=== PATIENT | male | born 1945 | race Caucasian/White ===

== ENCOUNTER 2017-12-17 02:56 | Emergency (ER) | payer MEDICARE, OTHER, SELFPAY ==
[2017-12-17] VITALS (8 sets, daily range): BP systolic 106–162; BP diastolic 71–106; PULSE 83–97; RESP 16–28; TEMP 36.4; O2SAT 92–98; BMI 38.7
[2017-12-17] MEDS: Albuterol 2.5 MG/3 ML VIAL.NEB. INHALATION ×2 (03:27→03:41)
[2017-12-17] MEDS: Ipratropium/Albuterol Sulfate 3 ML AMPUL.NEB INHALATION (03:27)
--- NOTE | 2017-12-17 04:13 | ED.DCSUM_ITS ---
- ER Visit Summary Date of Service: 12/17/17 Chief Complaint: [] Shortness of breath with wheezing History of Present Illness: The patient is a 72 M COPD with wheezing over last 2 hours. [place] okay prior to sleep. Last albuterol at 9:30 PM yesterday. Comes in for wheezing treatment. No Significant cough Physical Examination: [] Vital signs reviewed General: Well-nourished well-developed Head: Normocephalic atraumatic Eyes: Pupils equal round and reactive to light extraocular movements intact ENT: TMs clear no hemotympanum no trauma Neck: Nontender full range of motion Cardiovascular: Regular rate rhythm no murmurs normal S1-S2 Respiratory: No distress wheezing throughout all lung archer chest nontender Abdomen: Soft nontender nondistended normal bowel sounds no masses Back: Nontender no CVA tenderness Extremities: Nontender active range of motion ?4 extremities no trauma Skin: Normal color no trauma Neuro alert oriented cranial nerves II through XII intact normal strength sensation reflexes Test Results: [] Emergency Department Course and Treatment: [] Given 3 albuterol nebulizer treatment and one Atrovent nebulizer treatment with almost complete resolution of the symptoms. Given prednisone and will continue this at home for the next 5 days. At this time I do not feel he needs antibiotics. I feel this is chronic COPD with bronchospasm Treatment Plan: [] Disposition: [] Impression: [] COPD with bronchospasm This note was generated with [employer] dictation software. It may contain incorrect words, spelling, and punctuation that were not noted in review of the chart prior to signing ED Disposition - Plan for ED Patient: Chief Complaint: Shortness of Breath [place] [facility] [Primary Care Provider] -
--- NOTE | 2017-12-17 04:13 | ED.DEP ---
ED Disposition - Plan for ED Patient: Disposition: Home or Assisted Living Chief Complaint: Shortness of Breath Instructions: ED COPD Flare Prescriptions: Prednisone [Deltasone] 60 mg PO DAILY #15 tab [facility] [[facility]] -
== END 2017-12-17 04:43 | disposition home or self-care (01) ==
PROVIDERS: Emergency Provider Emergency Medicine
DX: J44.9 Chronic obstructive pulmonary disease, unspecified (principal); J98.01 Acute bronchospasm; I25.10 Atherosclerotic heart disease of native coronary artery without angina pectoris; I10 Essential (primary) hypertension; I25.2 Old myocardial infarction; Z87.891 Personal history of nicotine dependence
CPT/HCPCS: 94640; 99284

== ENCOUNTER 2018-07-13 08:22 | Emergency (ER) | payer MEDICARE, OTHER, SELFPAY ==
[2018-07-13 08:23] VITALS: BP 198/91; PULSE 121; RESP 26; TEMP 36.3; O2SAT 86; BMI 39.7
--- NOTE | 2018-07-13 08:29 | EKG12_ITS ---
Test Reason : Blood Pressure : / mmHG Vent. Rate : 110 BPM Atrial Rate : 110 BPM P-R Int : 168 ms QRS Dur : 120 ms QT Int : 326 ms P-R-T Axes : 004 025 125 degrees QTc Int : 441 ms Sinus tachycardia Low voltage QRS Incomplete left bundle branch block Abnormal ECG Confirmed by YUVAL CHATMAN, ROGELIO ([id number]), school photograph editor ROJELIO MATHIAS ([id number] on 07/16/2018 2:39:00 PM Referred By: ROMELIA Confirmed By:ROGELIO BARAKAT MD
[2018-07-13 08:30] VITALS: PULSE 119; RESP 28
[2018-07-13] MEDS: Ipratropium/Albuterol Sulfate 3 ML AMPUL.NEB INHALATION (08:30)
--- NOTE | 2018-07-13 08:30 | ED.VISSUMM ---
- ER Visit Summary Date of Service: 07/13/18 Chief Complaint: [] Shortness of breath and cough for a few days History of Present Illness: The patient is a 73 M [] COPD MD x2 ejection fraction by his history about 30% reports he has had a cough and shortness of breath for a few days no chest pain no fever no abdominal pain or paresthesias no edema no orthopnea or PND he is on Proventil inhalers, his cardiovascular pulmonary status generally has been stable he indicates he simply began having increasing wheezing this is not uncommon for him his symptoms intensified this morning came in for evaluation, his current cardiac status has been stable and that he is now had no recent MIs he has no history of PE or DVT Physical Examination: [] Speaking in full sentences but has audible wheezing his pulse ox is 93% on 2 L his HEENT exam shows dry mucous membranes the neck is supple no obvious JVD the lungs reveal diffuse wheezing in all areas the heart tones reveal a rate of about 90 and a regular the abdomen is obese but soft and nontender lower extremities no sinus clubbing or edema neurologically is awake alert moving all 4 Test Results: [] Emergency Department Course and Treatment: [] Aggressive therapy aerosol screening labs EKG chest x-ray Patient's studies are all generally unremarkable no acute findings please see all those reports including chest x-ray and EKG no changes, on reevaluation his blood pressure spontaneously improved to 120/80 he speaking in full sentences he is awake and alert has no complaints we discussed admission he declined admission stating he felt better want to go home he schedule see his physicians at [place] tomorrow does not wish to be admitted understands the risk of sudden but still wants to go home is in the room with him he will be given Kenalog IM 40 mg he has always home meds and he will return for change in symptoms keep his appointments, on room air his pulse ox is 92% he speaking in full sentences and his breath sounds are markedly improved he has no signs of distress and again he is awake alert and wants to go home Treatment Plan: [] Disposition: [] Home stable declined admission Impression: [] Acute exacerbation of COPD improved This note was generated with [employer] dictation software. It may contain incorrect words, spelling, and punctuation that were not noted in review of the chart prior to signing ED Disposition - Plan for ED Patient: Chief Complaint: Shortness of Breath Referrals: [place] [Primary Care Provider] -
[2018-07-13 08:47] VITALS: O2SAT 92
[2018-07-13] MEDS: MethylPREDNISolone 125 MG/2 ML Vial IV (08:48)
--- NOTE | 2018-07-13 08:49 | RAD_ITS ---
STUDY: X-RAY CHEST REASON FOR EXAM: Male, 73 years old. Increasing shortness of breath. TECHNIQUE: Single AP portable view of the chest. COMPARISON: 16 Mar 2016 FINDINGS: The lungs are clear and expanded. There is no demonstrated pleural abnormality. Normal size heart. Normal mediastinum and mary beth. Normal visualized pulmonary arteries. Normal visualized aortic arch and descending thoracic aorta. Normal visualized thoracic spine. Normal visualized ribs, clavicles, and shoulders. There is no demonstrated abnormality of the visualized soft tissue structures of the upper abdomen. RAD/Chest 1 View (Portable) IMPRESSION: No evidence of acute cardiopulmonary process. Electronically Signed: Lorne Thakkar DO at 9:07 EDT , Service support ,
[2018-07-13 08:56] LABS: Absolute Lymphocyte Count 2.37 X10^3/ul (0.83-4.51); Absolute Neutrophil Count 6.7 X10^3/uL (2.0-7.7); Basophil# 0.02 X10^3/uL; Basophil% 0.2 % (0-1); Eosinophil# 0.61 X10^3/uL; Eosinophils% 5.7 % (0-5); Hematocrit 49.9 % (40-54); Hemoglobin 16.1 g/dl (13.0-16.5); Lymphocyte # 2.37 X10^3/ul (4.0); Lymphocyte % 22.3 % (19-41); Mean Corp Hgb Conc 32.3 g/gl (32-36); Mean Corpuscular Hgb 32.5 pg (27.0-32.0); Mean Corpuscular Volume 100.6 fL (80-94); Mean Platelet Vol. 9.6 fl (6.2-12.0); Monocyte# 0.96 X10^3/uL; Neutrophil # 6.66 X10^3/uL (2.7-7.7); Neutrophil % 62.6 % (47-70); Platelet Count 207 K/mm3 (150-450); RBC Distribution Width CV 13.6 % (11.6-14.6); RBC Distribution Width SD 50.1 fl (35.1-43.9); Red Blood Count 4.96 M/mm3 (4.6-6.2); White Blood Count 10.6 K/mm3 (4.4-11.0)
[2018-07-13 09:01] LABS: POSITIVE COUNT NO; POSITIVE DIFFERENTIAL NO; POSITIVE MORPHOLOGY NO
[2018-07-13 09:16] LABS: Anion Gap 6 (5-15); BUN 17 mg/dL (7-18); BUN/Creat Ratio 14.8 RATIO (10-20); Calcium,Total 8.7 mg/dL (8.5-10.1); Chloride 104 mmol/L (98-107); Creatinine, Serum 1.15 mg/dL (0.70-1.30); EST Glomerular Filtration Rate 66 mL/min (>60); Est Glom Filt Rate - Afr Amer 80 mL/min (>60); Estimated Creatinine Clearance 58.06 ml/min; Glucose 120 mg/dL (74-106); Potassium 4.5 mmol/L (3.5-5.1); Sodium Level 139 mmol/L (136-145)
[2018-07-13 09:30] VITALS: BP 127/73; PULSE 90; RESP 20; O2SAT 90
[2018-07-13 09:30] LABS: BNP,B-Type NATRIURETIC PEPTIDE 63.2 pg/mL (0-100)
--- NOTE | 2018-07-13 09:42 | ED.DEP ---
ED Disposition - Plan for ED Patient: Chief Complaint: Shortness of Breath Instructions: ED COPD Flare [facility] [[facility] - Additional Instructions: [facility] all your [facility], you were given 40 mg of Kenalog IM
[2018-07-13 09:53] VITALS: BP 129/74; PULSE 90; RESP 15; O2SAT 91
[2018-07-13] MEDS: Triamcinolone Acetonide 40 MG/ML Vial IM (09:53)
== END 2018-07-13 10:22 | disposition home or self-care (01) ==
PROVIDERS: Emergency Provider Emergency Medicine
DX: J44.1 Chronic obstructive pulmonary disease with (acute) exacerbation (principal); I25.2 Old myocardial infarction; I25.10 Atherosclerotic heart disease of native coronary artery without angina pectoris
CPT/HCPCS: 71045; 80048; 83880; 84484; 85025; 93005; 94640; 96372; 96374; 99284

== ENCOUNTER 2020-09-29 08:38 | Emergency (ER) | payer OTHER, MEDICARE, SELFPAY ==
[2020-09-29] VITALS (7 sets, daily range): BP systolic 130–188; BP diastolic 81–127; PULSE 64–82; RESP 18–24; TEMP 36.3; O2SAT 95–99; BMI 38.4
--- NOTE | 2020-09-29 08:56 | EKG12_ITS ---
Test Reason : DYSRHYTHMIA Blood Pressure : / mmHG Vent. Rate : 077 BPM Atrial Rate : 077 BPM P-R Int : 162 ms QRS Dur : 120 ms QT Int : 380 ms P-R-T Axes : - 121 degrees QTc Int : 430 ms Normal sinus rhythm Low voltage QRS Septal infarct (cited on or before 29-SEP-2020) ST & T wave abnormality, consider lateral ischemia Abnormal ECG Confirmed by FRANCIS JUAREZ MD ([id number]), index editor ALESSANDRA BOLANOS ([id number]) on 10/03/2020 1:03:34 PM Referred By: Confirmed By:FRANCIS JUAREZ MD
--- NOTE | 2020-09-29 08:58 | ED.VIS.GEN ---
History of Present Illness Chief Complaint: Shortness of Breath Informant: Patient Onset: Days - Several days Context: Gradual Onset Timing: Continuous Quality: Increased shortness of breath, orthopnea, swelling of extremities Location: Suspect cardiovascular Current Severity: Mild Maximum Severity: Moderate Worsened by: Supine in activity Relieved by: Nothing Associated Symptoms: No infectious respiratory symptoms Narrative: Patient is a 75-year-old male with history of COPD who quit smoking 13 years ago. He arrived by ambulance because of shortness of breath. Patient has no infectious symptoms. He denies fever, chills night sweats. He denies rhinorrhea, congestion, postnasal drainage or sore throat. He denies change or loss of taste or smell. He denies chest discomfort. He does report shortness of breath, dyspnea on exertion and orthopnea. Patient admits he discontinued his furosemide. He believes he has gained weight and he was unaware that he has swelling of his legs. He denies black or maroon stool. He denies history of PE or DVT. He had no contact with anyone that is been ill in the past month. Prior similar symptoms: Yes - Congestive heart failure Recent Illness/Hospitalization: No - Past Medical History (1) Congestive heart failure Status: Acute (2) Obstructive sleep apnea Status: Acute (3) COPD (chronic obstructive pulmonary disease) Status: Acute (4) CAD (coronary artery disease) Status: Chronic (5) Hypertension Status: Chronic (6) Myocardial infarct Status: Chronic Past Medical History - Allergies and Home Meds Allergies/Adverse Reactions: Allergies No Known Allergies Allergy (Verified 09/29/20 08:43) Primary Care Physician: [facility] [Primary Care Provider] - Prior records reviewed: Yes - Patient not compliant with CPAP machine Surgical History: noncontributory Lives: Alone Smoking Status: Former smoker Alcohol: None Drugs: None Review of Systems General: Denies: Chills, Fever Eyes: Denies: Visual changes - bilaterally, Blurred Vision - bilaterally ENT: Denies: Rhinorrhea, Sore throat Respiratory: Reports: Dyspnea, Dyspnea on exertion, Orthopnea. Denies: Cough, Sputum, Paroxysmal nocturnal dyspnea Gastrointestinal: Denies: Abdominal pain, Nausea, Vomiting, Diarrhea, Melena Genitourinary: Denies: Dysuria, Hematuria, Frequency Musculoskeletal: Denies: Myalgias, Arthralgias, Neck pain, Back pain, Swelling, Extremity Pain Skin: Denies: Rash, Wounds Neurological: Denies: Headache Psych: Denies: Depression, Anxiety Endocrine: Denies: Polyuria, Polydipsia Hematologic: Denies: Easy bruising Allergy: Denies: Uticaria Physical Exam Vital Signs/Narrative: Vital Signs Temp Pulse Resp BP Pulse Ox 09/29/20 08:39 97.3 F L 82 24 H 188/96 H 99 Inital Vital Signs reviewed: Yes General: Well nourished, Well developed, Obese, No Acute Distress Head: Normocephalic, Atraumatic Eyes: Perrl, EOMI, - - Junction is not injected. There is no drainage.. Negative for: Pale conjunctiva, Scleral icterus ENT: Moist mucous membranes, No rhinorrhea, TM's clear Neck: Supple, Nontender, No lymphadenopathy, No JVD Cardiovascular: Regular rate, Regular rhythm, No murmurs, Normal S1, Normal S2 Respiratory: Chest nontender, - - There is expiratory stridor noted. Patient has transmission of upper airway sounds to the lower airway. There may be and expiratory wheezing noted. There are no rales or rhonchi appreciated.. Negative for: No distress, CTA bilaterally Abdomen: Soft, Nontender, Nondistended, Normal bowel sounds Rectal: Deferred Back: Nontender, Normal Inspection Extremities: Nontender, Edema - Pitting edema 1+. Skin: No rash, No Trauma, Pallor. Negative for: Cyanosis, Diaphoresis, Jaundice Neurological: Alert, Oriented x3, Cranial nerves II-XII grossly intact, Normal Strength, Normal Sensation Psychological: Normal affect Diagnostic/Tx/Re-eval Chest X-Ray - ED: 2 View, Read by ED Physician, Normal, Heart, Lungs, Mediastinum, Bony Structures, No Acute Disease, - - Pacemaker/AICD left side. Wires are in proper position. Impressions Chest X-Ray 09/29/20 09:30 IMPRESSION: Hyperinflation. No acute abnormality is seen. Electronically Signed: Bam Chen, at 9:57 EST , Service support , 09/29/20 09:30 Chest PA and Lateral [RAD] Stat Laboratory Results 09/29/20 09/29/20 09/29/20 09:25 09:25 09:25 WBC 14.1 H RBC 4.87 Hgb 16.0 Hct 47.6 MCV 97.7 H MCH 32.9 H MCHC 33.6 RDW Std Deviation 47.1 H RDW Coeff of Ignacio 13.2 Plt Count 209 MPV 9.6 Immature Gran % (Auto) 0.400 Neut % (Auto) 66.6 Lymph % (Auto) 21.9 [place] % (Auto) 9.9 Eos % (Auto) 0.8 Baso % (Auto) 0.4 Absolute Neuts (auto) 9.4 H Absolute Lymphs (auto) 3.10 Nucleated RBC % 0 Sodium 141 Potassium 4.0 Chloride 106 Carbon Dioxide 32.0 Anion Gap 3 L BUN 19 H Creatinine 1.21 Estim Creat Clear Calc 53.56 Est GFR (MDRD) Af Amer 75 Est GFR (MDRD) Non-Af 62 BUN/Creatinine Ratio 15.7 Glucose 94 Calcium 8.7 Troponin I 0.024 B-Natriuretic Peptide 533.3 H White count is elevated which is a nonspecific marker. Creatinine is slightly elevated at 1.21 with a GFR of 62. Troponin is normal. BNP is elevated at 533 and consistent with CHF. Patient was treated with Lasix and Nitropaste. He was given a prescription for Lasix. He was instructed [facility] 5 [facility]. He also was instructed the importance of compliance with medication and diet. - EKG Initial EKG Interpretation: Sinus Rhythm - Normal sinus rhythm with ventricular rate 77. SC interval is 162 ms. Cures duration 120 ms. QT duration 380 ms. [place] is normal. There is decreased anterior forces noted. There is artifact as well as nonspecific ST-T wave changes noted in the lateral leads. There is criteria for low voltage. - Medical Decision Making With gradual onset of shortness of breath no respiratory infectious symptoms and admission that he has not been compliant with furosemide with orthopnea pedal edema suspect patient has exacerbation of his CHF/fluid overload state. Troponin was obtained to rule out ischemia. Chest x-ray was obtained to evaluate for other possible causes. In my opinion patient does not have Covid and is not a person under investigation. Patient clinically is in heart failure with fluid overload. Will administer Lasix in the emergency department and Nitropaste. Patient to be discharged. He has been instructed to take the medicine as prescribed by his physician. ED Disposition - Plan for ED Patient: Disposition: Home or Assisted Living Diagnosis: CHF exacerbation Instructions: ED Heart Failure, Congestive (CHF) Prescriptions: Furosemide [Lasix] 40 mg PO DAILY #30 tab Prescription Printed [facility] [[facility]] - 3-5 Days
--- NOTE | 2020-09-29 09:30 | RAD_ITS ---
STUDY: X-RAY CHEST REASON FOR EXAM: Male, 75 years old. SOB- seems wore today. Audible wheezing. -- HX AK X2, COPD and Emphysema TECHNIQUE: PA and lateral views of the chest. COMPARISON: Comparison is made with prior study of 07/13/2018. FINDINGS: EKG electrodes are seen. Hyperinflation. There is no demonstrated pleural abnormality. Normal size heart. A left-sided unipolar pacemaker is present. Normal mediastinum and mary beth. Normal visualized pulmonary arteries. Normal visualized aortic arch and descending thoracic aorta. There is demineralization of the osseous structures. Loss of height of a mid dorsal vertebrae. Normal visualized ribs, clavicles, and shoulders. There is no demonstrated abnormality of the visualized soft tissue structures of the upper abdomen. RAD/Chest PA and Lateral IMPRESSION: Hyperinflation. No acute abnormality is seen. Electronically Signed: Bam Chen, at 9:57 EST , Service support ,
[2020-09-29 09:33] LABS: Absolute Neutrophil Count 9.4 X10^3/uL (2.0-7.7); Basophil# 0.05 X10^3/uL; Basophil% 0.4 % (0-1); Eosinophil# 0.11 X10^3/uL; Eosinophils% 0.8 % (0-5); Hematocrit 47.6 % (40-54); Lymphocyte % 21.9 % (19-41); Mean Corp Hgb Conc 33.6 g/dL (32-36); Mean Corpuscular Hgb 32.9 pg (27.0-32.0); Mean Corpuscular Volume 97.7 fL (80-94); Mean Platelet Vol. 9.6 fl (6.2-12.0); Monocyte% 9.9 % (0-10); NRBC Flagged by Analyzer 0 % (0-5); Neutrophil # 9.41 X10^3/uL (2.7-7.7); Neutrophil % 66.6 % (47-70); Platelet Count 209 K/mm3 (150-450); RBC Distribution Width CV 13.2 % (11.6-14.6); RBC Distribution Width SD 47.1 fl (35.1-43.9); Red Blood Count 4.87 M/mm3 (4.6-6.2); White Blood Count 14.1 K/mm3 (4.4-11.0)
[2020-09-29 09:50] LABS: BNP,B-Type NATRIURETIC PEPTIDE 533.3 pg/mL (0-100)
[2020-09-29 09:51] LABS: Anion Gap 3 (5-15); BUN 19 mg/dL (7-18); BUN/Creat Ratio 15.7 RATIO (10-20); Calcium,Total 8.7 mg/dL (8.5-10.1); Chloride 106 mmol/L (98-107); Creatinine, Serum 1.21 mg/dL (0.70-1.30); EST Glomerular Filtration Rate 62 mL/min (>60); Est Glom Filt Rate - Afr Amer 75 mL/min (>60); Estimated Creatinine Clearance 53.56 ml/min; Glucose 94 mg/dL (74-106); Sodium Level 141 mmol/L (136-145)
[2020-09-29] MEDS: Furosemide 40 MG/4 ML Vial IV (11:20)
[2020-09-29] MEDS: Nitroglycerin Oint 1 INCH PACKET TD (11:33)
== END 2020-09-29 11:35 | disposition home or self-care (01) ==
PROVIDERS: Emergency Provider Emergency Medicine
DX: I11.0 Hypertensive heart disease with heart failure (principal); I50.9 Heart failure, unspecified; Z91.19 Patient's noncompliance with other medical treatment and regimen; I25.2 Old myocardial infarction; G47.33 Obstructive sleep apnea (adult) (pediatric); I25.10 Atherosclerotic heart disease of native coronary artery without angina pectoris; J44.9 Chronic obstructive pulmonary disease, unspecified; Z87.891 Personal history of nicotine dependence
CPT/HCPCS: 71046; 80048; 83880; 84484; 85025; 93005; 96374; 99285; A4216; J1940

== ENCOUNTER 2021-03-03 17:47 | Observation (INO) | payer OTHER, MEDICARE, SELFPAY ==
[2020-09-29 08:39] VITALS: BMI 38.4
[2021-03-03 17:49] VITALS: BP 161/80; PULSE 94; RESP 18; TEMP 36.8; O2SAT 95; BMI 38.4
--- NOTE | 2021-03-03 17:54 | EKG12_ITS ---
Test Reason : CP Blood Pressure : / mmHG Vent. Rate : 092 BPM Atrial Rate : 092 BPM P-R Int : 174 ms QRS Dur : 116 ms QT Int : 368 ms P-R-T Axes : -28 -10 133 degrees QTc Int : 455 ms Sinus rhythm with Premature atrial complexes Septal infarct , age undetermined ST & T wave abnormality, consider lateral ischemia Abnormal ECG Confirmed by LARRY CHATMAN, FRANCIS ([id number]), deputy editor in chief LUDIN KHALIL ([id number]) on 03/06/2021 1:01:43 PM Referred By: SWEETIE/DANIELA Confirmed By:FRANCIS JUAREZ MD
[2021-03-03 18:11] LABS: Absolute Lymphocyte Count 1.09 X10^3/uL (0.83-4.51); Absolute Neutrophil Count 4.8 X10^3/uL (2.0-7.7); Basophil# 0.03 X10^3/uL; Basophil% 0.4 % (0-1); Eosinophils% 1.4 % (0-5); Hematocrit 51.8 % (40-54); Hemoglobin 16.9 g/dL (13.0-16.5); Lymphocyte # 1.09 X10^3/ul (0.83-4.51); Mean Corp Hgb Conc 32.6 g/dL (32-36); Mean Corpuscular Hgb 32.4 pg (27.0-32.0); Mean Corpuscular Volume 99.4 fL (80-94); Mean Platelet Vol. 9.5 fl (6.2-12.0); Monocyte# 1.18 X10^3/uL; Monocyte% 16.2 % (0-10); NRBC Flagged by Analyzer 0 % (0-5); Neutrophil # 4.84 X10^3/uL (2.7-7.7); Neutrophil % 66.6 % (47-70); Platelet Count 188 K/mm3 (150-450); RBC Distribution Width CV 12.4 % (11.6-14.6); RBC Distribution Width SD 46.4 fl (35.1-43.9); Red Blood Count 5.21 M/mm3 (4.6-6.2); White Blood Count 7.3 K/mm3 (4.4-11.0)
--- NOTE | 2021-03-03 18:18 | RAD_ITS ---
STUDY: X-RAY CHEST REASON FOR EXAM: Male, 75 years old. chest pain TECHNIQUE: Single AP portable view of the chest. COMPARISON: 09/29/2020. FINDINGS: The lungs are clear and expanded. There is no demonstrated pleural abnormality. Normal size heart. Pacemaker on the left. Normal mediastinum and mary beth. Normal visualized pulmonary arteries. Normal visualized aortic arch and descending thoracic aorta. Normal visualized thoracic spine. Normal visualized ribs, clavicles, and shoulders. There is no demonstrated abnormality of the visualized soft tissue structures of the upper abdomen. RAD/Chest 1 View (Portable) IMPRESSION: Normal x-ray examination of the chest. Electronically Signed: Eleanor Reyes MD at 19:19 EDT Tel , Service support ,
--- NOTE | 2021-03-03 18:18 | EDS_ITS ---
HPI History of Present Illness Chief Complaint: Shortness of Breath Narrative Narrative: 75-year-old male with history of [place], cardiac stents, CHF, hypertension, COPD presenting with chest pressure and shortness of breath which lasted about 30 minutes. He states that he typically does get a little short of breath with his COPD but does not usually have chest pressure. Patient states he is currently awaiting an office visit from the [place] in the next week and a half or so. He also has a cardiology visit after that. Patient has no fever or chills. He has no nausea or vomiting. He is eating and drinking normally. He states he took 2 350 mg tab of aspirin today. He currently has no chest pain or shortness of breath. [facility] Medical History (Updated 03/03/21 @ 21:37 by Sharee Lee) COPD (chronic obstructive pulmonary disease) CPAP (continuous positive airway pressure) dependence Former smoker ICD (implantable cardioverter-defibrillator) in place Myocardial infarct Home Medications albuterol sulfate [Proventil HFA] 1 - 2 puff IH Q2H PRN 03/16/16 [History Last Taken 03/03/21 15:00] aspirin 81 mg PO DAILY@0800 03/16/16 [History Last Taken 03/03/21] budesonide-formoterol [Symbicort] 2 puff INHALATION BID 03/16/16 [History Last Taken 03/03/21] rosuvastatin 5 mg PO QHS 12/17/17 [History Last Taken 03/03/21] spironolactone 25 mg PO DAILY 12/17/17 [History Last Taken 03/03/21] lisinopril 10 mg PO BID 03/03/21 [History Last Taken 03/03/21] metoprolol succinate 50 mg PO BID 03/03/21 [History Last Taken 03/03/21] Allergy/AdvReac Type Severity Reaction Status Date / Time No Known Allergies Allergy Verified 03/03/21 17:48 Family History (Updated 03/03/21 @ 21:[address] Amanuel Roach MD) Mother Aneurysm Surgical History (Updated 03/03/21 @ 21:37 by Sharee Lee) History of cholecystectomy History of colectomy History of coronary artery stent placement Social History Smoking Status: Former smoker ROS ROS ED Constitutional Constitutional ED: Denies chills, fever(s) or sweats Eyes Eyes: Denies blurry vision or change in vision ENT ENT ED: Denies ear pain, rhinorrhea or sore throat Cardiovascular Cardiovascular: Reports chest pain and racing heartbeat; Denies palpitations Respiratory/Chest Respiratory/Chest: Reports dyspnea; Denies cough or sputum Gastrointestinal Gastrointestinal: Denies abdominal pain, constipation, diarrhea or vomiting Genitourinary Genitourinary ED: Denies dysuria, hematuria or urinary frequency Musculoskeletal Musculoskeletal: Denies arthralgias, myalgias or neck pain Integumentary Denies abscess, Abrasions or rash Neurologic Neurologic: Denies headache(s), paresthesias or weakness Psychiatric Psychiatric: Denies anxiety, depression, suicidal ideation or suicidal thoughts Endocrine Endocrinology: Denies polydipsia or polyuria EXAM Physical Exam Const Vital Signs: 03/03/21 17:49 03/03/21 17:54 03/03/21 18:31 Temperature 98.3 F Temperature Source Temporal Pulse Rate 94 Respiratory Rate 18 Respiratory Effort Normal Respiratory Depth Normal Respiratory Pattern Normal Blood Pressure 161/80 H Blood Pressure Mean 107 Pulse Ox 95 Oxygen Delivery Method Room Air Room Air Nasal Cannula 03/03/21 20:08 Temperature 98.5 F Temperature Source Temporal Pulse Rate 79 Respiratory Rate 14 Respiratory Effort Respiratory Depth Respiratory Pattern Blood Pressure 159/94 H Blood Pressure Mean 115 Pulse Ox 93 Oxygen Delivery Method Room Air Positive obese General Appearance ED: NAD; Negative for pallor Nutritional Appearance: obese HEENT Reports normocephalic, head/scalp atraumatic and moist mucous membranes normocephalic and atraumatic Eyes PERRL and EOMs intact bilaterally Neck no lymphadenopathy and supple Chest Wall inspection of chest normal and palpation of chest normal Resp normal respiratory effort and clear to auscultation bilaterally Auscultation: Negative for rales, rhonchi or wheezes Cardio regular rate and regular rhythm GI normal to inspection, nondistended, normoactive bowel sounds and non-distended Auscultation: normoactive bowel sounds Palpation: soft Narrative: Deferred Back/Spine no CVA tenderness General Back: Negative for CVA tenderness Cervical Spine: Negative for cervical spine tenderness Extremity normal to inspection General Extremety ED: Yes edema and tenderness General Extremity: edema Neuro oriented x3 and CN's II-XII intact bilaterally Sensorium / Orientation: alert Motor Exam: strength 5/5 throughout Psych mental status grossly normal Attitude: No agitated Skin no rashes or lesions noted and no wounds General Skin Exam: Negative for jaundice or pallor Heart Score History: Moderately Suspicious ECG: Normal Age: >/= 65 years Risk Factors: >/= 3 Risk Factors or History of CAD Troponin: </= Normal Limit Score: 5 MDM MDM MDM Narrative Medical decision making narrative: 75-year-old male presenting with chest pain. He has a heart score of 5. He had chest x-ray is interpreted by myself to show no acute cardiopulmonary process. Radiology does agree. EKG is sinus rhythm at [address] changes. There is no significant interval change from previous EKG 29 September 2020. Lab work shows no leukocytosis, hemoglobin hematocrit are stable platelets 188 troponin is negative.Given patient's story and heart score I will admit him for further evaluation. Impression: 1. Chest pain 2. Dyspnea Lab Data Labs: Laboratory Results - last 24 hr 03/03/21 03/03/21 17:50 17:50 WBC 7.3 RBC 5.21 Hgb 16.9 H Hct 51.8 MCV 99.4 H MCH 32.4 H MCHC 32.6 RDW Std Deviation 46.4 H RDW Coeff of Ignacio 12.4 Plt Count 188 MPV 9.5 Immature Gran % (Auto) 0.400 Neut % (Auto) 66.6 Lymph % (Auto) 15.0 L [place] % (Auto) 16.2 H Eos % (Auto) 1.4 Baso % (Auto) 0.4 Absolute Neuts (auto) 4.8 Absolute Lymphs (auto) 1.09 Nucleated RBC % 0 Sodium 142 Potassium 3.8 Chloride 106 Carbon Dioxide 30.0 Anion Gap 6 BUN 17 Creatinine 1.40 H Estim Creat Clear Calc 46.29 Est GFR (MDRD) Af Amer 64 Est GFR (MDRD) Non-Af 53 L BUN/Creatinine Ratio 12.1 Glucose 87 Calcium 8.4 L Troponin I < 0.015 Radiography Diagnostic Testing: Radiology Impression Chest X-Ray 03/03/21 18:18 IMPRESSION: Normal x-ray examination of the chest. Electronically Signed: Eleanor Reyes MD at 19:19 EDT Tel , Service support , Discharge Plan Disposition Disposition: Acute Care Hospital [facility] Discharge Date/Time: 03/03/21 20:58
[2021-03-03 18:31] VITALS: O2SAT 93
[2021-03-03 18:32] LABS: Anion Gap 6 (5-15); BUN 17 mg/dL (7-18); BUN/Creat Ratio 12.1 RATIO (10-20); Calcium,Total 8.4 mg/dL (8.5-10.1); Chloride 106 mmol/L (98-107); EST Glomerular Filtration Rate 53 mL/min (>60); Est Glom Filt Rate - Afr Amer 64 mL/min (>60); Estimated Creatinine Clearance 46.29 ml/min; Glucose 87 mg/dL (74-106); Potassium 3.8 mmol/L (3.5-5.1); Sodium Level 142 mmol/L (136-145)
[2021-03-03 20:08] VITALS: BP 159/94; PULSE 79; PULSE 81; RESP 14; RESP 18; TEMP 36.9; O2SAT 93; O2SAT 94
--- NOTE | 2021-03-03 20:21 | PCM.HP.STD ---
[facility] - General General Date of Admission: 03/03/21 HPI Narrative TRINY CHAND, is a 75 M with a significant history of COPD; heart failure with ICD; CAD status post RCA stent and mid circumflex stents who presents to the emergency department with a transient substernal chest pain that occurred on the same day of presentation. His chest pain was substernal. He described as discomforts. It occurred while patient was sitting down resting. The chest pain lasted for about 3 to 4 minutes. The chest pain was nonradiating. He denies any nausea vomiting or diaphoresis with the chest pain. He has chronic shortness of breath with exertion that he attributes to his COPD. He had some headache at home and he took aspirin for it. [facility] Medical History COPD (chronic obstructive pulmonary disease) CPAP (continuous positive airway pressure) dependence Former smoker ICD (implantable cardioverter-defibrillator) in place Myocardial infarct Home Medications albuterol sulfate [Proventil HFA] 1 - 2 puff IH Q2H PRN 03/16/16 [History Last Taken 03/03/21 15:00] aspirin 81 mg PO DAILY@0800 03/16/16 [History Last Taken 03/03/21] budesonide-formoterol [Symbicort] 2 puff INHALATION BID 03/16/16 [History Last Taken 03/03/21] rosuvastatin 5 mg PO QHS 12/17/17 [History Last Taken 03/03/21] spironolactone 25 mg PO DAILY 12/17/17 [History Last Taken 03/03/21] lisinopril 10 mg PO BID 03/03/21 [History Last Taken 03/03/21] metoprolol succinate 50 mg PO BID 03/03/21 [History Last Taken 03/03/21] Allergy/AdvReac Type Severity Reaction Status Date / Time No Known Allergies Allergy Verified 03/03/21 17:48 Family History Mother Aneurysm Surgical History History of cholecystectomy History of colectomy History of coronary artery stent placement Social History Smoking Status: Former smoker ROS ROS Narrative 12 point review of system is negative except as stated in HPI. Vital Signs Vital Signs Vital Signs: 03/03/21 17:49 03/03/21 17:54 03/03/21 18:31 Temperature 98.3 F Temperature Source Temporal Pulse Rate 94 Respiratory Rate 18 Respiratory Effort Normal Respiratory Depth Normal Respiratory Pattern Normal Blood Pressure 161/80 H Blood Pressure Mean 107 Pulse Ox 95 Oxygen Delivery Method Room Air Room Air Nasal Cannula 03/03/21 20:08 Temperature 98.5 F Temperature Source Temporal Pulse Rate 79 Respiratory Rate 14 Respiratory Effort Respiratory Depth Respiratory Pattern Blood Pressure 159/94 H Blood Pressure Mean 115 Pulse Ox 93 Oxygen Delivery Method Room Air Physical Exam Narrative Alert and oriented x3 Nontraumatic; normocephalic Lung clear to auscultate Heart sounds S1-S2. No murmur, gallop or rubs. Abdomen bowel sounds present soft, nontender nondistended Extremity without edema cyanosis or clubbing. Lab / Micro Data Result Diagrams: 03/03/21 17:50 03/03/21 17:50 Labs: Laboratory Results - last 24 hr 03/03/21 03/03/21 17:50 17:50 WBC 7.3 RBC 5.21 Hgb 16.9 H Hct 51.8 MCV 99.4 H MCH 32.4 H MCHC 32.6 RDW Std Deviation 46.4 H RDW Coeff of Ignacio 12.4 Plt Count 188 MPV 9.5 Immature Gran % (Auto) 0.400 Neut % (Auto) 66.6 Lymph % (Auto) 15.0 L Calloway % (Auto) 16.2 H Eos % (Auto) 1.4 Baso % (Auto) 0.4 Absolute Neuts (auto) 4.8 Absolute Lymphs (auto) 1.09 Nucleated RBC % 0 Sodium 142 Potassium 3.8 Chloride 106 Carbon Dioxide 30.0 Anion Gap 6 BUN 17 Creatinine 1.40 H Estim Creat Clear Calc 46.29 Est GFR (MDRD) Af Amer 64 Est GFR (MDRD) Non-Af 53 L BUN/Creatinine Ratio 12.1 Glucose 87 Calcium 8.4 L Troponin I < 0.015 Radiology Impression Chest X-Ray 03/03/21 18:18 IMPRESSION: Normal x-ray examination of the chest. Electronically Signed: Eleanor Reyes MD at 19:19 EDT Tel , Service support , Assessment & Plan Assessment/Plan (1) Chest pain: QUALIFIERS: Chest pain type: unspecified Qualified Code(s): R07.9 - Chest pain, unspecified (2) Congestive heart failure: QUALIFIERS: Heart failure chronicity: chronic Heart failure type: unspecified Qualified Code(s): I50.9 - Heart failure, unspecified (3) Hypertension: QUALIFIERS: Hypertension type: essential hypertension Qualified Code(s): I10 - Essential (primary) hypertension (4) Systolic congestive heart failure with reduced left ventricular function, NYHA class 3: PLAN: With hx of CAD with history of stents. Place on a monitored bed at PCU Actual CXR image was independently visualized. No acute cardiopulmonary process was noted. Permanent pacemaker/ICD noted on chest x-ray. Actual EKG tracing was independently visualized. EKG tracing showed incomplete bundle branch block and septal infarct unchanged from previous. ASA 81 mg p.o. daily ordered We will check lipid panel. Initial troponin was negative serial cardiac enzymes ordered Stat EKG as needed for chest pain Chemical stress test in the AM if the cardiac enzymes are negative. Of note patient has dyspnea on exertion and will be unable to tolerate treadmill stress test. Old records reviewed showed that echocardiogram was done on 03/17/2016.?. Ejection fraction at time was 35%. Echocardiogram ordered. Hypertension Blood pressure is not within goal Lisinopril; metoprolol and Aldactone continued. Trend blood pressure and adjust blood pressure medications. Visit Charges OBSV E&M: 11020 Initial observation care L3
[2021-03-03] MEDS: Acetaminophen 500 MG Tablet 1000 MG PO (20:23)
--- NOTE | 2021-03-03 20:27 | NURSING ---
[facility]IED CALLING [facility] TO SEE ABOUT ADMISS[facility]. I WAS TRANSFERRED AND THE PHONE JUST KEPT RINGING AND EVENTUALLY HUNG UP. WILL TRY CALLING AGAIN
[2021-03-03 20:57] VITALS: BMI 39.3
--- NOTE | 2021-03-03 20:57 | EKG12_ITS ---
Test Reason : AM EKG Blood Pressure : / mmHG Vent. Rate : 076 BPM Atrial Rate : 076 BPM P-R Int : 172 ms QRS Dur : 126 ms QT Int : 408 ms P-R-T Axes : -12 -17 119 degrees QTc Int : 459 ms Normal sinus rhythm Non-specific intra-ventricular conduction block T wave abnormality, consider lateral ischemia Abnormal ECG When compared with ECG of 03-MAR-2021 21:29, MANUAL COMPARISON REQUIRED, DATA IS UNCONFIRMED Confirmed by LARRY CHATMAN, FRANCIS ([id number]), fashion editor LUDIN KHALIL ([id number]) on 03/07/2021 8:53:25 AM Referred By: DR ROSAS Confirmed By:FRANCIS JUAREZ MD
[2021-03-03 20:59] VITALS: BP 157/82; PULSE 86; RESP 16; TEMP 37.7; O2SAT 94
[2021-03-03 21:00] VITALS: O2SAT 95
[2021-03-03 21:46] VITALS: PULSE 88
[2021-03-04] VITALS (8 sets, daily range): BP systolic 128–152; BP diastolic 72–92; PULSE 76–94; RESP 16–20; TEMP 36.6–36.9; O2SAT 92–94
[2021-03-04] MEDS: Acetaminophen 325 MG Tablet 650 MG PO ×2 (02:23→11:07)
--- NOTE | 2021-03-04 03:11 | ECHOCS_ITS ---
Reason For Study: Dyspnea/SOB Procedure This was a 2D Doppler, Color Flow transthoracic echocardiogram. Contrast injection was performed. The study was technically difficult. Exam performed in department. Left Ventricle Normal LV size. The estimated ejection fraction is 35 %. Moderately severe segmental systolic dysfunction (see wall motion). Stage 1 diastolic dysfunction. Inferior Irwin : Hypokinetic. Mid- Inferior: Akinetic. Infero-Basal: Akinetic. Posterior-Basal: Hypokinetic. Mid-Posterior: Hypokinetic. Mid-Anterior : Normal. Basal anteroseptal: Normal. Right Ventricle Normal RV size. ICD or pacer leads identified within the right ventricle. Normal systolic function. Atria Normal left atrium. Normal right atrium. Tricuspid Valve Normal tricuspid valve. Aortic Valve The aortic valve is not well visualized. Pulmonic Valve The pulmonic valve is not well visualized. Great Vessels Normal aortic root. The pulmonary artery is normal size. Normal inferior vena cava. Pericardium/Pleural No pericardial effusion. Medication Diluted definity 4ml given slow IV push to enhance endocardial definition. MMode/2D Measurements & Calculations LVIDd: 5.4 cm IVSd: 1.3 cm Ao root diam: 3.7 cm LVIDs: 4.2 cm LVPWd: 1.2 cm RVDd: 3.1 cm FS: 21.8 % LAV(MOD-bp): 44.6 ml LA A4 area: 15.1 cm2 LA dimension(2D): 4.6 cm LAV(MOD-bp) Indexed: 19.1 ml/m2 LAV(MOD-sp2): 52.3 ml LAV(MOD-sp4): 29.8 ml RA A4 area: 14.1 cm2 Doppler Measurements & Calculations MV E max yadiel: 72.9 cm/sec Lat Peak E' Yadiel: 8.0 cm/sec Med Peak E' Yadiel: 3.4 cm/sec MV A max yadiel: 111.7 cm/sec E/E' lat: 9.2 E/E' med: 21.5 MV E/A: 0.65 Ao V2 max: 151.3 cm/sec LV V1 max: 108.2 cm/sec PA V2 max: 80.3 cm/sec Ao max P.3 mmHg LV V1 max P.7 mmHg Ao V2 mean: 110.0 cm/sec Ao mean P.3 mmHg Ao V2 VTI: 29.3 cm ECHO/Echo Complete W/ Contrast Interpretation Summary The estimated ejection fraction is 35 %. Moderately severe segmental systolic dysfunction (see wall motion). Stage 1 diastolic dysfunction. Contrast injection was performed. Compared to previous study, the left ventricu lar systolic function is the same.. Ordering Physician: Amanuel Roach Referring Physician: [facility] Performed By: Lauren Llamas RDCS, RVT
--- NOTE | 2021-03-04 05:00 | EKG12_ITS ---
Test Reason : CP ADMIT Blood Pressure : / mmHG Vent. Rate : 079 BPM Atrial Rate : 079 BPM P-R Int : 172 ms QRS Dur : 124 ms QT Int : 392 ms P-R-T Axes : -14 -21 121 degrees QTc Int : 449 ms Normal sinus rhythm ST & T wave abnormality, consider lateral ischemia Abnormal ECG When compared with ECG of 03-MAR-2021 17:54, MANUAL COMPARISON REQUIRED, DATA IS UNCONFIRMED Confirmed by LARRY CHATMAN, FRANCIS ([id number]), photo editor LUDIN KHALIL ([id number]) on 03/07/2021 8:55:11 AM Referred By: DR CURIEL Confirmed By:FRANCIS JUAREZ MD
[2021-03-04] MEDS: Lisinopril 10 MG Tablet PO (05:54)
[2021-03-04] MEDS: Aspirin 81 MG TAB.CHEW PO (05:54)
[2021-03-04 06:54] LABS: Absolute Lymphocyte Count 1.54 X10^3/uL (0.83-4.51); Absolute Neutrophil Count 4.9 X10^3/uL (2.0-7.7); Basophil# 0.03 X10^3/uL; Basophil% 0.4 % (0-1); Eosinophil# 0.05 X10^3/uL; Eosinophils% 0.6 % (0-5); Hematocrit 48.7 % (40-54); Hemoglobin 15.7 g/dL (13.0-16.5); Lymphocyte # 1.54 X10^3/ul (0.83-4.51); Lymphocyte % 19.6 % (19-41); Mean Corp Hgb Conc 32.2 g/dL (32-36); Mean Corpuscular Hgb 31.7 pg (27.0-32.0); Mean Corpuscular Volume 98.2 fL (80-94); Mean Platelet Vol. 9.8 fl (6.2-12.0); Monocyte# 1.38 X10^3/uL; Monocyte% 17.5 % (0-10); NRBC Flagged by Analyzer 0 % (0-5); Neutrophil # 4.85 X10^3/uL (2.7-7.7); Neutrophil % 61.6 % (47-70); Platelet Count 178 K/mm3 (150-450); RBC Distribution Width CV 12.7 % (11.6-14.6); RBC Distribution Width SD 46.2 fl (35.1-43.9); Red Blood Count 4.96 M/mm3 (4.6-6.2); White Blood Count 7.9 K/mm3 (4.4-11.0)
[2021-03-04] MEDS: Albuterol 2.5 MG/3 ML VIAL.NEB. INHALATION (07:07)
[2021-03-04] MEDS: Budesonide Respules 0.5 MG/2 ML AMPUL.NEB. INHALATION (07:08)
[2021-03-04 07:16] LABS: Anion Gap 2 (5-15); BUN 16 mg/dL (7-18); BUN/Creat Ratio 13.4 RATIO (10-20); Calcium,Total 8.4 mg/dL (8.5-10.1); Chloride 106 mmol/L (98-107); Creatinine, Serum 1.19 mg/dL (0.70-1.30); EST Glomerular Filtration Rate 63 mL/min (>60); Est Glom Filt Rate - Afr Amer 77 mL/min (>60); Estimated Creatinine Clearance 54.46 ml/min; Glucose 89 mg/dL (74-106); Potassium 3.9 mmol/L (3.5-5.1); Sodium Level 142 mmol/L (136-145)
[2021-03-04 07:25] LABS: Cholesterol 105 mg/dL (200); High Density Lipoprotein 59 mg/dL; Triglycerides 92 mg/dL; Very Low Density Lipoprotein 18 mg/dL (5-40)
[2021-03-04 08:53] LABS: Magnesium 2.3 mg/dL (1.6-2.6)
[2021-03-04] MEDS: Metoprolol(XL)Succ 50 MG Tablet PO (09:56)
--- NOTE | 2021-03-04 10:31 | STRESSREP ---
Stress Test Report Pharmacologic myocardial perfusion stress test. 75-year-old male with a history of coronary artery disease status post stenting of the right coronary artery and circumflex artery. Stress protocol: Resting EKG demonstrates normal sinus rhythm with a right bundle branch block rate of 93 bpm is noted. 0.4 mg of regadenoson was infused per usual protocol followed by rapid intravenous saline flush injection continuous EKG monitoring was performed. The maximum heart rate attained was 117 bpm which was 80% of maximum predicted heart rate the maximum workload was 1 metabolic equivalent. At rest there were no ST or T wave changes noted to suggest abnormal flow reserve and at peak infusion nonspecific ST changes were noted with did not meet the criteria for ischemia. No clinical angina was noted. The resting blood pressure was 162/80 with a final blood pressure 160/84 mmHg. Myocardial perfusion protocol. 15.0 mCi of technetium 99m sestamibi was injected at rest. 0.4 mg of regadenoson was infused per usual protocol. At peak infusion 45.0 mCi of technetium 99m sestamibi was injected stress images were obtained stress and rest images were reconstructed and compared in the short axis vertical long and horizontal long axis. Gated images were also obtained. Perfusion SPECT analysis: Review of the stress images demonstrates a mildly dilated cardiac silhouette. There is a defect noted involving the basal inferior wall the inferolateral wall and inferior apex present. The anterior wall and septum appear to be well perfused. The resting images demonstrate a similar pattern with no significant improvement suggesting previous basal inferior infarct, inferolateral infarct, and inferior apical infarct. No obvious ischemia is noted. Gated SPECT analysis: The gated ejection fraction is 25%. Conclusion: Ischemic cardiomyopathy. Previous basal inferior, inferolateral, and inferior apical infarct.
--- NOTE | 2021-03-04 12:16 | PCM.DC ---
Discharge Instructions Diet Discharge Diet: Low fat / Low cholesterol Activity Discharge Activity: Return to Normal Activity Dressing / Incision Call your doctor if you observe: Fever of 101 or Higher, Shortness of breath, Dizziness and Chest pain Follow Up Care Test Results: Test results from this visit will be discussed in further detail at your follow-up appointment, if applicable. Discharge Plan Admission Admit Date/Time: 03/03/21 20:25 Attending Provider: Shannon Martínez Primary [facility] Provider: [facility] Discharge Orders/Prescriptions Prescriptions: Continued aspirin 81 MG tablet,chewable 81 mg PO DAILY@0800 RF: 0 albuterol sulfate [Proventil HFA] 6.7 GM HFA aerosol inhaler 1 - 2 puff IH Q2H PRN (Reason: Sob &/Or Wheezing) RF: 0 budesonide-formoterol [Symbicort] 1 INHALER inhaler 2 puff inhalation BID RF: 0 spironolactone 25 MG tablet 25 mg PO DAILY RF: 0 rosuvastatin 10 MG tablet 5 mg PO QHS RF: 0 lisinopril 20 mg Tablet 10 mg PO BID RF: 0 metoprolol succinate 100 mg Tablet Extended Release 24 Hr 50 mg PO BID RF: 0 Referrals / Follow Up: [facility] [Primary Care Provider] - In 1 Week ([facility] as scheduled) Disposition Disposition (needs filled in before D/C Order can be placed): Home, self care
--- NOTE | 2021-03-04 12:29 | PCM.DC.SUM ---
Documented by User: Romelia Aguirre NP, STEMMER MACHINE-C 03/04/21 12:48 Providers Date of Admission: 03/03/21 Primary Care Physician: [facility] Reason For Visit: CHEST PAIN Diagnosis Discharge Diagnosis (1) Chest pain: Status: Acute Code(s): R07.9 - Chest pain, unspecified Qualifiers: Chest pain type: unspecified Qualified Code(s): R07.9 - Chest pain, unspecified (2) Congestive heart failure: Status: Deleted Code(s): I50.9 - Heart failure, unspecified Qualifiers: Heart failure chronicity: chronic Heart failure type: unspecified Qualified Code(s): I50.9 - Heart failure, unspecified (3) Hypertension: Status: Chronic Code(s): I10 - Essential (primary) hypertension Qualifiers: Hypertension type: essential hypertension Qualified Code(s): I10 - Essential (primary) hypertension (4) Systolic congestive heart failure with reduced left ventricular function, NYHA class 3: Status: Acute Code(s): I50.20 - Unspecified systolic (congestive) heart failure Medications at Discharge Home Medications albuterol sulfate [Proventil HFA] 1 - 2 puff IH Q2H PRN 03/16/16 aspirin 81 mg PO DAILY@0800 03/16/16 budesonide-formoterol [Symbicort] 2 puff INHALATION BID 03/16/16 rosuvastatin 5 mg PO QHS 12/17/17 spironolactone 25 mg PO DAILY 12/17/17 lisinopril 10 mg PO BID 03/03/21 metoprolol succinate 50 mg PO BID 03/03/21 Hospital Course Operations None Procedures 2-D Echocardiogram and Nuclear stress test Summary of Care Provided Minutes Spent on Discharge: 35 Hospital Course: Patient is a 75-year-old male admitted 03/03/2021 pain. 1. Atypical chest pain- ACS ruled out. Troponin negative. EKG without ST-T changes. Patient underwent stress test with no obvious ischemia. Ischemic cardiomyopathy. Previous infarcts. Echocardiogram demonstrates an EF of 35%, moderately severe systolic dysfunction, stage I diastolic dysfunction. Patient states his pain felt different than prior MIs. He states he has been under increased family related stress lately and feels this may have contributed to his symptoms. He denies further chest pain or dyspnea. Follow-up with PCP and cardiology as scheduled. Patient states he has upcoming follow-up with both within the next few weeks. 2. CAD with history of stent/ischemic cardiomyopathy status post ICD- [facility] Continue aspirin, statin, metoprolol, spironolactone, lisinopril. 3. Hypertension- stable, continue lisinopril, metoprolol. 4. Hyperlipidemia- continue statin. 5. Chronic COPD- no exacerbation. 6. ALEX- continue cpap regimen. Patient seen and examined prior to discharge. Physical assessment as noted below. Patient is stable for discharge with follow up recommendations as noted above. This patient was seen by JULIA Newby under the supervision of Dr. Martínez. Physical Exam Const alert, oriented x3 and no apparent distress Orientation / Consciousness: awake, oriented to person, oriented to place and oriented to time HEENT normocephalic and moist oral mucous membranes Eyes PERRL, EOMs intact bilaterally and conjunctivae normal Neck no lymphadenopathy Resp normal respiratory effort and clear to auscultation bilaterally Cardio regular rate, regular rhythm and no murmurs Peripheral Pulses: pulses 2+ throughout GI normal to inspection, nondistended, normoactive bowel sounds, non-tender and non-distended Extremity normal to inspection Skin no rashes or lesions noted Lesions: no lesions Rashes: no rashes Trauma: no lacerations or abrasions Neuro oriented x3 Sensorium / Orientation: awake and alert Psych affect normal ABG / Lab / Microbiology Data Result Diagrams: 03/04/21 06:05 03/04/21 06:05 Laboratory: Laboratory Results - last 24 hr 03/03/21 03/03/21 03/03/21 17:50 17:50 21:21 WBC 7.3 RBC 5.21 Hgb 16.9 H Hct 51.8 MCV 99.4 H MCH 32.4 H MCHC 32.6 RDW Std Deviation 46.4 H RDW Coeff of Ignacio 12.4 Plt Count 188 MPV 9.5 Immature Gran % (Auto) 0.400 Neut % (Auto) 66.6 Lymph % (Auto) 15.0 L [place] % (Auto) 16.2 H Eos % (Auto) 1.4 Baso % (Auto) 0.4 Absolute Neuts (auto) 4.8 Absolute Lymphs (auto) 1.09 Nucleated RBC % 0 Sodium 142 Potassium 3.8 Chloride 106 Carbon Dioxide 30.0 Anion Gap 6 BUN 17 Creatinine 1.40 H Estim Creat Clear Calc 46.29 Est GFR (MDRD) Af Amer 64 Est GFR (MDRD) Non-Af 53 L BUN/Creatinine Ratio 12.1 Glucose 87 Calcium 8.4 L Magnesium Troponin I < 0.015 < 0.015 Triglycerides Cholesterol LDL Cholesterol VLDL Cholesterol HDL Cholesterol 03/03/21 03/04/21 03/04/21 23:45 06:05 06:05 WBC 7.9 RBC 4.96 Hgb 15.7 Hct 48.7 MCV 98.2 H MCH 31.7 MCHC 32.2 RDW Std Deviation 46.2 H RDW Coeff of Ignacio 12.7 Plt Count 178 MPV 9.8 Immature Gran % (Auto) 0.300 Neut % (Auto) 61.6 Lymph % (Auto) 19.6 [place] % (Auto) 17.5 H Eos % (Auto) 0.6 Baso % (Auto) 0.4 Absolute Neuts (auto) 4.9 Absolute Lymphs (auto) 1.54 Nucleated RBC % 0 Sodium 142 Potassium 3.9 Chloride 106 Carbon Dioxide 34.0 H Anion Gap 2 L BUN 16 Creatinine 1.19 Estim Creat Clear Calc 54.46 Est GFR (MDRD) Af Amer 77 Est GFR (MDRD) Non-Af 63 BUN/Creatinine Ratio 13.4 Glucose 89 Calcium 8.4 L Magnesium Troponin I 0.016 Triglycerides Cholesterol LDL Cholesterol VLDL Cholesterol HDL Cholesterol 03/04/21 03/04/21 06:05 06:05 WBC RBC Hgb Hct MCV MCH MCHC RDW Std Deviation RDW Coeff of Ignacio Plt Count MPV Immature Gran % (Auto) Neut % (Auto) Lymph % (Auto) [place] % (Auto) Eos % (Auto) Baso % (Auto) Absolute Neuts (auto) Absolute Lymphs (auto) Nucleated RBC % Sodium Potassium Chloride Carbon Dioxide Anion Gap BUN Creatinine Estim Creat Clear Calc Est GFR (MDRD) Af Amer Est GFR (MDRD) Non-Af BUN/Creatinine Ratio Glucose Calcium Magnesium 2.3 Troponin I Triglycerides 92 Cholesterol 105 LDL Cholesterol 28 VLDL Cholesterol 18 HDL Cholesterol 59 Radiography Diagnostic Testing: Radiology Impression Chest X-Ray 03/03/21 18:18 IMPRESSION: Normal x-ray examination of the chest. Electronically Signed: Eleanor Reyes MD at 19:19 EDT Tel , Service support , Echocardiogram 03/04/21 03:11 Interpretation Summary The estimated ejection fraction is 35 %. Moderately severe segmental systolic dysfunction (see wall motion). Stage 1 diastolic dysfunction. Contrast injection was performed. Compared to previous study, the left ventricular systolic function is the same.. Ordering Physician: Amanuel Roach Referring Physician: [facility] Performed By: Lauren Llamas RDCS, RVT D/C Instructions Discharge Diet: Low fat / Low cholesterol Discharge Activity: Return to Normal Activity Call your doctor if you observe: Fever of 101 or Higher, Shortness of breath, Dizziness and Chest pain Meaningful Use Info Meaningful Use Diagnoses (Choose all that apply): None applicable Discharge Plan Admission Admit Date/Time: 03/03/21 20:25 Attending Provider: Shannon Martínez Primary Care Provider: [facility] Discharge Orders/Prescriptions Prescriptions: Continued aspirin 81 MG tablet,chewable 81 mg PO DAILY@0800 RF: 0 albuterol sulfate [Proventil HFA] 6.7 GM HFA aerosol inhaler 1 - 2 puff IH Q2H PRN (Reason: Sob &/Or Wheezing) RF: 0 budesonide-formoterol [Symbicort] 1 INHALER inhaler 2 puff inhalation BID RF: 0 spironolactone 25 MG tablet 25 mg PO DAILY RF: 0 rosuvastatin 10 MG tablet 5 mg PO QHS RF: 0 lisinopril 20 mg Tablet 10 mg PO BID RF: 0 metoprolol succinate 100 mg Tablet Extended Release 24 Hr 50 mg PO BID RF: 0 Referrals / Follow Up: [facility] [Primary Care Provider] - In 1 Week ([place] [facility]ology as scheduled) Disposition Disposition (needs filled in before D/C Order can be placed): Home, self care Documented by User: Dr. Shannon Martínez MD 03/04/21 16:38 Providers Date of Admission: 03/03/21 Reason For Visit: CHEST PAIN Medications at Discharge Home Medications albuterol sulfate [Proventil HFA] 1 - 2 puff IH Q2H PRN 03/16/16 aspirin 81 mg PO DAILY@0800 03/16/16 budesonide-formoterol [Symbicort] 2 puff INHALATION BID 03/16/16 rosuvastatin 5 mg PO QHS 12/17/17 spironolactone 25 mg PO DAILY 12/17/17 lisinopril 10 mg PO BID 03/03/21 metoprolol succinate 50 mg PO BID 03/03/21 ABG / Lab / Microbiology Data Result Diagrams: 03/04/21 06:05 03/04/21 06:05 Discharge Plan Admission Admit Date/Time: 03/03/21 20:25 Attending Provider: Shannon Martínez Primary Care Provider: [facility] Discharge Orders/Prescriptions Prescriptions: Continued aspirin 81 MG tablet,chewable 81 mg PO DAILY@0800 RF: 0 albuterol sulfate [Proventil HFA] 6.7 GM HFA aerosol inhaler 1 - 2 puff IH Q2H PRN (Reason: Sob &/Or Wheezing) RF: 0 budesonide-formoterol [Symbicort] 1 INHALER inhaler 2 puff inhalation BID RF: 0 spironolactone 25 MG tablet 25 mg PO DAILY RF: 0 rosuvastatin 10 MG tablet 5 mg PO QHS RF: 0 lisinopril 20 mg Tablet 10 mg PO BID RF: 0 metoprolol succinate 100 mg Tablet Extended Release 24 Hr 50 mg PO BID RF: 0 Referrals / Follow Up: [facility] [Primary Care Provider] - In 1 Week ([place] [facility] as scheduled) Disposition Disposition (needs filled in before D/C Order can be placed): Home, self care Addendum Addendum: Patient seen by Romelia Aguirre NP-C under my supervision Patient seen and examined. He was admitted with a complaint of chest pain. Chest pain was transient and started on the day of presentation and he described it as substernal. Lasted for about 3 to 4 minutes but did not recur. He admitted to chronic shortness of breath that occurred with COPD. Review of symptoms otherwise negative. He was admitted to be managed with chest pain rule out ACS. Troponins x3 were negative. Patient was noted to have a 6 beat run of nonsustained V. tach on day of discharge. Potassium and magnesium within normal limits. He had a stress test which was negative for any evidence of ischemia and he also had a 2 D echo which showed EF of 35% with moderately severe segmental systolic dysfunction and normal right ventricular size with ICD pacer leads identified within the right ventricle as well as stage I diastolic dysfunction. Patient's pacer was interrogated and did show other episodes of nonsustained V. tach with the stated all the way back to February 2020 27 December 2020 and that he had a 3-second beat of V. tach on 04 Mar 2021. He had not had any firing of his ICD. Patient remained stable and had no symptoms. He was discharged home on his dose of metoprolol. 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 he is also continue his aspirin, statin, spironolactone and lisinopril. Patient was seen and examined prior to discharge. Const alert, oriented x3 and no apparent distress Orientation / Consciousness: awake, oriented to person, oriented to place and oriented to time HEENT normocephalic and moist oral mucous membranes Eyes PERRL, EOMs intact bilaterally and conjunctivae normal Neck no lymphadenopathy Resp normal respiratory effort and clear to auscultation bilaterally Cardio regular rate, regular rhythm and no murmurs Peripheral Pulses: pulses 2+ throughout GI normal to inspection, nondistended, normoactive bowel sounds, non-tender and non-distended Extremity normal to inspection Skin no rashes or lesions noted Lesions: no lesions Rashes: no rashes Trauma: no lacerations or abrasions Neuro oriented x3 Sensorium / Orientation: awake and alert Psych affect normal Rest as per Romelia Timothy, STEMMER MACHINE-see his note which I reviewed and endorsed. Visit Charges OBSV E&M: 64845 Observation care discharge
== END 2021-03-04 13:28 | disposition home or self-care (01) ==
LOC: ED 19:06 → PCU 03-04 07:33
PROVIDERS: Admitting Provider Hospitalist; Emergency Provider Student in an Organized Health Care Education/Training Program; Visit Provider Student in an Organized Health Care Education/Training Program
DX: R07.89 Other chest pain (principal); I11.0 Hypertensive heart disease with heart failure; I50.21 Acute systolic (congestive) heart failure; J44.9 Chronic obstructive pulmonary disease, unspecified; I25.10 Atherosclerotic heart disease of native coronary artery without angina pectoris; I25.2 Old myocardial infarction; Z79.899 Other long term (current) drug therapy; Z79.82 Long term (current) use of aspirin; Z87.891 Personal history of nicotine dependence; Z95.810 Presence of automatic (implantable) cardiac defibrillator; Z79.51 Long term (current) use of inhaled steroids; I25.5 Ischemic cardiomyopathy; Z95.5 Presence of coronary angioplasty implant and graft; E78.5 Hyperlipidemia, unspecified; G47.33 Obstructive sleep apnea (adult) (pediatric)
CPT/HCPCS: 36415; 71045; 78452; 80048; 80061; 83735; 84484; 85025; 93005; 93017; 93306; 94640; 99218; 99285; A9500; Q9957; A4216; C8929; G0378; J2785

== ENCOUNTER 2021-03-09 16:50 | Inpatient (IN) | payer OTHER, MEDICARE, SELFPAY ==
[2021-03-09] VITALS (16 sets, daily range): BP systolic 98–154; BP diastolic 61–105; PULSE 98–120; RESP 18–32; TEMP 37.4–37.9; O2SAT 89–96; BMI 38.4; BMI 38.2
--- NOTE | 2021-03-09 17:15 | ED.VIS.DYS ---
HPI History of Present Illness Chief Complaint: Shortness of Breath Informant: patient Onset/Context/Timing Onset: Days (Onset of symptoms 4 to 5 days ago) Context: gradual Timing: Continuous Quality: Positive for Dyspnea on exertion and Wheezing; Negative for Orthopnea Current Severity: Mild Maximum Severity: Moderate Worsened by: Exertion and Coughing Relieved by: Nothing Associated Symptoms cough, fever and subjective; Negative for rhinorrhea, post nasal drip, ear pain, sore throat, chills, sweats, clear sputum, white sputum, yellow sputum or green sputum Chest Pain: Positive for None Narrative Narrative: Patient is an elderly male with history of hypertension, coronary disease, COPD, obstructive sleep apnea and systolic congestive heart failure with reduced left ventricular function. He presents with cough that is scant, dyspnea, dyspnea on exertion for the past 4 to 5 days. is ill due to Covid. She is presently on the ventilator. He denies history of PE or DVT. He denies increased orthopnea and denies PND. He denies swelling of his lower extremities. He denies history of VTE. He denies loss of taste or smell. PE Risk Factors: Negative for Cancer, OCP + Smoking + > 35, Prior DVT or PE, Recent immobilization, Recent surgery and Recent travel Prior similar symptoms: Yes (COPD and CHF) Recent Illness/Hospitalization: Yes PFSH PFSH Medical History COPD (chronic obstructive pulmonary disease) CPAP (continuous positive airway pressure) dependence Former smoker ICD (implantable cardioverter-defibrillator) in place Myocardial infarct Home Medications albuterol sulfate [Proventil HFA] 1 - 2 puff IH Q2H PRN 03/16/16 [History Last Taken 03/03/21 15:00] aspirin 81 mg PO DAILY@0800 03/16/16 [History Last Taken 03/03/21] budesonide-formoterol [Symbicort] 2 puff INHALATION BID 03/16/16 [History Last Taken 03/03/21] rosuvastatin 5 mg PO QHS 12/17/17 [History Last Taken 03/03/21] spironolactone 25 mg PO DAILY 12/17/17 [History Last Taken 03/03/21] lisinopril 10 mg PO BID 03/03/21 [History Last Taken 03/03/21] metoprolol succinate 50 mg PO BID 03/03/21 [History Last Taken 03/03/21] Allergy/AdvReac Type Severity Reaction Status Date / Time No Known Allergies Allergy Verified 03/09/21 16:51 Family History Mother Aneurysm Surgical History History of cholecystectomy History of colectomy History of coronary artery stent placement History of coronary artery stent placement Social History (Updated 03/09/21 @ 17:[address] Jose Marcano MD) household members: spouse housing: house Smoking Status: Former smoker alcohol intake: former substance use type: does not use ROS ROS ED Constitutional Constitutional ED: Denies chills, fever(s), sweats or weight loss Eyes Eyes: Denies blurry vision, change in vision or diplopia ENT ENT ED: Denies ear pain, rhinorrhea or sore throat Cardiovascular Cardiovascular: Denies chest pain, orthopnea or paroxysmal nocturnal dyspnea Respiratory/Chest Respiratory/Chest: Reports cough, dyspnea and dyspnea on exertion; Denies orthopnea, paroxysmal nocturnal dyspnea or sputum Gastrointestinal Gastrointestinal: Denies abdominal pain, diarrhea, nausea or vomiting Genitourinary Genitourinary ED: Denies dysuria, hematuria or urinary frequency Musculoskeletal Musculoskeletal: Denies arthralgias or myalgias Integumentary Denies rash Neurologic Neurologic: Reports weakness; Denies headache(s) or paresthesias Endocrine Endocrinology: Denies polydipsia, polyphagia or polyuria Hematologic/Lymphatic Hematologic/Lymphatic: Denies easy bleeding or easy bruising EXAM Physical Exam Const Vital Signs: 03/09/21 16:52 03/09/21 16:54 03/09/21 16:55 Temperature 99.3 F H 99.3 F H Temperature Source Oral Oral Pulse Rate 111 H 111 H 111 H Respiratory Rate 28 H 19 H 26 H Respiratory Depth Respiratory Pattern Blood Pressure 137/105 H 137/105 H 137/105 H Blood Pressure Mean 115 115 115 Pulse Ox 89 95 95 Oxygen Delivery Method Room Air Nasal Cannula Nasal Cannula Oxygen Flow Rate (L/min) 3 3 03/09/21 16:57 03/09/21 17:40 03/09/21 18:07 Temperature Temperature Source Pulse Rate 102 H 116 H Respiratory Rate 20 H 28 H Respiratory Depth Shallow Respiratory Pattern Irregular Blood Pressure 117/84 H Blood Pressure Mean 95 Pulse Ox 89 Oxygen Delivery Method Nasal Cannula Room Air Oxygen Flow Rate (L/min) 2 03/09/21 18:08 Temperature 99.4 F H Temperature Source Oral Pulse Rate 111 H Respiratory Rate 26 H Respiratory Depth Respiratory Pattern Blood Pressure 117/84 H Blood Pressure Mean 95 Pulse Ox 96 Oxygen Delivery Method Nasal Cannula Oxygen Flow Rate (L/min) 3 Positive well nourished, well developed and obese General Appearance ED: well developed and other Patient appears ill and he is slightly tachypneic. ; Negative for pallor Nutritional Appearance: obese HEENT Reports TM's clear and dry mucous membranes Tympanic Membrane ED: Yes TM's clear Mouth ED: Yes dry mucous membranes Mouth: dry mucous membranes Eyes PERRL and EOMs intact bilaterally General Eye ED: Negative for pale conjunctiva or scleral icterus Neck no lymphadenopathy, supple, no meningeal signs and no JVD Neck Narrative: Trachea is midline. There is no inspiratory or expiratory stridor noted. Resp Auscultation: rhonchi and wheezes expiratory wheezes and throughout Cardio regular rate, S1 normal heart sound, S2 normal heart sound and no murmurs Rate: tachycardic GI non-tender, non-distended and no masses Auscultation: normoactive bowel sounds Palpation: soft Back/Spine no CVA tenderness and normal to inspection Extremity normal to inspection General Extremety ED: Negative for tenderness Neuro oriented x3 and CN's II-XII intact bilaterally Sensorium / Orientation: alert Sensory Exam: sensory level loss detected Motor Exam: strength 5/5 throughout and general weakness Psych mental status grossly normal Thought Process: normal thought process Skin no wounds General Skin Exam: Negative for jaundice or pallor Lesions: no lesions Rashes: No no rashes MDM MDM MDM Narrative Medical decision making narrative: Patient presents with respiratory failure/hypoxia. This may be exacerbated COPD, pneumonia, Covid pneumonia. Will obtain appropriate blood work, chest x-ray, EKG to rule out ischemia. Patient was informed he may be admitted to the hospital. The Covid test was positive. Since he is hypoxic plan is to admit to the hospital. Lab Data Labs: Laboratory Results - last 24 hr 03/09/21 03/09/21 03/09/21 16:54 16:54 16:54 WBC 10.0 RBC 5.83 Hgb 18.5 H* Hct 55.9 H MCV 95.9 H MCH 31.7 MCHC 33.1 RDW Std Deviation 46.2 H RDW Coeff of Ignacio 13.0 Plt Count 146 L MPV 10.5 Immature Gran % (Auto) 0.500 Neut % (Auto) 72.0 H Lymph % (Auto) 19.9 [place] % (Auto) 7.3 Eos % (Auto) 0.0 Baso % (Auto) 0.3 Absolute Neuts (auto) 7.2 Absolute Lymphs (auto) 1.99 Nucleated RBC % 0 [address] Path Review May foll Sodium 133 L Potassium 4.3 Chloride 98 Carbon Dioxide 28.0 Anion Gap 7 BUN 27 H Creatinine 1.47 H Estim Creat Clear Calc 44.09 Est GFR (MDRD) Af Amer 60 Est GFR (MDRD) Non-Af 50 L BUN/Creatinine Ratio 18.4 Glucose 95 Lactic Acid 2.1 H* Calcium 8.7 Total Bilirubin 0.90 AST 62 H ALT 39 Alkaline Phosphatase 73 Total Protein 7.9 Albumin 3.4 Globulin 4.5 H Albumin/Globulin Ratio 0.8 L Procalcitonin 03/09/21 16:54 WBC RBC Hgb Hct MCV MCH MCHC RDW Std Deviation RDW Coeff of Ignacio Plt Count MPV Immature Gran % (Auto) Neut % (Auto) Lymph % (Auto) [place] % (Auto) Eos % (Auto) Baso % (Auto) Absolute Neuts (auto) Absolute Lymphs (auto) Nucleated RBC % Diff Path Review Sodium Potassium Chloride Carbon Dioxide Anion Gap BUN Creatinine Estim Creat Clear Calc Est GFR (MDRD) Af Amer Est GFR (MDRD) Non-Af BUN/Creatinine Ratio Glucose Lactic Acid Calcium Total Bilirubin AST ALT Alkaline Phosphatase Total Protein Albumin Globulin Albumin/Globulin Ratio Procalcitonin 0.35 H Radiography Diagnostic Testing: Radiology Impression Chest X-Ray 03/09/21 17:20 IMPRESSION: Increasing bilateral airspace opacities right greater than left. Electronically Signed: Jeanmarie Cedillo MD at 18:13 EDT Tel , Service support , Critical Care Time Critical care time (excluding procedures): 30-74 minutes (Total time is 33 minutes which includes obtaining history, physical exam, review of prior records, initiation of treatment, interpretation of laboratory results), Discussing w/Patient &/or Family/Anatomic Pathology Manager, Discussing w/Consultants and Arranging Admission or Transfer Discharge Plan Triage Chief Complaint: Shortness of Breath ED Provider: Jose Marcano Dx/Rx/DC Orders Clinical Impression: Pneumonia due to 2019 novel coronavirus, Chronic obstructive pulmonary disease with (acute) exacerbation, Acute respiratory failure with hypoxia, Sepsis due to severe acute respiratory syndrome coronavirus 2 (SARS-CoV-2) Prescriptions: No Action aspirin 81 MG tablet,chewable 81 mg PO DAILY@0800 RF: 0 albuterol sulfate [Proventil HFA] 6.7 GM HFA aerosol inhaler 1 - 2 puff IH Q2H PRN (Reason: Sob &/Or Wheezing) RF: 0 budesonide-formoterol [Symbicort] 1 INHALER inhaler 2 puff inhalation BID RF: 0 spironolactone 25 MG tablet 25 mg PO DAILY RF: 0 rosuvastatin 10 MG tablet 5 mg PO QHS RF: 0 lisinopril 20 mg Tablet 10 mg PO BID RF: 0 metoprolol succinate 100 mg Tablet Extended Release 24 Hr 50 mg PO BID RF: 0 [facility] Care [facility]: [facility] [Primary Care Provider] - Disposition Disposition: Acute Care Hospital [facility]
--- NOTE | 2021-03-09 17:20 | RAD_ITS ---
STUDY: X-RAY CHEST REASON FOR EXAM: Male, 75 years old. Cough TECHNIQUE: Single frontal view of the chest. COMPARISON: 03/03/21. FINDINGS: Cardiac silhouette unremarkable. Pulmonary vascularity unremarkable. Aorta unremarkable. Left cardiac device. Ill-defined bibasilar right greater than left airspace opacities. No pleural effusions. Upper abdomen unremarkable. Osseous structures intact. No pneumothorax. RAD/Chest 1 View (Portable) IMPRESSION: Increasing bilateral airspace opacities right greater than left. Electronically Signed: Jeanmarie Cedillo MD at 18:13 EDT Tel , Service support ,
[2021-03-09] MEDS: 0.9% Normal Saline 1,000 ML 125 ML IV (17:35)
[2021-03-09 17:39] LABS: Absolute Lymphocyte Count 1.99 X10^3/uL (0.83-4.51); Absolute Neutrophil Count 7.2 X10^3/uL (2.0-7.7); Basophil# 0.03 X10^3/uL; Basophil% 0.3 % (0-1); Lymphocyte # 1.99 X10^3/ul (0.83-4.51); Lymphocyte % 19.9 % (19-41); Mean Corp Hgb Conc 33.1 g/dL (32-36); Mean Corpuscular Hgb 31.7 pg (27.0-32.0); Mean Corpuscular Volume 95.9 fL (80-94); Mean Platelet Vol. 10.5 fl (6.2-12.0); Monocyte# 0.73 X10^3/uL; Monocyte% 7.3 % (0-10); NRBC Flagged by Analyzer 0 % (0-5); Neutrophil # 7.22 X10^3/uL (2.7-7.7); Platelet Count 146 K/mm3 (150-450); RBC Distribution Width SD 46.2 fl (35.1-43.9); Red Blood Count 5.83 M/mm3 (4.6-6.2)
[2021-03-09] MEDS: Albuterol 2.5 MG/3 ML VIAL.NEB. INHALATION ×3 (17:39)
[2021-03-09] MEDS: Ipratropium/Albuterol Sulfate 3 ML AMPUL.NEB INHALATION (17:39)
[2021-03-09 17:42] LABS: Hematocrit 55.9 % (40-54)
[2021-03-09 17:43] LABS: ALB/GLOB Ratio 0.8 RATIO (0.9-2.4); AST(SGOT) 62 U/L (15-37); Alanine Aminotransfer ALT/SGPT 39 U/L (16-61); Albumin, Serum 3.4 g/dL (3.2-5.0); Alkaline Phosphatase 73 U/L (45-117); Anion Gap 7 (5-15); BUN 27 mg/dL (7-18); BUN/Creat Ratio 18.4 RATIO (10-20); Calcium,Total 8.7 mg/dL (8.5-10.1); Chloride 98 mmol/L (98-107); Creatinine, Serum 1.47 mg/dL (0.70-1.30); EST Glomerular Filtration Rate 50 mL/min (>60); Est Glom Filt Rate - Afr Amer 60 mL/min (>60); Estimated Creatinine Clearance 44.09 ml/min; Globulin 4.5 g/dL (2.2-4.2); Glucose 95 mg/dL (74-106); POSITIVE COUNT NO; POSITIVE DIFFERENTIAL NO; POSITIVE MORPHOLOGY NO; Potassium 4.3 mmol/L (3.5-5.1); Protein, Total 7.9 g/dL (6.4-8.2); Sodium Level 133 mmol/L (136-145)
[2021-03-09 17:56] LABS: Lactic Acid 2.1 mmol/L (0.4-1.9)
[2021-03-09 18:10] LABS: Hemoglobin 18.5 g/dL (13.0-16.5)
[2021-03-09 18:26] LABS: Procalcitonin 0.35 ng/mL (0.00-0.09)
--- NOTE | 2021-03-09 19:28 | PCM.HP.STD ---
[facility] Date of Admission: 03/09/21 Chief Complaint: Shortness of breath. [facility] Narrative TRINY CHAND, is a 75 M with past medical history as mentioned above presented to the emergency room because of shortness of breath. Patient stated that his has been sick with COVID-19. His symptoms started around 4 to 5 days ago with shortness of breath, both at rest and with exertion, associated with cough with minimal sputum, aggravated by activity and without relieving factors. He denied chest pain or palpitation. He denied abdominal pain, nausea or vomiting. He had a history of hypertension which has been under control with lisinopril and metoprolol. He had a history of COPD and he has been on bronchodilators but never been on home oxygen. He has history of chronic systolic CHF status post ICD and he has been on beta-blockers, YENIFER inhibitors and diuretics. In the emergency department, he was afebrile, tachycardic, blood pressure was stable, pulse ox was 89% on room air, required 3 L of oxygen. Routine blood work was remarkable for hemoglobin of 18.5 mg/dL, BUN is 27, creatinine is 1.47. Lactic acid was 2.1. LFT was unremarkable. Procalcitonin was elevated. Patient is being admitted for acute bilateral COVID-19 pneumonia and acute hypoxic respiratory failure as well as acute kidney injury. [facility] Medical History COPD (chronic obstructive pulmonary disease) CPAP (continuous positive airway pressure) dependence Former smoker ICD (implantable cardioverter-defibrillator) in place Myocardial infarct Home Medications albuterol sulfate [Proventil HFA] 1 - 2 puff IH Q2H PRN 03/16/16 [History Last Taken 03/03/21 15:00] aspirin 81 mg PO DAILY@0800 03/16/16 [History Last Taken 03/03/21] budesonide-formoterol [Symbicort] 2 puff INHALATION BID 03/16/16 [History Last Taken 03/03/21] rosuvastatin 5 mg PO QHS 12/17/17 [History Last Taken 03/03/21] spironolactone 25 mg PO DAILY 12/17/17 [History Last Taken 03/03/21] lisinopril 10 mg PO BID 03/03/21 [History Last Taken 03/03/21] metoprolol succinate 50 mg PO BID 03/03/21 [History Last Taken 03/03/21] Allergy/AdvReac Type Severity Reaction Status Date / Time No Known Allergies Allergy Verified 03/09/21 16:51 Family History Mother Aneurysm Surgical History History of cholecystectomy History of colectomy History of coronary artery stent placement History of coronary artery stent placement Social History (Updated 03/09/21 @ 17:[address] Jose Marcano MD) household members: spouse housing: house Smoking Status: Former smoker alcohol intake: former substance use type: does not use ROS Constitutional Constitutional: Denies anorexia, chills, fatigue, fever(s) or malaise Eyes Eyes: Denies blurry vision, change in eye color, change in vision, double vision or eye pain ENT HEENT: Denies ear pain, epistaxis, headache(s), nasal congestion, post nasal drip or sore throat Cardiovascular Cardiovascular: Denies chest pain, dyspnea on exertion, edema, lightheadedness, orthopnea, palpitations, paroxysmal nocturnal dyspnea or syncope Respiratory/Chest Respiratory/Chest: Reports cough, dyspnea and shortness of breath with exertion; Denies hemoptysis, productive cough, shortness of breath at rest or wheezing Gastrointestinal Gastrointestinal: Denies abdominal pain, constipation, diarrhea, hematemesis, hematochezia, melena, nausea or vomiting Genitourinary Genitourinary: Denies burning urination, dysuria, hematuria, urinary hesitancy or urinary urgency Musculoskeletal Musculoskeletal: Denies arthralgias, back pain, joint pain, joint swelling, myalgias or neck pain Neurologic Neurologic: Denies confusion, dizziness, focal weakness, headache(s), numbness, paresthesias, seizures, tingling or tremor(s) Psychiatric Psychiatric: Denies anxiety, depression, homicidal ideation or suicidal ideation Endocrine Endocrinology: Denies change in body appearance, cold intolerance, heat intolerance, polydipsia or polyuria Hematologic/Lymphatic Hematologic/Lymphatic: Reports other; Denies easy bleeding, easy bruising or lymphadenopathy Allergic/Immunologic Allergic/Immunologic: Denies itchy eyes, rhinitis, throat swelling, tongue swelling, hives, urticaria or wheezing Vital Signs Vital Signs Vital Signs: 03/09/21 16:52 03/09/21 16:54 03/09/21 16:55 Temperature 99.3 F H 99.3 F H Temperature Source Oral Oral Pulse Rate 111 H 111 H 111 H Respiratory Rate 28 H 19 H 26 H Respiratory Depth Respiratory Pattern Blood Pressure 137/105 H 137/105 H 137/105 H Blood Pressure Mean 115 115 115 Pulse Ox 89 95 95 Oxygen Delivery Method Room Air Nasal Cannula Nasal Cannula Oxygen Flow Rate (L/min) 3 3 03/09/21 16:57 03/09/21 17:40 03/09/21 18:07 Temperature Temperature Source Pulse Rate 102 H 116 H Respiratory Rate 20 H 28 H Respiratory Depth Shallow Respiratory Pattern Irregular Blood Pressure 117/84 H Blood Pressure Mean 95 Pulse Ox 89 Oxygen Delivery Method Nasal Cannula Room Air Oxygen Flow Rate (L/min) 2 03/09/21 18:08 Temperature 99.4 F H Temperature Source Oral Pulse Rate 111 H Respiratory Rate 26 H Respiratory Depth Respiratory Pattern Blood Pressure 117/84 H Blood Pressure Mean 95 Pulse Ox 96 Oxygen Delivery Method Nasal Cannula Oxygen Flow Rate (L/min) 3 Physical Exam Const alert, oriented x3 and no limitations Constitutional Narrative: Mildly short of breath. General Appearance: cooperative, comfortable and well kempt HEENT normocephalic, head/scalp atraumatic and moist oral mucous membranes Head and Scalp: normocephalic and atraumatic Eyes PERRL, EOMs intact bilaterally, conjunctivae normal and no scleral icterus General Eye: normal appearance of both eyes Periorbital: periorbital findings normal Neck no lymphadenopathy, supple, no meningeal signs, no JVD and no carotid bruits General: trachea midline Thyroid: thyroid normal Resp normal air movement Resp Narrative: Diminished with sounds bilateral, occasional rhonchi. Auscultation: Negative for crackles, rales or wheezes Cardio regular rate, regular rhythm, S1 normal heart sound, S2 normal heart sound, no murmurs and no JVD Cardio Narrative: Tachycardia. Peripheral Pulses: pulses 2+ throughout GI normal to inspection, nondistended, normoactive bowel sounds, soft to palpation, non-tender and non-distended; Negative for hepatosplenomegaly Auscultation: normoactive bowel sounds Extremity normal to inspection, full ROM and no clubbing, cyanosis or edema Skin no rashes or lesions noted, no wounds and no petechiae Neuro oriented x3, CN's II-XII intact bilaterally and moves all extremities Sensorium / Orientation: alert Speech: speech normal Motor Exam: strength 5/5 throughout Psych mental status grossly normal, affect normal and denies hallucinations Lab / Micro Data Result Diagrams: 03/09/21 16:54 03/09/21 16:54 Labs: Laboratory Results - last 24 hr 03/09/21 03/09/21 03/09/21 16:54 16:54 16:54 WBC 10.0 RBC 5.83 Hgb 18.5 H* Hct 55.9 H MCV 95.9 H MCH 31.7 MCHC 33.1 RDW Std Deviation 46.2 H RDW Coeff of Ignacio 13.0 Plt Count 146 L MPV 10.5 Immature Gran % (Auto) 0.500 Neut % (Auto) 72.0 H Lymph % (Auto) 19.9 [place] % (Auto) 7.3 Eos % (Auto) 0.0 Baso % (Auto) 0.3 Absolute Neuts (auto) 7.2 Absolute Lymphs (auto) 1.99 Nucleated RBC % 0 Diff Path Review May foll Sodium 133 L Potassium 4.3 Chloride 98 Carbon Dioxide 28.0 Anion Gap 7 BUN 27 H Creatinine 1.47 H Estim Creat Clear Calc 44.09 Est GFR (MDRD) Af Amer 60 Est GFR (MDRD) Non-Af 50 L BUN/Creatinine Ratio 18.4 Glucose 95 Lactic Acid 2.1 H* Calcium 8.7 Total Bilirubin 0.90 AST 62 H ALT 39 Alkaline Phosphatase 73 Total Protein 7.9 Albumin 3.4 Globulin 4.5 H Albumin/Globulin Ratio 0.8 L Procalcitonin 03/09/21 16:54 WBC RBC Hgb Hct MCV MCH MCHC RDW Std Deviation RDW Coeff of Ignacio Plt Count MPV Immature Gran % (Auto) Neut % (Auto) Lymph % (Auto) [place] % (Auto) Eos % (Auto) Baso % (Auto) Absolute Neuts (auto) Absolute Lymphs (auto) Nucleated RBC % Diff Path Review Sodium Potassium Chloride Carbon Dioxide Anion Gap BUN Creatinine Estim Creat Clear Calc Est GFR (MDRD) Af Amer Est GFR (MDRD) Non-Af BUN/Creatinine Ratio Glucose Lactic Acid Calcium Total Bilirubin AST ALT Alkaline Phosphatase Total Protein Albumin Globulin Albumin/Globulin Ratio Procalcitonin 0.35 H Micro: Microbiology 03/09/21 17:30 SARS-CoV-2 Antigen (Rapid) - Final Interface Orders SARS-CoV-2 (COVID 19) Radiology Impression Chest X-Ray 03/09/21 17:20 IMPRESSION: Increasing bilateral airspace opacities right greater than left. Electronically Signed: Jeanmarie Cedillo MD at 18:13 EDT Tel , Service support , Assessment & Plan Assessment/Plan (1) AG (acute kidney injury): (2) Pneumonia due to 2019 novel coronavirus: (3) Sepsis due to severe acute respiratory syndrome coronavirus 2 (SARS-CoV-2): (4) Acute respiratory failure with hypoxia: (5) Hypertension: QUALIFIERS: Hypertension type: essential hypertension Qualified Code(s): I10 - Essential (primary) hypertension (6) CAD (coronary artery disease): (7) COPD (chronic obstructive pulmonary disease): (8) Systolic congestive heart failure with reduced left ventricular function, NYHA class 3: PLAN: This is a 75 years old male patient presented to the emergency room because of shortness of breath and cough, found to have increasing bilateral basilar lung opacities, tested positive for COVID-19 antigen and is being admitted for acute bilateral COVID-19 pneumonia and acute hypoxic respiratory failure and also found to have acute kidney injury. #1 acute bilateral COVID-19 pneumonia/sepsis: Chest x-ray reviewed, COVID-19 antigen was positive. Currently, patient is on oxygen at 3 L. Plan: Admit to [facility] COVID-19 floor, COVID-19 isolation precautions, check troponin, CPK, pro time and INR, D-dimer, start IV Decadron and IV remdesivir, infectious disease and pulmonology consult, albuterol inhaler as needed, Pulmicort twice daily, incentive spirometer, repeat CBC and CMP tomorrow morning, PT OT evaluation and treatment. #2 acute hypoxic respiratory failure: Secondary to #1 in addition to history of COPD. Patient never been on oxygen. Currently, he is on 3 L. Plan as above. #3 acute kidney injury: Due to sepsis and infection. Admission creatinine is 1.47, BUN is 27. Plan: Gentle IV fluids for hydration , close monitoring of volume status because of history of CHF, input output chart, repeat CMP tomorrow morning. #4 hypertension: Currently, blood pressure stable, continue home medication when home medication list updated. #5 CAD: Patient denied chest pain. Plan: Cardiac monitoring, troponin x1, EKG, continue aspirin, lisinopril, statins and metoprolol. #6 chronic systolic CHF/cardiomyopathy: Status post ICD. Currently, no obvious acute CHF. Patient is dehydrated, he will be on IV fluids, need to monitor volume status. Plan to continue aspirin, lisinopril and metoprolol. #7 CODE STATUS: Full code, discussed with the patient. #8 DVT prophylaxis: Subcu blocks twice daily. This note was generated with [employer] dictation software. It may contain incorrect words, spelling, and punctuation that were not noted in checking the note before signing. Visit Charges Inpatient E&M: 02165 Init Hosp L3
--- NOTE | 2021-03-09 20:11 | EKG12_ITS ---
Test Reason : DYSRHYTHMIA Blood Pressure : / mmHG Vent. Rate : 095 BPM Atrial Rate : 095 BPM P-R Int : 154 ms QRS Dur : 124 ms QT Int : 380 ms P-R-T Axes : -08 -08 145 degrees QTc Int : 477 ms Sinus rhythm with Premature atrial complexes ST & T wave abnormality, consider lateral ischemia Abnormal ECG When compared with ECG of 04-MAR-2021 05:57, Premature atrial complexes are now Present Confirmed by LARRY CHATMAN, FRANCIS ([id number]), greeting card editor LUDIN KHALIL ([id number]) on 03/14/2021 9:46:02 AM Referred By: ZHENG Confirmed By:FRANCIS JUAREZ MD
[2021-03-09] MEDS: dexAMETHasone 4 MG/ML Vial 6 MG IV (20:50)
[2021-03-09] MEDS: 0.9% Normal Saline 1,000 ML 75 ML IV (20:51)
[2021-03-09] MEDS: Acetaminophen 325 MG Tablet 650 MG PO (20:51)
[2021-03-09 21:18] LABS: CPK Total, Creatine Kinase 580 U/L (39-308)
[2021-03-09 21:24] LABS: International Normalized Ratio 1.1; Prothrombin Time (Protime)PT. 13.4 SECONDS (11.7-14.9)
[2021-03-09 21:26] LABS: Reflex Lactate? Y
[2021-03-09 21:30] LABS: D-Dimer Quantitative (DVT/PE) 0.87 FEU/ug/m (0.27-0.49)
[2021-03-09 22:01] LABS: Lactic Acid 2.1 mmol/L (0.4-1.9)
[2021-03-09] MEDS: Budesonide Respules 0.5 MG/2 ML AMPUL.NEB. INHALATION (23:09)
[2021-03-10] VITALS (26 sets, daily range): BP systolic 103–158; BP diastolic 34–81; PULSE 73–109; RESP 18–27; TEMP 36.6–37; O2SAT 88–97
[2021-03-10 04:56] LABS: Absolute Lymphocyte Count 0.47 X10^3/uL (0.83-4.51); Absolute Neutrophil Count 5.2 X10^3/uL (2.0-7.7); Basophil# 0.01 X10^3/uL; Basophil% 0.2 % (0-1); Hematocrit 47.3 % (40-54); Hemoglobin 15.6 g/dL (13.0-16.5); Lymphocyte # 0.47 X10^3/ul (0.83-4.51); Lymphocyte % 7.7 % (19-41); Mean Corpuscular Hgb 31.9 pg (27.0-32.0); Mean Corpuscular Volume 96.7 fL (80-94); Monocyte# 0.37 X10^3/uL; NRBC Flagged by Analyzer 0 % (0-5); Neutrophil # 5.23 X10^3/uL (2.7-7.7); Neutrophil % 85.3 % (47-70); POSITIVE DIFFERENTIAL YES; Platelet Count 125 K/mm3 (150-450); RBC Distribution Width SD 46.7 fl (35.1-43.9); Red Blood Count 4.89 M/mm3 (4.6-6.2); White Blood Count 6.1 K/mm3 (4.4-11.0)
[2021-03-10 05:02] LABS: Differential Indicated SCAN CRITERIA MET
[2021-03-10 05:11] LABS: ALB/GLOB Ratio 0.7 RATIO (0.9-2.4); AST(SGOT) 58 U/L (15-37); Alanine Aminotransfer ALT/SGPT 33 U/L (16-61); Albumin, Serum 2.6 g/dL (3.2-5.0); Alkaline Phosphatase 60 U/L (45-117); Anion Gap 8 (5-15); BUN 29 mg/dL (7-18); BUN/Creat Ratio 22.3 RATIO (10-20); Calcium,Total 7.7 mg/dL (8.5-10.1); Chloride 101 mmol/L (98-107); EST Glomerular Filtration Rate 57 mL/min (>60); Est Glom Filt Rate - Afr Amer 69 mL/min (>60); Estimated Creatinine Clearance 48.23 ml/min; Globulin 3.7 g/dL (2.2-4.2); Glucose 130 mg/dL (74-106); Potassium 4.3 mmol/L (3.5-5.1); Protein, Total 6.3 g/dL (6.4-8.2); Sodium Level 137 mmol/L (136-145)
[2021-03-10 05:15] LABS: Atypical Lymphocyte RARE %; Differential Comment SCANNED
[2021-03-10] MEDS: Budesonide Respules 0.5 MG/2 ML AMPUL.NEB. INHALATION (07:05)
--- NOTE | 2021-03-10 07:20 | CON.PCM.CC_ITS ---
Assessment & Plan Assessment/Plan (1) COPD (chronic obstructive pulmonary disease): (2) Systolic congestive heart failure with reduced left ventricular function, NYHA class 3: (3) Sepsis due to severe acute respiratory syndrome coronavirus 2 (SARS-CoV-2): (4) Pneumonia due to 2019 novel coronavirus: (5) CAD (coronary artery disease): (6) Hypertension: QUALIFIERS: Hypertension type: essential hypertension Qualified Code(s): I10 - Essential (primary) hypertension PLAN: RECOMMENDATIONS: 1. Continue Decadron, Remdesivir and schedule bronchodilators 2. Stop budesonide given Decadron 3. Discontinue IV fluids 4. Encourage incentive spirometer and out of bed as tolerated 5. Clarify CPAP and reinitiate therapy, preferably home machine IMPRESSIONS: 1. Acute hypoxic respiratory insufficiency secondary to Covid 19 pneumonia Patient 4 to 5 days of symptoms, so Remdesivir would be appropriate. Patient is on Decadron, so utility of budesonide is unclear. This will be discontinued. [facility] Did discuss CODE STATUS. Patient will remain a full code at this time, but there is some thought and the patient that DNI would be appropriate. Patient is not close to this at this time, but can decompensate quickly given COVID-19 pneumonia. Will add fingerstick blood sugars to monitor for complications of Decadron therapy. 2. 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 Patient was on IV fluids, but these will be discontinued as this has been shown to increased risk for hypoxic respiratory failure in the setting of Covid pneumonia. Okay to continue with baseline medications from my perspective. Patient is on telemetry. Patient recently had a work-up for coronary artery disease that was within normal limits. 3. Obesity/hypertension/CKD versus AG/ALEX Complicates care, management, recovery and prognosis. Okay to continue with baseline medications. Will attempt to obtain old records. Patient would benefit from continuation of ALEX therapy. HPI Consult Data Date of Consult: 03/10/21 HPI Narrative HPI Narrative: TRINY CHAND is a 75-year-old male, with past medical history listed below, who presented to [facility] on 03/09/2021 secondary to progressive shortness of breath. Patient reported onset approximately 4 to 5 days prior to presentation. Patient had reported sign ificant coughing. The cough was productive of scant sputum. Patient knows his is ill due to COVID-19 and was placed on ventilator previously in the day. Patient denied any orthopnea or PND. Patient not had increased swelling of his lower extremities. Patient denied any loss of taste or smell. In the ER, patient was noted to have a T-max of 99.3 ?F. Patient was tachycardic at 111 bpm and tachypneic at 28 breaths/min. Patient did require 3 L nasal cannula to maintain saturations. Laboratory work-up showed a hemoglobin of 18.5, white blood cell count of 10 and a creatinine of 1.47. Lactate was slightly elevated at 2.1, but LFTs were within normal limits. Chest x-ray showed increasing bilateral infiltrates, right greater than left. Given patient's comorbidity and positive Covid testing, patient was admitted to the hospital for further evaluation. After admission to the hospital, patient was started on Decadron, Remdesivir and bronchodilators. Patient overall feels subjectively slightly improved compared to previous. Patient states he has both congestive heart failure and COPD that [facility]. Patient states he believes his EF is 38%, but is unaware of his current lung function. Patient did report that he was evaluated last week at [facility] secondary to chest pain. Patient had a work-up that was negative at that time. An echocardiogram showed an EF of 35% with moderately severe systolic dysfunction and stage I diastolic dysfunction. Patient reportedly has a history of obstructive sleep apnea. Did discuss with the patient about CODE STATUS. Patient states that both his parents were on the ventilator and he is not sure this is right for me. However, patient has not discussed this with his children and wants to remain a full code for now. Review of systems otherwise negative from a constitutional, HEENT, respiratory, cardiovascular, GI, genitourinary, musculoskeletal, skin, neurologic, psychiatric and hematologic system unless stated above. [facility] Medical History COPD (chronic obstructive pulmonary disease) CPAP (continuous positive airway pressure) dependence Former smoker ICD (implantable cardioverter-defibrillator) in place Myocardial infarct Home Medications albuterol sulfate [Proventil HFA] 1 - 2 puff IH Q2H PRN 03/16/16 [History Last Taken 03/03/21 15:00] aspirin 81 mg PO DAILY@0800 03/16/16 [History Last Taken 03/03/21] budesonide-formoterol [Symbicort] 2 puff INHALATION BID 03/16/16 [History Last Taken 03/03/21] rosuvastatin 5 mg PO QHS 12/17/17 [History Last Taken 03/03/21] spironolactone 25 mg PO DAILY 12/17/17 [History Last Taken 03/03/21] lisinopril 10 mg PO BID 03/03/21 [History Last Taken 03/03/21] metoprolol succinate 50 mg PO BID 03/03/21 [History Last Taken 03/03/21] Allergy/AdvReac Type Severity Reaction Status Date / Time No Known Allergies Allergy Verified 03/09/21 16:51 Family History Mother Aneurysm Surgical History History of cholecystectomy History of colectomy History of coronary artery stent placement History of coronary artery stent placement Social History household members: spouse housing: house Smoking Status: Former smoker alcohol intake: former substance use type: does not use ROS ROS Narrative See HPI Physical Exam Const alert and oriented x3 Constitutional Narrative: Nasal cannula in place General Appearance: cooperative, comfortable, well kempt and well developed Nutritional Appearance: obese HEENT normocephalic Head and Scalp: atraumatic Eyes PERRL and EOMs intact bilaterally Neck supple, no JVD and no carotid bruits Lymph Lymphatic: lymphadenopathy Lymphadenopathy Laterality: bilateral Resp Effort and Inspection: Negative for actively coughing or segmental paradoxical chest wall movement Auscultation: crackles and diminished lung sounds bilateral; Negative for rales, rhonchi or wheezes Percussion: percussion normal Cardio regular rate, regular rhythm, S1 normal heart sound, S2 normal heart sound, no m urmurs, no rub, no gallops and no JVD GI normal to inspection, nondistended, normoactive bowel sounds and soft to palpation Extremity normal capillary refill General Extremity: Negative for edema Skin no rashes or lesions noted Neuro CN's II-XII intact bilaterally Psych cooperative and affect normal Lab / Micro Data Result Diagrams: 03/10/21 04:45 03/10/21 04:45 Labs: Laboratory Results - last 24 hr 03/09/21 03/09/21 03/09/21 16:54 16:54 16:54 WBC 10.0 RBC 5.83 Hgb 18.5 H* Hct 55.9 H MCV 95.9 H MCH 31.7 MCHC 33.1 RDW Std Deviation 46.2 H RDW Coeff of Ignacio 13.0 Plt Count 146 L MPV 10.5 Immature Gran % (Auto) 0.500 Neut % (Auto) 72.0 H Lymph % (Auto) 19.9 [place] % (Auto) 7.3 Eos % (Auto) 0.0 Baso % (Auto) 0.3 Absolute Neuts (auto) 7.2 Absolute Lymphs (auto) 1.99 Nucleated RBC % 0 Differential Comment Diff Path Review May foll Atypical Lymphocytes PT INR D-Dimer Quant (PE/DVT) Sodium 133 L Potassium 4.3 Chloride 98 Carbon Dioxide 28.0 Anion Gap 7 BUN 27 H Creatinine 1.47 H Estim Creat Clear Calc 44.09 Est GFR (MDRD) Af Amer 60 Est GFR (MDRD) Non-Af 50 L BUN/Creatinine Ratio 18.4 Glucose 95 Lactic Acid 2.1 H* Calcium 8.7 Total Bilirubin 0.90 AST 62 H ALT 39 Alkaline Phosphatase 73 Total Creatine Kinase Troponin I Total Protein 7.9 Albumin 3.4 Globulin 4.5 H Albumin/Globulin Ratio 0.8 L Procalcitonin 03/09/21 03/09/21 03/09/21 16:54 20:45 20:45 WBC RBC Hgb Hct MCV MCH MCHC RDW Std Deviation RDW Coeff of Ignacio Plt Count MPV Immature Gran % (Auto) Neut % (Auto) Lymph % (Auto) [place] % (Auto) Eos % (Auto) Baso % (Auto) Absolute Neuts (auto) Absolute Lymphs (auto) Nucleated RBC % Differential Comment Diff Path Review Atypical Lymphocytes PT 13.4 INR 1.1 D-Dimer Quant (PE/DVT) 0.87 H* Sodium Potassium Chloride Carbon Dioxide Anion Gap BUN Creatinine Estim Creat Clear Calc Est GFR (MDRD) Af Amer Est GFR (MDRD) Non-Af BUN/Creatinine Ratio Glucose Lactic Acid Calcium Total Bilirubin AST ALT Alkaline Phosphatase Total Creatine Kinase Troponin I 0.063 H Total Protein Albumin Globulin Albumin/Globulin Ratio Procalcitonin 0.35 H 03/09/21 03/09/21 03/10/21 20:45 20:45 04:45 WBC 6.1 RBC 4.89 Hgb 15.6 Hct 47.3 MCV 96.7 H MCH 31.9 MCHC 33.0 RDW Std Deviation 46.7 H RDW Coeff of Ignacio 13.0 Plt Count 125 L MPV 10.0 Immature Gran % (Auto) 0.800 Neut % (Auto) 85.3 H Lymph % (Auto) 7.7 L [place] % (Auto) 6.0 Eos % (Auto) 0.0 Baso % (Auto) 0.2 Absolute Neuts (auto) 5.2 Absolute Lymphs (auto) 0.47 L Nucleated RBC % 0 Differential Comment SCANNED Diff Path Review Atypical Lymphocytes RARE PT INR D-Dimer Quant (PE/DVT) Sodium Potassium Chloride Carbon Dioxide Anion Gap BUN Creatinine Estim Creat Clear Calc Est GFR (MDRD) Af Amer Est GFR (MDRD) Non-Af BUN/Creatinine Ratio Glucose Lactic Acid 2.1 H* Calcium Total Bilirubin AST ALT Alkaline Phosphatase Total Creatine Kinase 580 H Troponin I Total Protein Albumin Globulin Albumin/Globulin Ratio Procalcitonin 03/10/21 04:45 WBC RBC Hgb Hct MCV MCH MCHC RDW Std Deviation RDW Coeff of Ignacio Plt Count MPV Immature Gran % (Auto) Neut % (Auto) Lymph % (Auto) [place] % (Auto) Eos % (Auto) Baso % (Auto) Absolute Neuts (auto) Absolute Lymphs (auto) Nucleated RBC % Differential Comment Diff Path Review Atypical Lymphocytes PT INR D-Dimer Quant (PE/DVT) Sodium 137 Potassium 4.3 Chloride 101 Carbon Dioxide 28.0 Anion Gap 8 BUN 29 H Creatinine 1.30 Estim Creat Clear Calc 48.23 Est GFR (MDRD) Af Amer 69 Est GFR (MDRD) Non-Af 57 L BUN/Creatinine Ratio 22.3 H Glucose 130 H Lactic Acid Calcium 7.7 L Total Bilirubin 0.40 AST 58 H ALT 33 Alkaline Phosphatase 60 Total Creatine Kinase Troponin I Total Protein 6.3 L Albumin 2.6 L Globulin 3.7 Albumin/Globulin Ratio 0.7 L Procalcitonin Micro: Microbiology 03/09/21 17:30 SARS-CoV-2 Antigen (Rapid) - Final Interface Orders SARS-CoV-2 (COVID 19) Radiology Impression Chest X-Ray 03/09/21 17:20 IMPRESSION: Increasing bilateral airspace opacities right greater than left. Electronically Signed: Jeanmarie Cedillo MD at 18:13 EDT Tel , Service support , Charges/Coding Visit Charges Inpatient E&M: 04981 Init Hosp L3
[2021-03-10] MEDS: Ipratropium/Albuterol Sulfate 3 ML AMPUL.NEB INHALATION ×3 (09:25→19:05)
[2021-03-10] MEDS: dexAMETHasone 4 MG/ML Vial 6 MG IV (09:46)
--- NOTE | 2021-03-10 11:16 | CASEMGMT ---
Addendum entered by Darryl Hastings 03/10/21 11:49: Pt screened with [facility] Palliative Care Screening Tool for strata 3, pt did not meet criteria. Original Note: MART ARANA ASSESSMENT COVID-19 +. Tested + 03/09 @ [facility]. Pt in isolation precautions. MART ARANA placed call to pt's room for initial transition planning/care coordination assessment. MART ARANA introduced self and role at [facility]. Pt voices understanding and consents to assessment at this time. Pt is A/O at this time and answers all questions appropriately. Care providers, pharmacy, and demographics verified/updated at this time. PCP: Prabha VITALE @ [facility] Specialists: Title Checker and student loan counselor @ [place] Preferred Pharmacy: [facility]--for short-term fill. [place] for long-term medications. Insurance: [facility], [place] Prescription Benefit: Yes Living Will/HPOA: Pt does not currently have LW/HCPOA and declines info at this time. Pt made aware that he can contact as an out-pt and make appt in the future if he decides he would like to talk with someone about this or would like to utilize [facility] social work for advanced directive completion. LNOK: , Korina. Son, Joaquín. Pt also has another son and daughter. Living Arrangements: Lives w/his . Pt's grandson's girlfriend (33 yrs old) and her 5-month-old baby (pt's great-grandson) lives w/them. Pt states he is I w/ADL's. Grandson's GF helps w/a lot of the home mgmt tasks. Per report, pt's is currently intubated @ [facility] d/t COVID. Pt states he thinks his grandson's GF has COVID and also the 5-month-old great grandson. Pt states, It is us all pretty hard. Transportation: Pt states drives self and states no transportation concerns at this time. DME: States has the following DME: CPAP and nebulizer. No home O2. Reviewed local DME companies w/pt consistent with the patient's preferred geographic region, medical needs, and insurance network. The pt's was made aware [facility] is an affiliate of [facility] and is agreeable to [facility]. Pt states no need for further DME at this time. HHC/SNF: Pt wishes to return home and states has no concerns with going home at time of discharge. CM to follow for home oxygen needs and any further discharge planning/needs. Pt voices no further concerns/needs at this time. Advised pt to ask for CM if any further questions/concerns/needs arise. Voices understanding. PLAN: Home. Pt may need O2 @ discharge. Green sheet placed on chart w/instructions on Home O2 set up. Green sheet also includes instructions to fax d/c summary and [facility] discharge. Galindo NI RN CM
[2021-03-10 12:50] LABS: Bedside Glucose 124 mg/dL (70-110)
--- NOTE | 2021-03-10 13:18 | PCM.CONS.GEN ---
Assessment & Plan Assessment/Plan (1) Pneumonia due to 2019 novel coronavirus: PLAN: severe covid with hypoxia - sx started around 03/06. Has not been vaccinated. Recommended vaccine once out of 20 day quarantine, stop date 03/26. On dex, will change to po. On remdesivir, will order monitoring labs. Not on any anticoagulation, had mild rise in d-dimer. Recommend intermediate dose lovenox. Will follow, thank you, d/w nursing. (2) Acute respiratory failure with hypoxia: (3) COPD (chronic obstructive pulmonary disease): HPI Consult Data Date of Consult: 03/10/21 HPI Narrative HPI Narrative: TRINY CHAND, is a 75 M who presented 03/09 with about 4 days of cough, dyspnea, fatigue, difficulty sleeping. Admitted 03/03 with sudden onset chest pain, workup was neg. admitted with covid, transferred to [facility] last night due to worsening condition. He has COPD and CAD, this felt different than prior exacerbations/MIs. No change in taste or smell. Has not been vaccinated for covid. Not on home O2. No aches, no n/v/d. Family called EMS, he was taken to ED. Covid (+), admitted on dex and remdesivir after dose of azithro and ceftriaxone. Feeling better today. Full ROS performed and neg except as noted above. [facility] Medical History COPD (chronic obstructive pulmonary disease) CPAP (continuous positive airway pressure) dependence Former smoker ICD (implantable cardioverter-defibrillator) in place Myocardial infarct Home Medications albuterol sulfate [Proventil HFA] 1 - 2 puff IH Q2H PRN 03/16/16 [History Last Taken 03/03/21 15:00] aspirin 81 mg PO DAILY@0800 03/16/16 [History Last Taken 03/03/21] budesonide-formoterol [Symbicort] 2 puff INHALATION BID 03/16/16 [History Last Taken 03/03/21] rosuvastatin 5 mg PO QHS 12/17/17 [History Last Taken 03/03/21] spironolactone 25 mg PO DAILY 12/17/17 [History Last Taken 03/03/21] lisinopril 10 mg PO BID 03/03/21 [History Last Taken 03/03/21] metoprolol succinate 50 mg PO BID 03/03/21 [History Last Taken 03/03/21] Allergy/AdvReac Type Severity Reaction Status Date / Time No Known Allergies Allergy Verified 03/09/21 16:51 Family History Mother Aneurysm Surgical History History of cholecystectomy History of colectomy History of coronary artery stent placement History of coronary artery stent placement Social History household members: spouse housing: house Smoking Status: Former smoker alcohol intake: former substance use type: does not use Physical Exam Const alert and oriented x3 General Appearance: cooperative HEENT normocephalic and head/scalp atraumatic Eyes PERRL and EOMs intact bilaterally Neck supple and No nodes Resp Auscultation: wheezes and diminished lung sounds Cardio regular rate and regular rhythm GI normal to inspection, nondistended, normoactive bowel sounds Extremity no clubbing, cyanosis or edema Skin no rashes or lesions noted Neuro CN's II-XII intact bilaterally Lab / Micro Data Result Diagrams: 03/10/21 04:45 03/10/21 04:45 Labs: Laboratory Results - last 24 hr 03/09/21 03/09/21 03/09/21 16:54 16:54 16:54 WBC 10.0 RBC 5.83 Hgb 18.5 H* Hct 55.9 H MCV 95.9 H MCH 31.7 MCHC 33.1 RDW Std Deviation 46.2 H RDW Coeff of Ignacio 13.0 Plt Count 146 L MPV 10.5 Immature Gran % (Auto) 0.500 Neut % (Auto) 72.0 H Lymph % (Auto) 19.9 [place] % (Auto) 7.3 Eos % (Auto) 0.0 Baso % (Auto) 0.3 Absolute Neuts (auto) 7.2 Absolute Lymphs (auto) 1.99 Nucleated RBC % 0 Differential Comment Diff Path Review May foll Atypical Lymphocytes PT INR D-Dimer Quant (PE/DVT) Sodium 133 L Potassium 4.3 Chloride 98 Carbon Dioxide 28.0 Anion Gap 7 BUN 27 H Creatinine 1.47 H Estim Creat Clear Calc 44.09 Est GFR (MDRD) Af Amer 60 Est GFR (MDRD) Non-Af 50 L BUN/Creatinine Ratio 18.4 Glucose 95 Lactic Acid 2.1 H* Calcium 8.7 Total Bilirubin 0.90 AST 62 H ALT 39 Alkaline Phosphatase 73 Total Creatine Kinase Troponin I Total Protein 7.9 Albumin 3.4 Globulin 4.5 H Albumin/Globulin Ratio 0.8 L Procalcitonin POC Glucose 03/09/21 03/09/21 03/09/21 16:54 20:45 20:45 WBC RBC Hgb Hct MCV MCH MCHC RDW Std Deviation RDW Coeff of Ignacio Plt Count MPV Immature Gran % (Auto) Neut % (Auto) Lymph % (Auto) [place] % (Auto) Eos % (Auto) Baso % (Auto) Absolute Neuts (auto) Absolute Lymphs (auto) Nucleated RBC % Differential Comment Diff Path Review Atypical Lymphocytes PT 13.4 INR 1.1 D-Dimer Quant (PE/DVT) 0.87 H* Sodium Potassium Chloride Carbon Dioxide Anion Gap BUN Creatinine Estim Creat Clear Calc Est GFR (MDRD) Af Amer Est GFR (MDRD) Non-Af BUN/Creatinine Ratio Glucose Lactic Acid Calcium Total Bilirubin AST ALT Alkaline Phosphatase Total Creatine Kinase Troponin I 0.063 H Total Protein Albumin Globulin Albumin/Globulin Ratio Procalcitonin 0.35 H POC Glucose 03/09/21 03/09/21 03/10/21 20:45 20:45 04:45 WBC 6.1 RBC 4.89 Hgb 15.6 Hct 47.3 MCV 96.7 H MCH 31.9 MCHC 33.0 RDW Std Deviation 46.7 H RDW Coeff of Ignacio 13.0 Plt Count 125 L MPV 10.0 Immature Gran % (Auto) 0.800 Neut % (Auto) 85.3 H Lymph % (Auto) 7.7 L [place] % (Auto) 6.0 Eos % (Auto) 0.0 Baso % (Auto) 0.2 Absolute Neuts (auto) 5.2 Absolute Lymphs (auto) 0.47 L Nucleated RBC % 0 Differential Comment SCANNED Diff Path Review Atypical Lymphocytes RARE PT INR D-Dimer Quant (PE/DVT) Sodium Potassium Chloride Carbon Dioxide Anion Gap BUN Creatinine Estim Creat Clear Calc Est GFR (MDRD) Af Amer Est GFR (MDRD) Non-Af BUN/Creatinine Ratio Glucose Lactic Acid 2.1 H* Calcium Total Bilirubin AST ALT Alkaline Phosphatase Total Creatine Kinase 580 H Troponin I Total Protein Albumin Globulin Albumin/Globulin Ratio Procalcitonin POC Glucose 03/10/21 03/10/21 04:45 09:41 WBC RBC Hgb Hct MCV MCH MCHC RDW Std Deviation RDW Coeff of Ignacio Plt Count MPV Immature Gran % (Auto) Neut % (Auto) Lymph % (Auto) [place] % (Auto) Eos % (Auto) Baso % (Auto) Absolute Neuts (auto) Absolute Lymphs (auto) Nucleated RBC % Differential Comment Diff Path Review Atypical Lymphocytes PT INR D-Dimer Quant (PE/DVT) Sodium 137 Potassium 4.3 Chloride 101 Carbon Dioxide 28.0 Anion Gap 8 BUN 29 H Creatinine 1.30 Estim Creat Clear Calc 48.23 Est GFR (MDRD) Af Amer 69 Est GFR (MDRD) Non-Af 57 L BUN/Creatinine Ratio 22.3 H Glucose 130 H Lactic Acid Calcium 7.7 L Total Bilirubin 0.40 AST 58 H ALT 33 Alkaline Phosphatase 60 Total Creatine Kinase Troponin I Total Protein 6.3 L Albumin 2.6 L Globulin 3.7 Albumin/Globulin Ratio 0.7 L Procalcitonin POC Glucose 124 H Micro: Microbiology 03/09/21 17:30 SARS-CoV-2 Antigen (Rapid) - Final Interface Orders SARS-CoV-2 (COVID 19) Radiology Impression Chest X-Ray 03/09/21 17:20 IMPRESSION: Increasing bilateral airspace opacities right greater than left. Electronically Signed: Jeanmarie Cedillo MD at 18:13 EDT Tel , Service support ,
[2021-03-10 14:22] LABS: Pathologist Review Reviewed
[2021-03-10 16:17] LABS: Magnesium 2.6 mg/dL (1.6-2.6); Phosphorus 4.1 mg/dL (2.5-4.9)
[2021-03-10 16:46] LABS: Bedside Glucose 138 mg/dL (70-110)
--- NOTE | 2021-03-10 16:57 | PN.HOSP_ITS ---
Subjective Subjective Patient was seen and examined in ICU today, he had questions about whether he could be discharged home today and I told him that he was going to be in the hospital for the next several days due to Covid-he acknowledged that. Objective Data Objective Data Vital Signs: Vital Signs Temp Pulse Resp BP Pulse Ox 98.2 F 109 H 27 H 106/59 L 90 03/10/21 15:00 03/10/21 15:00 03/10/21 15:00 03/10/21 15:00 03/10/21 15:00 Oxygen Flow Rate (L/min) 3 Oxygen Delivery Method Nasal Cannula Weight: 118.6 kg Body Mass Index (BMI) 38.2 Intake & Output: Intake and Output for Last 24 Hours 03/08/21 03/09/21 03/10/21 23:59 23:59 23:59 Intake Total 669.58 / 789.58 1071.25 / 1071.25 Output Total 600 / 600 Balance 669.58 / 789.58 471.25 / 471.25 Lab / Micro Data Result Diagrams: 03/10/21 04:45 03/10/21 04:45 Labs: Laboratory Results - last 24 hr 03/09/21 03/09/21 03/09/21 16:54 16:54 16:54 WBC 10.0 RBC 5.83 Hgb 18.5 H* Hct 55.9 H MCV 95.9 H MCH 31.7 MCHC 33.1 RDW Std Deviation 46.2 H RDW Coeff of Ignacio 13.0 Plt Count 146 L MPV 10.5 Immature Gran % (Auto) 0.500 Neut % (Auto) 72.0 H Lymph % (Auto) 19.9 [place] % (Auto) 7.3 Eos % (Auto) 0.0 Baso % (Auto) 0.3 Absolute Neuts (auto) 7.2 Absolute Lymphs (auto) 1.99 Nucleated RBC % 0 Differential Comment Diff Path Review Reviewed Atypical Lymphocytes PT INR D-Dimer Quant (PE/DVT) Sodium 133 L Potassium 4.3 Chloride 98 Carbon Dioxide 28.0 Anion Gap 7 BUN 27 H Creatinine 1.47 H Estim Creat Clear Calc 44.09 Est GFR (MDRD) Af Amer 60 Est GFR (MDRD) Non-Af 50 L BUN/Creatinine Ratio 18.4 Glucose 95 Lactic Acid 2.1 H* Calcium 8.7 Phosphorus Magnesium Total Bilirubin 0.90 AST 62 H ALT 39 Alkaline Phosphatase 73 Total Creatine Kinase Troponin I Total Protein 7.9 Albumin 3.4 Globulin 4.5 H Albumin/Globulin Ratio 0.8 L Procalcitonin POC Glucose 03/09/21 03/09/21 03/09/21 16:54 20:45 20:45 WBC RBC Hgb Hct MCV MCH MCHC RDW Std Deviation RDW Coeff of Ignacio Plt Count MPV Immature Gran % (Auto) Neut % (Auto) Lymph % (Auto) [place] % (Auto) Eos % (Auto) Baso % (Auto) Absolute Neuts (auto) Absolute Lymphs (auto) Nucleated RBC % Differential Comment Diff Path Review Atypical Lymphocytes PT 13.4 INR 1.1 D-Dimer Quant (PE/DVT) 0.87 H* Sodium Potassium Chloride Carbon Dioxide Anion Gap BUN Creatinine Estim Creat Clear Calc Est GFR (MDRD) Af Amer Est GFR (MDRD) Non-Af BUN/Creatinine Ratio Glucose Lactic Acid Calcium Phosphorus Magnesium Total Bilirubin AST ALT Alkaline Phosphatase Total Creatine Kinase Troponin I 0.063 H Total Protein Albumin Globulin Albumin/Globulin Ratio Procalcitonin 0.35 H POC Glucose 03/09/21 03/09/21 03/10/21 20:45 20:45 04:45 WBC 6.1 RBC 4.89 Hgb 15.6 Hct 47.3 MCV 96.7 H MCH 31.9 MCHC 33.0 RDW Std Deviation 46.7 H RDW Coeff of Ignacio 13.0 Plt Count 125 L MPV 10.0 Immature Gran % (Auto) 0.800 Neut % (Auto) 85.3 H Lymph % (Auto) 7.7 L [place] % (Auto) 6.0 Eos % (Auto) 0.0 Baso % (Auto) 0.2 Absolute Neuts (auto) 5.2 Absolute Lymphs (auto) 0.47 L Nucleated RBC % 0 Differential Comment SCANNED Diff Path Review Atypical Lymphocytes RARE PT INR D-Dimer Quant (PE/DVT) Sodium Potassium Chloride Carbon Dioxide Anion Gap BUN Creatinine Estim Creat Clear Calc Est GFR (MDRD) Af Amer Est GFR (MDRD) Non-Af BUN/Creatinine Ratio Glucose Lactic Acid 2.1 H* Calcium Phosphorus Magnesium Total Bilirubin AST ALT Alkaline Phosphatase Total Creatine Kinase 580 H Troponin I Total Protein Albumin Globulin Albumin/Globulin Ratio Procalcitonin POC Glucose 03/10/21 03/10/21 03/10/21 04:45 04:45 09:41 WBC RBC Hgb Hct MCV MCH MCHC RDW Std Deviation RDW Coeff of Ignacio Plt Count MPV Immature Gran % (Auto) Neut % (Auto) Lymph % (Auto) [place] % (Auto) Eos % (Auto) Baso % (Auto) Absolute Neuts (auto) Absolute Lymphs (auto) Nucleated RBC % Differential Comment Diff Path Review Atypical Lymphocytes PT INR D-Dimer Quant (PE/DVT) Sodium 137 Potassium 4.3 Chloride 101 Carbon Dioxide 28.0 Anion Gap 8 BUN 29 H Creatinine 1.30 Estim Creat Clear Calc 48.23 Est GFR (MDRD) Af Amer 69 Est GFR (MDRD) Non-Af 57 L BUN/Creatinine Ratio 22.3 H Glucose 130 H Lactic Acid Calcium 7.7 L Phosphorus 4.1 Magnesium 2.6 Total Bilirubin 0.40 AST 58 H ALT 33 Alkaline Phosphatase 60 Total Creatine Kinase Troponin I Total Protein 6.3 L Albumin 2.6 L Globulin 3.7 Albumin/Globulin Ratio 0.7 L Procalcitonin POC Glucose 124 H 03/10/21 12:55 WBC RBC Hgb Hct MCV MCH MCHC RDW Std Deviation RDW Coeff of Ignacio Plt Count MPV Immature Gran % (Auto) Neut % (Auto) Lymph % (Auto) [place] % (Auto) Eos % (Auto) Baso % (Auto) Absolute Neuts (auto) Absolute Lymphs (auto) Nucleated RBC % Differential Comment Diff Path Review Atypical Lymphocytes PT INR D-Dimer Quant (PE/DVT) Sodium Potassium Chloride Carbon Dioxide Anion Gap BUN Creatinine Estim Creat Clear Calc Est GFR (MDRD) Af Amer Est GFR (MDRD) Non-Af BUN/Creatinine Ratio Glucose Lactic Acid Calcium Phosphorus Magnesium Total Bilirubin AST ALT Alkaline Phosphatase Total Creatine Kinase Troponin I Total Protein Albumin Globulin Albumin/Globulin Ratio Procalcitonin POC Glucose 138 H Micro: Microbiology 03/09/21 17:30 Interface Orders SARS-CoV-2 Antigen (Rapid) - Final SARS-CoV-2 (COVID 19) Radiography Diagnostic Testing: Radiology Impression Chest X-Ray 03/09/21 17:20 IMPRESSION: Increasing bilateral airspace opacities right greater than left. Electronically Signed: Jeanmarie Cedillo MD at 18:13 EDT Tel , Service support , Physical Exam Const alert, oriented x3 and no apparent distress HEENT head/scalp atraumatic and moist oral mucous membranes Head and Scalp: normocephalic Eyes PERRL, EOMs intact bilaterally and conjunctivae normal Neck no lymphadenopathy, supple and no JVD Resp normal respiratory effort, no retractions and no use of accessory muscles Resp Narrative: Decreased breath sounds bilaterally Cardio regular rate, regular rhythm, S1 normal heart sound, S2 normal heart sound, no gallops and no clicks Cardio Narrative: Occasional PVCs are noted on the monitor GI normal to inspection, nondistended, normoactive bowel sounds, soft to palpation and non-tender Extremity normal to inspection and no clubbing, cyanosis or edema Skin no rashes or lesions noted and no wounds Neuro oriented x3, CN's II-XII intact bilaterally and no focal motor deficits Sensorium / Orientation: awake and alert Psych affect normal Assessment & Plan Assessment/Plan (1) COPD (chronic obstructive pulmonary disease): PLAN: 1. COVID-19 pneumonia-continue present treatment per ID, patient was placed on intermediate Lovenox dosage today #2 hypoxia secondary to #1 #3 chronic obstructive pulmonary disease #4 chronic systolic congestive heart failure #5 essential hypertension #6 coronary artery disease #7 ischemic cardiomyopathy #8 obstructive sleep apnea #9 hyperlipidemia #10 cardiac arrhythmia secondary to #7-continue to monitor Visit Charges Inpatient E&M: 23959 Subs Hosp L2
[2021-03-10] MEDS: Enoxaparin 40 MG/0.4 ML Syringe SC ×2 (17:02→23:19)
[2021-03-10 18:45] LABS: Bedside Glucose 134 mg/dL (70-110)
[2021-03-11] VITALS (29 sets, daily range): BP systolic 119–171; BP diastolic 47–94; PULSE 78–110; RESP 16–27; TEMP 36.6–37; O2SAT 90–96
[2021-03-11 00:01] LABS: Bedside Glucose 139 mg/dL (70-110)
[2021-03-11 05:21] LABS: Hematocrit 47.5 % (40-54); Hemoglobin 15.8 g/dL (13.0-16.5); Mean Corp Hgb Conc 33.3 g/dL (32-36); Mean Corpuscular Hgb 31.8 pg (27.0-32.0); Mean Corpuscular Volume 95.6 fL (80-94); Mean Platelet Vol. 10.2 fl (6.2-12.0); Platelet Count 156 K/mm3 (150-450); RBC Distribution Width SD 46.2 fl (35.1-43.9); Red Blood Count 4.97 M/mm3 (4.6-6.2); White Blood Count 9.6 K/mm3 (4.4-11.0)
[2021-03-11 05:38] LABS: ALB/GLOB Ratio 0.8 RATIO (0.9-2.4); AST(SGOT) 52 U/L (15-37); Alanine Aminotransfer ALT/SGPT 34 U/L (16-61); Albumin, Serum 2.8 g/dL (3.2-5.0); Alkaline Phosphatase 57 U/L (45-117); Anion Gap 6 (5-15); BUN 38 mg/dL (7-18); BUN/Creat Ratio 30.4 RATIO (10-20); Calcium,Total 8.2 mg/dL (8.5-10.1); Chloride 104 mmol/L (98-107); Creatinine, Serum 1.25 mg/dL (0.70-1.30); EST Glomerular Filtration Rate 60 mL/min (>60); Est Glom Filt Rate - Afr Amer 73 mL/min (>60); Estimated Creatinine Clearance 50.16 ml/min; Globulin 3.5 g/dL (2.2-4.2); Glucose 136 mg/dL (74-106); Potassium 4.1 mmol/L (3.5-5.1); Protein, Total 6.3 g/dL (6.4-8.2); Sodium Level 136 mmol/L (136-145)
--- NOTE | 2021-03-11 06:59 | PCM.PN.INT ---
Subjective Subjective Patient did well overnight. Patient did have an increased to 6 L nasal cannula, but is not reporting any dyspnea or chest pain at this time. Patient states that he was given a CPAP for obstructive sleep apnea, but is unaware of the prescription and states that he was never trained, so did not initiate therapy at home. Objective Data Objective Data Vital Signs: Vital Signs Temp Pulse Resp BP Pulse Ox 36.6 C 80 22 H 145/78 H 95 03/11/21 06:00 03/11/21 06:00 03/11/21 06:00 03/11/21 06:00 03/11/21 06:00 Oxygen Flow Rate (L/min) 6 Oxygen Delivery Method Nasal Cannula Weight: 120.6 kg Body Mass Index (BMI) 38.2 Intake & Output: Intake and Output for Last 24 Hours 03/09/21 03/10/21 03/11/21 23:59 23:59 23:59 Intake Total 669.58 / 789.58 1821.25 / 1921.25 200 / 200 Output Total 600 / 750 300 / 300 Balance 669.58 / 789.58 1221.25 / 1171.25 -100 / -100 Lab / Micro Data Result Diagrams: 03/11/21 05:10 03/11/21 05:10 Labs: Laboratory Results - last 24 hr 03/09/21 03/10/21 03/10/21 16:54 04:45 09:41 WBC RBC Hgb Hct MCV MCH MCHC RDW Std Deviation RDW Coeff of Ignacio Plt Count MPV Diff Path Review Reviewed Sodium Potassium Chloride Carbon Dioxide Anion Gap BUN Creatinine Estim Creat Clear Calc Est GFR (MDRD) Af Amer Est GFR (MDRD) Non-Af BUN/Creatinine Ratio Glucose Calcium Phosphorus 4.1 Magnesium 2.6 Total Bilirubin AST ALT Alkaline Phosphatase Total Protein Albumin Globulin Albumin/Globulin Ratio POC Glucose 124 H 03/10/21 03/10/21 03/10/21 12:55 16:47 23:18 WBC RBC Hgb Hct MCV MCH MCHC RDW Std Deviation RDW Coeff of Ignacio Plt Count MPV Diff Path Review Sodium Potassium Chloride Carbon Dioxide Anion Gap BUN Creatinine Estim Creat Clear Calc Est GFR (MDRD) Af Amer Est GFR (MDRD) Non-Af BUN/Creatinine Ratio Glucose Calcium Phosphorus Magnesium Total Bilirubin AST ALT Alkaline Phosphatase Total Protein Albumin Globulin Albumin/Globulin Ratio POC Glucose 138 H 134 H 139 H 03/11/21 03/11/21 05:10 05:10 WBC 9.6 RBC 4.97 Hgb 15.8 Hct 47.5 MCV 95.6 H MCH 31.8 MCHC 33.3 RDW Std Deviation 46.2 H RDW Coeff of Ignacio 13.0 Plt Count 156 MPV 10.2 Diff Path Review Sodium 136 Potassium 4.1 Chloride 104 Carbon Dioxide 26.0 Anion Gap 6 BUN 38 H Creatinine 1.25 Estim Creat Clear Calc 50.16 Est GFR (MDRD) Af Amer 73 Est GFR (MDRD) Non-Af 60 BUN/Creatinine Ratio 30.4 H Glucose 136 H Calcium 8.2 L Phosphorus Magnesium Total Bilirubin 0.40 AST 52 H ALT 34 Alkaline Phosphatase 57 Total Protein 6.3 L Albumin 2.8 L Globulin 3.5 Albumin/Globulin Ratio 0.8 L POC Glucose Micro: Microbiology 03/09/21 17:30 Interface Orders SARS-CoV-2 Antigen (Rapid) - Final SARS-CoV-2 (COVID 19) Physical Exam Const alert and oriented x3 Constitutional Narrative: Nasal cannula in place General Appearance: cooperative, comfortable, well kempt and well developed Nutritional Appearance: obese HEENT normocephalic Eyes PERRL and EOMs intact bilaterally Neck supple, no JVD and no carotid bruits Lymph Lymphatic: lymphadenopathy Lymphadenopathy Laterality: bilateral Resp Effort and Inspection: Negative for actively coughing or segmental paradoxical chest wall movement Auscultation: crackles and diminished lung sounds bilateral; Negative for rales, rhonchi or wheezes Percussion: percussion normal Cardio regular rate, regular rhythm, S1 normal heart sound, S2 normal heart sound, no murmurs, no rub, no gallops and no JVD GI normal to inspection, nondistended, normoactive bowel sounds and soft to palpation Extremity normal capillary refill General Extremity: Negative for edema Skin no rashes or lesions noted Neuro CN's II-XII intact bilaterally Psych cooperative and affect normal Assessment & Plan Assessment/Plan (1) COPD (chronic obstructive pulmonary disease): (2) Systolic congestive heart failure with reduced left ventricular function, NYHA class 3: (3) Sepsis due to severe acute respiratory syndrome coronavirus 2 (SARS-CoV-2): (4) Pneumonia due to 2019 novel coronavirus: (5) CAD (coronary artery disease): (6) Hypertension: QUALIFIERS: Hypertension type: essential hypertension Qualified Code(s): I10 - Essential (primary) hypertension PLAN: RECOMMENDATIONS: 1. Continue Decadron, Remdesivir and schedule bronchodilators 2. Increase activity as tolerated 3. Attempt to find CPAP settings and initiate CPAP if possible 4. Continue to monitor for safety given Remdesivir 5. Likely continue blood sugar checks for another 24 hours IMPRESSIONS: 1. Acute hypoxic respiratory insufficiency secondary to Covid 19 pneumonia Patient currently on Remdesivir and Decadron therapy. Bronchodilators have been added. Patient with slight elevation of LFTs, but not enough to discontinue therapy. Blood sugars have been relatively well controlled despite Decadron therapy. Patient has had slight worsening in oxygenation, so we will continue to monitor. 2. 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 Patient was on IV fluids, but these will be discontinued as this has been shown to increased risk for hypoxic respiratory failure in the setting of Covid pneumonia. Okay to continue with baseline medications from my perspective. Patient is on telemetry. Patient recently had a work-up for coronary artery disease that was within normal limits. 3. Obesity/hypertension/CKD versus AG/ALEX Complicates care, management, recovery and prognosis. Okay to continue with baseline medications. Will attempt to obtain old records. Patient would benefit from continuation of ALEX therapy if prescription can be found. Visit Charges Inpatient E&M: 36147 Subs Hosp L3
[2021-03-11] MEDS: Ipratropium/Albuterol Sulfate 3 ML AMPUL.NEB INHALATION ×3 (07:17→19:45)
[2021-03-11] MEDS: Enoxaparin 40 MG/0.4 ML Syringe SC ×2 (09:47→21:34)
[2021-03-11] MEDS: dexAMETHasone 4 MG Tablet 6 MG PO (09:47)
--- NOTE | 2021-03-11 13:37 | PCM.PN.HOSP ---
Subjective Subjective Patient was seen and examined in ICU today, he is currently on 6 L of O2, he does not complain of any shortness of breath presently Objective Data Objective Data Vital Signs: Vital Signs Temp Pulse Resp BP Pulse Ox 98.1 F 87 20 H 156/82 H 92 03/11/21 12:00 03/11/21 13:04 03/11/21 13:04 03/11/21 12:00 03/11/21 13:04 Oxygen Flow Rate (L/min) 6 Oxygen Delivery Method Nasal Cannula Weight: 120.6 kg Body Mass Index (BMI) 38.2 Intake & Output: Intake and Output for Last 24 Hours 03/09/21 03/10/21 03/11/21 23:59 23:59 23:59 Intake Total 669.58 / 789.58 1821.25 / 1921.25 400 / 400 Output Total 600 / 750 475 / 475 Balance 669.58 / 789.58 1221.25 / 1171.25 -75 / -75 Lab / Micro Data Result Diagrams: 03/11/21 05:10 03/11/21 05:10 Labs: Laboratory Results - last 24 hr 03/09/21 03/10/21 03/10/21 16:54 04:45 12:55 WBC RBC Hgb Hct MCV MCH MCHC RDW Std Deviation RDW Coeff of Ignacio Plt Count MPV Diff Path Review Reviewed Sodium Potassium Chloride Carbon Dioxide Anion Gap BUN Creatinine Estim Creat Clear Calc Est GFR (MDRD) Af Amer Est GFR (MDRD) Non-Af BUN/Creatinine Ratio Glucose Calcium Phosphorus 4.1 Magnesium 2.6 Total Bilirubin AST ALT Alkaline Phosphatase Total Protein Albumin Globulin Albumin/Globulin Ratio POC Glucose 138 H 03/10/21 03/10/21 03/11/21 16:47 23:18 05:10 WBC 9.6 RBC 4.97 Hgb 15.8 Hct 47.5 MCV 95.6 H MCH 31.8 MCHC 33.3 RDW Std Deviation 46.2 H RDW Coeff of Ignacio 13.0 Plt Count 156 MPV 10.2 Diff Path Review Sodium Potassium Chloride Carbon Dioxide Anion Gap BUN Creatinine Estim Creat Clear Calc Est GFR (MDRD) Af Amer Est GFR (MDRD) Non-Af BUN/Creatinine Ratio Glucose Calcium Phosphorus Magnesium Total Bilirubin AST ALT Alkaline Phosphatase Total Protein Albumin Globulin Albumin/Globulin Ratio POC Glucose 134 H 139 H 03/11/21 05:10 WBC RBC Hgb Hct MCV MCH MCHC RDW Std Deviation RDW Coeff of Ignacio Plt Count MPV Diff Path Review Sodium 136 Potassium 4.1 Chloride 104 Carbon Dioxide 26.0 Anion Gap 6 BUN 38 H Creatinine 1.25 Estim Creat Clear Calc 50.16 Est GFR (MDRD) Af Amer 73 Est GFR (MDRD) Non-Af 60 BUN/Creatinine Ratio 30.4 H Glucose 136 H Calcium 8.2 L Phosphorus Magnesium Total Bilirubin 0.40 AST 52 H ALT 34 Alkaline Phosphatase 57 Total Protein 6.3 L Albumin 2.8 L Globulin 3.5 Albumin/Globulin Ratio 0.8 L POC Glucose Micro: Microbiology 03/09/21 17:30 Interface Orders SARS-CoV-2 Antigen (Rapid) - Final SARS-CoV-2 (COVID 19) Physical Exam Narrative [facility] [id number] [place] [address] Progress Note - Tlowibgcnlf55/14/21 1657#: [id number]:TRINY CHAND [facility] #:[id number]: [id number]: Pawan Shine DOPCP:[place], [place] Status:ADM INLocation: [id number] Subjective Subjective Patient was seen and examined in ICU today, he had questions about whether he could be discharged home today and I told him that he was going to be in the hospital for the next several days due to Covid-he acknowledged that. Objective Data Objective Data Vital Signs: Vital Signs Temp Pulse Resp BP Pulse Ox 98.2 F 109 H 27 H 106/59 L 90 03/10/21 15:00 03/10/21 15:00 03/10/21 15:00 03/10/21 15:00 03/10/21 15:00 Oxygen Flow Rate (L/min) 3 Oxygen Delivery Method Nasal Cannula Weight: 118.6 kg Body Mass Index (BMI) 38.2 Intake & Output:Intake and Output for Last 24 Hours 03/08/21 03/09/21 03/10/21 23:59 23:59 23:59 Intake Total 669.58 / 789.58 1071.25 / 1071.25 Output Total 600 / 600 Balance 669.58 / 789.58 471.25 / 471.25 Lab / Micro Data Result Diagrams: 03/10/21 04:45 document embedded image 03/10/21 04:45 document embedded image Labs:Laboratory Results - last 24 hr 03/09/21 03/09/21 03/09/21 16:54 16:54 16:54 WBC 10.0 RBC 5.83 Hgb 18.5 H* Hct 55.9 H MCV 95.9 H MCH 31.7 MCHC 33.1 RDW Std Deviation 46.2 H RDW Coeff of Ignacio 13.0 Plt Count 146 L MPV 10.5 Immature Gran % (Auto) 0.500 Neut % (Auto) 72.0 H Lymph % (Auto) 19.9 [place] % (Auto) 7.3 Eos % (Auto) 0.0 Baso % (Auto) 0.3 Absolute Neuts (auto) 7.2 Absolute Lymphs (auto) 1.99 Nucleated RBC % 0 Differential Comment Diff Path Review Reviewed Atypical Lymphocytes PT INR D-Dimer Quant (PE/DVT) Sodium 133 L Potassium 4.3 Chloride 98 Carbon Dioxide 28.0 Anion Gap 7 BUN 27 H Creatinine 1.47 H Estim Creat Clear Calc 44.09 Est GFR (MDRD) Af Amer 60 Est GFR (MDRD) Non-Af 50 L BUN/Creatinine Ratio 18.4 Glucose 95 Lactic Acid 2.1 H* Calcium 8.7 Phosphorus Magnesium Total Bilirubin 0.90 AST 62 H ALT 39 Alkaline Phosphatase 73 Total Creatine Kinase Troponin I Total Protein 7.9 Albumin 3.4 Globulin 4.5 H Albumin/Globulin Ratio 0.8 L Procalcitonin POC Glucose 03/09/21 03/09/21 03/09/21 16:54 20:45 20:45 WBC RBC Hgb Hct MCV MCH MCHC RDW Std Deviation RDW Coeff of Ignacio Plt Count MPV Immature Gran % (Auto) Neut % (Auto) Lymph % (Auto) [place] % (Auto) Eos % (Auto) Baso % (Auto) Absolute Neuts (auto) Absolute Lymphs (auto) Nucleated RBC % Differential Comment Diff Path Review Atypical Lymphocytes PT 13.4 INR 1.1 D-Dimer Quant (PE/DVT) 0.87 H* Sodium Potassium Chloride Carbon Dioxide Anion Gap BUN Creatinine Estim Creat Clear Calc Est GFR (MDRD) Af Amer Est GFR (MDRD) Non-Af BUN/Creatinine Ratio Glucose Lactic Acid Calcium Phosphorus Magnesium Total Bilirubin AST ALT Alkaline Phosphatase Total Creatine Kinase Troponin I 0.063 H Total Protein Albumin Globulin Albumin/Globulin Ratio Procalcitonin 0.35 H POC Glucose 03/09/21 03/09/21 03/10/21 20:45 20:45 04:45 WBC 6.1 RBC 4.89 Hgb 15.6 Hct 47.3 MCV 96.7 H MCH 31.9 MCHC 33.0 RDW Std Deviation 46.7 H RDW Coeff of Ignacio 13.0 Plt Count 125 L MPV 10.0 Immature Gran % (Auto) 0.800 Neut % (Auto) 85.3 H Lymph % (Auto) 7.7 L [place] % (Auto) 6.0 Eos % (Auto) 0.0 Baso % (Auto) 0.2 Absolute Neuts (auto) 5.2 Absolute Lymphs (auto) 0.47 L Nucleated RBC % 0 Differential Comment SCANNED Diff Path Review Atypical Lymphocytes RARE PT INR D-Dimer Quant (PE/DVT) Sodium Potassium Chloride Carbon Dioxide Anion Gap BUN Creatinine Estim Creat Clear Calc Est GFR (MDRD) Af Amer Est GFR (MDRD) Non-Af BUN/Creatinine Ratio Glucose Lactic Acid 2.1 H* Calcium Phosphorus Magnesium Total Bilirubin AST ALT Alkaline Phosphatase Total Creatine Kinase 580 H Troponin I Total Protein Albumin Globulin Albumin/Globulin Ratio Procalcitonin POC Glucose 03/10/21 03/10/21 03/10/21 04:45 04:45 09:41 WBC RBC Hgb Hct MCV MCH MCHC RDW Std Deviation RDW Coeff of Ignacio Plt Count MPV Immature Gran % (Auto) Neut % (Auto) Lymph % (Auto) [place] % (Auto) Eos % (Auto) Baso % (Auto) Absolute Neuts (auto) Absolute Lymphs (auto) Nucleated RBC % Differential Comment Diff Path Review Atypical Lymphocytes PT INR D-Dimer Quant (PE/DVT) Sodium 137 Potassium 4.3 Chloride 101 Carbon Dioxide 28.0 Anion Gap 8 BUN 29 H Creatinine 1.30 Estim Creat Clear Calc 48.23 Est GFR (MDRD) Af Amer 69 Est GFR (MDRD) Non-Af 57 L BUN/Creatinine Ratio 22.3 H Glucose 130 H Lactic Acid Calcium 7.7 L Phosphorus 4.1 Magnesium 2.6 Total Bilirubin 0.40 AST 58 H ALT 33 Alkaline Phosphatase 60 Total Creatine Kinase Troponin I Total Protein 6.3 L Albumin 2.6 L Globulin 3.7 Albumin/Globulin Ratio 0.7 L Procalcitonin POC Glucose 124 H 03/10/21 12:55 WBC RBC Hgb Hct MCV MCH MCHC RDW Std Deviation RDW Coeff of Ignacio Plt Count MPV Immature Gran % (Auto) Neut % (Auto) Lymph % (Auto) [place] % (Auto) Eos % (Auto) Baso % (Auto) Absolute Neuts (auto) Absolute Lymphs (auto) Nucleated RBC % Differential Comment Diff Path Review Atypical Lymphocytes PT INR D-Dimer Quant (PE/DVT) Sodium Potassium Chloride Carbon Dioxide Anion Gap BUN Creatinine Estim Creat Clear Calc Est GFR (MDRD) Af Amer Est GFR (MDRD) Non-Af BUN/Creatinine Ratio Glucose Lactic Acid Calcium Phosphorus Magnesium Total Bilirubin AST ALT Alkaline Phosphatase Total Creatine Kinase Troponin I Total Protein Albumin Globulin Albumin/Globulin Ratio Procalcitonin POC Glucose 138 H Micro:Microbiology 03/09/21 17:30 Interface Orders SARS-CoV-2 Antigen (Rapid) - Final SARS-CoV-2 (COVID 19) Radiography Diagnostic Testing:Radiology Impression Chest X-Ray 03/09/21 17:20 IMPRESSION: Increasing bilateral airspace opacities right greater than left. Electronically Signed: Jeanmarie Cedillo MD at 18:13 EDT Tel , Service support , Physical Exam Const alert, oriented x3 and no apparent distress HEENT head/scalp atraumatic and moist oral mucous membranes Head and Scalp: normocephalic Eyes PERRL, EOMs intact bilaterally and conjunctivae normal Neck no lymphadenopathy, supple and no JVD Resp normal respiratory effort, no retractions and no use of accessory muscles Resp Narrative: Decreased breath sounds bilaterally Cardio regular rate, regular rhythm, S1 normal heart sound, S2 normal heart sound, no gallops and no clicks Cardio Narrative: Occasional PVCs are noted on the monitor GI normal to inspection, nondistended, normoactive bowel sounds, soft to palpation and non-tender Extremity normal to inspection and no clubbing, cyanosis or edema Skin no rashes or lesions noted and no wounds Neuro oriented x3, CN's II-XII intact bilaterally and no focal motor deficits Sensorium / Orientation: awake and alert Psych affect normal Const alert, oriented x3, no apparent distress and no limitations General Appearance: cooperative, comfortable and well kempt HEENT normocephalic, head/scalp atraumatic and moist oral mucous membranes Eyes PERRL, EOMs intact bilaterally, conjunctivae normal and no scleral icterus General Eye: normal appearance of both eyes Periorbital: periorbital findings normal Neck no lymphadenopathy, supple, no meningeal signs, no JVD and no carotid bruits General: trachea midline Thyroid: thyroid normal Resp normal respiratory effort, normal air movement, no retractions and no use of accessory muscles Auscultation: Negative for crackles, rales or wheezes Cardio regular rate, regular rhythm, S1 normal heart sound, S2 normal heart sound, no murmurs, no gallops, no clicks and no JVD Peripheral Pulses: pulses 2+ throughout GI normal to inspection, nondistended, normoactive bowel sounds, soft to palpation, non-tender and non-distended; Negative for hepatosplenomegaly Auscultation: normoactive bowel sounds Extremity normal to inspection, full ROM and no clubbing, cyanosis or edema Skin no rashes or lesions noted, no wounds and no petechiae Neuro oriented x3, CN's II-XII intact bilaterally, moves all extremities and no focal motor deficits Sensorium / Orientation: awake and alert Speech: speech normal Motor Exam: strength 5/5 throughout Psych mental status grossly normal, affect normal and denies hallucinations Assessment & Plan Assessment/Plan (1) COPD (chronic obstructive pulmonary disease): PLAN: 1. COVID-19 pneumonia-continue present treatment per ID, #2 Hypoxic respiratory failure secondary to #1-patient is currently on 6 L #3 chronic obstructive pulmonary disease #4 chronic systolic congestive heart failure #5 essential hypertension #6 coronary artery disease #7 ischemic cardiomyopathy #8 obstructive sleep apnea #9 hyperlipidemia #10 cardiac arrhythmia secondary to #7-continue to monitor Visit Charges Inpatient E&M: 78447 [facility] Hosp L2
[2021-03-11 15:36] LABS: Bedside Glucose 132 mg/dL (70-110)
[2021-03-11] MEDS: Acetaminophen 325 MG Tablet 650 MG PO (21:33)
[2021-03-11] MEDS: 0.9% Saline Lock 10 ML Syringe IV (21:37)
[2021-03-12] VITALS (28 sets, daily range): BP systolic 120–156; BP diastolic 54–111; PULSE 73–185; RESP 18–23; TEMP 36.3–36.6; O2SAT 90–96
[2021-03-12 01:06] LABS: Bedside Glucose 130 mg/dL (70-110)
[2021-03-12] MEDS: 0.9% Saline Lock 10 ML Syringe IV ×3 (04:09→18:39)
[2021-03-12 04:22] LABS: Hematocrit 45.3 % (40-54); Hemoglobin 15.2 g/dL (13.0-16.5); Mean Corp Hgb Conc 33.6 g/dL (32-36); Mean Corpuscular Hgb 32.2 pg (27.0-32.0); Mean Platelet Vol. 10.1 fl (6.2-12.0); Platelet Count 189 K/mm3 (150-450); RBC Distribution Width SD 46.5 fl (35.1-43.9); Red Blood Count 4.72 M/mm3 (4.6-6.2); White Blood Count 10.5 K/mm3 (4.4-11.0)
[2021-03-12 04:39] LABS: ALB/GLOB Ratio 0.9 RATIO (0.9-2.4); AST(SGOT) 48 U/L (15-37); Alanine Aminotransfer ALT/SGPT 37 U/L (16-61); Albumin, Serum 2.8 g/dL (3.2-5.0); Alkaline Phosphatase 54 U/L (45-117); Anion Gap 6 (5-15); BUN 36 mg/dL (7-18); BUN/Creat Ratio 32.4 RATIO (10-20); Calcium,Total 8.3 mg/dL (8.5-10.1); Chloride 105 mmol/L (98-107); Creatinine, Serum 1.11 mg/dL (0.70-1.30); EST Glomerular Filtration Rate 69 mL/min (>60); Est Glom Filt Rate - Afr Amer 83 mL/min (>60); Estimated Creatinine Clearance 56.49 ml/min; Globulin 3.2 g/dL (2.2-4.2); Glucose 143 mg/dL (74-106); Potassium 4.1 mmol/L (3.5-5.1); Sodium Level 140 mmol/L (136-145)
--- NOTE | 2021-03-12 07:12 | PCM.PN.INT ---
Subjective Subjective Patient did well overnight. No acute issues were reported. Patient states that he does get some dyspnea with exertion, but overall feels he is improving. Patient did voice concerns that he has a 5-month-old at home and lives in a trailer. Patient is unclear on the risks of the 5-month-old and had several questions. Objective Data Objective Data Vital Signs: Vital Signs Temp Pulse Resp BP Pulse Ox 36.3 C L 73 20 H 140/77 H 90 03/12/21 04:00 03/12/21 07:00 03/12/21 07:00 03/12/21 07:00 03/12/21 07:00 Oxygen Flow Rate (L/min) 2 Oxygen Delivery Method Nasal Cannula Weight: 119.8 kg Body Mass Index (BMI) 38.2 Intake & Output: Intake and Output for Last 24 Hours 03/10/21 03/11/21 03/12/21 23:59 23:59 23:59 Intake Total 1821.25 / 1921.25 580 / 580 250 / 250 Output Total 600 / 750 625 / 1050 625 / 625 Balance 1221.25 / 1171.25 -45 / -470 -375 / -375 Lab / Micro Data Result Diagrams: 03/12/21 04:00 03/12/21 04:00 Labs: Laboratory Results - last 24 hr 03/11/21 03/11/21 03/12/21 15:31 21:32 04:00 WBC 10.5 RBC 4.72 Hgb 15.2 Hct 45.3 MCV 96.0 H MCH 32.2 H MCHC 33.6 RDW Std Deviation 46.5 H RDW Coeff of Ignacio 13.0 Plt Count 189 MPV 10.1 Sodium Potassium Chloride Carbon Dioxide Anion Gap BUN Creatinine Estim Creat Clear Calc Est GFR (MDRD) Af Amer Est GFR (MDRD) Non-Af BUN/Creatinine Ratio Glucose Calcium Total Bilirubin AST ALT Alkaline Phosphatase Total Protein Albumin Globulin Albumin/Globulin Ratio POC Glucose 132 H 130 H 03/12/21 04:00 WBC RBC Hgb Hct MCV MCH MCHC RDW Std Deviation RDW Coeff of Ignacio Plt Count MPV Sodium 140 Potassium 4.1 Chloride 105 Carbon Dioxide 29.0 Anion Gap 6 BUN 36 H Creatinine 1.11 Estim Creat Clear Calc 56.49 Est GFR (MDRD) Af Amer 83 Est GFR (MDRD) Non-Af 69 BUN/Creatinine Ratio 32.4 H Glucose 143 H Calcium 8.3 L Total Bilirubin 0.50 AST 48 H ALT 37 Alkaline Phosphatase 54 Total Protein 6.0 L Albumin 2.8 L Globulin 3.2 Albumin/Globulin Ratio 0.9 POC Glucose Micro: Microbiology 03/09/21 17:30 Interface Orders SARS-CoV-2 Antigen (Rapid) - Final SARS-CoV-2 (COVID 19) Physical Exam Const alert and oriented x3 Constitutional Narrative: Nasal cannula in place General Appearance: cooperative, comfortable, well kempt and well developed Nutritional Appearance: obese HEENT normocephalic Eyes PERRL and EOMs intact bilaterally Neck supple, no JVD and no carotid bruits Lymph Lymphatic: lymphadenopathy Lymphadenopathy Laterality: bilateral Resp Effort and Inspection: Negative for actively coughing or segmental paradoxical chest wall movement Auscultation: crackles and diminished lung sounds bilateral; Negative for rales, rhonchi or wheezes Percussion: percussion normal Cardio regular rate, regular rhythm, S1 normal heart sound, S2 normal heart sound, no murmurs, no rub, no gallops and no JVD GI normal to inspection, nondistended, normoactive bowel sounds and soft to palpation Extremity normal capillary refill General Extremity: Negative for edema Skin no rashes or lesions noted Neuro CN's II-XII intact bilaterally Psych cooperative and affect normal Assessment & Plan Assessment/Plan (1) COPD (chronic obstructive pulmonary disease): (2) Systolic congestive heart failure with reduced left ventricular function, NYHA class 3: (3) Sepsis due to severe acute respiratory syndrome coronavirus 2 (SARS-CoV-2): (4) Pneumonia due to 2019 novel coronavirus: (5) CAD (coronary artery disease): (6) Hypertension: QUALIFIERS: Hypertension type: essential hypertension Qualified Code(s): I10 - Essential (primary) hypertension PLAN: RECOMMENDATIONS: 1. Continue Decadron, Remdesivir and schedule bronchodilators 2. Okay to discontinue blood sugar checks from my perspective 3. Attempt to find CPAP settings and initiate CPAP if possible 4. Continue to monitor for safety given Remdesivir 5. Walking oximetry prior to discharge IMPRESSIONS: 1. Acute hypoxic respiratory insufficiency secondary to Covid 19 pneumonia Patient currently on Remdesivir and Decadron therapy. Patient should complete his Remdesivir this evening. Anticipate a total of 10 days of Decadron. No indication for discontinuation of Remdesivir from laboratory data. Blood sugars have been relatively well controlled despite Decadron therapy. Oxygenation continues to improve. 2. 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 Patient was on IV fluids, but these will be discontinued as this has been shown to increased risk for hypoxic respiratory failure in the setting of Covid pneumonia. Okay to continue with baseline medications from my perspective. Patient is on telemetry. Patient recently had a work-up for coronary artery disease that suggested no need for intervention at this time. 3. Obesity/hypertension/CKD versus AG/ALEX Complicates care, management, recovery and prognosis. Okay to continue with baseline medications. Will attempt to obtain old records. Patient would benefit from continuation of ALEX therapy if prescription can be found. Visit Charges Inpatient E&M: 18416 Subs Hosp L2
[2021-03-12] MEDS: Ipratropium/Albuterol Sulfate 3 ML AMPUL.NEB INHALATION ×3 (07:22→19:47)
[2021-03-12] MEDS: dexAMETHasone 4 MG Tablet 6 MG PO (08:29)
[2021-03-12] MEDS: Enoxaparin 40 MG/0.4 ML Syringe SC (08:29)
--- NOTE | 2021-03-12 15:02 | PN.HOSP_ITS ---
Subjective Subjective Patient was seen and examined today in ICU, he is currently on 3 L of oxygen, he does not appear to have any respiratory distress. Objective Data Objective Data Vital Signs: Vital Signs Temp Pulse Resp BP Pulse Ox 97.9 F 86 18 144/100 H 94 03/12/21 13:15 03/12/21 13:25 03/12/21 13:25 03/12/21 13:15 03/12/21 13:25 Oxygen Flow Rate (L/min) 3 Oxygen Delivery Method Nasal Cannula Weight: 119.8 kg Body Mass Index (BMI) 38.2 Intake & Output: Intake and Output for Last 24 Hours 03/10/21 03/11/21 03/12/21 23:59 23:59 23:59 Intake Total 1821.25 / 1921.25 580 / 580 460 / 460 Output Total 600 / 750 625 / 1050 875 / 875 Balance 1221.25 / 1171.25 -45 / -470 -415 / -415 Lab / Micro Data Result Diagrams: 03/12/21 04:00 03/12/21 04:00 Labs: Laboratory Results - last 24 hr 03/11/21 03/11/21 03/12/21 15:31 21:32 04:00 WBC 10.5 RBC 4.72 Hgb 15.2 Hct 45.3 MCV 96.0 H MCH 32.2 H MCHC 33.6 RDW Std Deviation 46.5 H RDW Coeff of Ignacio 13.0 Plt Count 189 MPV 10.1 Sodium Potassium Chloride Carbon Dioxide Anion Gap BUN Creatinine Estim Creat Clear Calc Est GFR (MDRD) Af Amer Est GFR (MDRD) Non-Af BUN/Creatinine Ratio Glucose Calcium Total Bilirubin AST ALT Alkaline Phosphatase Total Protein Albumin Globulin Albumin/Globulin Ratio POC Glucose 132 H 130 H 03/12/21 04:00 WBC RBC Hgb Hct MCV MCH MCHC RDW Std Deviation RDW Coeff of Ingacio Plt Count MPV Sodium 140 Potassium 4.1 Chloride 105 Carbon Dioxide 29.0 Anion Gap 6 BUN 36 H Creatinine 1.11 Estim Creat Clear Calc 56.49 Est GFR (MDRD) Af Amer 83 Est GFR (MDRD) Non-Af 69 BUN/Creatinine Ratio 32.4 H Glucose 143 H Calcium 8.3 L Total Bilirubin 0.50 AST 48 H ALT 37 Alkaline Phosphatase 54 Total Protein 6.0 L Albumin 2.8 L Globulin 3.2 Albumin/Globulin Ratio 0.9 POC Glucose Micro: Microbiology 03/09/21 16:54 Blood Culture (Wb) - Anticubital Left Blood Culture - Preliminary No growth in 48 hours. 03/09/21 17:29 Blood Culture (Wb) - Left Hand Blood Culture - Preliminary No growth in 48 hours. 03/09/21 17:30 Interface Orders SARS-CoV-2 Antigen (Rapid) - Final SARS-CoV-2 (COVID 19) [facility] [id number] [place] [address] Progress Note - Ueivyghhuwu76/14/21 1657MR#: [id number]:[id number]:TRINY HCAND [facility] #:[id number]: From: Pawan Shine DOPCP:[place] Status:ADM INLocation: [id number] Subjective Subjective Patient was seen and examined in ICU today, he had questions about whether he could be discharged home today and I told him that he was going to be in the hospital for the next several days due to Covid-he acknowledged that. Objective Data Objective Data Vital Signs: Vital Signs Temp Pulse Resp BP Pulse Ox 98.2 F 109 H 27 H 106/59 L 90 03/10/21 15:00 03/10/21 15:00 03/10/21 15:00 03/10/21 15:00 03/10/21 15:00 Oxygen Flow Rate (L/min) 3 Oxygen Delivery Method Nasal Cannula Weight: 118.6 kg Body Mass Index (BMI) 38.2 Intake & Output:Intake and Output for Last 24 Hours 03/08/21 03/09/21 03/10/21 23:59 23:59 23:59 Intake Total 669.58 / 789.58 1071.25 / 1071.25 Output Total 600 / 600 Balance 669.58 / 789.58 471.25 / 471.25 Lab / Micro Data Result Diagrams: 03/10/21 04:45 document embedded image 03/10/21 04:45 document embedded image Labs:Laboratory Results - last 24 hr 03/09/21 03/09/21 03/09/21 16:54 16:54 16:54 WBC 10.0 RBC 5.83 Hgb 18.5 H* Hct 55.9 H MCV 95.9 H MCH 31.7 MCHC 33.1 RDW Std Deviation 46.2 H RDW Coeff of Ignacio 13.0 Plt Count 146 L MPV 10.5 Immature Gran % (Auto) 0.500 Neut % (Auto) 72.0 H Lymph % (Auto) 19.9 [place] % (Auto) 7.3 Eos % (Auto) 0.0 Baso % (Auto) 0.3 Absolute Neuts (auto) 7.2 Absolute Lymphs (auto) 1.99 Nucleated RBC % 0 Differential Comment Diff Path Review Reviewed Atypical Lymphocytes PT INR D-Dimer Quant (PE/DVT) Sodium 133 L Potassium 4.3 Chloride 98 Carbon Dioxide 28.0 Anion Gap 7 BUN 27 H Creatinine 1.47 H Estim Creat Clear Calc 44.09 Est GFR (MDRD) Af Amer 60 Est GFR (MDRD) Non-Af 50 L BUN/Creatinine Ratio 18.4 Glucose 95 Lactic Acid 2.1 H* Calcium 8.7 Phosphorus Magnesium Total Bilirubin 0.90 AST 62 H ALT 39 Alkaline Phosphatase 73 Total Creatine Kinase Troponin I Total Protein 7.9 Albumin 3.4 Globulin 4.5 H Albumin/Globulin Ratio 0.8 L Procalcitonin POC Glucose 03/09/21 03/09/21 03/09/21 16:54 20:45 20:45 WBC RBC Hgb Hct MCV MCH MCHC RDW Std Deviation RDW Coeff of Ignacio Plt Count MPV Immature Gran % (Auto) Neut % (Auto) Lymph % (Auto) [place] % (Auto) Eos % (Auto) Baso % (Auto) Absolute Neuts (auto) Absolute Lymphs (auto) Nucleated RBC % Differential Comment Diff Path Review Atypical Lymphocytes PT 13.4 INR 1.1 D-Dimer Quant (PE/DVT) 0.87 H* Sodium Potassium Chloride Carbon Dioxide Anion Gap BUN Creatinine Estim Creat Clear Calc Est GFR (MDRD) Af Amer Est GFR (MDRD) Non-Af BUN/Creatinine Ratio Glucose Lactic Acid Calcium Phosphorus Magnesium Total Bilirubin AST ALT Alkaline Phosphatase Total Creatine Kinase Troponin I 0.063 H Total Protein Albumin Globulin Albumin/Globulin Ratio Procalcitonin 0.35 H POC Glucose 03/09/21 03/09/21 03/10/21 20:45 20:45 04:45 WBC 6.1 RBC 4.89 Hgb 15.6 Hct 47.3 MCV 96.7 H MCH 31.9 MCHC 33.0 RDW Std Deviation 46.7 H RDW Coeff of Ignacio 13.0 Plt Count 125 L MPV 10.0 Immature Gran % (Auto) 0.800 Neut % (Auto) 85.3 H Lymph % (Auto) 7.7 L [place] % (Auto) 6.0 Eos % (Auto) 0.0 Baso % (Auto) 0.2 Absolute Neuts (auto) 5.2 Absolute Lymphs (auto) 0.47 L Nucleated RBC % 0 Differential Comment SCANNED Diff Path Review Atypical Lymphocytes RARE PT INR D-Dimer Quant (PE/DVT) Sodium Potassium Chloride Carbon Dioxide Anion Gap BUN Creatinine Estim Creat Clear Calc Est GFR (MDRD) Af Amer Est GFR (MDRD) Non-Af BUN/Creatinine Ratio Glucose Lactic Acid 2.1 H* Calcium Phosphorus Magnesium Total Bilirubin AST ALT Alkaline Phosphatase Total Creatine Kinase 580 H Troponin I Total Protein Albumin Globulin Albumin/Globulin Ratio Procalcitonin POC Glucose 03/10/21 03/10/21 03/10/21 04:45 04:45 09:41 WBC RBC Hgb Hct MCV MCH MCHC RDW Std Deviation RDW Coeff of Ignacio Plt Count MPV Immature Gran % (Auto) Neut % (Auto) Lymph % (Auto) [place] % (Auto) Eos % (Auto) Baso % (Auto) Absolute Neuts (auto) Absolute Lymphs (auto) Nucleated RBC % Differential Comment Diff Path Review Atypical Lymphocytes PT INR D-Dimer Quant (PE/DVT) Sodium 137 Potassium 4.3 Chloride 101 Carbon Dioxide 28.0 Anion Gap 8 BUN 29 H Creatinine 1.30 Estim Creat Clear Calc 48.23 Est GFR (MDRD) Af Amer 69 Est GFR (MDRD) Non-Af 57 L BUN/Creatinine Ratio 22.3 H Glucose 130 H Lactic Acid Calcium 7.7 L Phosphorus 4.1 Magnesium 2.6 Total Bilirubin 0.40 AST 58 H ALT 33 Alkaline Phosphatase 60 Total Creatine Kinase Troponin I Total Protein 6.3 L Albumin 2.6 L Globulin 3.7 Albumin/Globulin Ratio 0.7 L Procalcitonin POC Glucose 124 H 03/10/21 12:55 WBC RBC Hgb Hct MCV MCH MCHC RDW Std Deviation RDW Coeff of Ignacio Plt Count MPV Immature Gran % (Auto) Neut % (Auto) Lymph % (Auto) [place] % (Auto) Eos % (Auto) Baso % (Auto) Absolute Neuts (auto) Absolute Lymphs (auto) Nucleated RBC % Differential Comment Diff Path Review Atypical Lymphocytes PT INR D-Dimer Quant (PE/DVT) Sodium Potassium Chloride Carbon Dioxide Anion Gap BUN Creatinine Estim Creat Clear Calc Est GFR (MDRD) Af Amer Est GFR (MDRD) Non-Af BUN/Creatinine Ratio Glucose Lactic Acid Calcium Phosphorus Magnesium Total Bilirubin AST ALT Alkaline Phosphatase Total Creatine Kinase Troponin I Total Protein Albumin Globulin Albumin/Globulin Ratio Procalcitonin POC Glucose 138 H Micro:Microbiology 03/09/21 17:30 Interface Orders SARS-CoV-2 Antigen (Rapid) - Final SARS-CoV-2 (COVID 19) Radiography Diagnostic Testing:Radiology Impression Chest X-Ray 03/09/21 17:20 IMPRESSION: Increasing bilateral airspace opacities right greater than left. Electronically Signed: Jeanmarie Cedillo MD at 18:13 EDT Tel , Service support , Physical Exam Const alert, oriented x3 and no apparent distress HEENT head/scalp atraumatic and moist oral mucous membranes Head and Scalp: normocephalic Eyes PERRL, EOMs intact bilaterally and conjunctivae normal Neck no lymphadenopathy, supple and no JVD Resp normal respiratory effort, no retractions and no use of accessory muscles Resp Narrative: Decreased breath sounds bilaterally Cardio regular rate, regular rhythm, S1 normal heart sound, S2 normal heart sound, no gallops and no clicks Cardio Narrative: Occasional PVCs are noted on the monitor GI normal to inspection, nondistended, normoactive bowel sounds, soft to palpation and non-tender Extremity normal to inspection and no clubbing, cyanosis or edema Skin no rashes or lesions noted and no wounds Neuro oriented x3, CN's II-XII intact bilaterally and no focal motor deficits Sensorium / Orientation: awake and alert Psych affect normal Const alert, oriented x3, no apparent distress and well nourished General Appearance: cooperative, comfortable and well kempt HEENT head/scalp atraumatic, moist oral mucous membranes and oropharynx normal Head and Scalp: normocephalic Eyes PERRL, EOMs intact bilaterally and conjunctivae normal General Eye: normal appearance of both eyes Periorbital: periorbital findings normal Neck no lymphadenopathy, supple and no JVD General: trachea midline Thyroid: thyroid normal Resp normal respiratory effort, no retractions and no use of accessory muscles Resp Narrative: Decreased breath sounds bilaterally Auscultation: Negative for crackles, rales or wheezes Cardio regular rate, regular rhythm, S1 normal heart sound, S2 normal heart sound, no gallops and no clicks Peripheral Pulses: pulses 2+ throughout GI normal to inspection, nondistended, normoactive bowel sounds, soft to palpation, non-tender and non-distended Auscultation: normoactive bowel sounds Extremity normal to inspection, full ROM and no clubbing, cyanosis or edema Skin no rashes or lesions noted, no wounds and no petechiae Neuro oriented x3, CN's II-XII intact bilaterally, no focal motor deficits and no sensory deficits noted Sensorium / Orientation: awake and alert Speech: speech normal Motor Exam: strength 5/5 throughout Psych affect normal Assessment & Plan Assessment/Plan (1) COPD (chronic obstructive pulmonary disease): PLAN: 1. COVID-19 pneumonia-continue present treatment per ID, I spoke briefly with critical care today about his care #2 Hypoxic respiratory failure secondary to #1-patient is currently on 3 L #3 chronic obstructive pulmonary disease #4 chronic systolic congestive heart failure #5 essential hypertension #6 coronary artery disease #7 ischemic cardiomyopathy #8 obstructive sleep apnea #9 hyperlipidemia #10 cardiac arrhythmia secondary to #7-continue to monitor Visit Charges Inpatient E&M: 62918 Subs Hosp L2
--- NOTE | 2021-03-12 17:29 | EKG12_ITS ---
Test Reason : RHYTHM CHANGE Blood Pressure : / mmHG Vent. Rate : 173 BPM Atrial Rate : 173 BPM P-R Int : 000 ms QRS Dur : 152 ms QT Int : 286 ms P-R-T Axes : 000 008 161 degrees QTc Int : 485 ms Atrial fibrillation Left bundle branch block Abnormal ECG When compared with ECG of 09-MAR-2021 22:59, Current undetermined rhythm precludes rhythm comparison, needs review Left bundle branch block is now Present Confirmed by KALEB CHATMAN, RYAN ([id number]), primer expeditor and drier LUDIN KHALIL ([id number]) on 03/17/2021 11:20:06 A M Referred By: GRAHAM Confirmed By:ESTRADA MANUEL MD
--- NOTE | 2021-03-12 17:38 | EKG12_ITS ---
Test Reason : RHYTHM CHANGE Blood Pressure : / mmHG Vent. Rate : 158 BPM Atrial Rate : 174 BPM P-R Int : 000 ms QRS Dur : 120 ms QT Int : 312 ms P-R-T Axes : 000 -10 160 degrees QTc Int : 505 ms Atrial fibrillation with premature ventricular or aberrantly conducted complexes Incomplete left bundle branch block ST & T wave abnormality, consider lateral ischemia or digitalis effect Abnormal ECG When compared with ECG of 12-MAR-2021 17:29, MANUAL COMPARISON REQUIRED, DATA IS UNCONFIRMED Confirmed by LARRY CHATMAN, FRANCIS ([id number]), senior editor LUDIN KHALIL ([id number]) on 03/17/2021 11:17:05 AM Referred By: GRAHAM Confirmed By:FRANCIS JUAREZ MD
--- NOTE | 2021-03-12 17:39 | EKG12_ITS ---
Test Reason : RHYTHM CHANGE Blood Pressure : / mmHG Vent. Rate : 168 BPM Atrial Rate : 168 BPM P-R Int : 000 ms QRS Dur : 118 ms QT Int : 290 ms P-R-T Axes : 000 010 143 degrees QTc Int : 484 ms Atrial fibrillation Low voltage QRS Incomplete left bundle branch block Confirmed by LARRY CHATMAN, FRANCIS ([id number]), makeup editor LUDIN KHALIL ([id number]) on 03/17/2021 11:17:32 AM Referred By: GRAHAM Confirmed By:FRANCIS JUAREZ MD
[2021-03-12] MEDS: Digoxin 250 MCG/ML Ampul 500 MCG IV (17:45)
[2021-03-12] MEDS: Metoprolol(XL)Succ 50 MG Tablet PO (17:45)
[2021-03-12] MEDS: Metoprolol Tartrate 5 MG/5 ML Vial IV (18:03)
[2021-03-12] MEDS: dilTIAZem 25 MG/5 ML Vial 20 MG IV BOLUS (18:38)
[2021-03-12] MEDS: Metoprolol Tartrate 25 MG Tablet PO (18:38)
[2021-03-12] MEDS: Metoprolol Tartrate 50 MG Tablet PO (22:46)
[2021-03-12] MEDS: Acetaminophen 325 MG Tablet 650 MG PO (22:47)
[2021-03-12] MEDS: Enoxaparin 120 MG/0.8 ML Syringe SC (22:48)
[2021-03-13] VITALS (12 sets, daily range): BP systolic 135–155; BP diastolic 64–89; PULSE 61–81; RESP 19–20; TEMP 36.6–36.7; O2SAT 86–96
[2021-03-13] MEDS: 0.9% Saline Lock 10 ML Syringe IV (05:03)
[2021-03-13 05:09] LABS: Hematocrit 46.6 % (40-54); Hemoglobin 15.3 g/dL (13.0-16.5); Mean Corp Hgb Conc 32.8 g/dL (32-36); Mean Corpuscular Hgb 31.8 pg (27.0-32.0); Mean Corpuscular Volume 96.9 fL (80-94); Mean Platelet Vol. 9.6 fl (6.2-12.0); Platelet Count 193 K/mm3 (150-450); RBC Distribution Width CV 13.1 % (11.6-14.6); Red Blood Count 4.81 M/mm3 (4.6-6.2); White Blood Count 11.9 K/mm3 (4.4-11.0)
[2021-03-13 05:26] LABS: ALB/GLOB Ratio 0.9 RATIO (0.9-2.4); AST(SGOT) 45 U/L (15-37); Alanine Aminotransfer ALT/SGPT 44 U/L (16-61); Albumin, Serum 2.8 g/dL (3.2-5.0); Alkaline Phosphatase 53 U/L (45-117); Anion Gap 6 (5-15); BUN 34 mg/dL (7-18); BUN/Creat Ratio 32.7 RATIO (10-20); Calcium,Total 8.3 mg/dL (8.5-10.1); Chloride 107 mmol/L (98-107); Creatinine, Serum 1.04 mg/dL (0.70-1.30); EST Glomerular Filtration Rate 74 mL/min (>60); Est Glom Filt Rate - Afr Amer 90 mL/min (>60); Estimated Creatinine Clearance 60.29 ml/min; Globulin 3.2 g/dL (2.2-4.2); Glucose 105 mg/dL (74-106); Potassium 4.8 mmol/L (3.5-5.1); Sodium Level 142 mmol/L (136-145)
--- NOTE | 2021-03-13 05:43 | PCM.PN.INT ---
Subjective Subjective The patient was seen and examined at the bedside this morning. Events from the last 24 hours have been reviewed. The patient is currently afebrile, hemodynamically stable and maintaining appropriate oxygen saturations on 4 L/min via nasal cannula. The patient remains on remdesivir, Decadron and therapeutic Lovenox. Liver and renal function are stable. The patient did have a transient episode of atrial fibrillation last evening which was medically managed. He has since converted back to normal sinus rhythm. Objective Data Objective Data The patient's most recent lab work, culture data and imaging studies have all been personally reviewed. Rapid coronavirus antigen testing was positive on March 09. Vital Signs: Vital Signs Temp Pulse Resp BP Pulse Ox 97.9 F 63 20 H 155/89 H 96 03/13/21 02:38 03/13/21 03:44 03/13/21 02:38 03/13/21 02:38 03/13/21 02:38 Oxygen Flow Rate (L/min) 4 Oxygen Delivery Method Nasal Cannula Weight: 263 lb 7.238 oz Body Mass Index (BMI) 38.2 Intake & Output: Intake and Output for Last 24 Hours 03/11/21 03/12/21 03/13/21 23:59 23:59 23:59 Intake Total 580 / 580 700 / 950 250 / 250 Output Total 625 / 1050 1250 / 1250 100 / 100 Balance -45 / -470 -550 / -300 150 / 150 Lab / Micro Data Attestation: I reviewed the patient's lab results. Result Diagrams: 03/13/21 04:55 03/13/21 04:55 Labs: Laboratory Results - last 24 hr 03/13/21 03/13/21 04:55 04:55 WBC 11.9 H RBC 4.81 Hgb 15.3 Hct 46.6 MCV 96.9 H MCH 31.8 MCHC 32.8 RDW Std Deviation 47.0 H RDW Coeff of Ignacio 13.1 Plt Count 193 MPV 9.6 Sodium 142 Potassium 4.8 Chloride 107 Carbon Dioxide 29.0 Anion Gap 6 BUN 34 H Creatinine 1.04 Estim Creat Clear Calc 60.29 Est GFR (MDRD) Af Amer 90 Est GFR (MDRD) Non-Af 74 BUN/Creatinine Ratio 32.7 H Glucose 105 Calcium 8.3 L Total Bilirubin 0.60 AST 45 H ALT 44 Alkaline Phosphatase 53 Total Protein 6.0 L Albumin 2.8 L Globulin 3.2 Albumin/Globulin Ratio 0.9 Micro: Microbiology 03/09/21 16:54 Blood Culture (Wb) - Anticubital Left Blood Culture - Preliminary No growth in 48 hours. 03/09/21 17:29 Blood Culture (Wb) - Left Hand Blood Culture - Preliminary No growth in 48 hours. 03/09/21 17:30 Interface Orders SARS-CoV-2 Antigen (Rapid) - Final SARS-CoV-2 (COVID 19) Physical Exam Const alert and no apparent distress General Appearance: cooperative Nutritional Appearance: obese HEENT normocephalic, head/scalp atraumatic and moist oral mucous membranes Eyes PERRL and EOMs intact bilaterally Neck supple General: trachea midline Resp Auscultation: diminished lung sounds; Negative for rales, rhonchi or wheezes Cardio regular rate and regular rhythm GI normal to inspection, nondistended, normoactive bowel sounds Extremity no clubbing, cyanosis or edema Skin no rashes or lesions noted Neuro oriented x3, CN's II-XII intact bilaterally and moves all extremities Psych cooperative and affect normal Assessment & Plan Assessment/Plan (1) Acute respiratory failure with hypoxia: (2) Pneumonia due to 2019 novel coronavirus: PLAN: RECOMMENDATIONS: 1. Wean supplemental oxygen to maintain saturations at or above 90%. 2. Continue remdesivir to complete treatment course. Continue to monitor liver and renal function. 3. Continue Decadron to complete 10 days of therapy. 4. Continue Lovenox as ordered. 5. Encourage incentive spirometer use and mobilize patient as tolerated. 6. Perform walking oximetry study prior to consideration for discharge home. IMPRESSIONS: 1. Acute hypoxemic respiratory insufficiency secondary to COVID-19 pneumonia Plan to continue current supportive measures including supplemental oxygen to maintain saturations at or above 90%, along with remdesivir and Decadron to complete treatment courses. Encourage incentive spirometer use and mobilize patient as tolerated. 2. Chronic combined congestive heart failure/coronary artery disease Plan to continue baseline outpatient medication regimen. 3. Obesity/hypertension/CKD/ALEX Complicates care, management, recovery and prognosis. Continue home medications as indicated. This note was generated with iHydroRunation software. It may contain incorrect words, spelling, and punctuation that were not noted in checking the note before signing. Visit Charges Inpatient E&M: 01134 Subs Hosp L2
[2021-03-13] MEDS: Ipratropium/Albuterol Sulfate 3 ML AMPUL.NEB INHALATION (08:05)
[2021-03-13] MEDS: Lisinopril 10 MG Tablet PO (08:41)
[2021-03-13] MEDS: dexAMETHasone 4 MG Tablet 6 MG PO (08:41)
[2021-03-13] MEDS: Metoprolol Tartrate 50 MG Tablet PO (08:42)
[2021-03-13] MEDS: Enoxaparin 120 MG/0.8 ML Syringe SC (08:42)
--- NOTE | 2021-03-13 11:02 | CASEMGMT ---
Addendum entered by Darryl Hastings 03/13/21 13:41: Discharge instructions have been faxed to [facility]. Addendum entered by Darryl Hastings 03/13/21 13:40: O2 script was faxed to [facility] and portable O2 tank has been delivered to ICU. Pt aware to call [facility] once he arrives home to have concentrator and portable O2 tanks delivered. Addendum entered by Darryl Hastings 03/13/21 13:36: Pt being discharged home on Eliquis, which has been e-scribed to [facility]. Call placed to the pharmacy. 30-day Eliquis savings card has been applied and medication will be free for pt for 1st 30 days. Per Lamar, 1st refill will be $197--$150 towards deductible and $47 co-pay. Pt made aware and states that this amt is affordable, although, initially it will put a strain on us, but we will work with it. After the deductible is met, it should be a lot better. Pt made aware, if this is not affordable in the future, to discuss other options with his PCP. He voices understanding. He denies having any discharge needs or further questions at this time. Original Note: MART ARANA NOTE: Pt qualifies for O2 @ 4 L/M w/rest and 6 L/M w/exertion. Call placed to Nicky @ [facility]. She was made aware pt is discharging home today and will need O2 delivered to his room prior to discharge. Will fax O2 script to [facility] when it is available. Galindo NI RN, CM
--- NOTE | 2021-03-13 11:32 | DCINST_ITS ---
Discharge Instructions Follow Up Care Test Results: Test results from this visit will be discussed in further detail at your follow-up appointment, if applicable. Discharge Plan Admission Admit Date/Time: 03/09/21 19:22 Primary Reason for Your Visit: COVID 19 PNEUMONIA Attending Provider: Pawan Shine Primary Care Provider: [facility],[place] Consulting Providers: Edwin Cain ; Garry Matute ; Elisabeth Nicholson ASBESTOS ABATEMENT WORKER ; Brian Aguilar Instructions Additional Instructions / Restrictions: self quarantine for 14 days from the first COVID symptoms Discharge Orders/Prescriptions Prescriptions: New Eliquis 5 mg tablet 5 mg PO BID Qty: 60 RF: 0 dexamethasone 2 mg tablet 6 mg PO DAILY Qty: 18 RF: 0 Continued aspirin 81 MG tablet,chewable 81 mg PO DAILY@0800 RF: 0 albuterol sulfate [Proventil HFA] 6.7 GM HFA aerosol inhaler 1 - 2 puff IH Q2H PRN (Reason: Sob &/Or Wheezing) RF: 0 budesonide-formoterol [Symbicort] 1 INHALER inhaler 2 puff inhalation BID RF: 0 spironolactone 25 MG tablet 25 mg PO DAILY RF: 0 rosuvastatin 10 MG tablet 5 mg PO QHS RF: 0 lisinopril 20 mg Tablet 10 mg PO BID RF: 0 metoprolol succinate 100 mg Tablet Extended Release 24 Hr 50 mg PO BID RF: 0 [facility] - Within 2 Weeks Disposition Disposition (needs filled in before D/C Order can be placed): Home, self care
--- NOTE | 2021-03-13 18:54 | PCM.DC.SUM ---
Providers Date of Admission: 03/09/21 Date of Discharge: 03/13/21 Primary Care Physician: [facility] Consultations 03/09/21 20:11 Consult: Infectious Disease Routine Consulting Provider: Brian Vogel Reason for Consult: COVID-19 EMERGENT Consult: No Notified: Yes Date Notified:: 03/10/21 Time Notified: 07:50 Method of Notification: Text Consult: Child Care Provider / Pulmonary Medicine Routine Consulting Provider: [facility] Reason for Consult: COVID-19 pneumonia EMERGENT Consult: No Notified: Yes Date Notified:: 03/09/21 Time Notified: 19:39 Method of Notification: Text Method of Consult:: In-Person Reason For Visit: BILATERAL COVID 19 PNEUMONIA/RESP FAILURE/AG Diagnosis Discharge Diagnosis (1) Acute respiratory failure with hypoxia: Status: Acute Code(s): J96.01 - Acute respiratory failure with hypoxia (2) Pneumonia due to 2019 novel coronavirus: Status: Acute Code(s): U07.1 - COVID-19; J12.82 - Pneumonia due to coronavirus disease 2019 Plan: 1. COVID-19 pneumonia #2 Hypoxic respiratory failure secondary to #1 #3 chronic obstructive pulmonary disease #4 chronic systolic congestive heart failure #5 essential hypertension #6 coronary artery disease #7 ischemic cardiomyopathy #8 obstructive sleep apnea #9 hyperlipidemia #10 cardiac arrhythmia secondary to #7 #11 paroxysmal atrial fibrillation-converted to sinus rhythm Medications at Discharge Home Medications albuterol sulfate [Proventil HFA] 1 - 2 puff IH Q2H PRN 03/16/16 aspirin 81 mg PO DAILY@0800 03/16/16 budesonide-formoterol [Symbicort] 2 puff INHALATION BID 03/16/16 rosuvastatin 5 mg PO QHS 12/17/17 spironolactone 25 mg PO DAILY 12/17/17 lisinopril 10 mg PO BID 03/03/21 metoprolol succinate 50 mg PO BID 03/03/21 apixaban [Eliquis] 5 mg PO BID #60 tab 03/13/21 dexamethasone 6 mg PO DAILY #18 tab 03/13/21 Hospital Course Operations None Procedures None Summary of Care Provided Minutes Spent on Discharge: 32 Hospital Course: This 75-year-old white male was seen in the emergency room at [facility] with dyspnea on exertion x4 to 5 days, patient's was ill secondary to COVID-19 infection. Work-up in the emergency room included a chest x-ray which showed increasing bilateral airspace opacities right greater than the left, patient's CBC was unremarkable, K patient's chemistry panel showed a creatinine of 1.47 and a BUN of 27, lactic acid was elevated at 2.1. Patient's pulse ox was initially 89% on room air, he required 3 L to maintain his pulse ox above 90%. Patient's rapid antigen test for COVID-19 was positive. Patient was admitted to [place] [address] for COVID-19 pneumonia, he was placed on dexamethasone and seen in consultation by infectious diseases who placed the patient on remdesivir and he was also seen by critical care. Patient required nasal cannula oxygen during his hospitalization and was not placed on high flow oxygen. Patient improved during his hospitalization, he briefly went into atrial fibrillation and was placed on his home beta-kelli and given IV Cardizem and converted to normal sinus. On 03/13/2021, patient's oxygen was checked on room air, he required 4 L via nasal cannula at rest and 6 L on exertion to maintain his pulse ox above 88%. His pulse ox at rest on room air was 87%, at rest with 4 L of oxygen it was 93%, and ambulating on 6 L his pulse ox was 91%, ambulating at 4 L his pulse ox was 86%. He was expected to use his oxygen at rest and while ambulating at home and also outside the home. Patient was seen and examined on : On examination he appeared in good health and spirits. Vital signs as documented. Skin warm and dry and without overt rashes. Neck without JVD, neck was supple, trachea midline, thyroid was normal. Lungs clear bilaterally, decreased air movement was noted. Heart exam notable for regular rhythm, normal sounds and absence of murmurs, rubs or gallops. Abdomen unremarkable and without evidence of organomegaly, masses, or abdominal aortic enlargement. Bowel sounds are present, abdomen is not distended. Extremities nonedematous, no cyanosis was noted, no clubbing was noted. Neuro: Cranial nerves II through XII are grossly intact, no focal motor deficits were noted, sensation to light touch and pinprick intact, motor exam 5/5 throughout. Psych: Patient is alert and oriented x3, he does not appear anxious or depressed, he does not appear agitated. Patient was felt stable for discharge on 03/13/2021 to home. ABG / Lab / Microbiology Data Result Diagrams: 03/13/21 04:55 03/13/21 04:55 Laboratory: Laboratory Results - last 24 hr 03/13/21 03/13/21 04:55 04:55 WBC 11.9 H RBC 4.81 Hgb 15.3 Hct 46.6 MCV 96.9 H MCH 31.8 MCHC 32.8 RDW Std Deviation 47.0 H RDW Coeff of Ignacio 13.1 Plt Count 193 MPV 9.6 Sodium 142 Potassium 4.8 Chloride 107 Carbon Dioxide 29.0 Anion Gap 6 BUN 34 H Creatinine 1.04 Estim Creat Clear Calc 60.29 Est GFR (MDRD) Af Amer 90 Est GFR (MDRD) Non-Af 74 BUN/Creatinine Ratio 32.7 H Glucose 105 Calcium 8.3 L Total Bilirubin 0.60 AST 45 H ALT 44 Alkaline Phosphatase 53 Total Protein 6.0 L Albumin 2.8 L Globulin 3.2 Albumin/Globulin Ratio 0.9 Microbiology: Microbiology 03/09/21 16:54 Blood Culture (Wb) - Anticubital Left Blood Culture - Preliminary No growth in 48 hours. 03/09/21 17:29 Blood Culture (Wb) - Left Hand Blood Culture - Preliminary No growth in 48 hours. 03/09/21 17:30 Interface Orders SARS-CoV-2 Antigen (Rapid) - Final SARS-CoV-2 (COVID 19) Meaningful Use Info Meaningful Use Diagnoses (Choose all that apply): None applicable Discharge Plan Admission Admit Date/Time: 03/09/21 19:22 Primary Reason for Your Visit: COVID 19 PNEUMONIA Attending Provider: Pawan Shine [facility] Consulting Providers: Edwin Cain ; Garry Matute ; Elisabeth Nicholson TELEMEDICINE PHYSICIAN ; Brian Vogel Instructions Patient Instructions: Coronavirus Disease 2019 (COVID-19): Overview Additional Instructions / Restrictions: self quarantine for 20 days from the first COVID symptoms If able, monitor oxygen level with pulse oximetry wear 4L of oxygen at rest and 6L oxygen with activity Discharge Orders/Prescriptions Prescriptions: New Eliquis 5 mg tablet 5 mg PO BID Qty: 60 RF: 0 dexamethasone 2 mg tablet 6 mg PO DAILY Qty: 18 RF: 0 Continued aspirin 81 MG tablet,chewable 81 mg PO DAILY@0800 RF: 0 albuterol sulfate [Proventil HFA] 6.7 GM HFA aerosol inhaler 1 - 2 puff IH Q2H PRN (Reason: Sob &/Or Wheezing) RF: 0 budesonide-formoterol [Symbicort] 1 INHALER inhaler 2 puff inhalation BID RF: 0 spironolactone 25 MG tablet 25 mg PO DAILY RF: 0 rosuvastatin 10 MG tablet 5 mg PO QHS RF: 0 lisinopril 20 mg Tablet 10 mg PO BID RF: 0 metoprolol succinate 100 mg Tablet Extended Release 24 Hr 50 mg PO BID RF: 0 Referrals / [facility] [[facility] - Within 2 Weeks Disposition Disposition (needs filled in before D/C Order can be placed): Home, self care Visit Charges Inpatient E&M: 40455 Disch Hosp
--- NOTE | 2021-03-14 16:02 | CASEMGMT ---
RN CM Discharge Follow-up Phone Call: CINDY: 13 Strata: 11 Call Date: 03/14/21 Discharge Date: 03/13/21 Time of Call: 1602 Duration: 1 min Admitting Diagnosis: Covid, Resp failure, AG RN CM attempted to complete follow-up phone call after recent hospitalization. No answer, voice message left with return contact information.
--- NOTE | 2021-03-15 09:18 | CASEMGMT ---
MART ARANA NOTE: VM received from Leticia from [place], requesting COVID testing/results be faxed to [facility] @ [phone]. Results faxed at this time along w/discharge summary. Galindo NI RN CM
== END 2021-03-13 13:40 | disposition home or self-care (01) | DRG 871 ==
LOC: ED 18:59 → ICU 03-10 04:38
PROVIDERS: Internal Medicine Infectious Disease; Admitting Provider Hospitalist; Emergency Provider Emergency Medicine; Visit Provider Internal Medicine
DX: A41.89 Other specified sepsis (principal); U07.1 COVID-19; J96.01 Acute respiratory failure with hypoxia; J12.82 Pneumonia due to coronavirus disease 2019; N17.9 Acute kidney failure, unspecified; J44.0 Chronic obstructive pulmonary disease with (acute) lower respiratory infection; I50.42 Chronic combined systolic (congestive) and diastolic (congestive) heart failure; I13.0 Hypertensive heart and chronic kidney disease with heart failure and stage 1 through stage 4 chronic kidney disease, or unspecified chronic kidney disease; N18.9 Chronic kidney disease, unspecified; I25.10 Atherosclerotic heart disease of native coronary artery without angina pectoris; E66.9 Obesity, unspecified; G47.33 Obstructive sleep apnea (adult) (pediatric); Z87.891 Personal history of nicotine dependence; Z79.51 Long term (current) use of inhaled steroids; Z79.82 Long term (current) use of aspirin; I25.2 Old myocardial infarction; Z95.810 Presence of automatic (implantable) cardiac defibrillator; I25.5 Ischemic cardiomyopathy; E78.5 Hyperlipidemia, unspecified; I48.0 Paroxysmal atrial fibrillation; Z68.38 Body mass index [BMI] 38.0-38.9, adult; Z79.01 Long term (current) use of anticoagulants; Z90.49 Acquired absence of other specified parts of digestive tract; Z95.5 Presence of coronary angioplasty implant and graft
CPT/HCPCS: 71045; 80053; 82550; 82962; 83605; 83735; 84100; 84145; 84484; 85025; 85027; 85379; 85610; 87040; 87426; 93005; 94640; 97162; 97165; 99251; 99285; J7030; J7040; J7050; A4216; G0463; J0696

== ENCOUNTER 2021-04-25 19:56 | Emergency (ER) | payer OTHER, MEDICARE, SELFPAY ==
[2021-03-09 20:40] VITALS: BMI 38.2
[2021-04-25 19:57] VITALS: BP 158/102; PULSE 83; RESP 13; TEMP 36.8; O2SAT 96; BMI 37.5
--- NOTE | 2021-04-25 20:34 | EKG12_ITS ---
Test Reason : DYSRHYTHMIA Blood Pressure : / mmHG Vent. Rate : 082 BPM Atrial Rate : 082 BPM P-R Int : 176 ms QRS Dur : 118 ms QT Int : 420 ms P-R-T Axes : 004 -18 115 degrees QTc Int : 490 ms Sinus rhythm with frequent Premature ventricular complexes Low voltage QRS Septal infarct , age undetermined ST & T wave abnormality, consider lateral ischemia Abnormal ECG Confirmed by YUVAL CHATMAN, ROGELIO ([id number]), editor department LUDIN KHALIL ([id number]) on 04/27/2021 10:51:23 AM Referred By: GIO Confirmed By:ROGELIO BARAKAT MD
[2021-04-25 20:46] VITALS: BP 153/85; PULSE 83; RESP 15; RESP 19; O2SAT 95
[2021-04-25 20:48] VITALS: O2SAT 95
--- NOTE | 2021-04-25 20:58 | RAD_ITS ---
INDICATION: shortness of breath EXAMINATION/TECHNIQUE: X-RAY - XR Chest 1 View COMPARISON: 03/09/2021. FINDINGS: Bilateral interstitial and airspace opacities, most notable in the right lower lobe. The cardiomediastinal silhouette is unremarkable. Left-sided cardiac device. No pleural effusion or pneumothorax. No acute osseous abnormalities. RAD/Chest 1 View (Portable) IMPRESSION: Bilateral interstitial and airspace opacities, most notable in the right lower lobe, may represent infection and/or edema. Electronically Signed: Antonio Chen MD at 21:21 EDT Tel , Service support ,
--- NOTE | 2021-04-25 21:04 | EDS_ITS ---
HPI History of Present Illness Chief Complaint: Shortness of Breath Informant: patient and EMS Narrative Narrative: Patient is a 75-year-old male with history of atrial fibrillation, on Eliquis, COPD, CHF and recent COVID-19 infection presenting with shortness of b reath. Patient states he has had increased dyspnea on exertion for the past month. He notes that his from Covid associated complications 3 weeks ago. He notes today he was at her grave for 30 to 45 minutes when he suddenly started to have a lot of chest tightness and felt very short of breath. He was given a breathing treatment in route from EMS. He is unsure if the heat aggravated his COPD. He notes his symptoms currently have improved. Patient notes that he supposed to be on home O2 of 2 L has not been wearing it. In addition has not been wearing his oxygen at night. He states he has when he of albuterol at home to use. He follows with the [facility] Medical History COPD (chronic obstructive pulmonary disease) CPAP (continuous positive airway pressure) dependence Former smoker ICD (implantable cardioverter-defibrillator) in place Myocardial infarct Home Medications albuterol sulfate [Proventil HFA] 1 - 2 puff IH Q2H PRN 03/16/16 [History Last Taken 03/03/21 15:00] aspirin 81 mg PO DAILY@0800 03/16/16 [History Last Taken 03/03/21] budesonide-formoterol [Symbicort] 2 puff INHALATION BID 03/16/16 [History Last Taken 03/03/21] rosuvastatin 5 mg PO QHS 12/17/17 [History Last Taken 03/03/21] spironolactone 25 mg PO DAILY 12/17/17 [History Last Taken 03/03/21] lisinopril 10 mg PO BID 03/03/21 [History Last Taken 03/03/21] metoprolol succinate 50 mg PO BID 03/03/21 [History Last Taken 03/03/21] apixaban [Eliquis] 5 mg PO BID #60 tab 03/13/21 [Rx Last Taken Unknown] azithromycin See Rx Instructions .ROUTE .COMPLEX #6 tab 04/26/21 [Rx Last Taken Unknown] prednisone 40 mg PO DAILY 5 Days #10 tab 04/26/21 [Rx Last Taken Unknown] Allergy/AdvReac Type Severity Reaction Status Date / Time No Known Allergies Allergy Verified 04/25/21 20:00 Family History Mother Aneurysm Surgical History History of cholecystectomy History of colectomy History of coronary artery stent placement History of coronary artery stent placement Social History household members: spouse housing: house Smoking Status: Former smoker alcohol intake: former substance use type: does not use ROS ROS ED Constitutional Constitutional ED: Denies chills, fever(s) or sweats Eyes Eyes: Denies change in vision ENT ENT ED: Denies rhinorrhea or sore throat Cardiovascular Cardiovascular: Reports chest pain; Denies orthopnea or palpitations Respiratory/Chest Respiratory/Chest: Reports cough, dyspnea and dyspnea on exertion; Denies orthopnea Gastrointestinal Gastrointestinal: Denies abdominal pain, diarrhea, nausea or vomiting Genitourinary Genitourinary ED: Denies dysuria or hematuria Musculoskeletal Musculoskeletal: Denies myalgias Integumentary Denies rash Neurologic Neurologic: Denies headache(s) or weakness Psychiatric Psychiatric: Denies depression EXAM Physical Exam Const Vital Signs: 04/25/21 19:57 04/25/21 20:46 04/25/21 20:48 Temperature 98.3 F Temperature Source Oral Pulse Rate 83 83 Respiratory Rate 13 19 H Respiratory Effort Normal Non-Labored Respiratory Depth Normal Respiratory Pattern Normal Blood Pressure 158/102 H 153/85 H Blood Pressure Mean 120 107 Pulse Ox 96 95 Oxygen Delivery Method Room Air Room Air Room Air 04/25/21 21:08 04/25/21 22:00 04/26/21 00:23 Temperature Temperature Source Pulse Rate 79 76 Respiratory Rate 16 19 H Respiratory Effort Respiratory Depth Respiratory Pattern Blood Pressure 144/84 H 142/106 H Blood Pressure Mean 104 118 Pulse Ox 95 95 Oxygen Delivery Method Room Air Room Air 04/26/21 00:39 Temperature Temperature Source Pulse Rate 76 Respiratory Rate 20 H Respiratory Effort Respiratory Depth Respiratory Pattern Blood Pressure 148/93 H Blood Pressure Mean Pulse Ox 94 Oxygen Delivery Method Positive well nourished and well developed General Appearance ED: well developed HEENT Reports moist mucous membranes atraumatic Eyes PERRL and EOMs intact bilaterally Neck supple and no JVD Resp normal respiratory effort Auscultation: wheezes and diminished lung sounds bilateral lower Cardio regular rate, regular rhythm and no murmurs GI non-tender and non-distended Palpation: soft Back/Spine normal to inspection Extremity normal to inspection General Extremety ED: Negative for edema or tenderness General Extremity: Negative for edema Neuro oriented x3 Sensorium / Orientation: alert Skin Lesions: no lesions Rashes: no rashes MDM MDM MDM Narrative Medical decision making narrative: Patient is evaluated for dyspnea on exertion has been going on since he was diagnosed with Covid as well as an episode of feeling short of breath this afternoon. He received an albuterol treatment in route and seems to have improved. Patient has been going through a lot with the recent of his from Covid. Patient has a slight wheeze on exam is diminished at the bases bilaterally with slight crackles. He is a very mild leukocytosis 11.1 but this appears to pretty much be his baseline. BMP is largely unremarkable. High-sensitivity troponin is normal x2. His BNP is elevated at 580 however this also appears to be near his baseline. Chest x-ray does not appear consistent with pleural effusions. Clinically patient does not appear fluid overloaded. Chest x-ray shows bilateral shoulder pain is opacities, most notable in the right lower lobe may represent infection and/or edema. Chest x-ray reviewed by myself does not appear significantly changed from prior chest x-ray. Patient is ambulated in the ER does desaturate to 87% but he states he has oxygen at home that he supposed to wear however he is been noncompliant with it. Patient states he does not really want to be admitted to the hospital if possible. Patient counseled that if he wears oxygen at home will treat him like a COPD exacerbation with a course of azithromycin and a burst of steroids. He is agreeable with this plan of care. He has a pulse oximeter that he will wear at home. He is counseled on strict return precautions as well as signs of infection such as fever or fluid overload. He is also counseled to return to the ER if he has worsening respiratory symptoms or chest pain. Patient verbalizes agreement understand with this plan. Discharged home in stable condition. He is instructed to follow-up closely with his primary care doctor through the [facility] system. Lab Data Labs: Laboratory Results - last 24 hr 04/25/21 04/25/21 04/25/21 21:14 21:14 21:14 WBC 11.1 H RBC 4.35 L Hgb 13.8 Hct 43.0 MCV 98.9 H MCH 31.7 MCHC 32.1 RDW Std Deviation 52.8 H RDW Coeff of Ignacio 14.6 Plt Count 209 MPV 9.9 Immature Gran % (Auto) 0.500 Neut % (Auto) 68.6 Lymph % (Auto) 19.3 Cascade % (Auto) 9.0 Eos % (Auto) 2.1 Baso % (Auto) 0.5 Absolute Neuts (auto) 7.6 Absolute Lymphs (auto) 2.14 Nucleated RBC % 0 Sodium 142 Potassium 4.2 Chloride 109 H Carbon Dioxide 28.0 Anion Gap 5 BUN 16 Creatinine 1.08 Estim Creat Clear Calc 61.96 Est GFR (MDRD) Af Amer 86 Est GFR (MDRD) Non-Af 71 BUN/Creatinine Ratio 14.8 Glucose 95 Calcium 8.5 Troponin I High Sens 23.0 B-Natriuretic Peptide 580.8 H 04/25/21 23:00 WBC RBC Hgb Hct MCV MCH MCHC RDW Std Deviation RDW Coeff of Ignacio Plt Count MPV Immature Gran % (Auto) Neut % (Auto) Lymph % (Auto) Cascade % (Auto) Eos % (Auto) Baso % (Auto) Absolute Neuts (auto) Absolute Lymphs (auto) Nucleated RBC % Sodium Potassium Chloride Carbon Dioxide Anion Gap BUN Creatinine Estim Creat Clear Calc Est GFR (MDRD) Af Amer Est GFR (MDRD) Non-Af BUN/Creatinine Ratio Glucose Calcium Troponin I High Sens 24.4 B-Natriuretic Peptide Radiography Chest X-Ray - ED: 1 View, Read by ED Physician, Read by Radiologist, No Acute Disease and - (Bilateral interstitial and airspace opacities) Diagnostic Testing: Radiology Impression Chest X-Ray 04/25/21 20:58 IMPRESSION: Bilateral interstitial and airspace opacities, most notable in the right lower lobe, may represent infection and/or edema. Electronically Signed: Antonio Chen MD at 21:21 EDT Tel , Service support , Rhythm Strip Rhythm Strip: Sinus Rhythm Rate: 82 Ectopy: None EKG Initial EKG: Attestation: I personally reviewed and interpreted this EKG as follows: Interpretation: Sinus Rhythm Comments: Sinus rhythm at a rate of 82 Low voltage QRS Left axis deviation PVC's present T wave abnormalities in the lateral leads compared to prior EKG on 03/12/2021 patient is no longer in atrial fibrillation, T waves are the same Discharge Plan Triage Chief Complaint: Shortness of Breath ED Provider: Jocelyne Moyer Dx/Rx/DC Orders Clinical Impression: Acute exacerbation of chronic obstructive pulmonary disease Instructions: ED COPD Flare Prescriptions: New prednisone 20 mg tablet 40 mg PO DAILY 5 Days Qty: 10 RF: 0 azithromycin 250 mg tablet See Rx Instructions .ROUTE .COMPLEX Qty: 6 RF: 0 No Action aspirin 81 MG tablet,chewable 81 mg PO DAILY@0800 RF: 0 albuterol sulfate [Proventil HFA] 6.7 GM HFA aerosol inhaler 1 - 2 puff IH Q2H PRN (Reason: Sob &/Or Wheezing) RF: 0 budesonide-formoterol [Symbicort] 1 INHALER inhaler 2 puff inhalation BID RF: 0 spironolactone 25 MG tablet 25 mg PO DAILY RF: 0 rosuvastatin 10 MG tablet 5 mg PO QHS RF: 0 lisinopril 20 mg Tablet 10 mg PO BID RF: 0 metoprolol succinate 100 mg Tablet Extended Release 24 Hr 50 mg PO BID RF: 0 Eliquis 5 mg tablet 5 mg PO BID Qty: 60 RF: 0 [facility] [[facility]] - Activity Restrictions/Additional Instructions: Make sure you wear your oxygen at home as prescribed, youwant your pulse ox to be above 90%. Disposition Disposition: Home, Self Care Discharge Date/Time: 04/26/21 00:47
[2021-04-25] MEDS: Aspirin 81 MG TAB.CHEW 324 MG PO (21:07)
[2021-04-25 21:20] LABS: Absolute Lymphocyte Count 2.14 X10^3/uL (0.83-4.51); Absolute Neutrophil Count 7.6 X10^3/uL (2.0-7.7); Basophil# 0.05 X10^3/uL; Basophil% 0.5 % (0-1); Eosinophil# 0.23 X10^3/uL; Eosinophils% 2.1 % (0-5); Hemoglobin 13.8 g/dL (13.0-16.5); Lymphocyte # 2.14 X10^3/ul (0.83-4.51); Lymphocyte % 19.3 % (19-41); Mean Corp Hgb Conc 32.1 g/dL (32-36); Mean Corpuscular Hgb 31.7 pg (27.0-32.0); Mean Corpuscular Volume 98.9 fL (80-94); Mean Platelet Vol. 9.9 fl (6.2-12.0); NRBC Flagged by Analyzer 0 % (0-5); Neutrophil # 7.61 X10^3/uL (2.7-7.7); Neutrophil % 68.6 % (47-70); Platelet Count 209 K/mm3 (150-450); RBC Distribution Width CV 14.6 % (11.6-14.6); RBC Distribution Width SD 52.8 fl (35.1-43.9); Red Blood Count 4.35 M/mm3 (4.6-6.2); White Blood Count 11.1 K/mm3 (4.4-11.0)
[2021-04-25 21:37] LABS: Anion Gap 5 (5-15); BUN 16 mg/dL (7-18); BUN/Creat Ratio 14.8 RATIO (10-20); Calcium,Total 8.5 mg/dL (8.5-10.1); Chloride 109 mmol/L (98-107); Creatinine, Serum 1.08 mg/dL (0.70-1.30); EST Glomerular Filtration Rate 71 mL/min (>60); Est Glom Filt Rate - Afr Amer 86 mL/min (>60); Estimated Creatinine Clearance 61.96 ml/min; Glucose 95 mg/dL (74-106); Potassium 4.2 mmol/L (3.5-5.1); Sodium Level 142 mmol/L (136-145)
[2021-04-25 21:38] LABS: BNP,B-Type NATRIURETIC PEPTIDE 580.8 pg/mL (0-100)
[2021-04-25 22:00] VITALS: BP 144/84; PULSE 79; RESP 16; O2SAT 95
[2021-04-25 23:03] VITALS: O2SAT 95
[2021-04-25 23:43] LABS: Troponin-I HS 24.4 pg/mL (3.0-78.5)
[2021-04-26 00:23] VITALS: BP 142/106; PULSE 76; RESP 19; O2SAT 95
[2021-04-26 00:39] VITALS: BP 148/93; PULSE 76; RESP 20; O2SAT 94
== END 2021-04-26 00:47 | disposition home or self-care (01) ==
PROVIDERS: Emergency Provider Emergency Medicine
DX: J44.1 Chronic obstructive pulmonary disease with (acute) exacerbation (principal); I48.91 Unspecified atrial fibrillation; I50.9 Heart failure, unspecified; Z87.891 Personal history of nicotine dependence; Z63.4 Disappearance and death of family member; Z79.01 Long term (current) use of anticoagulants; Z79.51 Long term (current) use of inhaled steroids; Z79.52 Long term (current) use of systemic steroids; Z79.82 Long term (current) use of aspirin; Z86.16 Personal history of COVID-19; Z90.49 Acquired absence of other specified parts of digestive tract; Z95.5 Presence of coronary angioplasty implant and graft
CPT/HCPCS: 71045; 80048; 83880; 84484; 85025; 93005; 94760; 99285; A4216

== ENCOUNTER 2022-08-28 20:36 | Emergency (ER) | payer OTHER, SELFPAY ==
[2022-08-28 20:37] VITALS: BP 125/76; PULSE 94; RESP 21; TEMP 36.3; O2SAT 98; BMI 40.0
[2022-08-28 20:51] VITALS: RESP 18; O2SAT 94
--- NOTE | 2022-08-28 20:55 | RAD_ITS ---
EXAM: XR CHEST, 1 VIEW CLINICAL INDICATION: cough TECHNIQUE: Frontal view of the chest. This report was created using [employer] report generation technology. COMPARISON: 04/25/2021 FINDINGS: LUNGS AND PLEURAL SPACES: Unremarkable. No consolidation or edema. No pneumothorax. No effusion. HEART: Unremarkable. Cardiac silhouette not enlarged. MEDIASTINUM: Central airways and mediastinal contour are unremarkable. BONES/JOINTS: Degenerative changes of the spine and acromioclavicular joints. SOFT TISSUES: Unremarkable. TUBES, LINES AND DEVICES: Stable left-sided AICD/pacer with intact wire/lead. RAD/Chest 1 View (Portable) IMPRESSION: No acute disease. Electronically Signed: Ayad Wetzel MD at 21:37 EDT ,
[2022-08-28 21:14] LABS: Absolute Lymphocyte Count 3.38 X10^3/uL (0.83-4.51); Absolute Neutrophil Count 13.2 X10^3/uL (2.0-7.7); Basophil# 0.06 X10^3/uL; Basophil% 0.3 % (0-1); Eosinophil# 0.16 X10^3/uL; Eosinophils% 0.9 % (0-5); Hemoglobin 15.3 g/dL (13.0-16.5); Lymphocyte # 3.38 X10^3/ul (0.83-4.51); Lymphocyte % 18.2 % (19-41); Mean Corp Hgb Conc 33.3 g/dL (32-36); Mean Corpuscular Hgb 33.9 pg (27.0-32.0); Monocyte# 1.73 X10^3/uL; Monocyte% 9.3 % (0-10); NRBC Flagged by Analyzer 0 % (0-5); Neutrophil # 13.22 X10^3/uL (2.7-7.7); POSITIVE DIFFERENTIAL YES; Platelet Count 185 K/mm3 (150-450); RBC Distribution Width CV 13.3 % (11.6-14.6); RBC Distribution Width SD 50.2 fl (35.1-43.9); Red Blood Count 4.51 M/mm3 (4.6-6.2); White Blood Count 18.6 K/mm3 (4.4-11.0)
[2022-08-28 21:18] LABS: Differential Indicated SCAN CRITERIA MET
[2022-08-28 21:33] LABS: Anion Gap 5 (5-15); BUN 27 mg/dL (7-18); BUN/Creat Ratio 18.1 RATIO (10-20); Chloride 109 mmol/L (98-107); Creatinine, Serum 1.49 mg/dL (0.70-1.30); EST Glomerular Filtration Rate 49 mL/min (>60); Est Glom Filt Rate - Afr Amer 59 mL/min (>60); Estimated Creatinine Clearance 42.18 ml/min; Glucose 88 mg/dL (74-106); Potassium 4.2 mmol/L (3.5-5.1); Sodium Level 141 mmol/L (136-145)
[2022-08-28 21:35] LABS: Anisocytosis 1+; Macrocytosis 1+; Platelet Estimate ADEQUATE (ADEQ); Red Cell Morphology N CHROM NORMAL (NORM C&C)
[2022-08-28 21:56] VITALS: O2SAT 94
[2022-08-28 22:36] VITALS: RESP 20; O2SAT 95
[2022-08-28 23:00] VITALS: RESP 20
--- NOTE | 2022-08-28 23:02 | EDS_ITS ---
HPI History of Present Illness Chief Complaint: Shortness of Breath Narrative Narrative: 77-year-old male with history of COPD, CAD, CHF presenting with shortness of breath. He states it started earlier today. He felt like he was wheezing. He has been doing breathing treatments at home but did not do 1 after he started feeling this way. He reports that [facility] and they order him 20 20 mg tablets of prednisone a month. He takes these for acute flares when needed in between visits. He took some yesterday and states he took 40 mg. He did not take any today with his shortness of breath. He states he started to feel anxious and has been experiencing anxiety since the loss of his to [place] last year. He does not report any chest pain. Is not had fever, chills. He does report episodic cough for about a day. No nausea or vomiting. Patient is on Eliquis. No black or bloody stools. [facility] Medical History COPD (chronic obstructive pulmonary disease) CPAP (continuous positive airway pressure) dependence Former smoker ICD (implantable cardioverter-defibrillator) in place Myocardial infarct Home Medications albuterol sulfate 90 mcg/actuation aerosol inhaler (Proventil HFA) 1 - 2 puff IH Q2H PRN Sob &/Or Wheezing 03/16/16 [History Last Taken 03/03/21 15:00] aspirin 81 mg chewable tablet 81 mg PO DAILY@0800 Check with primary doctor 03/16/16 [History Last Taken 03/03/21] budesonide-formoterol HFA 160 mcg-4.5 mcg/actuation aerosol inhaler (Symbicort) 2 puff inhalation BID COPD 03/16/16 [History Last Taken 03/03/21] rosuvastatin 10 mg tablet 10 mg PO QHS HLD 12/17/17 [History Last Taken 03/03/21] spironolactone 25 mg tablet 12.5 mg PO DAILY CHF 12/17/17 [History Last Taken 03/03/21] metoprolol succinate 100 mg tablet,extended release 24 hr 25 mg PO DAILY HEART 03/03/21 [History Last Taken 03/03/21] apixaban 5 mg tablet (Eliquis) 5 mg PO BID #60 tabs 03/13/21 [Rx Last Taken Unknown] Entresto 26 mg PO.IVFORM DAILY 08/28/22 [History Last Taken Unknown] doxycycline hyclate 100 mg capsule 100 mg PO BID #13 caps 08/28/22 [Rx Last Taken Unknown] furosemide 40 mg tablet 40 mg PO DAILY 08/28/22 [History Last Taken Unknown] Allergy/AdvReac Type Severity Reaction Status Date / Time No Known Allergies Allergy Verified 08/28/22 20:37 Family History Mother Aneurysm Surgical History History of cholecystectomy History of colectomy History of coronary artery stent placement History of coronary artery stent placement Social History household members: spouse housing: house Smoking Status: Former smoker alcohol intake: former substance use type: does not use ROS ROS ED Constitutional Constitutional ED: Denies chills or fever(s) Eyes Eyes: Denies change in vision ENT ENT ED: Denies rhinorrhea or sore throat Cardiovascular Cardiovascular: Denies chest pain Respiratory/Chest Respiratory/Chest: Reports cough and dyspnea Gastrointestinal Gastrointestinal: Denies abdominal pain, constipation or diarrhea Genitourinary Genitourinary ED: Denies dysuria Musculoskeletal Musculoskeletal: Denies arthralgias or back pain Integumentary Denies abscess or Abrasions Neurologic Neurologic: Denies headache(s) or paresthesias Psychiatric Psychiatric: Reports anxiety; Denies depression EXAM Physical Exam Const Vital Signs: 08/28/22 20:37 08/28/22 20:51 08/28/22 20:51 Temperature 97.3 F L Temperature Source Temporal Pulse Rate 94 Respiratory Rate 21 H 18 Respiratory Effort Respiratory Depth Respiratory Pattern Blood Pressure 125/76 H Blood Pressure Mean 92 Pulse Ox 98 94 Oxygen Delivery Method Room Air Room Air Room Air 08/28/22 21:56 Temperature Temperature Source Pulse Rate Respiratory Rate Respiratory Effort Short of Breath Respiratory Depth Normal Respiratory Pattern Normal Blood Pressure Blood Pressure Mean Pulse Ox Oxygen Delivery Method Room Air Positive well nourished General Appearance ED: NAD; Negative for pallor HEENT Reports moist mucous membranes atraumatic Eyes PERRL and EOMs intact bilaterally Neck no lymphadenopathy Resp normal respiratory effort and clear to auscultation bilaterally Auscultation: Negative for rales, rhonchi or wheezes Cardio regular rhythm GI non-tender and non-distended Neuro oriented x3 and CN's II-XII intact bilaterally Sensorium / Orientation: alert Motor Exam: strength 5/5 throughout Psych mental status grossly normal Skin no wounds General Skin Exam: Negative for jaundice or pallor MDM MDM MDM Narrative Medical decision making narrative: Patient presented with shortness of breath. His extremities had COPD and had superimposed anxiety over this. He was evaluated and EKG performed on arrival shows a sinus rhythm with a ventricular rate of 88 bpm with no sign of ischemic change on my interpretation. There is slight artifact on this. Patient states that he feels well he states his episodes last about 30 minutes and now he feels great. He does report a cough but no fever. He took prednisone yesterday 40 mg but has not taken any since. He does have nebulizers at home but indeed uses rescue inhaler today. He did not use nebulizers. Blood work was obtained and he has a leukocytosis of 18.6. Hemoglobin stable at 13.3, platelets 185. [place] 1.49 with a baseline of 1.08. Patient states he has not been drinking as much water as he normally does but he does not express nausea or vomiting and is able to drink fluids. Chest x-ray to my interpretation shows no acute cardiopulmonary process. Radiology interpretation agrees. Since the patient is feeling well I feel he safe for discharge home even though his leukocytosis. He was covered with doxycycline for home. He has prednisone he can take as needed. He has nebulizers and a rescue inhaler. Patient counseled on return precautions. He is to drink plenty of fluids. Impression: 1. Elevated creatinine 2. leukocytosis 3. Shortness of breath resolved 4. COPD exacerbation Lab Data Attestation: I reviewed the patient's lab results. Labs: Laboratory Results - last 24 hr 08/28/22 08/28/22 21:10 21:10 WBC 18.6 H RBC 4.51 L Hgb 15.3 Hct 46.0 MCV 102.0 H MCH 33.9 H MCHC 33.3 RDW Std Deviation 50.2 H RDW Coeff of Ignacio 13.3 Plt Count 185 MPV 10.0 Immature Gran % (Auto) 0.300 Neut % (Auto) 71.0 H Lymph % (Auto) 18.2 L Riley % (Auto) 9.3 Eos % (Auto) 0.9 Baso % (Auto) 0.3 Absolute Neuts (auto) 13.2 H Absolute Lymphs (auto) 3.38 Nucleated RBC % 0 Differential Comment SEE COMMENT Diff Path Review May foll Platelet Estimate ADEQUATE RBC Morphology N CHROM Anisocytosis 1+ Macrocytosis 1+ Sodium 141 Potassium 4.2 Chloride 109 H Carbon Dioxide 27.0 Anion Gap 5 BUN 27 H Creatinine 1.49 H Estim Creat Clear Calc 42.18 Est GFR (MDRD) Af Amer 59 L Est GFR (MDRD) Non-Af 49 L BUN/Creatinine Ratio 18.1 Glucose 88 Calcium 9.0 Radiography Diagnostic Testing: Clinical Impression(s) from Imaging Studies Chest X-Ray 08/28/22 20:55 IMPRESSION: No acute disease. Electronically Signed: Ayad Wetzel MD at 21:37 EDT Reading Location ID and State: [address] [place] [address] Tel , Service support , Discharge Plan Triage Chief Complaint: Shortness of Breath ED Provider: Joe Purcell Dx/Rx/DC Orders Instructions: ED COPD Flare Prescriptions: New doxycycline hyclate 100 mg capsule 100 mg PO BID Qty: 13 0RF No Action aspirin 81 MG tablet,chewable 81 mg PO DAILY@0800 Label Comments: [facility] albuterol sulfate [Proventil HFA] 6.7 GM HFA aerosol inhaler 1 - 2 puff IH Q2H PRN (Reason: Sob &/Or Wheezing) Label Comments: shortness of breath budesonide-formoterol [Symbicort] 1 INHALER inhaler 2 puff inhalation BID spironolactone 25 MG tablet 12.5 mg PO DAILY rosuvastatin 10 MG tablet 10 mg PO QHS metoprolol succinate 100 mg Tablet Extended Release 24 Hr 25 mg PO DAILY Eliquis 5 mg tablet 5 mg PO BID Qty: 60 0RF furosemide 40 mg Tablet 40 mg PO DAILY Entresto 26 mg PO.IVFORM DAILY [facility] [[facility] Provider[facility] - Disposition Disposition: Home, Self Care
[2022-08-28] MEDS: Doxycycline 100 MG CAPSULE PO (23:14)
[2022-08-30 10:00] LABS: Pathologist Review Reviewed
== END 2022-08-28 23:18 | disposition home or self-care (01) ==
PROVIDERS: Emergency Provider Student in an Organized Health Care Education/Training Program; Visit Provider Student in an Organized Health Care Education/Training Program
DX: J44.1 Chronic obstructive pulmonary disease with (acute) exacerbation (principal); I50.9 Heart failure, unspecified; Z87.891 Personal history of nicotine dependence; Z63.4 Disappearance and death of family member; I25.10 Atherosclerotic heart disease of native coronary artery without angina pectoris; D72.829 Elevated white blood cell count, unspecified; F41.9 Anxiety disorder, unspecified; R06.02 Shortness of breath
CPT/HCPCS: 71045; 80048; 85025; 87811; 93005; 94760; 99283; A4216

== ENCOUNTER 2022-09-24 22:03 | Emergency (ER) | payer OTHER, SELFPAY ==
[2022-09-24 22:04] VITALS: BP 141/81; PULSE 94; RESP 24; TEMP 36.9; O2SAT 98; BMI 40.1
--- NOTE | 2022-09-24 22:25 | EKG12_ITS ---
Test Reason : DYSRHYTHMIA Blood Pressure : / mmHG Vent. Rate : 093 BPM Atrial Rate : 093 BPM P-R Int : 174 ms QRS Dur : 112 ms QT Int : 332 ms P-R-T Axes : -21 -11 130 degrees QTc Int : 412 ms Normal sinus rhythm with occasional PVC Low voltage QRS Incomplete left bundle branch block Septal infarct , age undetermined, cannot be excluded Abnormal ECG Confirmed by YUVAL CHATMAN, ROGELIO ([id number]), editorial cartoonist LUDIN KHALIL ([id number]) on 09/25/2022 9:21:31 AM Referred By: SUMMER Confirmed By:ROGELIO BARAKAT MD
[2022-09-24] MEDS: Aspirin 81 MG TAB.CHEW 324 MG PO (22:40)
--- NOTE | 2022-09-24 22:40 | RAD_ITS ---
INDICATION: chest pain EXAMINATION/TECHNIQUE: X-RAY - portable upright AP chest x-ray COMPARISON: 08/28/2022 FINDINGS: LINES/DEVICES: Stable transvenous pacemaker. LUNGS: No consolidation, edema or effusion. No pneumothorax. MEDIASTINUM AND CARDIOVASCULAR STRUCTURES: Cardiac silhouette not enlarged. Central airways and mediastinal contour are unremarkable. BONES AND SOFT TISSUES: Unremarkable. RAD/Chest 1 View (Portable) IMPRESSION: No radiographic evidence of acute cardiopulmonary disease. Electronically Signed: Sher Macdonald MD at 22:58 EST ,
[2022-09-24 22:53] LABS: Absolute Lymphocyte Count 1.99 X10^3/uL (0.83-4.51); Absolute Neutrophil Count 6.6 X10^3/uL (2.0-7.7); Basophil# 0.04 X10^3/uL; Basophil% 0.4 % (0-1); Eosinophil# 0.14 X10^3/uL; Eosinophils% 1.4 % (0-5); Hematocrit 44.9 % (40-54); Hemoglobin 14.7 g/dL (13.0-16.5); Lymphocyte # 1.99 X10^3/ul (0.83-4.51); Lymphocyte % 19.4 % (19-41); Mean Corp Hgb Conc 32.7 g/dL (32-36); Mean Corpuscular Hgb 32.8 pg (27.0-32.0); Mean Corpuscular Volume 100.2 fL (80-94); Mean Platelet Vol. 9.9 fl (6.2-12.0); Monocyte# 1.47 X10^3/uL; Monocyte% 14.3 % (0-10); NRBC Flagged by Analyzer 0 % (0-5); Neutrophil % 64.2 % (47-70); Platelet Count 163 K/mm3 (150-450); RBC Distribution Width CV 13.2 % (11.6-14.6); RBC Distribution Width SD 48.7 fl (35.1-43.9); Red Blood Count 4.48 M/mm3 (4.6-6.2); White Blood Count 10.3 K/mm3 (4.4-11.0)
[2022-09-24 23:06] LABS: Anion Gap 6 (5-15); BUN 19 mg/dL (7-18); BUN/Creat Ratio 13.8 RATIO (10-20); Calcium,Total 8.4 mg/dL (8.5-10.1); Chloride 106 mmol/L (98-107); Creatinine, Serum 1.38 mg/dL (0.70-1.30); EST Glomerular Filtration Rate 53 mL/min (>60); Est Glom Filt Rate - Afr Amer 64 mL/min (>60); Estimated Creatinine Clearance 45.54 ml/min; Glucose 93 mg/dL (74-106); Potassium 4.5 mmol/L (3.5-5.1); Sodium Level 137 mmol/L (136-145); Troponin-I HS (w/2H Reflex) 22 pg/mL (3.0-78.0)
--- NOTE | 2022-09-24 23:32 | EDS_ITS ---
HPI History of Present Illness Chief Complaint: Cough Detail of Chief Complaint: Cough and chest pressure Informant: patient Onset/Context/Timing Onset: Hours (For the past 10 hours patient's had midsternal chest discomfort described as pressure radiating through to his back) and Days (Patient had upper respiratory symptoms for the past 3 days. He states his throat is sore from coughing.) Context: Sudden Onset Timing: Continuous Quality: Pressure Location: Middle of chest Current Severity: Mild Maximum Severity: Moderate Worsened by: Nothing Relieved by: Nothing Associated Symptoms Associated Symptoms: Upper respiratory infection Narrative Narrative: Patient is a 77-year-old male with history of coronary disease, COPD, hypertension, [place] x2, obstructive sleep apnea, systolic congestive heart failure with reduced left ventricular function. He has not AICD in place. Patient presents because his throat sore after coughing for the past 3 days. He does report congestion sore throat cough is nonproductive. States today he developed a midsternal chest discomfort described as pressure rating through to his back. There is no radiation to his jaw, neck, shoulders or upper extremity. There was no associated symptoms. There is no precipitating, alleviating or exacerbating factors. Patient states the discomfort in his chest started at rest. He denies history of hiatal hernia. He denies black or maroon-colored stool. He states he had heartburn with his first [place]. He had discomfort with the second. Prior similar symptoms: No Recent Illness/Hospitalization: No PFSH PFS Medical History COPD (chronic obstructive pulmonary disease) CPAP (continuous positive airway pressure) dependence Former smoker ICD (implantable cardioverter-defibrillator) in place Myocardial infarct Home Medications albuterol sulfate 90 mcg/actuation aerosol inhaler (Proventil HFA) 1 - 2 puff IH Q2H PRN Sob &/Or Wheezing 03/16/16 [History Last Taken 03/03/21 15:00] aspirin 81 mg chewable tablet 81 mg PO DAILY@0800 Check with primary doctor 03/16/16 [History Last Taken 03/03/21] budesonide-formoterol HFA 160 mcg-4.5 mcg/actuation aerosol inhaler (Symbicort) 2 puff inhalation BID COPD 03/16/16 [History Last Taken 03/03/21] rosuvastatin 10 mg tablet 10 mg PO QHS HLD 12/17/17 [History Last Taken 03/03/21] spironolactone 25 mg tablet 12.5 mg PO DAILY CHF 12/17/17 [History Last Taken 03/03/21] metoprolol succinate 100 mg tablet,extended release 24 hr 25 mg PO DAILY HEART 03/03/21 [History Last Taken 03/03/21] apixaban 5 mg tablet (Eliquis) 5 mg PO BID #60 tabs 03/13/21 [Rx Last Taken Unknown] Entresto 26 mg PO.IVFORM DAILY 08/28/22 [History Last Taken Unknown] doxycycline hyclate 100 mg capsule 100 mg PO BID #13 caps 08/28/22 [Rx Last Taken Unknown] furosemide 40 mg tablet 40 mg PO DAILY 08/28/22 [History Last Taken Unknown] hydrocodone-homatropine 5 mg-1.5 mg/5 mL (5 mL) oral syrup (Hycodan) 5 ml PO Q6H PRN cough 3 days #60 mL 09/25/22 [Rx Last Taken Unknown] Allergy/AdvReac Type Severity Reaction Status Date / Time No Known Allergies Allergy Verified 09/24/22 22:07 Family History Mother Aneurysm Surgical History History of cholecystectomy History of colectomy History of coronary artery stent placement History of coronary artery stent placement Social History household members: spouse housing: house Smoking Status: Former smoker alcohol intake: former substance use type: does not use ROS ROS ED Constitutional Constitutional ED: Denies chills, fever(s), subjective, sweats or weight loss Eyes Eyes: Denies blurry vision, change in vision or diplopia ENT ENT ED: Reports rhinorrhea and sore throat; Denies ear pain Cardiovascular Cardiovascular: Reports chest pain; Denies orthopnea, palpitations, paroxysmal nocturnal dyspnea or racing heartbeat Respiratory/Chest Respiratory/Chest: Reports cough; Denies dyspnea, dyspnea on exertion, orthopnea, paroxysmal nocturnal dyspnea or sputum Gastrointestinal Gastrointestinal: Reports other Details: He denies intolerance to greasy or fried foods. He denies history of biliary. ; Denies abdominal pain, constipation, diarrhea, melena, nausea or vomiting Genitourinary Genitourinary ED: Denies dysuria, hematuria or urinary frequency Musculoskeletal Musculoskeletal: Reports back pain; Denies arthralgias, myalgias or neck pain Integumentary Denies abscess, Abrasions or rash Neurologic Neurologic: Denies headache(s), paresthesias or weakness Endocrine Endocrinology: Denies cold intolerance or heat intolerance Hematologic/Lymphatic Hematologic/Lymphatic: Reports anemia EXAM Physical Exam Const Vital Signs: 09/24/22 22:04 09/24/22 22:04 09/24/22 22:09 Temperature 98.5 F Temperature Source Temporal Pulse Rate 94 Respiratory Rate 24 H Respiratory Effort Short of Breath Labored Respiratory Depth Shallow Respiratory Pattern Tachypnea Blood Pressure 141/81 H Blood Pressure Mean 101 Pulse Ox 98 Oxygen Delivery Method Room Air 09/24/22 22:57 09/25/22 00:35 Temperature Temperature Source Pulse Rate 87 Respiratory Rate 22 H Respiratory Effort Respiratory Depth Respiratory Pattern Blood Pressure 118/72 Blood Pressure Mean 87 Pulse Ox 93 Oxygen Delivery Method Room Air Room Air Positive well nourished, well developed and obese General Appearance ED: well developed and NAD; Negative for cyanotic, diaphoretic or pallor Nutritional Appearance: obese HEENT Reports moist mucous membranes HEENT Narrative: Head is atraumatic no cephalic. Ears normal. Nares patent. Posterior pharynx out erythema or exudate. Uvula midline. No deviation with vision. Eyes PERRL and EOMs intact bilaterally General Eye ED: Negative for pale conjunctiva or scleral icterus Neck no lymphadenopathy, supple and no JVD Neck Narrative: Trachea is midline. He has slight dysphonia. There is no stridor. Chest Wall inspection of chest normal and palpation of chest normal Resp normal respiratory effort and clear to auscultation bilaterally Cardio regular rate, regular rhythm, S1 normal heart sound, S2 normal heart sound and no murmurs GI normal to inspection, nondistended, normoactive bowel sounds, non-tender, non- distended and no masses; Negative for hepatosplenomegaly Auscultation: normoactive bowel sounds Palpation: soft Back/Spine no CVA tenderness Cervical Spine: Negative for cervical spine tenderness Thoracic Spine / Upper Back: Negative for thoracic spinal tenderness Lumbar Spine / Lower Back: Negative for lumbar spinal tenderness Extremity normal to inspection Extremity Narrative: There is no asymmetry. There is no discoloration. General Extremety ED: Negative for tenderness Neuro oriented x3, CN's II-XII intact bilaterally and no sensory deficits noted Sensorium / Orientation: alert Motor Exam: strength 5/5 throughout Psych mental status grossly normal Skin no rashes or lesions noted, no wounds and skin turgor normal General Skin Exam: Negative for jaundice or pallor MDM MDM MDM Narrative Medical decision making narrative: SPECT patient has upper respiratory infection. In light of his multiple risk factors for cardiac disease and description of chest pressure will obtain EKG, appropriate blood work including troponin and chest x-ray to evaluate for cardiac versus noncardiac etiology. Differential would be noncardiac chest pain, cardiac ischemia, GI cause or pulmonary cause. Lab Data Attestation: I reviewed the patient's lab results. Lab results narrative: CBC and differential normal. Base [place] panel reveals slightly elevated creatinine 1.38 with a GFR 53. First troponin is normal 22. 2 hours pending. 2-hour troponin 25 with a delta 3. These are both normal. Patient be discharged to home. Labs: Laboratory Results - last 24 hr 09/24/22 09/24/22 09/25/22 22:30 22:30 00:32 WBC 10.3 RBC 4.48 L Hgb 14.7 Hct 44.9 MCV 100.2 H MCH 32.8 H MCHC 32.7 RDW Std Deviation 48.7 H RDW Coeff of Ignacio 13.2 Plt Count 163 MPV 9.9 Immature Gran % (Auto) 0.300 Neut % (Auto) 64.2 Lymph % (Auto) 19.4 Riley % (Auto) 14.3 H Eos % (Auto) 1.4 Baso % (Auto) 0.4 Absolute Neuts (auto) 6.6 Absolute Lymphs (auto) 1.99 Nucleated RBC % 0 Sodium 137 Potassium 4.5 Chloride 106 Carbon Dioxide 25.0 Anion Gap 6 BUN 19 H Creatinine 1.38 H Estim Creat Clear Calc 45.54 Est GFR (MDRD) Af Amer 64 Est GFR (MDRD) Non-Af 53 L BUN/Creatinine Ratio 13.8 Glucose 93 Calcium 8.4 L Troponin I High Sens 22 25 Radiography Chest X-Ray - ED: 1 View, Read by ED Physician, Unchanged, Normal, Heart, Mediastinum and Chronic Changes Diagnostic Testing: Clinical Impression(s) from Imaging Studies Chest X-Ray 09/24/22 22:40 IMPRESSION: No radiographic evidence of acute cardiopulmonary disease. Electronically Signed: Sher Macdonald MD at 22:58 EST , EKG Initial EKG: Attestation: I personally reviewed and interpreted this EKG as follows: Interpretation: Sinus Rhythm (Ventricular rate is 93. Patient has low voltage. CT intervals 174 ms. QRS durations 112 ms. QT interval is 332 ms. [place] is normal. Patient has evidence of an incomplete bundle branch block. There is decreased anterior forces noted.) Discharge Plan Triage Chief Complaint: Cough ED Provider: Jose Marcano Dx/Rx/DC Orders Clinical Impression: Acute bronchitis due to infection, Hypertension, Systolic congestive heart failure with reduced left ventricular function, NYHA class 3, CAD (coronary artery disease), COPD (chronic obstructive pulmonary disease), Chest pressure Instructions: ED Bronchitis, No Antibiotic (Adult) Prescriptions: New hydrocodone-homatropine [Hycodan] 5-1.5 mg/5 mL (5 mL) syrup 5 ml PO Q6H PRN (Reason: cough) 3 Days Qty: 60 0RF No Action aspirin 81 MG tablet,chewable 81 mg PO DAILY@0800 Label Comments: [facility] albuterol sulfate [Proventil HFA] 6.7 GM HFA aerosol inhaler 1 - 2 puff IH Q2H PRN (Reason: Sob &/Or Wheezing) Label Comments: shortness of breath budesonide-formoterol [Symbicort] 1 INHALER inhaler 2 puff inhalation BID spironolactone 25 MG tablet 12.5 mg PO DAILY rosuvastatin 10 MG tablet 10 mg PO QHS metoprolol succinate 100 mg Tablet Extended Release 24 Hr 25 mg PO DAILY Eliquis 5 mg tablet 5 mg PO BID Qty: 60 0RF furosemide 40 mg Tablet 40 mg PO DAILY Entresto 26 mg PO.IVFORM DAILY doxycycline hyclate 100 mg capsule 100 mg PO BID Qty: 13 0RF [facility] - Disposition Disposition: Home, Self Care
[2022-09-25 00:35] VITALS: BP 118/72; PULSE 87; RESP 22; O2SAT 93
[2022-09-25 00:36] LABS: Reflex Troponin-HS? (from REC) Y
[2022-09-25 00:55] LABS: Troponin-I HS 25 pg/mL (3.0-78.0)
[2022-09-25] MEDS: guaiFENesin/Codeine 5 ML UDC PO (01:19)
[2022-09-25 01:21] VITALS: BP 129/70; PULSE 85; RESP 16; O2SAT 96
== END 2022-09-25 01:22 | disposition home or self-care (01) ==
PROVIDERS: Emergency Provider Emergency Medicine; Visit Provider Emergency Medicine
DX: J44.0 Chronic obstructive pulmonary disease with (acute) lower respiratory infection (principal); I11.0 Hypertensive heart disease with heart failure; I50.22 Chronic systolic (congestive) heart failure; R07.89 Other chest pain; I25.10 Atherosclerotic heart disease of native coronary artery without angina pectoris; I25.2 Old myocardial infarction; E66.9 Obesity, unspecified; Z87.891 Personal history of nicotine dependence; Z95.5 Presence of coronary angioplasty implant and graft
CPT/HCPCS: 71045; 80048; 84484; 85025; 93005; 99285; A4216

== ENCOUNTER 2023-01-09 10:44 | Emergency (ER) | payer OTHER, SELFPAY ==
[2023-01-09] VITALS (7 sets, daily range): BP systolic 125–145; BP diastolic 55–81; PULSE 49–79; RESP 16–25; TEMP 37.2; O2SAT 94–100; BMI 40.1
--- NOTE | 2023-01-09 11:44 | EKG12_ITS ---
Test Reason : SOB Blood Pressure : / mmHG Vent. Rate : 084 BPM Atrial Rate : 084 BPM P-R Int : 180 ms QRS Dur : 118 ms QT Int : 368 ms P-R-T Axes : 024 -20 127 degrees QTc Int : 434 ms Sinus rhythm with frequent Premature ventricular complexes Low voltage QRS Septal infarct , age undetermined Abnormal ECG Confirmed by KALEB CHATMAN, RYAN ([id number]), commercial production editor LUDIN KHALIL ([id number]) on 01/11/2023 6:59:27 AM Referred By: Confirmed By:ESTRADA MANUEL MD
--- NOTE | 2023-01-09 11:45 | EDS_ITS ---
HPI History of Present Illness Chief Complaint: Shortness of Breath Informant: patient Narrative Narrative: Patient is a 77-year-old male with history of COPD, systolic congestive heart failure, class III, coronary artery disease and obstructive sleep apnea (does not wear CPAP/BiPAP because he does not tolerate it) presenting with increased shortness of breath and sputum production. Patient states for the past week or so he had increased respiratory symptoms. He states he has a cough that was part of a clear sputum until last night when he started coughing up light brown sputum. He states the cough is not particularly severe. He notes for the past 3 weeks has had itchy watery red eyes. He has had a some mild increased swelling of his legs as well as dyspnea on exertion for the past week. Does report to me that while his legs seem a little swollen they do tend to fluctuate. In addition he states that he has been sleeping poorly because of his cough and respiratory symptoms. He has not been able to lay flat in bed for years but does lay on his side. He denies any chest pain. Denies any fever or chills. States that he is concerned about getting pneumonia and he also has been doing with some more anxiety. He states since being able to talk to someone in the emergency room he is feeling better. Patient is chronically on Eliquis. He states he has been compliant with all of his medications. [facility] Medical History COPD (chronic obstructive pulmonary disease) CPAP (continuous positive airway pressure) dependence Former smoker ICD (implantable cardioverter-defibrillator) in place Myocardial infarct Home Medications albuterol sulfate 90 mcg/actuation aerosol inhaler (Proventil HFA) 1 - 2 puff IH Q2H PRN Sob &/Or Wheezing 03/16/16 [History Last Taken 03/03/21 15:00] aspirin 81 mg chewable tablet 81 mg PO DAILY@0800 Check with primary doctor [History Last Taken 03/03/21] budesonide-formoterol HFA 160 mcg-4.5 mcg/actuation aerosol inhaler (Symbicort) 2 puff inhalation BID COPD 03/16/16 [History Last Taken 03/03/21] rosuvastatin 10 mg tablet 10 mg PO QHS HLD 12/17/17 [History Last Taken 03/03/21] spironolactone 25 mg tablet 12.5 mg PO DAILY CHF 12/17/17 [History Last Taken 03/03/21] metoprolol succinate 100 mg tablet,extended release 24 hr 25 mg PO DAILY HEART 03/03/21 [History Last Taken 03/03/21] apixaban 5 mg tablet (Eliquis) 5 mg PO BID #60 tabs 03/13/21 [Rx Last Taken Unknown] Entresto 26 mg PO.IVFORM DAILY 08/28/22 [History Last Taken Unknown] doxycycline hyclate 100 mg capsule 100 mg PO BID #13 caps 08/28/22 [Rx Last Taken Unknown] furosemide 40 mg tablet 40 mg PO DAILY 08/28/22 [History Last Taken Unknown] hydrocodone-homatropine 5 mg-1.5 mg/5 mL (5 mL) oral syrup (Hycodan) 5 ml PO Q6H PRN cough 3 days #60 mL 09/25/22 [Rx Last Taken Unknown] artificial tears(hypromellose) 0.3 % eye gel (Systane Gel) 2 drp EACH EYE Q4H PRN dry eyes #10 grams 01/09/23 [Rx Last Taken Unknown] azithromycin 250 mg tablet 250 mg PO DAILY 4 days #4 tabs 01/09/23 [Rx Last Taken Unknown] prednisone 20 mg tablet 40 mg PO DAILY #8 tabs 01/09/23 [Rx Last Taken Unknown] Allergy/AdvReac Type Severity Reaction Status Date / Time No Known Allergies Allergy Verified 01/09/23 10:45 Family History Mother Aneurysm Surgical History History of cholecystectomy History of colectomy History of coronary artery stent placement History of coronary artery stent placement Social History household members: spouse housing: house Smoking Status: Former smoker alcohol intake: former substance use type: does not use ROS ROS ED Constitutional Constitutional ED: Denies chills or fever(s) Eyes Eyes: Denies change in vision ENT ENT ED: Denies sore throat Cardiovascular Cardiovascular: Denies chest pain, orthopnea or palpitations Respiratory/Chest Respiratory/Chest: Reports cough, dyspnea on exertion and sputum; Denies dyspnea or orthopnea Gastrointestinal Gastrointestinal: Denies abdominal pain, nausea or vomiting Genitourinary Genitourinary ED: Denies dysuria Musculoskeletal Musculoskeletal: Denies arthralgias or myalgias Integumentary Denies rash Neurologic Neurologic: Denies headache(s) or weakness Psychiatric Psychiatric: Reports anxiety; Denies depression Hematologic/Lymphatic Hematologic/Lymphatic: Reports easy bleeding and easy bruising EXAM Physical Exam Const Vital Signs: 01/09/23 10:45 01/09/23 11:05 01/09/23 11:08 Temperature 99 F 99 F Temperature Source Temporal Temporal Pulse Rate 49 L 49 L Respiratory Rate 25 H 25 H Respiratory Effort Short of Breath Labored Accessory Muscle Use Respiratory Depth Deep Respiratory Pattern Tachypnea Blood Pressure 145/81 H 145/81 H Blood Pressure Mean 102 102 Pulse Ox 100 98 Oxygen Delivery Method Room Air Room Air Room Air 01/09/23 11:52 01/09/23 12:12 01/09/23 12:18 Temperature Temperature Source Pulse Rate 77 78 Respiratory Rate 16 16 Respiratory Effort Respiratory Depth Respiratory Pattern Normal Blood Pressure 128/62 H Blood Pressure Mean 84 Pulse Ox 94 Oxygen Delivery Method Room Air Room Air 01/09/23 13:08 Temperature Temperature Source Pulse Rate 79 Respiratory Rate 16 Respiratory Effort Respiratory Depth Respiratory Pattern Blood Pressure 125/55 H Blood Pressure Mean 78 Pulse Ox 96 Oxygen Delivery Method Room Air Positive well nourished and well developed General Appearance ED: well developed and NAD HEENT Reports moist mucous membranes atraumatic Eyes PERRL and EOMs intact bilaterally Eyes Narrative: Bilateral conjunctival injection, no discharge appreciated Neck supple and no JVD Resp normal respiratory effort Resp Narrative: And expiratory wheezing. Diminished breath sounds at the right base Cardio regular rate, regular rhythm and no murmurs GI non-tender and non-distended Extremity Extremity Narrative: 1+ pain edema up to the ankles bilaterally General Extremety ED: Negative for tenderness Neuro oriented x3 Neuro Narrative: No focal deficits appreciated Sensorium / Orientation: alert Motor Exam: Negative for general weakness Psych mental status grossly normal Mood & Affect: Negative for depressed or anxious Skin no wounds Rashes: no rashes MDM MDM MDM Narrative Medical decision making narrative: Patient evaluated for increased sputum production with his cough as well as dyspnea on exertion. Patient appears nontoxic and in no acute distress. Vital signs are significant for mild tachypnea and bradycardia. Differential includes COPD exacerbation, pneumonia and CHF exacerbation. He is not having chest pains have lower suspicion for ACS but will obtain an EKG as well as troponin. Patient is wheezing is given a DuoNeb treatment. Lower suspicion for pulmonary malaise patient is chronically anticoagulated on Eliquis and states he has not missed any doses. Patient feels improved after DuoNeb treatment. He does continue to have some scattered wheezing on exam. He has no respiratory distress. Two-view chest x- ray interpreted by myself as well as radiology does not show any acute process. Patient is chronically anticoagulated so low suspicion for pulmonary emboli. I do not think he requires a CTA. High sensitive troponin is normal at 22. He has a mild elevation of his creatinine of 1.4 however this appears to be his baseline. Does have a mild leukocytosis of 12.1 which is nonspecific. Chest x- ray is not consistent with pneumonia. Will treat patient like a CHF exacerbation and given his underlying COPD and increase of cough and sputum production will cover with azithromycin. Patient does have a mildly elevated BNP however he clinically does not appear fluid overloaded and his prior BNP was from a couple years ago. Patient counseled to take his weight daily and continue taking his daily Lasix. Patient will follow outpatient. Is given return precautions. Discharged home in stable condition. Ambulates in the ER without any hypoxia feeling well. Lab Data Labs: Laboratory Results - last 24 hr 01/09/23 01/09/23 01/09/23 11:45 11:45 11:45 WBC 12.1 H RBC 4.82 Hgb 16.2 Hct 48.7 MCV 101.0 H MCH 33.6 H MCHC 33.3 RDW Std Deviation 49.9 H RDW Coeff of Ignacio 13.3 Plt Count 208 MPV 10.2 Immature Gran % (Auto) 0.200 Neut % (Auto) 74.7 H Lymph % (Auto) 15.6 L [place] % (Auto) 7.2 Eos % (Auto) 1.7 Baso % (Auto) 0.6 Absolute Neuts (auto) 9.0 H Absolute Lymphs (auto) 1.89 Nucleated RBC % 0 Sodium 142 Potassium 4.8 Chloride 108 H Carbon Dioxide 29.0 Anion Gap 5 BUN 27 H Creatinine 1.40 H Estim Creat Clear Calc 44.89 Est GFR (MDRD) Af Amer 63 Est GFR (MDRD) Non-Af 52 L BUN/Creatinine Ratio 19.3 Glucose 104 Calcium 9.4 Troponin I High Sens 22 B-Natriuretic Peptide 976.9 H Radiography Diagnostic Testing: Clinical Impression(s) from Imaging Studies Chest X-Ray 01/09/23 12:45 IMPRESSION: No acute cardiopulmonary abnormality. No interval change. Electronically Signed: Hugo Savage MD at 13:13 EDT , Rhythm Strip Rhythm Strip: Sinus Rhythm Rate: 84 Ectopy: PVC(s) EKG Initial EKG: Attestation: I personally reviewed and interpreted this EKG as follows: Interpretation: Sinus Rhythm Comments: Normal sinus rhythm at a rate of 84 beats per minutes with PVCs Left axis deviation Low voltage QRS Normal ST segments Prior EKG tracings: available for review Prior: Unchanged Discharge Plan Triage Chief Complaint: Shortness of Breath ED Provider: Jocelyne Moyer Dx/Rx/DC Orders Clinical Impression: Asthma exacerbation in COPD, Conjunctivitis unspecified Instructions: ED Conjunctivitis, Nonspecific, ED COPD Flare Prescriptions: New prednisone 20 mg tablet 40 mg PO DAILY Qty: 8 0RF Systane Gel 0.3 % gel 2 drp EACH EYE Q4H PRN (Reason: dry eyes) Qty: 10 0RF azithromycin 250 mg tablet 250 mg PO DAILY 4 Days Qty: 4 0RF Rx Instructions: start on day 2 of therapy No Action aspirin 81 MG tablet,chewable 81 mg PO DAILY@0800 Label Comments: heart health albuterol sulfate [Proventil HFA] 6.7 GM HFA aerosol inhaler 1 - 2 puff IH Q2H PRN (Reason: Sob &/Or Wheezing) Label Comments: shortness of breath budesonide-formoterol [Symbicort] 1 INHALER inhaler 2 puff inhalation BID spironolactone 25 MG tablet 12.5 mg PO DAILY rosuvastatin 10 MG tablet 10 mg PO QHS metoprolol succinate 100 mg Tablet Extended Release 24 Hr 25 mg PO DAILY Eliquis 5 mg tablet 5 mg PO BID Qty: 60 0RF furosemide 40 mg Tablet 40 mg PO DAILY Entresto 26 mg PO.IVFORM DAILY doxycycline hyclate 100 mg capsule 100 mg PO BID Qty: 13 0RF hydrocodone-homatropine [Hycodan] 5-1.5 mg/5 mL (5 mL) syrup 5 ml PO Q6H PRN (Reason: cough) 3 Days Qty: 60 0RF [facility] [Primary Care Provider] - Activity Restrictions/Additional Instructions: Check your weight every few days to make sure you are not keeping fluid on. We will treat this like a viral process/COPD exacerbation. You have been placed on a short course of antibiotics. Disposition Disposition: Home, Self Care Discharge Date/Time: 01/09/23 14:31
[2023-01-09] MEDS: Ipratropium/Albuterol Sulfate 3 ML AMPUL.NEB INHALATION (12:01)
[2023-01-09 12:04] LABS: Absolute Lymphocyte Count 1.89 X10^3/uL (0.83-4.51); Basophil# 0.07 X10^3/uL; Basophil% 0.6 % (0-1); Eosinophil# 0.21 X10^3/uL; Eosinophils% 1.7 % (0-5); Hematocrit 48.7 % (40-54); Hemoglobin 16.2 g/dL (13.0-16.5); Lymphocyte # 1.89 X10^3/ul (0.83-4.51); Lymphocyte % 15.6 % (19-41); Mean Corp Hgb Conc 33.3 g/dL (32-36); Mean Corpuscular Hgb 33.6 pg (27.0-32.0); Mean Platelet Vol. 10.2 fl (6.2-12.0); Monocyte# 0.87 X10^3/uL; Monocyte% 7.2 % (0-10); NRBC Flagged by Analyzer 0 % (0-5); Neutrophil # 9.01 X10^3/uL (2.7-7.7); Neutrophil % 74.7 % (47-70); Platelet Count 208 K/mm3 (150-450); RBC Distribution Width CV 13.3 % (11.6-14.6); RBC Distribution Width SD 49.9 fl (35.1-43.9); Red Blood Count 4.82 M/mm3 (4.6-6.2); White Blood Count 12.1 K/mm3 (4.4-11.0)
[2023-01-09 12:14] LABS: Anion Gap 5 (5-15); BUN 27 mg/dL (7-18); BUN/Creat Ratio 19.3 RATIO (10-20); Calcium,Total 9.4 mg/dL (8.5-10.1); Chloride 108 mmol/L (98-107); EST Glomerular Filtration Rate 52 mL/min (>60); Est Glom Filt Rate - Afr Amer 63 mL/min (>60); Estimated Creatinine Clearance 44.89 ml/min; Glucose 104 mg/dL (74-106); Potassium 4.8 mmol/L (3.5-5.1); Sodium Level 142 mmol/L (136-145); Troponin-I HS 22 pg/mL (3.0-78.0)
[2023-01-09 12:28] LABS: BNP,B-Type NATRIURETIC PEPTIDE 976.9 pg/mL (0-100)
--- NOTE | 2023-01-09 12:45 | RAD_ITS ---
EXAM: XR CHEST, 2 VIEWS CLINICAL INDICATION: cough TECHNIQUE: Frontal and lateral views of the chest. This report was created using [employer] report generation technology. COMPARISON: XR Chest dated 09/24/2022 FINDINGS: LUNGS AND PLEURAL SPACES: Normal. No consolidation or edema. No pneumothorax. No effusion. HEART: Normal heart size. MEDIASTINUM: No mediastinal or hilar mass. BONES/JOINTS: No acute abnormality. SOFT TISSUES: Normal. TUBES, LINES AND DEVICES: Automatic implantable cardioverter defibrillator (AICD) in place. RAD/Chest PA and Lateral IMPRESSION: No acute cardiopulmonary abnormality. No interval change. Electronically Signed: Hugo Savage MD at 13:13 EDT ,
[2023-01-09] MEDS: Azithromycin 250 MG Tablet 500 MG PO (14:09)
[2023-01-09] MEDS: predniSONE 20 MG Tablet 60 MG PO (14:09)
== END 2023-01-09 14:31 | disposition home or self-care (01) ==
PROVIDERS: Emergency Provider Emergency Medicine; Visit Provider Emergency Medicine
DX: J44.1 Chronic obstructive pulmonary disease with (acute) exacerbation (principal); I50.22 Chronic systolic (congestive) heart failure; F41.9 Anxiety disorder, unspecified; Z87.891 Personal history of nicotine dependence; H10.9 Unspecified conjunctivitis; I25.10 Atherosclerotic heart disease of native coronary artery without angina pectoris; R05.9 Cough, unspecified; R06.09 Other forms of dyspnea; I25.2 Old myocardial infarction; Z95.810 Presence of automatic (implantable) cardiac defibrillator; G47.33 Obstructive sleep apnea (adult) (pediatric)
CPT/HCPCS: 71046; 80048; 83880; 84484; 85025; 87428; 93005; 94640; 99283; A4216

== ENCOUNTER 2023-04-30 12:06 | Emergency (ER) | payer OTHER, SELFPAY ==
[2023-04-30 12:06] VITALS: BP 105/70; PULSE 88; RESP 20; TEMP 36.6; O2SAT 91; BMI 38.4
--- NOTE | 2023-04-30 13:00 | RAD_ITS ---
STUDY: X-RAY CHEST REASON FOR EXAM: Male, 77 years old. Dizziness TECHNIQUE: PA and lateral views of the chest. COMPARISON: 01/09/2023 FINDINGS: Left subclavian AICD. The lungs are clear and expanded. There is no demonstrated pleural abnormality. Normal size heart. Normal mediastinum and mary beth. Normal visualized pulmonary arteries. Normal visualized aortic arch and descending thoracic aorta. Normal visualized thoracic spine. Normal visualized ribs, clavicles, and shoulders. There is no demonstrated abnormality of the visualized soft tissue structures of the upper abdomen. RAD/Chest PA and Lateral IMPRESSION: No active disease. Electronically Signed: Jorge Cordero MD at 13:38 EDT ,
[2023-04-30 13:04] LABS: Absolute Lymphocyte Count 1.83 X10^3/uL (0.83-4.51); Absolute Neutrophil Count 7.4 X10^3/uL (2.0-7.7); Basophil# 0.08 X10^3/uL; Basophil% 0.8 % (0-1); Eosinophil# 0.22 X10^3/uL; Eosinophils% 2.1 % (0-5); Hematocrit 46.5 % (40-54); Hemoglobin 15.3 g/dL (13.0-16.5); Lymphocyte # 1.83 X10^3/ul (0.83-4.51); Lymphocyte % 17.4 % (19-41); Mean Corp Hgb Conc 32.9 g/dL (32-36); Mean Corpuscular Hgb 33.4 pg (27.0-32.0); Mean Corpuscular Volume 101.5 fL (80-94); Monocyte# 0.96 X10^3/uL; Monocyte% 9.1 % (0-10); NRBC Flagged by Analyzer 0 % (0-5); Neutrophil # 7.39 X10^3/uL (2.7-7.7); Neutrophil % 70.1 % (47-70); Platelet Count 197 K/mm3 (150-450); RBC Distribution Width CV 12.6 % (11.6-14.6); RBC Distribution Width SD 47.4 fl (35.1-43.9); Red Blood Count 4.58 M/mm3 (4.6-6.2); White Blood Count 10.5 K/mm3 (4.4-11.0)
--- NOTE | 2023-04-30 13:11 | EX.ED.DYSGE1 ---
HPI History of Present Illness Chief Complaint: Hypotension Informant: patient Onset/Context/Timing Onset: Yesterday Context: Gradual Onset Timing: Intermittent Quality: Lightheaded, dizzy Location: Generalized Worsened by: Nothing Relieved by: Nothing Narrative Narrative: Patient presents with low blood pressure that was noticed today at home. Patient took his blood pressure at home today and was 96/56. Patient states he was feeling lightheaded and dizzy. Patient states he felt like he might pass out but did not actually pass out. Patient states this has been intermittent since yesterday. Patient denies any chest pain or shortness of breath. Patient denies any nausea or vomiting. Patient does admit to some generalized weakness. Patient denies any headaches. Patient denies any fevers or chills. [facility] Medical History COPD (chronic obstructive pulmonary disease) CPAP (continuous positive airway pressure) dependence Former smoker ICD (implantable cardioverter-defibrillator) in place Myocardial infarct Home Medications albuterol sulfate 90 mcg/actuation aerosol inhaler (Proventil HFA) 1 - 2 puff IH Q2H PRN Sob &/Or Wheezing 03/16/16 [History Last Taken 03/03/21 15:00] aspirin 81 mg chewable tablet 81 mg PO DAILY@0800 Check with primary doctor 03/16/16 [History Last Taken 03/03/21] budesonide-formoterol HFA 160 mcg-4.5 mcg/actuation aerosol inhaler (Symbicort) 2 puff inhalation BID COPD 03/16/16 [History Last Taken 03/03/21] rosuvastatin 10 mg tablet 10 mg PO QHS HLD 12/17/17 [History Last Taken 03/03/21] spironolactone 25 mg tablet 12.5 mg PO DAILY CHF 12/17/17 [History Last Taken 03/03/21] metoprolol succinate 100 mg tablet,extended release 24 hr 12.5 mg PO DAILY HEART 03/03/21 [History Last Taken 03/03/21] apixaban 5 mg tablet (Eliquis) 5 mg PO BID #60 tabs 03/13/21 [Rx Last Taken Unknown] Entresto 26 mg PO.IVFORM DAILY 08/28/22 [History Last Taken Unknown] doxycycline hyclate 100 mg capsule 100 mg PO BID #13 caps 08/28/22 [Rx Last Taken Unknown] furosemide 40 mg tablet 40 mg PO DAILY 08/28/22 [History Last Taken Unknown] artificial tears(hypromellose) 0.3 % eye gel (Systane Gel) 2 drp EACH EYE Q4H PRN dry eyes #10 grams 01/09/23 [Rx Last Taken Unknown] azithromycin 250 mg tablet 250 mg PO DAILY 4 days #4 tabs 01/09/23 [Rx Last Taken Unknown] prednisone 20 mg tablet 40 mg (2 x 20 mg) PO DAILY #8 tabs 01/09/23 [Rx Last Taken Unknown] Allergy/AdvReac Type Severity Reaction Status Date / Time No Known Allergies Allergy Verified 04/30/23 12:07 Family History Mother Aneurysm Surgical History History of cholecystectomy History of colectomy History of coronary artery stent placement History of coronary artery stent placement Social History household members: spouse housing: house Smoking Status: Former smoker alcohol intake: former substance use type: does not use ROS ROS ED Constitutional Constitutional ED: Denies chills or fever(s) Eyes Eyes: Denies blurry vision or change in vision ENT ENT ED: Denies rhinorrhea or sore throat Cardiovascular Cardiovascular: Denies chest pain or palpitations Respiratory/Chest Respiratory/Chest: Denies cough or dyspnea Gastrointestinal Gastrointestinal: Denies nausea or vomiting Genitourinary Genitourinary ED: Denies dysuria or hematuria Musculoskeletal Musculoskeletal: Denies back pain or neck pain Integumentary Denies abscess or rash Neurologic Neurologic: Reports weakness; Denies headache(s) Allergic/Immunologic Allergic/Immunologic ED: Denies mouth swelling or urticaria EXAM Physical Exam Const Vital Signs: 04/30/23 12:06 04/30/23 13:03 04/30/23 13:26 Temperature 98 F Temperature Source Temporal Pulse Rate 88 Pulse Rate [Lying] 62 Pulse Rate [Sitting (for 1 minute prior to obtaining)] 60 Pulse Rate [Standing (for 1 minute prior to obtaining)] 71 Respiratory Rate 20 H Respiratory Effort Normal Non-Labored Blood Pressure 105/70 Blood Pressure [Lying] 119/54 L Blood Pressure [Sitting (for 1 minute prior to obtaining)] 108/64 Blood Pressure [Standing (for 1 minute prior to obtaining)] 90/61 Blood Pressure Mean 81 Blood Pressure Mean [Lying] 75 Blood Pressure Mean [Sitting (for 1 minute prior to obtaining)] 78 Blood Pressure Mean [Standing (for 1 minute prior to obtaining)] 70 Pulse Ox 91 Oxygen Delivery Method Room Air 04/30/23 14:28 Temperature Temperature Source Pulse Rate 57 L Pulse Rate [Lying] Pulse Rate [Sitting (for 1 minute prior to obtaining)] Pulse Rate [Standing (for 1 minute prior to obtaining)] Respiratory Rate 16 Respiratory Effort Blood Pressure 106/50 L Blood Pressure [Lying] Blood Pressure [Sitting (for 1 minute prior to obtaining)] Blood Pressure [Standing (for 1 minute prior to obtaining)] Blood Pressure Mean 68 Blood Pressure Mean [Lying] Blood Pressure Mean [Sitting (for 1 minute prior to obtaining)] Blood Pressure Mean [Standing (for 1 minute prior to obtaining)] Pulse Ox 96 Oxygen Delivery Method Room Air Positive well nourished and well developed General Appearance ED: well developed HEENT Reports moist mucous membranes Neck supple and no JVD Resp normal respiratory effort and clear to auscultation bilaterally Cardio regular rate and regular rhythm Rhythm: abnormal rhythm ectopic beats GI normal to inspection, nondistended, normoactive bowel sounds and non-tender Palpation: soft Extremity normal to inspection General Extremety ED: Negative for edema or tenderness General Extremity: Negative for edema Neuro oriented x3, CN's II-XII intact bilaterally and no sensory deficits noted Sensorium / Orientation: alert Motor Exam: strength 5/5 throughout Psych mental status grossly normal Skin no rashes or lesions noted MDM MDM MDM Narrative Medical decision making narrative: Differential diagnosis includes near syncope, hypotension, anemia, electrolyte abnormality, dehydration, pneumonia,. Cardiac dysrhythmia, and cardiac ischemia. EKG will be obtained to assess for cardiac dysrhythmia and cardiac ischemia. CBC will be obtained to assess for leukocytosis and anemia. Basic metabolic profile will be obtained to assess for electrolyte abnormality and renal function. High-sensitivity troponin will be obtained to assess for cardiac ischemia. Chest x-ray will be obtained to assess for pneumonia and pneumothorax. Lab Data Attestation: I reviewed the patient's lab results. Lab results narrative: CBC was reviewed and was within normal limits. Basic metabolic profile was reviewed. BUN was 29 and creatinine was 1.8. These are consistent with prior results. High-sensitivity troponin was reviewed and was normal at 20. Labs: Laboratory Results - last 24 hr 04/30/23 12:59 WBC 10.5 RBC 4.58 L Hgb 15.3 Hct 46.5 MCV 101.5 H MCH 33.4 H MCHC 32.9 RDW Std Deviation 47.4 H RDW Coeff of Ignacio 12.6 Plt Count 197 MPV 10.0 Immature Gran % (Auto) 0.500 Neut % (Auto) 70.1 H Lymph % (Auto) 17.4 L [place] % (Auto) 9.1 Eos % (Auto) 2.1 Baso % (Auto) 0.8 Absolute Neuts (auto) 7.4 Absolute Lymphs (auto) 1.83 Nucleated RBC % 0 Sodium 139 Potassium 4.6 Chloride 107 Carbon Dioxide 30.0 Anion Gap 2 L BUN 29 H Creatinine 1.80 H Estim Creat Clear Calc 34.91 Est GFR (MDRD) Af Amer 47 L Est GFR (MDRD) Non-Af 39 L BUN/Creatinine Ratio 16.1 Glucose 105 Calcium 8.8 Troponin I High Sens 20 Radiography Diagnostic Testing: Clinical Impression(s) from Imaging Studies Chest X-Ray 04/30/23 13:00 IMPRESSION: No active disease. Electronically Signed: Jorge Cordero MD at 13:38 EDT , PA and lateral chest x-ray was obtained. There are 2 views. On my independent interpretation, lung archer are clear. There is normal cardiac silhouette. Bony thorax is normal. There is no acute process noted. Radiologist also interpreted the x-ray and agrees. EKG Initial EKG: Attestation: I personally reviewed and interpreted this EKG as follows: Interpretation: Sinus Rhythm (81 with frequent PVCs) and Non-Specific ST Changes Comments: EKG was obtained. On my independent interpretation, it showed a normal sinus rhythm with frequent PVCs with a rate of 81. [place] interval, QRS interval, and QTc intervals were all normal. [place] was normal. There are no acute ST or T wave changes. Prior EKG tracings: available for review Prior: Unchanged (01/09/2023) Treatment and Re-Evaluation :: Orthostatic vital signs were obtained. Patient's blood pressure did drop from 119 systolic to 90 systolic from lying to standing. Patient was given IV fluids because of this. Patient was feeling better on reevaluation. Patient was instructed to drink plenty of fluids. Patient was instructed to follow-up with his primary care physician in 5 to 7 days. Patient understood and was agreeable with the plan. All questions were answered. Discharge Plan Triage Chief Complaint: Hypotension ED Provider: Clifton Son Dx/Rx/DC Orders Clinical Impression: Mild dehydration Instructions: ED Dehydration (Adult), ED Hypotension, Orthostatic Prescriptions: No Action aspirin 81 MG tablet,chewable 81 mg PO DAILY@0800 Patient Comments: heart [facility] albuterol sulfate [Proventil HFA] 6.7 GM HFA aerosol inhaler 1 - 2 puff IH Q2H PRN (Reason: Sob &/Or Wheezing) Patient Comments: shortness of breath budesonide-formoterol [Symbicort] 1 INHALER inhaler 2 puff inhalation BID spironolactone 25 MG tablet 12.5 mg PO DAILY rosuvastatin 10 MG tablet 10 mg PO QHS metoprolol succinate 100 mg Tablet Extended Release 24 Hr 12.5 mg PO DAILY Eliquis 5 mg tablet 5 mg PO BID Qty: 60 0RF furosemide 40 mg Tablet 40 mg PO DAILY Entresto 26 mg PO.IVFORM DAILY doxycycline hyclate 100 mg capsule 100 mg PO BID Qty: 13 0RF prednisone 20 mg tablet 40 mg PO DAILY Qty: 8 0RF Systane Gel 0.3 % gel 2 drp EACH EYE Q4H PRN (Reason: dry eyes) Qty: 10 0RF azithromycin 250 mg tablet 250 mg PO DAILY 4 Days Qty: 4 0RF Rx Instructions: start on day 2 of therapy [facility] Provider[facility] - 5-7 Days Disposition Disposition: Home, Self Care
--- NOTE | 2023-04-30 13:15 | EKG12_ITS ---
Test Reason : DIZZY Blood Pressure : / mmHG Vent. Rate : 081 BPM Atrial Rate : 081 BPM P-R Int : 174 ms QRS Dur : 120 ms QT Int : 382 ms P-R-T Axes : 000 -19 120 degrees QTc Int : 443 ms Sinus rhythm with frequent Premature ventricular complexes in a pattern of bigeminy Low voltage QRS Septal infarct , age undetermined Abnormal ECG Confirmed by LARRY CHATMAN, FRANCIS ([id number]), associate editor LUDIN KHALIL ([id number]) on 05/01/2023 11:00:01 AM Referred By: Confirmed By:FRANCIS JUAREZ MD
[2023-04-30 13:22] LABS: Anion Gap 2 (5-15); BUN 29 mg/dL (7-18); BUN/Creat Ratio 16.1 RATIO (10-20); Calcium,Total 8.8 mg/dL (8.5-10.1); Chloride 107 mmol/L (98-107); EST Glomerular Filtration Rate 39 mL/min (>60); Est Glom Filt Rate - Afr Amer 47 mL/min (>60); Estimated Creatinine Clearance 34.91 ml/min; Glucose 105 mg/dL (74-106); Potassium 4.6 mmol/L (3.5-5.1); Sodium Level 139 mmol/L (136-145); Troponin-I HS 20 pg/mL (3.0-78.0)
[2023-04-30 13:26] VITALS: BP 108/64; BP 119/54; BP 90/61; PULSE 60; PULSE 62; PULSE 71
[2023-04-30] MEDS: 0.9% Normal Saline 1,000 ML 1000 ML IV (13:38)
[2023-04-30 14:28] VITALS: BP 106/50; PULSE 57; RESP 16; O2SAT 96
[2023-04-30 15:49] VITALS: BP 119/61; PULSE 81; RESP 18; O2SAT 98
== END 2023-04-30 15:49 | disposition home or self-care (01) ==
PROVIDERS: Emergency Provider Emergency Medicine; Visit Provider Emergency Medicine
DX: E86.0 Dehydration (principal); J44.9 Chronic obstructive pulmonary disease, unspecified; I95.9 Hypotension, unspecified; Z87.891 Personal history of nicotine dependence; Z99.89 Dependence on other enabling machines and devices; Z95.810 Presence of automatic (implantable) cardiac defibrillator; I25.2 Old myocardial infarction; Z79.899 Other long term (current) drug therapy; Z79.82 Long term (current) use of aspirin; Z79.51 Long term (current) use of inhaled steroids; Z79.01 Long term (current) use of anticoagulants; Z90.49 Acquired absence of other specified parts of digestive tract; Z95.5 Presence of coronary angioplasty implant and graft
CPT/HCPCS: 71046; 80048; 84484; 85025; 93005; 96360; 96361; 99284; J7030; A4216

== ENCOUNTER 2023-05-15 02:44 | Emergency (ER) | payer OTHER, SELFPAY ==
[2023-05-15 02:45] VITALS: BP 146/97; PULSE 96; RESP 30; TEMP 36.2; O2SAT 97; BMI 39.4
[2023-05-15 02:47] VITALS: BP 146/97; PULSE 96; RESP 30; TEMP 36.2; O2SAT 97
[2023-05-15 02:48] VITALS: O2SAT 97
--- NOTE | 2023-05-15 02:55 | RAD_ITS ---
EXAM: XR CHEST, 2 VIEWS CLINICAL INDICATION: Dyspnea, expiratory wheezing history of COPD Dyspnea, expiratory wheezing history of COPD TECHNIQUE: Frontal and lateral views of the chest. COMPARISON: Chest x-ray 04/30/2023. FINDINGS: LUNGS AND PLEURAL SPACES: There is minimal chronic left basal atelectasis. In general, the lungs are mildly hyperexpanded, suggesting COPD. There is no demonstrated acute pulmonary infiltrate. No pneumothorax. No effusion. HEART: Unremarkable. Cardiac silhouette not enlarged. MEDIASTINUM: Central airways and mediastinal contour are unremarkable. BONES/JOINTS: There are multilevel degenerative changes in the visualized spine. SOFT TISSUES: Unremarkable. TUBES, LINES AND DEVICES: There is a ventricular pacemaker/defibrillator. RAD/Chest PA and Lateral IMPRESSION: 1. Suggestion of COPD. 2. Pacemaker/defibrillator. 3. No evidence for acute cardiopulmonary pathology. Electronically Signed: Сергей Soto MD at 3:53 EDT ,
[2023-05-15 02:59] VITALS: PULSE 90; RESP 18
[2023-05-15] MEDS: Ipratropium/Albuterol Sulfate 3 ML AMPUL.NEB INHALATION (02:59)
[2023-05-15 03:01] LABS: Absolute Lymphocyte Count 4.29 X10^3/uL (0.83-4.51); Absolute Neutrophil Count 8.5 X10^3/uL (2.0-7.7); Basophil# 0.09 X10^3/uL; Basophil% 0.6 % (0-1); Eosinophil# 0.53 X10^3/uL; Eosinophils% 3.6 % (0-5); Hematocrit 49.1 % (40-54); Hemoglobin 15.8 g/dL (13.0-16.5); Lymphocyte # 4.29 X10^3/ul (0.83-4.51); Lymphocyte % 29.2 % (19-41); Mean Corp Hgb Conc 32.2 g/dL (32-36); Mean Corpuscular Hgb 33.3 pg (27.0-32.0); Mean Corpuscular Volume 103.6 fL (80-94); Mean Platelet Vol. 9.9 fl (6.2-12.0); Monocyte# 1.29 X10^3/uL; Monocyte% 8.8 % (0-10); NRBC Flagged by Analyzer 0 % (0-5); Neutrophil # 8.45 X10^3/uL (2.7-7.7); Neutrophil % 57.5 % (47-70); Platelet Count 215 K/mm3 (150-450); RBC Distribution Width CV 12.9 % (11.6-14.6); RBC Distribution Width SD 49.2 fl (35.1-43.9); Red Blood Count 4.74 M/mm3 (4.6-6.2); White Blood Count 14.7 K/mm3 (4.4-11.0)
[2023-05-15 03:11] LABS: Anion Gap 7 (5-15); BUN 23 mg/dL (7-18); BUN/Creat Ratio 14.3 RATIO (10-20); Calcium,Total 9.2 mg/dL (8.5-10.1); Chloride 102 mmol/L (98-107); Creatinine, Serum 1.61 mg/dL (0.70-1.30); EST Glomerular Filtration Rate 45 mL/min (>60); Est Glom Filt Rate - Afr Amer 54 mL/min (>60); Estimated Creatinine Clearance 39.03 ml/min; Glucose 104 mg/dL (74-106); Potassium 4.5 mmol/L (3.5-5.1); Sodium Level 138 mmol/L (136-145)
[2023-05-15] MEDS: Albuterol 2.5 MG/3 ML VIAL.NEB. INHALATION ×3 (03:12→03:50)
--- NOTE | 2023-05-15 03:12 | EDS_ITS ---
HPI History of Present Illness Chief Complaint: Shortness of Breath Detail of Chief Complaint: Increased shortness of breath with audible wheezing Informant: patient Onset/Context/Timing Onset: Yesterday Context: gradual Timing: Continuous and Waxes and wanes Quality: Positive for Dyspnea on exertion, Orthopnea (Stable two-pillow) and Wheezing; Negative for PND Current Severity: Mild Maximum Severity: Severe Worsened by: Exertion and Coughing; Not Worsened By Lying flat Relieved by: Nothing Associated Symptoms cough; Negative for rhinorrhea, post nasal drip, ear pain, fever, sore throat, subjective, chills, sweats, clear sputum, white sputum, yellow sputum or green sputum Chest Pain: Positive for None Narrative Narrative: Patient is an elderly male who lives alone. He states he has lived alone since his passed 2 years ago. He states he has 2 pillow orthopnea. He does have history of COPD. He is on anticoagulant. He does have history of congestive heart failure and coronary disease. He denies fever or chills. He denies rhinorrhea, cough that is productive. He states he occasionally has a cough. He denies GI symptoms. He denies headache, visual, ocular auditory symptoms. He denies leg pain, swelling or discoloration. He denies history of PE. Graft patient does have an inhaler. He states he has been using his inhaler. He has not been on steroids recently. He did have a recent eye surgery for glaucoma and cataract. He is on a prednisone ophthalmic drops. PE Risk Factors: Negative for Cancer, OCP + Smoking + > 35, Prior DVT or PE, Recent immobilization, Recent surgery or Recent travel Prior similar symptoms: Yes (COPD) Recent Illness/Hospitalization: No [facility] Medical History COPD (chronic obstructive pulmonary disease) CPAP (continuous positive airway pressure) dependence Former smoker ICD (implantable cardioverter-defibrillator) in place Myocardial infarct Home Medications albuterol sulfate 90 mcg/actuation aerosol inhaler (Proventil HFA) 1 - 2 puff IH Q2H PRN Sob &/Or Wheezing 03/16/16 [History Last Taken 03/03/21 15:00] aspirin 81 mg chewable tablet 81 mg PO DAILY@0800 Check with primary doctor 03/16/16 [History Last Taken 03/03/21] budesonide-formoterol HFA 160 mcg-4.5 mcg/actuation aerosol inhaler (Symbicort) 2 puff inhalation BID COPD 03/16/16 [History Last Taken 03/03/21] rosuvastatin 10 mg tablet 10 mg PO QHS HLD 12/17/17 [History Last Taken 03/03/21] spironolactone 25 mg tablet 12.5 mg PO DAILY CHF 12/17/17 [History Last Taken 03/03/21] metoprolol succinate 100 mg tablet,extended release 24 hr 12.5 mg PO DAILY HEART 03/03/21 [History Last Taken 03/03/21] apixaban 5 mg tablet (Eliquis) 5 mg PO BID #60 tabs 03/13/21 [Rx Last Taken Unknown] Entresto 26 mg PO.IVFORM DAILY 08/28/22 [History Last Taken Unknown] furosemide 40 mg tablet 40 mg PO DAILY 08/28/22 [History Last Taken Unknown] artificial tears(hypromellose) 0.3 % eye gel (Systane Gel) 2 drp EACH EYE Q4H PRN dry eyes #10 grams 01/09/23 [Rx Last Taken Unknown] prednisone 20 mg tablet 60 mg (3 x 20 mg) PO DAILY #12 TABLETS 05/15/23 [Rx Last Taken Unknown] Allergy/AdvReac Type Severity Reaction Status Date / Time No Known Allergies Allergy Verified 05/15/23 02:45 Family History Mother Aneurysm Surgical History History of cholecystectomy History of colectomy History of coronary artery stent placement History of coronary artery stent placement Social History household members: none housing: house Smoking Status: Former smoker alcohol intake: former substance use type: does not use ROS ROS ED Constitutional Constitutional ED: Denies chills, fever(s), sweats or weight loss Eyes Eyes: Denies blurry vision, change in vision or diplopia ENT ENT ED: Denies ear pain, rhinorrhea or sore throat Cardiovascular Cardiovascular: Reports orthopnea; Denies chest pain, palpitations, paroxysmal nocturnal dyspnea or racing heartbeat Respiratory/Chest Respiratory/Chest: Reports cough, dyspnea, dyspnea on exertion and orthopnea; Denies paroxysmal nocturnal dyspnea or sputum Gastrointestinal Gastrointestinal: Denies abdominal pain, nausea or vomiting Genitourinary Genitourinary ED: Denies dysuria or hematuria Musculoskeletal Musculoskeletal: Denies arthralgias, back pain, myalgias or neck pain Integumentary Denies rash Neurologic Neurologic: Denies headache(s), paresthesias or weakness Endocrine Endocrinology: Denies cold intolerance or heat intolerance Hematologic/Lymphatic Hematologic/Lymphatic: Denies easy bleeding or easy bruising EXAM Physical Exam Const Vital Signs: 05/15/23 02:45 05/15/23 02:47 05/15/23 02:48 Temperature 97.2 F L 97.2 F L Temperature Source Temporal Temporal Pulse Rate 96 96 Respiratory Rate 30 H 30 H Respiratory Effort Normal Respiratory Depth Shallow Respiratory Pattern Normal Blood Pressure 146/97 H 146/97 H Blood Pressure Mean 113 113 Pulse Ox 97 97 Oxygen Delivery Method Room Air Room Air Room Air Positive well nourished, well developed and obese Constitutional Narrative: Patient has audible wheezing. He is tachypneic. There is minimal use of accessory muscles. General Appearance ED: well developed; Negative for pallor Nutritional Appearance: obese HEENT Reports moist mucous membranes HEENT Narrative: Head is atraumatic normocephalic. Ears are normal. Nares patent with no discharge. Posterior pharynx is normal. Eyes PERRL and EOMs intact bilaterally General Eye ED: Negative for pale conjunctiva or scleral icterus Neck no lymphadenopathy, supple, no meningeal signs and no JVD Chest Wall Chest Narrative: Appears normal Resp No normal respiratory effort and No clear to auscultation bilaterally Resp Narrative: Expiratory phase is increased. Effort and Inspection: Negative for pain with movement Auscultation: wheezes expiratory wheezes and throughout; Negative for rales Cardio regular rate, regular rhythm, S1 normal heart sound, S2 normal heart sound and no murmurs GI non-tender, non-distended and no masses Auscultation: hypoactive bowel sounds Palpation: soft Back/Spine no CVA tenderness Extremity normal to inspection Extremity Narrative: There is no asymmetry, swelling, discoloration, leg vein distention, palpable cords or tenderness along the distribution of the deep venous system. General Extremety ED: Negative for edema or tenderness General Extremity: Negative for edema Neuro oriented x3, CN's II-XII intact bilaterally and no sensory deficits noted Sensorium / Orientation: alert Psych mental status grossly normal Skin no wounds and skin turgor normal General Skin Exam: Negative for jaundice or pallor MDM MDM MDM Narrative Medical decision making narrative: Last stress test and echo February 2021. EF was 35%. There is evidence of diastolic dysfunction as well. There was an area of subsegmental wall motion abnormality. Review of prior records indicate patient has been seen several times for exacerbation COPD. With audible wheezing increased x-ray phase suspect patient has exacerbation of COPD. We will treat with DuoNeb and albuterol aerosolized treatments and 60 mg of prednisone. CBC was obtained to assess H&H as well as white count. BMP to assess renal function. Lab Data Attestation: I reviewed the patient's lab results. Lab results narrative: Creatinine has been elevated and approximately baseline since March 2021. White count is elevated with no shift or bandemia. This could be due to stress. Labs: Laboratory Results - last 24 hr 05/15/23 02:45 WBC 14.7 H RBC 4.74 Hgb 15.8 Hct 49.1 MCV 103.6 H MCH 33.3 H MCHC 32.2 RDW Std Deviation 49.2 H RDW Coeff of Ignacio 12.9 Plt Count 215 MPV 9.9 Immature Gran % (Auto) 0.300 Neut % (Auto) 57.5 Lymph % (Auto) 29.2 [place] % (Auto) 8.8 Eos % (Auto) 3.6 Baso % (Auto) 0.6 Absolute Neuts (auto) 8.5 H Absolute Lymphs (auto) 4.29 Nucleated RBC % 0 Sodium 138 Potassium 4.5 Chloride 102 Carbon Dioxide 29.0 Anion Gap 7 BUN 23 H Creatinine 1.61 H Estim Creat Clear Calc 39.03 Est GFR (MDRD) Af Amer 54 L Est GFR (MDRD) Non-Af 45 L BUN/Creatinine Ratio 14.3 Glucose 104 Calcium 9.2 Radiography Chest X-Ray - ED: 2 View and Read by ED Physician (Reviewed and interpreted at 0338 as negative for acute process. There is slight hyperaeration. There is a dual-chamber pacemaker noted. Mediastinum is unremarkable. Cardiac silhouette and size is unremarkable. Osseous structures are unremarkable. There is no evidence of infiltrate, effusion or) Treatment and Re-Evaluation :: Patient was reassessed at 0340. Patient is wheeze free. Plan is discharged with burst of prednisone. Since he has no change in his cough and cough is no nproductive antibiotics were not prescribed. Discharge Plan Triage Chief Complaint: Shortness of Breath ED Provider: Jose Marcano Dx/Rx/DC Orders Clinical Impression: Acute exacerbation of chronic obstructive pulmonary disease, Systolic congestive heart failure with reduced left ventricular function, NYHA class 3, CAD (coronary artery disease), Obstructive sleep apnea, Acute bronchospasm Instructions: ED COPD Flare Prescriptions: New prednisone 20 mg tablet 60 mg PO DAILY Qty: 12 0RF No Action aspirin 81 MG tablet,chewable 81 mg PO DAILY@0800 Patient Comments: [facility] albuterol sulfate [Proventil HFA] 6.7 GM HFA aerosol inhaler 1 - 2 puff IH Q2H PRN (Reason: Sob &/Or Wheezing) Patient Comments: shortness of breath budesonide-formoterol [Symbicort] 1 INHALER inhaler 2 puff inhalation BID spironolactone 25 MG tablet 12.5 mg PO DAILY rosuvastatin 10 MG tablet 10 mg PO QHS metoprolol succinate 100 mg Tablet Extended Release 24 Hr 12.5 mg PO DAILY Eliquis 5 mg tablet 5 mg PO BID Qty: 60 0RF furosemide 40 mg Tablet 40 mg PO DAILY Entresto 26 mg PO.IVFORM DAILY Systane Gel 0.3 % gel 2 drp EACH EYE Q4H PRN (Reason: dry eyes) Qty: 10 0RF [facility] Provider] - 3-5 Days if not improving Disposition Disposition: Home, Self Care
[2023-05-15] MEDS: predniSONE 20 MG Tablet 60 MG PO (03:41)
[2023-05-15 03:54] VITALS: BP 147/81; PULSE 91; RESP 16; RESP 18; TEMP 36.1; O2SAT 95
--- NOTE | 2023-05-15 04:06 | CPS ---
x3 Albuterol given to pt. in ER as well
== END 2023-05-15 04:02 | disposition home or self-care (01) ==
PROVIDERS: Emergency Provider Emergency Medicine; Visit Provider Emergency Medicine
DX: J44.1 Chronic obstructive pulmonary disease with (acute) exacerbation (principal); I50.40 Unspecified combined systolic (congestive) and diastolic (congestive) heart failure; G47.33 Obstructive sleep apnea (adult) (pediatric); H40.9 Unspecified glaucoma; Z87.891 Personal history of nicotine dependence; I25.10 Atherosclerotic heart disease of native coronary artery without angina pectoris; H26.9 Unspecified cataract; J98.01 Acute bronchospasm
CPT/HCPCS: 71046; 80048; 85025; 94640; 99284; A4216

== ENCOUNTER 2023-07-14 14:26 | Inpatient (IN) | payer MEDICARE, SELFPAY ==
[2023-07-14] VITALS (12 sets, daily range): BP systolic 118–158; BP diastolic 56–97; PULSE 50–98; RESP 18–27; TEMP 36–37.3; O2SAT 91–94; BMI 39.6; BMI 39.0
--- NOTE | 2023-07-14 15:12 | EX.ED.VIS.UR ---
HPI HPI - URI History of Present Illness Chief Complaint: Cold Sx Informant: patient Onset/Context/Timing Onset: Days (2) Context: Gradual Onset Timing: Continuous Quality: Dry cough Location: Chest Worsened by: - (Laying flat) Relieved by: - (Nothing) Associated Symptoms Associated Symptoms: Positive for Nasal Congestion, Shortness of Breath and Nonproductive cough; Negative for Headache, Sinus Pressure, Myalgias, Nausea, Vomiting, Diarrhea, Chest Pain, Hemoptysis or Productive Cough Narrative Narrative: [place] with sore throat, cough, rhinorrhea, and shortness of breath that has been getting worse over the past 2 days. Patient states his breathing is worse with laying flat. Patient states his cough is dry. Patient states his symptoms have been constant for the past 2 days. Patient has a history of COPD and always has trouble breathing but it feels worse over the past couple days. Patient denies any sputum production. Patient denies any fevers or chills. Patient admits to some upper abdominal pain that he feels is due to his coughing. Patient states he only has pain when he coughs. ROS ROS ED Constitutional Constitutional ED: Denies chills or fever(s) Eyes Eyes: Denies blurry vision or change in vision ENT ENT ED: Reports rhinorrhea and sore throat Cardiovascular Cardiovascular: Denies chest pain or palpitations Respiratory/Chest Respiratory/Chest: Reports cough and dyspnea Gastrointestinal Gastrointestinal: Reports abdominal pain; Denies nausea or vomiting Genitourinary Genitourinary ED: Denies dysuria or hematuria Musculoskeletal Musculoskeletal: Denies back pain or neck pain Integumentary Denies abscess or rash Neurologic Neurologic: Denies headache(s) or weakness Allergic/Immunologic Allergic/Immunologic ED: Denies mouth swelling or urticaria [facility] Medical History (Updated 07/14/23 @ 19:[address] Stephani Sullivan MD) COPD (chronic obstructive pulmonary disease) CPAP (continuous positive airway pressure) dependence Former smoker ICD (implantable cardioverter-defibrillator) in place Myocardial infarct Home Medications albuterol sulfate 90 mcg/actuation aerosol inhaler (Proventil HFA) 1 - 2 puff IH Q2H PRN Sob &/Or Wheezing 03/16/16 [History Last Taken 03/03/21 15:00] aspirin 81 mg chewable tablet 81 mg PO DAILY@0800 Check with primary doctor 03/16/16 [History Last Taken 03/03/21] budesonide-formoterol HFA 160 mcg-4.5 mcg/actuation aerosol inhaler (Symbicort) 2 puff inhalation BID COPD 03/16/16 [History Last Taken 03/03/21] rosuvastatin 10 mg tablet 10 mg PO QHS HLD 12/17/17 [History Last Taken 03/03/21] spironolactone 25 mg tablet 12.5 mg PO DAILY CHF 12/17/17 [History Last Taken 03/03/21] metoprolol succinate 100 mg tablet,extended release 24 hr 12.5 mg PO DAILY HEART 03/03/21 [History Last Taken 03/03/21] apixaban 5 mg tablet (Eliquis) 5 mg PO BID #60 tabs 03/13/21 [Rx Last Taken Unknown] Entresto 26 mg PO.IVFORM DAILY 08/28/22 [History Last Taken Unknown] furosemide 40 mg tablet 40 mg PO DAILY 08/28/22 [History Last Taken Unknown] artificial tears(hypromellose) 0.3 % eye gel (Systane Gel) 2 drp EACH EYE Q4H PRN dry eyes #10 grams 01/09/23 [Rx Last Taken Unknown] prednisone 20 mg tablet 60 mg (3 x 20 mg) PO DAILY #12 TABLETS 05/15/23 [Rx Last Taken Unknown] Allergy/AdvReac Type Severity Reaction Status Date / Time No Known Allergies Allergy Verified 05/15/23 02:45 Family History Mother Aneurysm Surgical History History of cholecystectomy History of colectomy History of coronary artery stent placement History of coronary artery stent placement Social History household members: none housing: house Smoking Status: Former smoker alcohol intake: former substance use type: does not use EXAM Physical Exam Const Vital Signs: 07/14/23 14:26 07/14/23 14:35 07/14/23 14:36 Temperature 96.8 F L Temperature Source Temporal Pulse Rate 98 96 Respiratory Rate 26 H 19 H Respiratory Effort Short of Breath Labored Respiratory Pattern Tachypnea Blood Pressure 158/72 H 150/76 H Blood Pressure Mean 100 100 Pulse Ox 91 94 Oxygen Delivery Method Room Air Nasal Cannula Oxygen Flow Rate (L/min) 2 07/14/23 15:18 07/14/23 15:30 07/14/23 15:30 Temperature Temperature Source Pulse Rate 91 Respiratory Rate 25 H Respiratory Effort Respiratory Pattern Tachypnea Blood Pressure Blood Pressure Mean Pulse Ox 93 94 Oxygen Delivery Method Nasal Cannula Nasal Cannula Oxygen Flow Rate (L/min) 2 2 07/14/23 16:41 07/14/23 18:54 Temperature 98.3 F Temperature Source Temporal Pulse Rate 93 94 Respiratory Rate 22 H 22 H Respiratory Effort Respiratory Pattern Blood Pressure 119/67 Blood Pressure Mean 84 Pulse Ox 94 Oxygen Delivery Method Nasal Cannula Oxygen Flow Rate (L/min) 2 Positive well nourished, well developed and obese General Appearance ED: well developed and NAD Nutritional Appearance: obese HEENT Reports moist mucous membranes normocephalic Neck supple and no JVD Resp normal respiratory effort Auscultation: wheezes expiratory wheezes and throughout Cardio regular rate and regular rhythm GI normal to inspection, nondistended, normoactive bowel sounds Palpation: soft and tender epigastric Extremity normal to inspection General Extremety ED: Negative for edema or tenderness General Extremity: Negative for edema Neuro oriented x3, CN's II-XII intact bilaterally and no sensory deficits noted Sensorium / Orientation: alert Motor Exam: strength 5/5 throughout Psych mental status grossly normal Skin no rashes or lesions noted MDM MDM MDM Narrative Medical decision making narrative: Differential diagnosis includes COPD exacerbation, viral upper respiratory infection, COVID-19 infection, influenza infection, pneumonia, pneumothorax, cardiac dysrhythmia, cardiac ischemia, congestive heart failure, acute kidney injury, and electrolyte abnormality. Chest x-ray will be obtained to assess for pneumonia or pneumothorax, and congestive heart failure. EKG will be obtained to assess for cardiac dysrhythmia and cardiac ischemia. CBC will be obtained to assess for leukocytosis and anemia. Basic metabolic profile will be obtained to assess for electrolyte abnormality and renal function. BNP will be obtained to assess for congestive heart failure. High-sensitivity troponin will be obtained to assess for cardiac ischemia. Lab Data Attestation: I reviewed the patient's lab results. Lab results narrative: BC was reviewed. There is a leukocytosis of 25.8. The remainder is within normal limits. Basic metabolic profile was reviewed. BUN was 36 and creatinine was 1.56. These are consistent with prior results. BNP was reviewed and was slightly elevated at 1071.3. This is slightly increased from previous results. High-sensitivity troponin was reviewed and was slightly elevated at 81. 2-hour repeat high-sensitivity troponin was reviewed and was normal at 74. Labs: Laboratory Results - last 24 hr 07/14/23 07/14/23 15:02 17:14 WBC 25.8 H RBC 4.27 L Hgb 14.5 Hct 44.7 MCV 104.7 H MCH 34.0 H MCHC 32.4 RDW Std Deviation 53.7 H RDW Coeff of Ignacio 13.7 Plt Count 231 MPV 10.2 Immature Gran % (Auto) 1.400 H Neut % (Auto) 91.3 H Lymph % (Auto) 2.5 L [place] % (Auto) 4.6 Eos % (Auto) 0.0 Baso % (Auto) 0.2 Absolute Neuts (auto) 23.6 H Absolute Lymphs (auto) 0.64 L Nucleated RBC % 0 Differential Comment SCANNED Sodium 139 Potassium 4.4 Chloride 106 Carbon Dioxide 28.0 Anion Gap 5 BUN 36 H Creatinine 1.56 H Estim Creat Clear Calc 39.66 Est GFR (MDRD) Af Amer 56 L Est GFR (MDRD) Non-Af 46 L BUN/Creatinine Ratio 23.1 H Glucose 112 H Calcium 9.1 Troponin I High Sens 81 H 74 B-Natriuretic Peptide 1071.3 H Radiography Chest X-Ray - ED: 1 View, Read by ED Physician, Read by Radiologist and No Acute Disease Diagnostic Testing: Clinical Impression(s) from Imaging Studies Chest X-Ray 07/14/23 15:35 IMPRESSION: No acute findings in the chest. Electronically Signed: Mehrdad Saldana MD at 16:01 EDT Reading Location ID and State: [facility] / [place] , Service support , Portable 1 view chest x-ray was obtained. On my independent interpretation, lung archer are clear. There is normal cardiac silhouette. Bony thorax is normal. There is no acute process noted. Radiologist also interpreted the x-ray and agrees. EKG Initial EKG: Attestation: I personally reviewed and interpreted this EKG as follows: Interpretation: Sinus Rhythm (With frequent PACs and PVCs with a rate of 94) and Non-Specific ST Changes Comments: EKG was obtained. On my independent interpretation, it showed a normal sinus rhythm frequent PACs and PVCs with a rate of 94. NM interval, QRS interval, and QTc intervals were all normal. [place] was normal. There are nonspecific ST-T wave changes. Prior EKG tracings: available for review Prior: Unchanged (04/30/2023) Management Discussion w/another healthcare provider: Hospitalist (Dr. Sullivan) Treatment and Re-Evaluation Narrative: Patient was given a DuoNeb aerosol here. Patient states his breathing improved after this. Patient was ambulated on room air. Patient's oxygen saturation dropped to 83% with ambulation. Patient was given a repeat albuterol aerosol. Because of patient hypoxia with ambulation, case was discussed with the hospitalist. She will admit the patient to her service. Patient understood and was agreeable with the plan. All questions were answered. Discharge Plan Triage Chief Complaint: Cold Sx ED Provider: [place]if[place] Son Dx/Rx/DC Orders Clinical Impression: COPD with acute exacerbation, Hypoxia Prescriptions: No Action aspirin 81 MG tablet,chewable 81 mg PO DAILY@0800 Patient Comments: [facility] albuterol sulfate [Proventil HFA] 6.7 GM HFA aerosol inhaler 1 - 2 puff IH Q2H PRN (Reason: Sob &/Or Wheezing) Patient Comments: shortness of breath budesonide-formoterol [Symbicort] 1 INHALER inhaler 2 puff inhalation BID spironolactone 25 MG tablet 12.5 mg PO DAILY rosuvastatin 10 MG tablet 10 mg PO QHS metoprolol succinate 100 mg Tablet Extended Release 24 Hr 12.5 mg PO DAILY Eliquis 5 mg tablet 5 mg PO BID Qty: 60 0RF furosemide 40 mg Tablet 40 mg PO DAILY Entresto 26 mg PO.IVFORM DAILY Systane Gel 0.3 % gel 2 drp EACH EYE Q4H PRN (Reason: dry eyes) Qty: 10 0RF prednisone 20 mg tablet 60 mg PO DAILY Qty: 12 0RF [facility] Provider[facility] - Disposition Disposition: Acute Care Hospital [facility]
--- NOTE | 2023-07-14 15:18 | EKG12_ITS ---
Test Reason : Blood Pressure : / mmHG Vent. Rate : 094 BPM Atrial Rate : 094 BPM P-R Int : 174 ms QRS Dur : 110 ms QT Int : 360 ms P-R-T Axes : 019 -10 110 degrees QTc Int : 450 ms Sinus rhythm with Premature supraventricular complexes and with frequent Premature ventricular comple xes Low voltage QRS Septal infarct (cited on or before 25-APR-2021) Abnormal ECG Confirmed by LARRY CHATMAN, FRANCIS ([id number]), photography editor NIDA CRUZ ([id number]) on 07/16/2023 2:01:07 PM Referred By: Confirmed By:FRANCIS JUAREZ MD
[2023-07-14] MEDS: Ipratropium/Albuterol Sulfate 3 ML AMPUL.NEB INHALATION (15:26)
[2023-07-14 15:28] LABS: Absolute Lymphocyte Count 0.64 X10^3/uL (0.83-4.51); Absolute Neutrophil Count 23.6 X10^3/uL (2.0-7.7); Basophil# 0.06 X10^3/uL; Basophil% 0.2 % (0-1); Hematocrit 44.7 % (40-54); Hemoglobin 14.5 g/dL (13.0-16.5); Lymphocyte # 0.64 X10^3/ul (0.83-4.51); Lymphocyte % 2.5 % (19-41); Mean Corp Hgb Conc 32.4 g/dL (32-36); Mean Corpuscular Volume 104.7 fL (80-94); Mean Platelet Vol. 10.2 fl (6.2-12.0); Monocyte# 1.18 X10^3/uL; Monocyte% 4.6 % (0-10); NRBC Flagged by Analyzer 0 % (0-5); Neutrophil # 23.61 X10^3/uL (2.7-7.7); Neutrophil % 91.3 % (47-70); POSITIVE DIFFERENTIAL YES; Platelet Count 231 K/mm3 (150-450); RBC Distribution Width CV 13.7 % (11.6-14.6); RBC Distribution Width SD 53.7 fl (35.1-43.9); Red Blood Count 4.27 M/mm3 (4.6-6.2); White Blood Count 25.8 K/mm3 (4.4-11.0)
[2023-07-14 15:31] LABS: Differential Indicated SCAN CRITERIA MET
--- NOTE | 2023-07-14 15:35 | RAD_ITS ---
EXAM: XR CHEST, 1 VIEW CLINICAL INDICATION: Dyspnea TECHNIQUE: Frontal view of the chest. COMPARISON: 05.15.23 FINDINGS: LUNGS AND PLEURAL SPACES: Unremarkable. No consolidation or edema. No pneumothorax. No effusion. HEART: Unremarkable. Cardiac silhouette not enlarged. MEDIASTINUM: Central airways and mediastinal contour are unremarkable. BONES/JOINTS: Unremarkable. SOFT TISSUES: Unremarkable. TUBES, LINES AND DEVICES: There is a left sided pacemaker battery pack. RAD/Chest 1 View (Portable) IMPRESSION: No acute findings in the chest. Electronically Signed: Mehrdad Saldana MD at 16:01 EDT ,
[2023-07-14 15:48] LABS: Differential Comment SCANNED
[2023-07-14 15:54] LABS: Anion Gap 5 (5-15); BUN 36 mg/dL (7-18); BUN/Creat Ratio 23.1 RATIO (10-20); Calcium,Total 9.1 mg/dL (8.5-10.1); Chloride 106 mmol/L (98-107); Creatinine, Serum 1.56 mg/dL (0.70-1.30); EST Glomerular Filtration Rate 46 mL/min (>60); Est Glom Filt Rate - Afr Amer 56 mL/min (>60); Estimated Creatinine Clearance 39.66 ml/min; Glucose 112 mg/dL (74-106); Potassium 4.4 mmol/L (3.5-5.1); Sodium Level 139 mmol/L (136-145); Troponin-I HS 81 pg/mL (3.0-78.0)
[2023-07-14 16:08] LABS: BNP,B-Type NATRIURETIC PEPTIDE 1071.3 pg/mL (0-100)
[2023-07-14] MEDS: Furosemide 40 MG Tablet PO (16:31)
[2023-07-14 17:45] LABS: Troponin-I HS 74 pg/mL (3.0-78.0)
[2023-07-14] MEDS: Albuterol 2.5 MG/3 ML VIAL.NEB. INHALATION (18:54)
--- NOTE | 2023-07-14 19:05 | PCM.HP.STD ---
HPI - General General Date of Admission: 07/14/23 Date of Service: 07/14/23 Chief Complaint: Cough and hypoxia HPI Narrative Zion Loving is a 78-year-old male with history of hypertension, COPD, CKD, CAD, combined heart failure, ALEX who presented to [facility] 07/14/2023 with runny nose and cough and increased shortness of breath over the past several days. In the ED 91% on room air but respiratory rate in the mid 20s. White blood cell count found to be 25.8 with a left shift and lymphopenia and he had a troponin of 81 with a BNP of 1071. Chest x-ray read as no acute abnormality but on review of film there is possibly some increased vascular congestion though not overtly so when patient complained of worsening shortness of breath when lying flat. COVID and flu negative. Given patient's increased work of breathing and O2 sat dropping to 83% on room air hospitalist contacted for admission. Patient evaluated at bedside and endorses the stuffy nose and increased cough without significant sputum production for 3 to 4 days and increased shortness of breath but reports he is chronically short of breath all the time. Does report several times he is coughed hard enough he had minimal sputum with some red streaks but has not had overt hemoptysis. Has some upper abdominal pain with cough but denies any chest pain, denies any fevers or chills, was at his best friend's [facility] services over the weekend so he is not sure if he was exposed to anyone with any viruses. Has chronic bilateral lower extremity swelling that he does not think is worse than usual. He chalked most of this up to his anxiety given his recent losses. Denies other acute complaints [facility] Medical History (Updated 07/14/23 @ 19:[address] Stephani Sullivan MD) COPD (chronic obstructive pulmonary disease) CPAP (continuous positive airway pressure) dependence Former smoker ICD (implantable cardioverter-defibrillator) in place Myocardial infarct Home Medications albuterol sulfate 90 mcg/actuation aerosol inhaler (Proventil HFA) 1 - 2 puff IH Q2H PRN Sob &/Or Wheezing 03/16/16 [History Last Taken 03/03/21 15:00] aspirin 81 mg chewable tablet 81 mg PO DAILY@0800 Check with primary doctor 03/16/16 [History Last Taken 03/03/21] budesonide-formoterol HFA 160 mcg-4.5 mcg/actuation aerosol inhaler (Symbicort) 2 puff inhalation BID COPD 03/16/16 [History Last Taken 03/03/21] rosuvastatin 10 mg tablet 10 mg PO QHS HLD 12/17/17 [History Last Taken 03/03/21] spironolactone 25 mg tablet 12.5 mg PO DAILY CHF 12/17/17 [History Last Taken 03/03/21] metoprolol succinate 100 mg tablet,extended release 24 hr 12.5 mg PO DAILY HEART 03/03/21 [History Last Taken 03/03/21] apixaban 5 mg tablet (Eliquis) 5 mg PO BID #60 tabs 03/13/21 [Rx Last Taken Unknown] Entresto 26 mg PO.IVFORM DAILY 08/28/22 [History Last Taken Unknown] furosemide 40 mg tablet 40 mg PO DAILY 08/28/22 [History Last Taken Unknown] artificial tears(hypromellose) 0.3 % eye gel (Systane Gel) 2 drp EACH EYE Q4H PRN dry eyes #10 grams 01/09/23 [Rx Last Taken Unknown] prednisone 20 mg tablet 60 mg (3 x 20 mg) PO DAILY #12 TABLETS 05/15/23 [Rx Last Taken Unknown] Allergy/AdvReac Type Severity Reaction Status Date / Time No Known Allergies Allergy Verified 05/15/23 02:45 Family History Mother Aneurysm Surgical History History of cholecystectomy History of colectomy History of coronary artery stent placement History of coronary artery stent placement Social History household members: none housing: house Smoking Status: Former smoker alcohol intake: former substance use type: does not use ROS ROS Narrative General: Denies fever/chills HENT: Denies headache, denies stuffy nose, denies sore throat EYES: Denies changes in vision Resp: Cough that has not productive and increased shortness of breath Cardiac: Denies chest pain GI: Denies abdominal pain, denies changes in bowel, denies nausea/vomiting : Denies changes in urination Extremity: Chronic bilateral lower extremity swelling MSK: Denies weakness Neuro: Denies any numbness/tingling Heme: Denies any bleeding or bruising Skin: Denies rashes Psychiatric: Anxiety Vital Signs Vital Signs Vital Signs: 07/14/23 14:26 07/14/23 14:35 07/14/23 14:36 Temperature 96.8 F L Temperature Source Temporal Pulse Rate 98 96 Respiratory Rate 26 H 19 H Respiratory Effort Short of Breath Labored Respiratory Pattern Tachypnea Blood Pressure 158/72 H 150/76 H Blood Pressure Mean 100 100 Pulse Ox 91 94 Oxygen Delivery Method Room Air Nasal Cannula Oxygen Flow Rate (L/min) 2 07/14/23 15:18 07/14/23 15:30 07/14/23 15:30 Temperature Temperature Source Pulse Rate 91 Respiratory Rate 25 H Respiratory Effort Respiratory Pattern Tachypnea Blood Pressure Blood Pressure Mean Pulse Ox 93 94 Oxygen Delivery Method Nasal Cannula Nasal Cannula Oxygen Flow Rate (L/min) 2 2 07/14/23 16:41 07/14/23 18:54 Temperature 98.3 F Temperature Source Temporal Pulse Rate 93 94 Respiratory Rate 22 H 22 H Respiratory Effort Respiratory Pattern Blood Pressure 119/67 Blood Pressure Mean 84 Pulse Ox 94 Oxygen Delivery Method Nasal Cannula Oxygen Flow Rate (L/min) 2 Weight Weight: 121.8 kg Body Mass Index (BMI) 39.6 Physical Exam Narrative General: Alert, oriented, no apparent distress HEENT: Atraumatic, normocephalic Eyes: Anicteric, normal conjunctiva, extraocular movements grossly intact Neck: Supple Respiratory: Slight increased work of breathing, scattered wheezes, somewhat diminished at the bases Cardiovascular: Regular rate and rhythm GI: Soft, nontender, nondistended Extremities: Trace lower extremity edema Musculoskeletal: Moving all extremities Neuro: No overt focal neurological deficits Skin: No rashes appreciated Psych: Cooperative Results Lab / Micro Data 07/14/23 15:02 07/14/23 15:02 Labs: Laboratory Results - last 24 hr 07/14/23 15:02: WBC 25.8 H, RBC 4.27 L, Hgb 14.5, Hct 44.7, MCV 104.7 H, MCH 34.0 H, MCHC 32.4, RDW Std Deviation 53.7 H, RDW Coeff of Ignacio 13.7, Plt Count 231, MPV 10.2, Immature Gran % (Auto) 1.400 H, Neut % (Auto) 91.3 H, Lymph % (Auto) 2.5 L, [place] % (Auto) 4.6, Eos % (Auto) 0.0, Baso % (Auto) 0.2, Absolute Neuts (auto) 23.6 H, Absolute Lymphs (auto) 0.64 L, Nucleated RBC % 0, Differential Comment SCANNED, Sodium 139, Potassium 4.4, Chloride 106, Carbon Dioxide 28.0, Anion Gap 5, BUN 36 H, Creatinine 1.56 H, Estim Creat Clear Calc 39.66, Est GFR (MDRD) Af Amer 56 L, Est GFR (MDRD) Non-Af 46 L, BUN/Creatinine Ratio 23.1 H, Glucose 112 H, Calcium 9.1, Troponin I High Sens 81 H, B-Natriuretic Peptide 1071.3 H 07/14/23 17:14: Troponin I High Sens 74 Micro: Microbiology 07/14/23 15:02 Nasal Secretion SARS-CoV-2 & FLU Antigen (Rapid) - Final Radiology Impression Chest X-Ray 07/14/23 15:35 IMPRESSION: No acute findings in the chest. Electronically Signed: Mehrdad Saldana MD at 16:01 EDT Reading Location ID and State: [facility] / [place] , Service support , Assessment & Plan Assessment/Plan (1) Acute exacerbation of chronic obstructive pulmonary disease: (2) CAD (coronary artery disease): (3) COPD (chronic obstructive pulmonary disease): (4) Hypertension: QUALIFIERS: Hypertension type: essential hypertension Qualified Code(s): I10 - Essential (primary) hypertension (5) Systolic congestive heart failure with reduced left ventricular function, NYHA class 3: (6) Paroxysmal A-fib: (7) ICD (implantable cardioverter-defibrillator) in place: PLAN: Plan #Hypoxia secondary to acute exacerbation of chronic COPD -83% on room air when ambulated in the ED -Pt w/ history of heart failure as well as COPD, suspect primarily COPD exacerbation -Chest x-ray possibly with some increased vascular markings but not overtly so, no effusions and no definitive infiltrates -COVID and flu negative however will check respiratory panel given cough, runny nose, and increased work of breathing -Breathing treatments, Methylpred, azithromycin, incentive spirometer -Do suspect some component of overload however feel primary component is infectious given cough, runny nose, elevated white blood cell count with neutrophilia and lymphopenia -We will continue Lasix #Leukocytosis -Patient reports he did take leftover prednisone at home this morning before coming to the ED, unclear if this would necessarily cause the significant rise however patient without productive cough or infiltrate and do not think he has pneumonia, no other signs or symptoms of bacterial infection, may be viral in nature, afebrile -Continue to monitor and can consider antibiotics if worsens or fever or other signs or symptoms emerge #Elevated troponin -Suspect demand in nature due to underlying infection with possible component of fluid overload, trop down trended -Very low suspicion for ACS, continue to treat underlying etiology #Paroxysmal atrial fibrillation -Continue Eliquis and other home medications #CKD stage IIIb -Appears to be at baseline, continue present management #COPD -No PFTs in our system, no O2 at baseline -Treatment as above #Hx CAD -Reports hx 2 stents -Cont home meds #History of combined heart failure and history of AICD -Last echocardiogram 03/04/2021 with EF of 35 % with wall motion abnormalities and stage I diastolic dysfunction -Given elevated BNP and some concerns for fluid overload we will obtain limited echo -I's and O's, daily weights -Continue Entresto, Lasix, spironolactone, beta-kelli #ALEX -Prescribed home CPAP but noncompliant, reports he is unable to tolerate the mask #Anxiety -Patient reports he takes 0.5 mg twice daily of Ativan at home, do not see this on the prescription monitoring program however patient uses [facility] and unclear what transfers between the systems #DVT ppx: Cont home eliquis Stephani Sullivan MD Time spent in the patient's overall evaluation,decision-making process, review of diagnostic data, adjustment of management, discussion with other providers, nursing nursing and ancillary staff involved in patient's care documentation, 76 Minutes Charges/Coding Visit Charges Inpatient E&M: 09010 Init Hosp L3
--- NOTE | 2023-07-14 19:14 | ECHOLC_ITS ---
Reason For Study: Dyspnea/SOB Procedure This was a limited 2D transthoracic echocardiogram. Contrast injection was performed. Exam performed portable in patient room. Left Ventricle Mildly dilated left ventricle. The estimated ejection fraction is 35 %. Moderately severe segmental systolic dysfunction (see wall motion). Mid-Inferior: Akinetic. Infero-Basal: Akinetic. Posterior- Basal: Hypokinetic. Mid-Posterior: Hypokinetic. Septal [place] : Hypokinetic. Lateral-Basal: Hypokinetic. Lateral [place] : Hypokinetic. The rest of the wall segments are normal. Right Ventricle Normal RV size. Normal systolic function. Atria Normal left atrium. Normal right atrium. Mitral Valve Mitral valve not well visualized. Tricuspid Valve The tricuspid valve is not well visualized. Aortic Valve The aortic valve is not well visualized. Pulmonic Valve The pulmonic valve is not well visualized. Great Vessels Normal aortic root. The pulmonary artery is normal size. Normal inferior vena cava. Pericardium/Pleural No pericardial effusion. Medication Diluted definity 2ml given slow IV push to enhance endocardial definition. MMode/2D Measurements & Calculations LVIDd: 6.0 cm IVSd: 1.2 cm LVIDs: 4.9 cm LVPWd: 1.1 cm LVAd ap4: 36.6 cm2 FS: 18.3 % LVLd ap4: 8.7 cm EDV(MOD-sp4): 127.7 ml EDV(sp4-el): 131.0 ml LVAs ap4: 29.9 cm2 LVLs ap4: 8.2 cm ESV(MOD-sp4): 89.4 ml ESV(sp4-el): 92.6 ml EF(MOD-sp4): 30.0 % EF(sp4-el): 29.3 % LVAd ap2: 33.0 cm2 SV(MOD-sp4): 38.3 ml SV(MOD-sp2): 43.1 ml LVLd ap2: 7.6 cm EDV(MOD-sp2): 117.3 ml EDV(sp2-el): 121.7 ml LVAs ap2: 26.1 cm2 LVLs ap2: 7.6 cm ESV(MOD-sp2): 74.3 ml ESV(sp2-el): 75.9 ml EF(MOD-sp2): 36.7 % SV(sp4-el): 38.4 ml Doppler Measurements & Calculations TR max kati: 318.4 cm/sec TR max P.6 mmHg ECHO/Echo Limited w/Contrast Interpretation Summary Mildly dilated left ventricle. The estimated ejection fraction is 35 %. Moderately severe segmental systolic dysfunction (see wall motion). Contrast injection was performed. Ordering Physician: Stephani Sullivan Referring Physician: [facility] Performed By: Lauren Llamas RDCS, RVT
[2023-07-14] MEDS: guaiFENesin 600 MG Tablet PO (22:14)
[2023-07-14] MEDS: Azithromycin 250 MG Tablet 500 MG PO (22:15)
[2023-07-14] MEDS: Methylprednisolone Sod Succ 40 MG/ML VIAL IV (22:15)
[2023-07-14] MEDS: APIXABAN 5 MG TABLET PO (22:15)
[2023-07-14] MEDS: Atorvastatin Calcium 20 MG Tablet PO (22:16)
[2023-07-14] MEDS: 0.9% Saline Lock 10 ML Syringe IV (22:25)
[2023-07-15] VITALS (13 sets, daily range): BP systolic 116–127; BP diastolic 58–78; PULSE 46–98; RESP 16–20; TEMP 36.4–36.8; O2SAT 90–95; BMI 39.1
[2023-07-15] MEDS: Ipratropium/Albuterol Sulfate 3 ML AMPUL.NEB INHALATION ×4 (01:17→18:52)
[2023-07-15] MEDS: Methylprednisolone Sod Succ 40 MG/ML VIAL IV ×3 (05:27→21:04)
[2023-07-15] MEDS: 0.9% Saline Lock 10 ML Syringe IV ×2 (05:27→13:28)
[2023-07-15] MEDS: hydrOXYzine PAM 25 MG Capsule PO (05:38)
[2023-07-15 06:48] LABS: Absolute Lymphocyte Count 0.41 X10^3/uL (0.83-4.51); Absolute Neutrophil Count 22.3 X10^3/uL (2.0-7.7); Basophil# 0.06 X10^3/uL; Basophil% 0.3 % (0-1); Eosinophil# 0.06 X10^3/uL; Eosinophils% 0.3 % (0-5); Hematocrit 42.7 % (40-54); Hemoglobin 13.7 g/dL (13.0-16.5); Lymphocyte # 0.41 X10^3/ul (0.83-4.51); Lymphocyte % 1.7 % (19-41); Mean Corp Hgb Conc 32.1 g/dL (32-36); Mean Corpuscular Hgb 33.5 pg (27.0-32.0); Mean Corpuscular Volume 104.4 fL (80-94); Mean Platelet Vol. 10.3 fl (6.2-12.0); Monocyte# 0.63 X10^3/uL; Monocyte% 2.7 % (0-10); NRBC Flagged by Analyzer 0 % (0-5); POSITIVE DIFFERENTIAL YES; Platelet Count 234 K/mm3 (150-450); RBC Distribution Width CV 13.5 % (11.6-14.6); RBC Distribution Width SD 52.6 fl (35.1-43.9); Red Blood Count 4.09 M/mm3 (4.6-6.2); White Blood Count 23.7 K/mm3 (4.4-11.0)
[2023-07-15 06:53] LABS: Differential Indicated SCAN CRITERIA MET
[2023-07-15 07:22] LABS: Differential Comment S
[2023-07-15 07:25] LABS: ALB/GLOB Ratio 0.8 RATIO (0.9-2.4); AST(SGOT) 13 U/L (15-37); Alanine Aminotransfer ALT/SGPT 16 U/L (16-61); Alkaline Phosphatase 56 U/L (45-117); Anion Gap 7 (5-15); BUN 34 mg/dL (7-18); BUN/Creat Ratio 24.1 RATIO (10-20); Calcium,Total 8.9 mg/dL (8.5-10.1); Chloride 107 mmol/L (98-107); Creatinine, Serum 1.41 mg/dL (0.70-1.30); EST Glomerular Filtration Rate 52 mL/min (>60); Est Glom Filt Rate - Afr Amer 63 mL/min (>60); Estimated Creatinine Clearance 43.87 ml/min; Globulin 3.7 g/dL (2.2-4.2); Glucose 142 mg/dL (74-106); Potassium 4.3 mmol/L (3.5-5.1); Protein, Total 6.7 g/dL (6.4-8.2); Sodium Level 139 mmol/L (136-145)
[2023-07-15 07:33] LABS: Magnesium 2.5 mg/dL (1.6-2.6)
[2023-07-15] MEDS: APIXABAN 5 MG TABLET PO ×2 (08:50→21:04)
[2023-07-15] MEDS: Spironolactone 25 MG Tablet 12.5 MG PO (08:50)
[2023-07-15] MEDS: SACUBITRIL/VALSARTAN 24/26 MG TABLET 1 EACH PO (08:51)
[2023-07-15] MEDS: guaiFENesin 600 MG Tablet PO ×2 (08:51→21:04)
[2023-07-15] MEDS: Aspirin 81 MG TAB.CHEW PO (08:51)
[2023-07-15] MEDS: Furosemide 40 MG/4 ML Vial IV ×2 (08:51→21:04)
[2023-07-15] MEDS: Metoprolol(XL)Succ 25 MG Tablet 12.5 MG PO (10:34)
--- NOTE | 2023-07-15 11:49 | CASEMGMT ---
Social Work Pt had told admitting RN he will have LW/POA brought in. SW spoke w/pt, verified that Frannie Macias is his POA, he did ask her to bring in the documents. JULIO Ramirez
--- NOTE | 2023-07-15 11:55 | CASEMGMT ---
RN CM Face to Face with patient for initial transition planning/care coordination assessment. RN CM introduced self and role at [facility]. Patient lying in bed, alert and oriented. Patient willing to participate in assessment and is able to answer all questions appropriately. Care providers, pharmacy, and demographics verified. Patient wishes to discharge home, denies need for home health at this time. Patient states he has no further needs or concerns at this time. CM to follow for discharge planning needs that may arise. PCP: Adenike Cox [place] Specialists: Polo Coach at [facility]erred [facility] Pres[facility] Benefit: yes Living Will/HPOA: yes, daughter Frannie Macias LNOK: daugther, son Living Arrangements: Patient lives alone in a mobile home with 4 steps and railing to enter the home. Transportation: self, son, DIL DME/HHC: Patient has raised toilet, cane, nebulizer at home. No previous HHC or SNF Disposition Plan: Patient to discharge home with family support and follow-up plans in place. Nissa NI, RN, CM
--- NOTE | 2023-07-15 14:55 | PN_ITS ---
Subjective Subjective Patient seen and examined. He complained of still coughing, but it is dry. He still remains a bit short of breath. He denies any cough or chest pain, palpitations, dizziness, nausea vomiting or any other symptoms. Review of symptoms otherwise negative. Objective Data Objective Data Vital Signs: Vital Signs Temp Pulse Resp BP Pulse Ox O2 Del Method O2 Flow Rate 97.6 F L 73 19 H 116/58 L 95 Nasal Cannula 3 07/15/23 10:37 07/15/23 14:29 07/15/23 14:29 07/15/23 10:37 07/15/23 10:37 07/15/23 10:37 07/15/23 10:37 Oxygen Flow Rate (L/min) 3 Oxygen Delivery Method Nasal Cannula Weight: 264 lb 12.403 oz Body Mass Index (BMI) 39.1 Intake & Output: Intake and Output for Last 24 Hours 07/13/23 07/14/23 07/15/23 23:59 23:59 23:59 Intake Total 1200 / 1200 Output Total 700 / 700 Balance 500 / 500 Lab / Micro Data 07/15/23 05:44 07/15/23 05:44 Labs: Laboratory Results - last 24 hr 07/14/23 15:02: WBC 25.8 H, RBC 4.27 L, Hgb 14.5, Hct 44.7, MCV 104.7 H, MCH 34.0 H, MCHC 32.4, RDW Std Deviation 53.7 H, RDW Coeff of Ignacio 13.7, Plt Count 231, MPV 10.2, Immature Gran % (Auto) 1.400 H, Neut % (Auto) 91.3 H, Lymph % (Auto) 2.5 L, [place] % (Auto) 4.6, Eos % (Auto) 0.0, Baso % (Auto) 0.2, Absolute Neuts (auto) 23.6 H, Absolute Lymphs (auto) 0.64 L, Nucleated RBC % 0, Differential Comment SCANNED, Sodium 139, Potassium 4.4, Chloride 106, Carbon Dioxide 28.0, Anion Gap 5, BUN 36 H, Creatinine 1.56 H, Estim Creat Clear Calc 39.66, Est GFR (MDRD) Af Amer 56 L, Est GFR (MDRD) Non-Af 46 L, BUN/Creatinine Ratio 23.1 H, Glucose 112 H, Calcium 9.1, Troponin I High Sens 81 H, B- Natriuretic Peptide 1071.3 H 07/14/23 17:14: Troponin I High Sens 74 07/15/23 05:44: WBC 23.7 H, RBC 4.09 L, Hgb 13.7, Hct 42.7, MCV 104.4 H, MCH 33.5 H, MCHC 32.1, RDW Std Deviation 52.6 H, RDW Coeff of Ignacio 13.5, Plt Count 234, MPV 10.3, Immature Gran % (Auto) 1.000 H, Neut % (Auto) 94.0 H, Lymph % (Auto) 1.7 L, [place] % (Auto) 2.7, Eos % (Auto) 0.3, Baso % (Auto) 0.3, Absolute Neuts (auto) 22.3 H, Absolute Lymphs (auto) 0.41 L, Nucleated RBC % 0, D ifferential Comment S, Sodium 139, Potassium 4.3, Chloride 107, Carbon Dioxide 25.0, Anion Gap 7, BUN 34 H, Creatinine 1.41 H, Estim Creat Clear Calc 43.87, Est GFR (MDRD) Af Amer 63, Est GFR (MDRD) Non-Af 52 L, BUN/Creatinine Ratio 24.1 H, Glucose 142 H, Calcium 8.9, Magnesium 2.5, Total Bilirubin 0.90, AST 13 L, ALT 16, Alkaline Phosphatase 56, Total Protein 6.7, Albumin 3.0 L, Globulin 3.7, Albumin/Globulin Ratio 0.8 L Micro: Microbiology 07/14/23 22:40 Mucosa - Nasopharyngeal Respiratory Panel (PCR) - Final Rhinovirus 07/14/23 15:02 Nasal Secretion SARS-CoV-2 & FLU Antigen (Rapid) - Final Radiography Diagnostic Testing: Radiology Impression Chest X-Ray 07/14/23 15:35 IMPRESSION: No acute findings in the chest. Electronically Signed: Mehrdad Saldana MD at 16:01 EDT , Echocardiogram 07/14/23 19:14 Interpretation Summary Mildly dilated left ventricle. The estimated ejection fraction is 35 %. Moderately severe segmental systolic dysfunction (see wall motion). Contrast injection was performed. Ordering Physician: Stephani Sullivan Referring Physician: [facility] Performed By: Lauren Llamas, TD, RVT Physical Exam Const alert, oriented x3 and no apparent distress Constitutional Narrative: obese General Appearance: cooperative HEENT normocephalic, head/scalp atraumatic, moist oral mucous membranes, oropharynx normal and gingiva normal Eyes PERRL and EOMs intact bilaterally Neck no lymphadenopathy, supple and thyroid normal Lymph Lymphatic: no lymphadenopathy noted and no lymphedema noted Resp Resp Narrative: diminished breath sounds bibasally, few crackles. Cardio regular rate, regular rhythm, S1 normal heart sound, S2 normal heart sound and no murmurs GI normal to inspection, nondistended, normoactive bowel sounds, soft to palpation, non-tender and non-distended Extremity normal capillary refill, no clubbing, cyanosis or edema and no calf tenderness General Extremity: no tenderness to palpation of joints or extremities Skin General Skin Exam: no breakdown and turgor normal Neuro CN's II-XII intact bilaterally, no focal motor deficits, no sensory deficits noted and deep tendon reflexes 2+ bilaterally Motor Exam: strength 5/5 throughout and general weakness Psych thought process normal, cooperative and affect normal Appearance: appropriate Assessment & Plan Assessment/Plan (1) Acute exacerbation of chronic obstructive pulmonary disease: PLAN: Plan #Hypoxia due to acute exacerbation of COPD * on 2L of oxygen * covid and flu screen were negative * Breathing treatments of bronchodilators. Titrate oxygen to maintain saturation above 90%. * On IV Solu-Medrol as well as IV Zithromax. * Also being diuresed with IV Lasix. * #Leukocytosis: Thought to be likely due to prednisone which she had been taking at home. We will monitor and consider further work-up if it remains elevated. #Paroxysmal A-fib: On Eliquis. #CKD stage IIIb: At baseline creatinine. Will monitor. #History of CAD s/p stents x2: On aspirin and Plavix as well as high intensity statin #Acue on chronic Heart failure with reduced ejection fraction * Has an ICD in place as well. * On Entresto and Lasix as well as spironolactone and beta-kelli. * BNP was 1071 which is higher than how it usually is for him. * 2D echo on 07/14/2023 showed mildly dilated left ventricle with EF of 35% and moderately severe segmental systolic dysfunction. It is similar to previous echo from March 04, 2021. * IV lasix increased to 40mg bid. #ALEX: On home CPAP but does not take it because he is not able to tolerate the mask. #Anxiety: On Ativan #DVT prophylaxis: On Eliquis Charges/Coding Visit Charges Inpatient E&M: 48827 Subs Hosp L3
[2023-07-15] MEDS: Benzonatate 100 MG Capsule PO ×2 (16:20→21:04)
[2023-07-15] MEDS: MELATONIN 10 MG TABLET PO (21:04)
[2023-07-15] MEDS: Atorvastatin Calcium 20 MG Tablet PO (21:04)
[2023-07-15] MEDS: Azithromycin 250 MG Tablet 500 MG PO (21:04)
[2023-07-16] VITALS (10 sets, daily range): BP systolic 112–129; BP diastolic 57–88; PULSE 50–98; RESP 16–20; TEMP 36.6–37; O2SAT 86–96; BMI 39.0
[2023-07-16] MEDS: Methylprednisolone Sod Succ 40 MG/ML VIAL IV ×3 (05:10→22:10)
[2023-07-16] MEDS: Ipratropium/Albuterol Sulfate 3 ML AMPUL.NEB INHALATION ×2 (07:11→19:11)
[2023-07-16] MEDS: Aspirin 81 MG TAB.CHEW PO (09:22)
[2023-07-16] MEDS: guaiFENesin 600 MG Tablet PO ×2 (09:22→22:10)
[2023-07-16] MEDS: Spironolactone 25 MG Tablet 12.5 MG PO (09:22)
[2023-07-16] MEDS: Metoprolol(XL)Succ 25 MG Tablet 12.5 MG PO (09:22)
[2023-07-16] MEDS: Furosemide 40 MG/4 ML Vial IV (09:22)
[2023-07-16] MEDS: 0.9% Saline Lock 10 ML Syringe IV ×2 (09:23→13:35)
[2023-07-16 09:31] LABS: Absolute Lymphocyte Count 0.41 X10^3/uL (0.83-4.51); Absolute Neutrophil Count 29.9 X10^3/uL (2.0-7.7); Basophil# 0.07 X10^3/uL; Basophil% 0.2 % (0-1); Hematocrit 45.1 % (40-54); Hemoglobin 14.6 g/dL (13.0-16.5); Lymphocyte # 0.41 X10^3/ul (0.83-4.51); Lymphocyte % 1.3 % (19-41); Mean Corp Hgb Conc 32.4 g/dL (32-36); Mean Corpuscular Hgb 33.6 pg (27.0-32.0); Mean Corpuscular Volume 103.7 fL (80-94); Mean Platelet Vol. 10.2 fl (6.2-12.0); Monocyte# 0.63 X10^3/uL; NRBC Flagged by Analyzer 0 % (0-5); Neutrophil # 29.88 X10^3/uL (2.7-7.7); Neutrophil % 95.1 % (47-70); POSITIVE COUNT YES; POSITIVE DIFFERENTIAL YES; Platelet Count 271 K/mm3 (150-450); RBC Distribution Width CV 13.3 % (11.6-14.6); RBC Distribution Width SD 51.9 fl (35.1-43.9); Red Blood Count 4.35 M/mm3 (4.6-6.2)
[2023-07-16 09:34] LABS: Differential Indicated SCAN CRITERIA MET; White Blood Count 31.4 K/mm3 (4.4-11.0)
[2023-07-16] MEDS: SACUBITRIL/VALSARTAN 24/26 MG TABLET 1 EACH PO (09:56)
[2023-07-16] MEDS: APIXABAN 5 MG TABLET PO ×2 (09:56→22:09)
[2023-07-16 10:25] LABS: Anion Gap 8 (5-15); BUN 50 mg/dL (7-18); BUN/Creat Ratio 29.2 RATIO (10-20); Calcium,Total 9.2 mg/dL (8.5-10.1); Chloride 103 mmol/L (98-107); Creatinine, Serum 1.71 mg/dL (0.70-1.30); EST Glomerular Filtration Rate 42 mL/min (>60); Est Glom Filt Rate - Afr Amer 50 mL/min (>60); Estimated Creatinine Clearance 36.18 ml/min; Glucose 223 mg/dL (74-106); Potassium 3.8 mmol/L (3.5-5.1); Sodium Level 137 mmol/L (136-145)
--- NOTE | 2023-07-16 10:48 | PCM.PROGNOTE ---
Subjective Subjective Patient seen and examined. He is still wheezing and coughing. Cough is dry. He had no other complaints and review of systems is otherwise negative. Review of systems is otherwise negative. He has remained hemodynamically stable. Objective Data Objective Data Vital Signs: Vital Signs Temp Pulse Resp BP Pulse Ox O2 Del Method O2 Flow Rate 98.2 F 98 20 H 129/61 H 94 Nasal Cannula 4 07/16/23 09:00 07/16/23 09:22 07/16/23 09:00 07/16/23 09:00 07/16/23 09:00 07/16/23 09:00 07/16/23 09:00 Oxygen Flow Rate (L/min) 4 Oxygen Delivery Method Nasal Cannula Weight: 264 lb 5.348 oz Body Mass Index (BMI) 39.0 Intake & Output: Intake and Output for Last 24 Hours 07/14/23 07/15/23 07/16/23 23:59 23:59 23:59 Intake Total 2000 / 2000 200 / 200 Output Total 700 / 700 Balance 1300 / 1300 200 / 200 Lab / Micro Data 07/16/23 09:00 07/16/23 09:00 Labs: Laboratory Results - last 24 hr 07/16/23 09:00: WBC 31.4 H*, RBC 4.35 L, Hgb 14.6, Hct 45.1, MCV 103.7 H, MCH 33.6 H, MCHC 32.4, RDW Std Deviation 51.9 H, RDW Coeff of Ignacio 13.3, Plt Count 271, MPV 10.2, Immature Gran % (Auto) 1.400 H, Neut % (Auto) 95.1 H, Lymph % (Auto) 1.3 L, [place] % (Auto) 2.0, Eos % (Auto) 0.0, Baso % (Auto) 0.2, Absolute Neuts (auto) 29.9 H, Absolute Lymphs (auto) 0.41 L, Nucleated RBC % 0, Diff Path Review May foll, Sodium 137, Potassium 3.8, Chloride 103, Carbon Dioxide 26.0, Anion Gap 8, BUN 50 H, Creatinine 1.71 H, Estim Creat Clear Calc 36.18, Est GFR (MDRD) Af Amer 50 L, Est GFR (MDRD) Non-Af 42 L, BUN/Creatinine Ratio 29.2 H, Glucose 223 H, Calcium 9.2 Micro: Microbiology 07/14/23 22:40 Mucosa - Nasopharyngeal Respiratory Panel (PCR) - Final Rhinovirus 07/14/23 15:02 Nasal Secretion SARS-CoV-2 & FLU Antigen (Rapid) - Final Physical Exam Const alert, oriented x3 and no apparent distress Constitutional Narrative: obese General Appearance: cooperative HEENT normocephalic, head/scalp atraumatic, moist oral mucous membranes, oropharynx normal and gingiva normal Eyes PERRL and EOMs intact bilaterally Neck no lymphadenopathy, supple and thyroid normal Lymph Lymphatic: no lymphadenopathy noted and no lymphedema noted Resp Resp Narrative: diminished breath sounds bibasally, few crackles.on 4L of oxygen. Cardio regular rate, regular rhythm, S1 normal heart sound, S2 normal heart sound and no murmurs GI normal to inspection, nondistended, normoactive bowel sounds, soft to palpation, non-tender and non-distended Extremity normal capillary refill, no clubbing, cyanosis or edema and no calf tenderness General Extremity: no tenderness to palpation of joints or extremities Skin General Skin Exam: no breakdown and turgor normal Neuro CN's II-XII intact bilaterally, no focal motor deficits, no sensory deficits noted and deep tendon reflexes 2+ bilaterally Motor Exam: strength 5/5 throughout and general weakness Psych thought process normal, cooperative and affect normal Appearance: appropriate Assessment & Plan Assessment/Plan (1) Acute exacerbation of chronic obstructive pulmonary disease: PLAN: Plan #Hypoxia due to acute exacerbation of COPD now on 4L of oxygen covid and flu screen were negative continue Breathing treatments of bronchodilators. Titrate oxygen to maintain saturation above 90%. On IV Solu-Medrol as well as IV Zithromax. Also being diuresed with IV Lasix. #Leukocytosis: WBC is up to 31.4 today. Was 23 yesterday Thought to be likely due to prednisone which she had been taking at home. patient's oxygen requirement is increasing, and in light of the leucocytosis, this is concerning for an infectious process on PO azithromycin. Will monitor. #Paroxysmal A-fib: On Eliquis. #CKD stage IIIb: Cr is up to 1.71 today. This is around his baseline. Will monitor. #History of CAD s/p stents x2: On aspirin and Plavix as well as high intensity statin #Acute on chronic Heart failure with reduced ejection fraction Has an ICD in place as well. On Entresto and Lasix as well as spironolactone and beta-kelli. BNP was 1071 which is higher than how it usually is for him. 2D echo on 07/14/2023 showed mildly dilated left ventricle with EF of 35% and moderately severe segmental systolic dysfunction. It is similar to previous echo from March 04, 2021. on iV lasix 40mg bid. #ALEX: On home CPAP but does not take it because he is not able to tolerate the mask. #Anxiety: On Ativan #DVT prophylaxis: On Eliquis Charges/Coding Visit Charges Inpatient E&M: 54255 [facility] Hosp L3
[2023-07-16] MEDS: Benzonatate 100 MG Capsule PO ×2 (13:37→22:14)
[2023-07-16] MEDS: Atorvastatin Calcium 20 MG Tablet PO (22:10)
[2023-07-16] MEDS: Azithromycin 250 MG Tablet 500 MG PO (22:10)
[2023-07-16] MEDS: MELATONIN 10 MG TABLET PO (22:14)
[2023-07-17] VITALS (7 sets, daily range): BP systolic 111–133; BP diastolic 49–70; PULSE 54–96; RESP 16–20; TEMP 36.7–36.9; O2SAT 91–95; BMI 39.0
[2023-07-17] MEDS: Methylprednisolone Sod Succ 40 MG/ML VIAL IV (04:14)
[2023-07-17] MEDS: Ipratropium/Albuterol Sulfate 3 ML AMPUL.NEB INHALATION ×3 (07:18→18:56)
[2023-07-17 09:47] LABS: Absolute Lymphocyte Count 0.59 X10^3/uL (0.83-4.51); Absolute Neutrophil Count 31.4 X10^3/uL (2.0-7.7); Basophil# 0.08 X10^3/uL; Basophil% 0.2 % (0-1); Hematocrit 44.5 % (40-54); Hemoglobin 14.6 g/dL (13.0-16.5); Lymphocyte # 0.59 X10^3/ul (0.83-4.51); Lymphocyte % 1.8 % (19-41); Mean Corp Hgb Conc 32.8 g/dL (32-36); Mean Corpuscular Volume 103.5 fL (80-94); Mean Platelet Vol. 10.2 fl (6.2-12.0); Monocyte# 1.11 X10^3/uL; Monocyte% 3.3 % (0-10); NRBC Flagged by Analyzer 0 % (0-5); Neutrophil # 31.44 X10^3/uL (2.7-7.7); Neutrophil % 93.4 % (47-70); POSITIVE COUNT YES; POSITIVE DIFFERENTIAL YES; Platelet Count 240 K/mm3 (150-450); RBC Distribution Width CV 13.2 % (11.6-14.6); RBC Distribution Width SD 51.3 fl (35.1-43.9)
[2023-07-17 09:57] LABS: Differential Indicated SCAN CRITERIA MET; White Blood Count 33.7 K/mm3 (4.4-11.0)
[2023-07-17 10:03] LABS: Anion Gap 3 (5-15); BUN 57 mg/dL (7-18); Calcium,Total 9.1 mg/dL (8.5-10.1); Chloride 105 mmol/L (98-107); Creatinine, Serum 1.63 mg/dL (0.70-1.30); EST Glomerular Filtration Rate 44 mL/min (>60); Est Glom Filt Rate - Afr Amer 53 mL/min (>60); Estimated Creatinine Clearance 37.95 ml/min; Glucose 160 mg/dL (74-106); Potassium 4.1 mmol/L (3.5-5.1); Sodium Level 138 mmol/L (136-145)
[2023-07-17] MEDS: Metoprolol(XL)Succ 25 MG Tablet 12.5 MG PO (10:49)
[2023-07-17] MEDS: Benzonatate 100 MG Capsule PO ×2 (10:50→20:02)
[2023-07-17] MEDS: SACUBITRIL/VALSARTAN 24/26 MG TABLET 1 EACH PO (10:50)
[2023-07-17] MEDS: guaiFENesin 600 MG Tablet PO ×2 (10:50→20:03)
[2023-07-17] MEDS: 0.9% Saline Lock 10 ML Syringe IV (10:51)
[2023-07-17] MEDS: Furosemide 40 MG/4 ML Vial IV ×2 (10:51→20:03)
[2023-07-17 11:12] LABS: Differential Comment SCANNED
--- NOTE | 2023-07-17 12:13 | PN_ITS ---
Subjective Subjective Patient seen and examined. He says he is actually feeling better. He feels his breathing has improved. He is still coughing, though it is dry. He denies any chest pain, palpitations, dizziness, nausea, vomiting or any other symptoms. Review of systems was otherwise negative. He is on 3L of oxygen Objective Data Objective Data Vital Signs: Vital Signs Temp Pulse Resp BP Pulse Ox O2 Del Method O2 Flow Rate 98.0 F 76 16 111/49 L 95 Nasal Cannula 3 07/17/23 10:33 07/17/23 10:49 07/17/23 10:33 07/17/23 10:49 07/17/23 10:33 07/17/23 10:33 07/17/23 10:33 Oxygen Flow Rate (L/min) 3 Oxygen Delivery Method Nasal Cannula Weight: 264 lb 5.348 oz Body Mass Index (BMI) 39.0 Intake & Output: Intake and Output for Last 24 Hours 07/15/23 07/16/23 07/17/23 23:59 23:59 23:59 Intake Total 1999 / 1999 960 / 960 Output Total 700 / 700 250 / 250 Balance 1300 / 1300 960 / 960 -250 / -250 Lab / Micro Data 07/17/23 09:21 07/17/23 09:21 Labs: Laboratory Results - last 24 hr 07/17/23 09:21: WBC 33.7 H*, RBC 4.30 L, Hgb 14.6, Hct 44.5, MCV 103.5 H, MCH 34.0 H, MCHC 32.8, RDW Std Deviation 51.3 H, RDW Coeff of Ignacio 13.2, Plt Count 240, MPV 10.2, Immature Gran % (Auto) 1.300 H, Neut % (Auto) 93.4 H, Lymph % (Auto) 1.8 L, [place] % (Auto) 3.3, Eos % (Auto) 0.0, Baso % (Auto) 0.2, Absolute Neuts (auto) 31.4 H, Absolute Lymphs (auto) 0.59 L, Nucleated RBC % 0, Differential Comment SCANNED, Diff Path Review February, Sodium 138, Potassium 4.1, Chloride 105, Carbon Dioxide 30.0, Anion Gap 3 L, BUN 57 H, Creatinine 1.63 H, Estim Creat Clear Calc 37.95, Est GFR (MDRD) Af Amer 53 L, Est GFR (MDRD) Non-Af 44 L, BUN/Creatinine Ratio 35.0 H, Glucose 160 H, Calcium 9.1 Micro: Microbiology 07/14/23 22:40 Mucosa - Nasopharyngeal Respiratory Panel (PCR) - Final Rhinovirus 07/14/23 15:02 Nasal Secretion SARS-CoV-2 & FLU Antigen (Rapid) - Final Physical Exam Const alert, oriented x3 and no apparent distress Constitutional Narrative: obese General Appearance: cooperative HEENT normocephalic, head/scalp atraumatic, moist oral mucous membranes, oropharynx normal and gingiva normal Eyes PERRL and EOMs intact bilaterally Neck no lymphadenopathy, supple and thyroid normal Lymph Lymphatic: no lymphadenopathy noted and no lymphedema noted Resp Resp Narrative: diminished breath sounds bibasally, few crackles.on 3L of oxygen. Cardio regular rate, regular rhythm, S1 normal heart sound, S2 normal heart sound and no murmurs GI normal to inspection, nondistended, normoactive bowel sounds, soft to palpation, non-tender and non-distended Extremity normal capillary refill, no clubbing, cyanosis or edema and no calf tenderness General Extremity: no tenderness to palpation of joints or extremities Skin General Skin Exam: no breakdown and turgor normal Neuro CN's II-XII intact bilaterally, no focal motor deficits, no sensory deficits noted and deep tendon reflexes 2+ bilaterally Motor Exam: strength 5/5 throughout and general weakness Psych thought process normal, cooperative and affect normal Appearance: appropriate Assessment & Plan Assessment/Plan (1) Acute exacerbation of chronic obstructive pulmonary disease: PLAN: Plan #Hypoxia due to acute exacerbation of COPD * now on 3L of oxygen * covid and flu screen were negative * continue Breathing treatments of bronchodilators. Titrate oxygen to maintain saturation above 90%. * On IV Solu-Medrol as well as IV Zithromax. * Also being diuresed with IV Lasix. * #Leukocytosis: * wbc today is up to 33.7 today. There are no signs of infectious pathology as he doesnt have a fever or chills and cough is nonproductive * He is on PO azithromycin. * dc IV solumedrol; start on PO prednisone 40mg daily x 5 days * trend wbc. I expect it will improve now that the IV solumedrol has been discontinued * out of precautino, will get blood cultures also #Paroxysmal A-fib: On Eliquis. #CKD stage IIIb: Cr is down to 1.63 today. This is around his baseline. Will monitor. #History of CAD s/p stents x2: On aspirin and Plavix as well as high intensity statin #Acute on chronic Heart failure with reduced ejection fraction * Has an ICD in place as well. * On Entresto and Lasix as well as spironolactone and beta-kelli. * BNP was 1071 which is higher than how it usually is for him. * 2D echo on 07/14/2023 showed mildly dilated left ventricle with EF of 35% and moderately severe segmental systolic dysfunction. It is similar to previous echo from March 04, 2021. * on iV lasix 40mg bid. #ALEX: On home CPAP but does not take it because he is not able to tolerate the mask. #Anxiety: On Ativan #DVT prophylaxis: On Eliquis Charges/Coding Visit Charges Inpatient E&M: 54458 Subs Hosp L2
[2023-07-17] MEDS: Aspirin 81 MG TAB.CHEW PO (12:38)
[2023-07-17] MEDS: Spironolactone 25 MG Tablet 12.5 MG PO (12:38)
[2023-07-17] MEDS: APIXABAN 5 MG TABLET PO ×2 (12:39→20:03)
[2023-07-17] MEDS: MELATONIN 10 MG TABLET PO (20:02)
[2023-07-17] MEDS: Azithromycin 250 MG Tablet 500 MG PO (20:03)
[2023-07-17] MEDS: Atorvastatin Calcium 20 MG Tablet PO (20:03)
[2023-07-18] VITALS (10 sets, daily range): BP systolic 107–117; BP diastolic 49–57; PULSE 60–96; RESP 18–20; TEMP 36.6–37.1; O2SAT 84–94; BMI 38.9
[2023-07-18] MEDS: Ipratropium/Albuterol Sulfate 3 ML AMPUL.NEB INHALATION ×2 (06:58→13:19)
[2023-07-18 07:36] LABS: Absolute Neutrophil Count 28.7 X10^3/uL (2.0-7.7); Basophil# 0.09 X10^3/uL; Basophil% 0.3 % (0-1); Hematocrit 45.7 % (40-54); Hemoglobin 14.8 g/dL (13.0-16.5); Lymphocyte % 3.4 % (19-41); Mean Corp Hgb Conc 32.4 g/dL (32-36); Mean Corpuscular Hgb 33.8 pg (27.0-32.0); Mean Corpuscular Volume 104.3 fL (80-94); Monocyte# 2.03 X10^3/uL; Monocyte% 6.3 % (0-10); NRBC Flagged by Analyzer 0 % (0-5); Neutrophil # 28.72 X10^3/uL (2.7-7.7); Neutrophil % 88.5 % (47-70); POSITIVE COUNT YES; POSITIVE DIFFERENTIAL YES; Platelet Count 221 K/mm3 (150-450); RBC Distribution Width CV 13.2 % (11.6-14.6); RBC Distribution Width SD 51.6 fl (35.1-43.9); Red Blood Count 4.38 M/mm3 (4.6-6.2)
[2023-07-18 07:43] LABS: Differential Indicated SCAN CRITERIA MET; White Blood Count 32.4 K/mm3 (4.4-11.0)
[2023-07-18 08:03] LABS: Anion Gap 4 (5-15); BUN 59 mg/dL (7-18); BUN/Creat Ratio 37.1 RATIO (10-20); Chloride 105 mmol/L (98-107); Creatinine, Serum 1.59 mg/dL (0.70-1.30); EST Glomerular Filtration Rate 45 mL/min (>60); Est Glom Filt Rate - Afr Amer 55 mL/min (>60); Estimated Creatinine Clearance 38.91 ml/min; Glucose 103 mg/dL (74-106); Sodium Level 139 mmol/L (136-145)
[2023-07-18 09:46] LABS: Pathologist Review Reviewed
[2023-07-18] MEDS: Spironolactone 25 MG Tablet 12.5 MG PO (09:50)
[2023-07-18] MEDS: predniSONE 20 MG Tablet 40 MG PO (09:52)
[2023-07-18] MEDS: Aspirin 81 MG TAB.CHEW PO (09:52)
[2023-07-18] MEDS: guaiFENesin 600 MG Tablet PO (09:53)
[2023-07-18] MEDS: Metoprolol(XL)Succ 25 MG Tablet 12.5 MG PO (09:53)
[2023-07-18] MEDS: SACUBITRIL/VALSARTAN 24/26 MG TABLET 1 EACH PO (09:53)
[2023-07-18] MEDS: Furosemide 40 MG/4 ML Vial IV (09:55)
[2023-07-18] MEDS: 0.9% Saline Lock 10 ML Syringe IV (10:02)
[2023-07-18] MEDS: APIXABAN 5 MG TABLET PO (10:33)
--- NOTE | 2023-07-18 11:00 | CASEMGMT ---
Addendum entered by Darryl Hastings 07/18/23 12:19: Script obtained for O2 and O2 referral sent to [facility] [place] via [employer]. Original Note: MART ARANA NOTE: Pt qualifies for O2 @ 2 L/M @ rest and 4 L/M w/exertion. MART CM to room. Pt would like to get home O2 from [facility] [place], stating he has had it through them in the past. He is agreeable to having it billed through [facility] and [facility] and start [facility] them. He voices understanding. He states he thinks he has a pulse ox @ home, but is not sure where it is. Initially he stated he thought he could afford to buy another one if he cannot find his, but then stated his friend is picking him up to take him home and he has no money on him to get another one at this time. RN, Coty, given a pulse ox to give to pt and instruct on use. Pt denies need for HHC or other discharge planning needs. Will obtain a script from Dr Martínez and send to [facility] [place] via [employer]. RN to provide O2 tank to pt from [facility] supply. Galindo NI RN CM
--- NOTE | 2023-07-18 11:54 | DCINST_ITS ---
Discharge Instructions Diet Discharge Diet: Low fat / Low cholesterol Activity Discharge Activity: Return to Normal Activity Weight Bearing Status: Weight bearing as tolerated Dressing / Incision Call your doctor if you observe: Fever of 101 or Higher, Shortness of breath, Dizziness, Swelling in the ankles, Chest pain and Increased palpitations (irregular heartbeat) Follow Up Care Test Results: Test results from this visit will be discussed in further detail at your follow- up appointment, if applicable. Discharge Plan Admission Admit Date/Time: 07/14/23 19:06 Primary Reason for Your Visit: COPD exacerbation due to rhinovirus infection Attending Provider: Shannon Martínez Primary Care Provider: [place] Consulting Providers: Stephani Sullivan Instructions Patient Instructions: Understanding Oxygen Therapy, Oxygen Supplemental, Understanding the Cold Virus Additional Instructions / Restrictions: use oxygen 2L at rest and 4L with exertion as needed for shortness of breath Discharge Orders/Prescriptions Prescriptions: Continued aspirin 81 MG tablet,chewable 81 mg PO DAILY@0800 Patient Comments: [facility] albuterol sulfate [Proventil HFA] 6.7 GM HFA aerosol inhaler 1 - 2 puff IH Q2H PRN (Reason: Sob &/Or Wheezing) Patient Comments: shortness of breath budesonide-formoterol [Symbicort] 1 INHALER inhaler 2 puff inhalation BID spironolactone 25 MG tablet 12.5 mg PO DAILY rosuvastatin 10 MG tablet 10 mg PO QHS metoprolol succinate 100 mg Tablet Extended Release 24 Hr 12.5 mg PO DAILY Eliquis 5 mg tablet 5 mg PO BID Qty: 60 0RF furosemide 40 mg Tablet 40 mg PO DAILY Entresto 26 mg PO.IVFORM BID Systane Gel 0.3 % gel 2 drp EACH EYE Q4H PRN (Reason: dry eyes) Qty: 10 0RF Discontinued prednisone 20 mg tablet 60 mg PO DAILY Qty: 12 0RF Referrals / Follow Up: [facility] [Primary Care Provider] - Within 1 Week Disposition Disposition (needs filled in before D/C Order can be placed): Home, Self Care
--- NOTE | 2023-07-18 11:55 | PCM.DC.SUM ---
Providers Date of Admission: 07/14/23 Date of Discharge: 07/18/23 Primary Care Physician: [facility] Reason For Visit: AECOPD Diagnosis Discharge Diagnosis (1) Acute exacerbation of chronic obstructive pulmonary disease: Status: Chronic Code(s): J44.1 - Chronic obstructive pulmonary disease with (acute) exacerbation Plan #Hypoxia due to acute exacerbation of COPD now on 3L of oxygen covid and flu screen were negative continue Breathing treatments of bronchodilators. Titrate oxygen to maintain saturation above 90%. On IV Solu-Medrol as well as IV Zithromax. Also being diuresed with IV Lasix. #Leukocytosis: wbc today is up to 33.7 today. There are no signs of infectious pathology as he doesnt have a fever or chills and cough is nonproductive He is on PO azithromycin. dc IV solumedrol; start on PO prednisone 40mg daily x 5 days trend wbc. I expect it will improve now that the IV solumedrol has been discontinued out of precautino, will get blood cultures also #Paroxysmal A-fib: On Eliquis. #CKD stage IIIb: Cr is down to 1.63 today. This is around his baseline. Will monitor. #History of CAD s/p stents x2: On aspirin and Plavix as well as high intensity statin #Acute on chronic Heart failure with reduced ejection fraction Has an ICD in place as well. On Entresto and Lasix as well as spironolactone and beta-kelli. BNP was 1071 which is higher than how it usually is for him. 2D echo on 07/14/2023 showed mildly dilated left ventricle with EF of 35% and moderately severe segmental systolic dysfunction. It is similar to previous echo from March 04, 2021. on iV lasix 40mg bid. #ALEX: On home CPAP but does not take it because he is not able to tolerate the mask. #Anxiety: On Ativan #DVT prophylaxis: On Eliquis Medications at Discharge Home Medications albuterol sulfate 90 mcg/actuation aerosol inhaler (Proventil HFA) 1 - 2 puff IH Q2H PRN Sob &/Or Wheezing 03/16/16 aspirin 81 mg chewable tablet 81 mg PO DAILY@0800 Check with primary doctor 03/16/16 budesonide-formoterol HFA 160 mcg-4.5 mcg/actuation aerosol inhaler (Symbicort) 2 puff inhalation BID COPD 03/16/16 rosuvastatin 10 mg tablet 10 mg PO QHS HLD 12/17/17 spironolactone 25 mg tablet 12.5 mg PO DAILY CHF 12/17/17 metoprolol succinate 100 mg tablet,extended release 24 hr 12.5 mg PO DAILY HEART 03/03/21 apixaban 5 mg tablet (Eliquis) 5 mg PO BID #60 tabs 03/13/21 Entresto 26 mg PO.IVFORM BID heart 08/28/22 furosemide 40 mg tablet 40 mg PO DAILY 08/28/22 artificial tears(hypromellose) 0.3 % eye gel (Systane Gel) 2 drp EACH EYE Q4H PRN dry eyes #10 grams 01/09/23 Hospital Course Operations None Procedures None Summary of Care Provided Minutes Spent on Discharge: 48 Hospital Course: Patient is a 78 y/o male with a PMH as outlined who was admitted via the ED on 07/14/2023 with a complaint of runny nose and cough as well as increased shortness of breath for several days prior to admission. He was saturating at 91% on room air, and BNP was elevated at 1071. XR showed no acute abnormality. COVID and flu was negative. He was admitted and managed for hypoxia due to acute exacerbation of COPD with concerns for heart failure also. He was started on IV solumedrol, and breathing treatment with bronchodilators. He was also placed on azithromycin. Patient was noted to have markedly elevated white cell count of ~ 25. This was thought to be due to prednisone that thte patient had been taking at home. His shortness of breath gradually improved, and wheezing resolved. Respiratory panel was positive for RSV. White cell count continued to trend upwards. He completed a 5 day course of IV solumedrol and PO prednisone whilst in the hospital. He was weaned down to 2L of oxygen at rest. He was also managed for acute on chronic heart failure with reduced EF of 35%.He was diuresed with IV lasix 40mg bid. He felt much better,. He had walking pulse ox which showed that he required 2 L of oxygen at rest and 4 L of oxygen with exertion. WBC peaked at 33.7 and was down to 32.4 on discharge. Patient however had no fever, and no productive cough and no other indications of an infection, and made the steroid use the most likely cause of the leucocytosis. Patient felt much better, and was discharged home on 07/18/2023. He was discharged on 2 L of oxygen at rest and 4 L of oxygen with exertion for shortness of breath. Since he had completed a 5 day course of steroids in the hospital, he wasnt discharged on any steroids. He is to follow up with his PCP within 2-3 days to recheck his CBC to evaluate the wbc to see if it is trending downwards. Patient seen and examined prior to discharge. He felt much better and requested to be discharged home. His breathing had improved and review of systems otherwise negative. Labs and vitals reviewed. Home medication reviewed and reconciled. Physical Exam Const alert, oriented x3 and no apparent distress Constitutional Narrative: obese General Appearance: cooperative, comfortable and well kempt HEENT normocephalic, head/scalp atraumatic, moist oral mucous membranes, oropharynx normal and gingiva normal Mouth: oral and palatal mucosa normal Eyes PERRL, EOMs intact bilaterally and conjunctivae normal Neck no lymphadenopathy, supple and thyroid normal Lymph Lymphatic: no lymphadenopathy noted and no lymphedema noted Resp Resp Narrative: diminished breath sounds bibasally, few crackles.on 2L of oxygen. Cardio regular rate, regular rhythm, S1 normal heart sound, S2 normal heart sound and no murmurs GI normal to inspection, nondistended, normoactive bowel sounds, soft to palpation, non-tender and non-distended Extremity normal to inspection, full ROM, normal capillary refill, no clubbing, cyanosis or edema and no calf tenderness General Extremity: edema and no tenderness to palpation of joints or extremities Skin no rashes or lesions noted and no wounds General Skin Exam: no breakdown and turgor normal Neuro CN's II-XII intact bilaterally, moves all extremities, no focal motor deficits, no sensory deficits noted and deep tendon reflexes 2+ bilaterally Sensorium / Orientation: awake Motor Exam: strength 5/5 throughout and general weakness Psych thought process normal, cooperative and affect normal Appearance: appropriate Weight / BMI Weight Weight: 263 lb 7.238 oz Body Mass Index (BMI) 38.9 ABG / Lab / Microbiology Data 07/18/23 06:42 07/18/23 06:42 Laboratory: Laboratory Results - last 24 hr 07/16/23 09:00: Diff Path Review Reviewed 07/18/23 06:42: WBC 32.4 H*, RBC 4.38 L, Hgb 14.8, Hct 45.7, MCV 104.3 H, MCH 33.8 H, MCHC 32.4, RDW Std Deviation 51.6 H, RDW Coeff of Ignacio 13.2, Plt Count 221, MPV 10.0, Immature Gran % (Auto) 1.500 H, Neut % (Auto) 88.5 H, Lymph % (Auto) 3.4 L, [place] % (Auto) 6.3, Eos % (Auto) 0.0, Baso % (Auto) 0.3, Absolute Neuts (auto) 28.7 H, Absolute Lymphs (auto) 1.10, Nucleated RBC % 0, Differential Comment COMMENT, Diff Path Review February, Sodium 139, Potassium 4.0, Chloride 105, Carbon Dioxide 30.0, Anion Gap 4 L, BUN 59 H, Creatinine 1.59 H, Estim Creat Clear Calc 38.91, Est GFR (MDRD) Af Amer 55 L, Est GFR (MDRD) Non-Af 45 L, BUN/Creatinine Ratio 37.1 H, Glucose 103, Calcium 9.0 Microbiology: Microbiology 07/14/23 22:40 Mucosa - Nasopharyngeal Respiratory Panel (PCR) - Final Rhinovirus 07/14/23 15:02 Nasal Secretion SARS-CoV-2 & FLU Antigen (Rapid) - Final D/C Instructions Discharge Diet: Low fat / Low cholesterol Weight Bearing Status: Weight bearing as tolerated Call your doctor if you observe: Fever of 101 or Higher, Shortness of breath, Dizziness, Swelling in the ankles, Chest pain and Increased palpitations (irregular heartbeat) Meaningful Use Info Meaningful Use Diagnoses (Choose all that apply): CHF CHF YENIFER/ARB ordered at discharge?: Yes Documented LVEF (%): 35 Discharge Plan Admission Admit Date/Time: 07/14/23 19:06 Primary Reason for Your Visit: COPD exacerbation due to rhinovirus infection Attending Provider: Shannon Martínez Primary Care Provider: [facility],[place] Consulting Providers: Stephani Sullivan Instructions Patient Instructions: Understanding Oxygen Therapy, Oxygen Supplemental, Understanding the Cold Virus Additional Instructions / Restrictions: use oxygen 2L at rest and 4L with exertion as needed for shortness of breath Discharge Orders/Prescriptions Prescriptions: Continued aspirin 81 MG tablet,chewable 81 mg PO DAILY@0800 Patient Comments: [facility] albuterol sulfate [Proventil HFA] 6.7 GM HFA aerosol inhaler 1 - 2 puff IH Q2H PRN (Reason: Sob &/Or Wheezing) Patient Comments: shortness of breath budesonide-formoterol [Symbicort] 1 INHALER inhaler 2 puff inhalation BID spironolactone 25 MG tablet 12.5 mg PO DAILY rosuvastatin 10 MG tablet 10 mg PO QHS metoprolol succinate 100 mg Tablet Extended Release 24 Hr 12.5 mg PO DAILY Eliquis 5 mg tablet 5 mg PO BID Qty: 60 0RF furosemide 40 mg Tablet 40 mg PO DAILY Entresto 26 mg PO.IVFORM BID Systane Gel 0.3 % gel 2 drp EACH EYE Q4H PRN (Reason: dry eyes) Qty: 10 0RF Discontinued prednisone 20 mg tablet 60 mg PO DAILY Qty: 12 0RF [facility] - Within 1 Week Disposition Disposition (needs filled in before D/C Order can be placed): Home, Self Care
[2023-07-22 08:36] LABS: Pathologist Review Reviewed
[2023-07-22 08:37] LABS: Pathologist Review Reviewed
== END 2023-07-18 13:29 | disposition home or self-care (01) | DRG 190 ==
LOC: ED 19:17 → PCU 19:29
PROVIDERS: Hospitalist; Admitting Provider Internal Medicine; Emergency Provider Emergency Medicine; Visit Provider Student in an Organized Health Care Education/Training Program
DX: J44.1 Chronic obstructive pulmonary disease with (acute) exacerbation (principal); I50.23 Acute on chronic systolic (congestive) heart failure; I13.0 Hypertensive heart and chronic kidney disease with heart failure and stage 1 through stage 4 chronic kidney disease, or unspecified chronic kidney disease; N18.32 Chronic kidney disease, stage 3b; I48.0 Paroxysmal atrial fibrillation; G47.33 Obstructive sleep apnea (adult) (pediatric); I25.10 Atherosclerotic heart disease of native coronary artery without angina pectoris; D72.810 Lymphocytopenia; F41.9 Anxiety disorder, unspecified; Z95.810 Presence of automatic (implantable) cardiac defibrillator; Z79.51 Long term (current) use of inhaled steroids; Z95.5 Presence of coronary angioplasty implant and graft; Z79.01 Long term (current) use of anticoagulants; Z79.82 Long term (current) use of aspirin; Z87.891 Personal history of nicotine dependence
CPT/HCPCS: 36415; 71045; 80048; 80053; 83735; 83880; 84484; 85025; 87040; 87428; 87633; 93005; 93308; 94640; 94668; 97802; 99252; 99284; Q9957; A4216; C8924; G0463; J1940

== ENCOUNTER → 2024-10-02 | Outpatient (CLI) | payer OTHER, SELFPAY ==
--- NOTE | 2024-10-02 12:54 | PCM.PR.HP ---
History of Present Illness General Arrival date:: 10/02/24 Arrival time:: 12:54 Date of Referral:: 09/21/24 Date of Evaluation: 10/02/24 Referring Physician: SUSANA Primary Diagnosis: COPD History of Present Pulmonary Event mMRC Breathless Scale: When is the patient short of breath? Y/N Grade: Description of Breathlessness: 0 I only get breathless with strenuous exercise. 1 I get short of breath when hurrying on level ground or walking up a slight hill. 2 On level ground, I walk slower than people of the same age because of breathless, or have to stop for breath when walking at my own pace. 3 I stop for breath after walking 100 yards or after a few minutes on level ground. 4 I am too breathless to leave the house or I am breathless when dressing. Respiratory Problems: Yes Wheezing, Able to Speak in Full Sentences, Ankle Swelling and Dyspnea with Activity; No Retain Secretions, Limited Range of Motion, Chest Pain, Fatigue, Dizziness, Hoarseness, Anxiety, Panic, Dyspnea at Rest, Dyspnea Lying Down Flat or Cough with Secretions Medications Home Medications albuterol sulfate 90 mcg/actuation aerosol inhaler (Proventil HFA) 1 - 2 puff IH Q2H PRN Sob &/Or Wheezing 03/16/16 aspirin 81 mg chewable tablet 81 mg PO DAILY@0800 Check with primary doctor 03/16/16 budesonide-formoterol HFA 160 mcg-4.5 mcg/actuation aerosol inhaler (Symbicort) 2 puff inhalation BID COPD 03/16/16 rosuvastatin 10 mg tablet 10 mg PO QHS HLD 12/17/17 spironolactone 25 mg tablet 12.5 mg PO DAILY CHF 12/17/17 metoprolol succinate 100 mg tablet,extended release 24 hr 12.5 mg PO DAILY HEART 03/03/21 apixaban 5 mg tablet (Eliquis) 5 mg PO BID #60 tabs 03/13/21 Entresto 26 mg PO.IVFORM BID heart 08/28/22 furosemide 40 mg tablet 40 mg PO DAILY 08/28/22 artificial tears(hypromellose) 0.3 % eye gel (Systane Gel) 2 drp EACH EYE Q4H PRN dry eyes #10 grams 01/09/23 Allergies Allergies No Known Allergies Allergy (Verified 05/15/23 02:45) Secretions Cough:: Yes AM: Yes PM: Yes Sleep Disorder Evaluation Hx of Sleep Apnea: Yes Do you snore loudly (louder than talking or can be heard through closed doors)?: Yes Do you often feel tired/ fatigued/ sleepy during daytime?: No Has anyone observed you stop breathing during sleep?: No History of Hypertension (for STOP score): Yes STOP Results: Positive Medical Utilization Medical Devices Do you use a peak flow meter at home?: No Do you use a spacer device with your inhalers?: No Medical Utilization Number of hospital visits in the last year?: 1 Number of emergency room visits in the last year?: 1 Do you see your physician on a regular schedule?: Yes How often?: every 6 months Advanced Directives Advanced Directives 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 Living Will: Yes Advance Directives Information Provided: Yes Advance Directives on File: No DNR Order?:: No Past Medical History Covid-19 Screening Physicial Symptoms Other Clinical Concerns Exposure Risk Pertinent Comorbidities 65 years or older:: Yes Has a chronic lung disease or moderate to severe asthma:: Yes Has a serious heart condition:: Yes Medical History Past Medical History (Updated 07/26/23 @ 00:02 by Background Mita) Paroxysmal A-fib I48.0 Systolic congestive heart failure with reduced left ventricular function, NYHA class 3 I50.20 CPAP (continuous positive airway pressure) dependence Z99.89 Former smoker Z87.891 ICD (implantable cardioverter-defibrillator) in place Z95.810 COPD (chronic obstructive pulmonary disease) J44.9 Myocardial infarct I21.9 2 stents COPD (chronic obstructive pulmonary disease) J44.9 CAD (coronary artery disease) I25.10 Hypertension I10 Surgical History Past Surgical History History of coronary artery stent placement Z95.5 History of cholecystectomy Z90.49 History of coronary artery stent placement Z95.5 History of colectomy Z90.49 Significant Family History Family History Mother Aneurysm Social History Smoking History Smoking Status: Former smoker Years Smokin Packs Smoked per Day: 2 (stopped 2006) Hx Tobacco Use: Yes Hx Smoking Exposure: Yes Alcohol Use Alcohol Usage: No Substance Abuse Hx Substance Use: No Occupation Occupation (List type of work in comments):: Retired Hobbies, Recreation, Social Activities Hobbies: None Functioning ADL/IADL Current Ability Current Ability: Independent: Self-Care (e.g.,grooming, dressing, & bathing), Independent: Ambulation, Independent: Transfer and Independent: Household tasks (e.g., light meal prep, laundry, shopping) Pt Functioning Prior to Problem Prior Functioning: Self-Care (e.g.,grooming, dressing, & bathing): Independent, Ambulation: Independent, Transfer: Independent and Household tasks (e.g., light meal prep, laundry, shopping): Independent Social Environment Status Marital Status: Current Living Arrangements Living Environment:: Alone Children How many children do you have?: 3 Do any of your children live nearby?: Yes Safety Do you feel safe in your surroundings?: Yes Assistance Do you need any assistance at home?: no Review of Systems Review of Systems Review of Systems Respiratory: Reports Cough, SOB upon Exertion, Wheezing, Appetite, Normal and Fatigue; Denies Hemoptysis, Pleuritic Pain, SOB at Rest, Sputum production, Dizziness/Lightheadedness, PVD or Sexual changes Pain Is Patient Pain Free?: Yes Risk Factor Assessment Chief Complaint Chief Complaint: COPD Vital Signs Pulse Rate: 79 Pulse Rhythm: Regular Pulse Ox: 91 Blood Pressure: 120/76 Diabetes Diabetic History: Type II Nutrition Referral for Diabetes: No Obesity Height: 5 ft 9 in Weight:: 263 lb Weight in Pounds: 263.0 lbs Body Mass Index (BMI): 38.8 Physical Activity Physical Inactivity: None Risk Stratification Risk Guidelines: Lowest Risk: Risk Factor for Smoking, Moderate Risk: Risk Factor for Depression and Highest Risk: Risk Factor for Dyslipidemia, Risk Factor for Diabetes, Risk Factor for Obesity, Risk Factor for Hypertension and Risk Factor for Sedentary Lifestyle For Smoking Smoking Risk Guidelines For Dyslipidemia Dyslipidemia Risk Guidelines For Diabetes Mellitus Diabetes Risk Guidelines For Obesity/Overweight Obesity/Overweight Risk Guidelines For Hypertension Hypertension Risk Guidelines For Sedentary Lifestyle Sedentary Lifestyle Risk Guidelines For Depression Depression Risk Guidelines Motivation Motivation to Participate On a scale of 1 to 10, how prepared are you to commit to attending program?: 10 What do you see as barriers to successfully being able to complete the program?: nothing What do you see as the benefits of succesfully completing the program? In other words, what do you hope to get out of participating in the program?: breath better, get stronger Are there issues you are dealing with that will interfere with completing the program?: no Do you have a spouse or signficant other, family or friends who will help support you to complete the program?: yes
--- NOTE | 2024-10-02 13:05 | PCM.PR.TP ---
General Information2 General Information Admitting Diagnosis: COPD Personal Learning Style/Barriers Personal Learning Style:: Audio/Visual Barriers to Learning: None Stage of change r/t lifestyle modifications: Contemplation Education/Goals GA Patient Goals: Increase muscle strength: Initial Assessment, Experience less dyspnea: Initial Assessment, Improve energy level: Initial Assessment, Participate in home exercise: Initial Assessment, Improve the ability to cope with ADLs: Initial Assessment and Improve diet and nutrition: Initial Assessment Exercise - Initial Assessment Visit Date of Eval: 10/02/24 (initial eval ) Problem/Goals Problems: Deconditioning, No regular exercise, Knowledge deficit exercise guidelines and Knowledge deficit exercise safety Goals:: Aerobic exercise 30-60 mins x 12 weeks [36 sessions] Functional Capacity Test Number of feet walked: 670 Lowest SPO2 %: 88 Physician Prescribed Exercise Modalities: Treadmill, Rower, [employer] AD-7, [employer] Stepper, [employer] Pro-II Ergometer and [employer] Lateral [place] Frequency (days/week): 3 Duration (Minutes):: 30-45 Intensity: 60-80% of age predicted maximum heart rate reserve Current METSs:: 2 Target HR:: 107 (85-107) Resting Blood Pressure: 120/76 Plan Plan and Plan to Review:: Benefits of exercise, Core components of exercise, How to measure dyspnea level, How to monitor dyspnea level, Exercise intensity, Exercise safety guideline, Home exercise guidelines and Sandra: 3-4/11-13 Home Exercise Mode: Walking Nutrition/Wt Mgmt - Initial Visit Date of Eval: 10/02/24 (initial eval ) Problems/Goals Problems: Overweight Goals: Wt Loss 1-2 lbs per week Weight Management Knowledge Deficit Management of:: Overweight Admit Height:: 5 ft 9 in Admit Weight:: 263 lb Admit BMI:: 38.8 Intervention Referral to dietitian:: No Will attend diet classes:: Yes Intervention/Plan: Instruct on ideal BMI & set weight loss goal w/patient, Assist pt to ID & incorporate diet changes for weight loss by S9, Refer to Structured Weight Loss program as appropriate, Encourage goal of using 250-300dcal per session for weight loss and Other additional plan/interventions Plan Nutrition Plan: Yes: Review BMI or WC & identify target wt & strategies for wt control, Yes: Nutrition education class:, Yes: Medication education class [Prednisone]:, Yes: Weight control education class:, Yes: Education re: Need for ongoing weight monitoring, Yes: Food diary: and Yes: Physical activity log: Nutrition/Wt Mgmt - 30-Day Weight Management Height: 5 ft 9 in Weight:: 263 lb BMI: 38.8 Nutrition/Wt Mgmt - 60-Day Weight Management Height: 5 ft 9 in Weight:: 263 lb BMI: 38.8 Nutrition/Wt Mgmt - 90-Day Weight Management Height: 5 ft 9 in Weight:: 263 lb BMI: 38.8 Nutrition/Wt Mgmt - Final Weight Management Height: 5 ft 9 in Weight:: 263 lb BMI: 38.8 Psychosocial - Initial Assess Visit Date of Eval: 10/02/24 (initial eval ) Problems/Goals History of Emotional Disorders: None Psychosocial Goals: 1. Patient is free from overwhelming symtoms of depression (or anxiety, 2. Identifies personal stressors & states the strategies for managing, 3. Identifies activities to decrease isolation and/or symptoms of, 4. Improved psychosocial coping skills., 5. Verbalizes coping strategies., 6. Adequate treatment of depression. and 7. Improved Q.O.L. Psychosocial Test Tool Used:: Pulmonary QOL and PHQ-9 Questionnaire Referral to Behavioral Health PS - Interventions: Yes: Attend Stress Management Classes Intervention/Plan: See List Interventions/Plan:: Assess stressors,coping strategies & signs of derpression on admission, Instruct/assist pt to develop coping & personal stress Mgt strategies, Refer to Behavioral Health if appropriate, Refer to Physician if appropriate, Instruct patient to recognize signs & symptoms of depression, Instruct patient to recog and Other additional plan/intervention Psychosocial - 30-Day Problems/Goals History of Emotional Disorders: None Psychosocial Goals: 1. Patient is free from overwhelming symtoms of depression (or anxiety, 2. Identifies personal stressors & states the strategies for managing, 3. Identifies activities to decrease isolation and/or symptoms of, 4. Improved psychosocial coping skills., 5. Verbalizes coping strategies., 6. Adequate treatment of depression. and 7. Improved Q.O.L. Psychosocial Test Tool Used:: Pulmonary QOL and PHQ-9 Questionnaire Referral to Behavioral Health PS - Interventions: Yes: Attend Stress Management Classes Plan Interventions/Plan:: Assess stressors,coping strategies & signs of derpression on admission, Instruct/assist pt to develop coping & personal stress Mgt strategies, Refer to Behavioral Health if appropriate, Refer to Physician if appropriate, Instruct patient to recognize signs & symptoms of depression, Instruct patient to recog and Other additional plan/intervention Psychosocial - 60-Day Problems/Goals History of Emotional Disorders: None Psychosocial Goals: 1. Patient is free from overwhelming symtoms of depression (or anxiety, 2. Identifies personal stressors & states the strategies for managing, 3. Identifies activities to decrease isolation and/or symptoms of, 4. Improved psychosocial coping skills., 5. Verbalizes coping strategies., 6. Adequate treatment of depression. and 7. Improved Q.O.L. Psychosocial Test Tool Used:: Pulmonary QOL and PHQ-9 Questionnaire Referral to Behavioral Health PS - Interventions: Yes: Attend Stress Management Classes Plan Interventions/Plan:: Assess stressors,coping strategies & signs of derpression on admission, Instruct/assist pt to develop coping & personal stress Mgt strategies, Refer to Behavioral Health if appropriate, Refer to Physician if appropriate, Instruct patient to recognize signs & symptoms of depression, Instruct patient to recog and Other additional plan/intervention Psychosocial - 90-Day Problems/Goals History of Emotional Disorders: None Psychosocial Goals: 1. Patient is free from overwhelming symtoms of depression (or anxiety, 2. Identifies personal stressors & states the strategies for managing, 3. Identifies activities to decrease isolation and/or symptoms of, 4. Improved psychosocial coping skills., 5. Verbalizes coping strategies., 6. Adequate treatment of depression. and 7. Improved Q.O.L. Psychosocial Test Tool Used:: Pulmonary QOL and PHQ-9 Questionnaire Referral to Behavioral Health PS - Interventions: Yes: Attend Stress Management Classes Plan Interventions/Plan:: Assess stressors,coping strategies & signs of derpression on admission, Instruct/assist pt to develop coping & personal stress Mgt strategies, Refer to Behavioral Health if appropriate, Refer to Physician if appropriate, Instruct patient to recognize signs & symptoms of depression, Instruct patient to recog and Other additional plan/intervention Psychosocial - Final Assess Problems/Goals History of Emotional Disorders: None Psychosocial Goals: 1. Patient is free from overwhelming symtoms of depression (or anxiety, 2. Identifies personal stressors & states the strategies for managing, 3. Identifies activities to decrease isolation and/or symptoms of, 4. Improved psychosocial coping skills., 5. Verbalizes coping strategies., 6. Adequate treatment of depression. and 7. Improved Q.O.L. Psychosocial Test Tool Used:: Pulmonary QOL and PHQ-9 Questionnaire Referral to Behavioral Health PS - Interventions: Yes: Attend Stress Management Classes Plan Interventions/Plan:: Assess stressors,coping strategies & signs of derpression on admission, Instruct/assist pt to develop coping & personal stress Mgt strategies, Refer to Behavioral Health if appropriate, Refer to Physician if appropriate, Instruct patient to recognize signs & symptoms of depression, Instruct patient to recog and Other additional plan/intervention Oxygen & Oxygen Titration Init Visit Date of Eval: 10/02/24 (initial eval ) Initial Assessment Oxygen on Admission: None Patient Reports:: Non-productive cough Goal Oxygen & Oxygen Tritration Goals: Effective hypoxemia control Plans Plan: Monitor SpO2 rest & with exercise, Recommend appropriate FiO2 to Pt/MD, Assist to contact DME for O2, Train appropriate O2 use at rest, Train appropriate O2 use with exercise and Train O2 safety & systems Reviewed prescribed medications:: Purpose, Schedule, Side effects and Importance of compliance Instruct correct technique/timing & care:: MDI, DPI, Nebulizer and Return demo use of inhaler Bronchial Hygiene Plan: Controlled cough, CPT, Vibratory PEP device, VEST, Role of exercise in secretion clearance, NS Nasal spray, Hydration, Hand hygiene, Evaluate sputum, When to call MD, Signs/symptoms to report:, Influenza/Pneumovax vaccines and Cleaning of respiratory equipment Core Components - Initial Visit Date of Eval: 10/02/24 (initial eval ) Hypertension Hypertension Diagnosis:: Hypertension ICD-10 I10 BP: 120/76 [place] [employer] Hypertension Guidelines Outcomes/Goals: Able to verbalize/achieve optimal blood pressure <130/80 and Incorporates diet changes & exercise for blood pressure control by [place] Tobacco - Initial Assessment Tobacco Program Goals Tobacco Use: Non-smoker How long ago did you quit using tobacco products?: Greater than or equal to 6 months ago Do you use smokeless tobacco?: No Education Schedule Given:: Yes Gave Education Materials For:: Tobacco Triggers, Pulmonary Disease, Risk Factors, Breathing Techniques, Medical Compliance, Pulmonary A&P, Exacerbation Signs & Symptoms and Stress & Relaxation Exacerbation Mgmt & Airway Clearance Goals: Pt demonstrates effective cough, effective secretion clearance. and Pt describes signs and symptoms of infection. Patient Reports:: Non-productive cough Plan: Monitor SpO2 rest & with exercise, Recommend appropriate FiO2 to Pt/MD, Assist to contact DME for O2, Train appropriate O2 use at rest, Train appropriate O2 use with exercise and Train O2 safety & systems Instruct correct technique/timing & care:: MDI, DPI, Nebulizer and Return demo use of inhaler Bronchial Hygiene Plan: Controlled cough, CPT, Vibratory PEP device, VEST, Role of exercise in secretion clearance, NS Nasal spray, Hydration, Hand hygiene, Evaluate sputum, When to call MD, Signs/symptoms to report:, Influenza/Pneumovax vaccines and Cleaning of respiratory equipment Medication Interventions/plans: Instruct on medication effects & side effects, Review medication list w/patient every two weeks and Instruct importance of taking meds as ordered & assist problem solving Medication Goals: Adherence to prescribed medications and Correct technique/timing & care of MDI, DPI, nebulizer, and spacer. Does pt report taking home meds as prescribed?: Yes Reviewed prescribed medications:: Purpose, Schedule, Side effects and Importance of compliance Diabetes Diabetes:: Yes Referral to dietitian:: No Will attend diet classes:: Yes Core Components - 30 DAYS Hypertension Hypertension Diagnosis:: Hypertension ICD-10 I10 Resting Blood Pressure:: 120/76 [place] [employer] Hypertension Guidelines Outcomes/Goals: Able to verbalize/achieve optimal blood pressure <130/80 and Incorporates diet changes & exercise for blood pressure control by [place] Tobacco - 30-Day Tobacco Program Goals Tobacco Use: Non-smoker Do you use smokeless tobacco?: No Education Schedule Given:: Yes Gave Education Materials For:: Tobacco Triggers, Pulmonary Disease, Risk Factors, Breathing Techniques, Medical Compliance, Pulmonary A&P, Exacerbation Signs & Symptoms and Stress & Relaxation Diabetes Diabetes:: Yes Core Components - 60 DAYS Hypertension Hypertension Diagnosis:: Hypertension ICD-10 I10 Resting Blood Pressure:: 120/76 [place] [employer] Hypertension Guidelines Outcomes/Goals: Able to verbalize/achieve optimal blood pressure <130/80 and Incorporates diet changes & exercise for blood pressure control by [place] Tobacco - 60-Day Tobacco Program Goals Tobacco Use: Non-smoker Do you use smokeless tobacco?: No Education Schedule Given:: Yes Gave Education Materials For:: Tobacco Triggers, Pulmonary Disease, Risk Factors, Breathing Techniques, Medical Compliance, Pulmonary A&P, Exacerbation Signs & Symptoms and Stress & Relaxation Diabetes Diabetes:: Yes Core Components - 90 DAYS Hypertension Hypertension Diagnosis:: Hypertension ICD-10 I10 Resting Blood Pressure:: 120/76 [place] [employer] Hypertension Guidelines Outcomes/Goals: Able to verbalize/achieve optimal blood pressure <130/80 and Incorporates diet changes & exercise for blood pressure control by [place] Tobacco - 90-Day Tobacco Program Goals Tobacco Use: Non-smoker Do you use smokeless tobacco?: No Education Schedule Given:: Yes Gave Education Materials For:: Tobacco Triggers, Pulmonary Disease, Risk Factors, Breathing Techniques, Medical Compliance, Pulmonary A&P, Exacerbation Signs & Symptoms and Stress & Relaxation Diabetes Diabetes:: Yes Core Components - Final Hypertension Hypertension Diagnosis:: Hypertension ICD-10 I10 Resting Blood Pressure:: 120/76 [place] [employer] Hypertension Guidelines Outcomes/Goals: Able to verbalize/achieve optimal blood pressure <130/80 and Incorporates diet changes & exercise for blood pressure control by [place] Tobacco - Final Tobacco Program Goals Tobacco Use: Non-smoker Do you use smokeless tobacco?: No Education Schedule Given:: Yes Diabetes Diabetes:: Yes Patient Health Questionnaire PHQ-9 Screening Initial Assessment: 1. Little interest or pleasure in doing things: Not at all 2. Feeling down, depressed, or hopeless: Not at all 3. Trouble falling or staying asleep, or sleeping too much: Not at all 4. Feeling tired or having little energy: Several days 5. Poor appetite or overeating: Not at all 6. Feeling bad about yourself -- or that you are a failure or have let yourself or your family down: Not at all 7. Trouble concentrating on things, such as reading the newspaper or watching television: Not at all 8. Moving or speaking so slowly that other people could have noticed. Or the opposite - being so fidgety or restless that you have been moving around a lot more than usual: Not at all 9. Thoughts that you would be better off , or of hurting yourself in some way: Not at all How difficult have these problems made it for you to do your work, take care of things at home, or get along with other people?: Not difficult at all Total Score: 1 Knowledge Questionaire (BCKQ) Information Information: [place] COPD Knowledge Questionnaire (BCKQ) This questionnaire is designed to find out what you know about your lung problem. It should be completed without help form anyone else. This usually takes between 10 and 20 minutes. Your answers will help us to find out what information you need to help you to understand and manage your lung condition. Pawan the pechanga which you think is the correct answer. Questions 1. In COPD: a. In COPD the word chronic means it is severe: True b. COPD can only be confirmed by breathing tests: Don't know c. In COPD ther is usually gradual worsening over time: Don't know d. In COPD oxygen levels in the blood are always low: False e. COPD is usually in people less than 40 years old: Don't know 2. COPD: Marce than 80% of COPD cases are caused by cigarette smoking: True b. COPD can be caused by occupational dust exposure: True c. Longstanding asthma can develop into COPD: Don't know d. COPD is commonly an inherited disease: False e. Women are less vunerable to the effects of cigarette than men: False 3. The following symptoms are Common in COPD: a. Swelling of the ankles is common in COPD:: Don't know b. Fatigue [tiredness] is common in COPD: Don't know c. Wheezing is common in COPD: True d. Crushing chest pain is common in COPD: False e. Rapid weight loss is common in COPD: False 4. Breathlessness in COPD: a. Severe breathlessness prevents travel by air: Don't know b. Breathlessness can be worsened by eating large meals: Don't know c. Breathlessness means that your oxygen levels are low: Don't know d. Breathlessness is a normal response to exercise: Don't know e. Breathlessness is primarily caused by a narrowing of the bronchial tubes: True 5. Phlegm (sputum): a. Coughing phlegm is a common symptom in COPD: Don't know b. Clearing phlegm is more difficult if you get dehydrated: Don't know c. Bronchodilator inhalers can help clear phlegm: Don't know d. Phlegm causes harm if swallowed: False e. Clearing phlegm can be assisted by breathing exercises: False 6. Chest infections / exacerbations: a. Chest infections often cause coughing of blood: Don't know b. Chest infection phlegm usually becomes coloured (ylw/grn): True cExerbations (episodes of worsening) can occur in the absence of chest infection: Don't know d. Chest infections are always accompanied by a high temperature: False e. Steroid tablets should be taken whenever there is an exacerbation: True 7. Excercise in COPD: aWalking excercises better than breathing to improve fitness: True b. Exercise should be avoided as it strains the lungs: True c. Exercise can help maintain your bone density: Don't know d. Exercise helps relieve depression: Don't know e. Exercise should be stopped if it makes you breathless: True 8. Smoking: a. Stopping smoking will reduce the risk of heart disease: True b. Stopping smoking will slow down further lung damage: True c. Stopping smoking is pointless as the damage is done: False d.Stopping smoking usually results in improved lung function: True eNicotine replacement therapy only available on prescription: Don't know 9. Vaccination: a. A flu jab is recommended every year: True b. You can get flu from having a flu jab: True c. You can only have a flu jab if you are 65 or over: False d. A pneumonia jab protects against all forms of pneumonia: False e.You can have a pneumonia jab and a flu job on the same day: True 10. Inhaled bronchodilators: a. Bronchodilators act quickly (within 10 minutes): True b. Both short & long acting bronchodilators can be taken on the same day: True c. Spacers (volumatic,nebuhaler,serochamber)should be dried w/atowel after washing: False d. A spacer device increases the medication to the lungs: Don't know e. Tremor may be a side effect of bronchodilators: Don't know 11. Antibiotic treatment in COPD: a. To be effective, the course should last at least 10 days: Don't know b. Excessive use of antibiotics can cause resistant bacteria (germs): Don't know c. Antibiotics will clear all chest infections: True d. Antibiotic treatment is necessary for an exacerbation (worsening) however mild: True e. Seek advice if antibiotics cause severe diarrhoea: True 12. Steroid tablets given for COPD (eg Prednisolone): a. Steroid tablets help strengthen muscles: Don't know b. Steroid tablets should be avoided if there is a chest infection: Don't know c. The risk of long-term side effects due to steroids is less w/short courses then w/continous treatment: Don't know dIndigestion is common side effect from using steroid tablet: Don't know e. Steroid tablets can increase your appetite: Don't know 13. Inhaled steroids (brown, red or orange): a. Inhaled steroids should be stopped if you are given steroid tablets: True bSteroid inhalers can be used for rapid relief breathlessnes: True c. Spacer devices reduce the risk of getting thrush in the mouth: True d.Steroid inhaler should be taken before your bronchodilator: Don't know e. Inhaled steroids improve lung function in COPD: True COPD Knowledge Test Total Score:: 23 COPD Assessment Test [CAT] Questions Never cough = 0, Cough all the time = 5: 1 No phlegm = 0, Chest full of phlegm = 5: 1 No chest tightness = 0, Chest very tight = 5: 0 No breathless w/exertion = 0, Very breathless w/exertion = 5: 3 No limitations w/activity = 0, Very limited w/activity = 5: 0 Confident leaving home = 0, Not at all confident = 5: 0 Sleep soundly = 0, Don't sleep soundly = 5: 0 Lots of energy = 0, No energy at all = 5: 3 Total CAT score:: 8 Self-Efficacy 6-Item Scale Initial Assessment: We would like to know how confident you are in doing certain activities. Please select your confidence level for: Fatigue Select Number: 5 Physical Discomfort or Pain Select Number: 5 Emotional Distress Select Number: 7 Other Symptoms or Health Problems Select Number: 6 Different Tasks and Activities Select Number: 6 Medication Select Number: 5 Total Score:: 5 Nutrition Survey Nutrition Survey Instructions Scoring Instructions Nutrition Survey Initial: Have you lost >10 lbs over the past 2 months without trying?: No Are you following a special diet at home for diabetes, low fat, or low salt?: No Are you interested in meeting with a dietitian for help understanding your diet?: Yes Do you eat less than 3 meals a day?: No Do you eat fatty meats (xavier, sausage, ribs, etc), fried foods, desserts, large amounts of salad dressings, margarine, butter, or cheese most days?: No Do you have food allergies? [Enter types in comment field]: No Do you eat in restaurants more than 3 times a week?: No Do you season food with salt, seasoning salt, or garlic salt?: No Do you used canned, boxed, frozen meals, or soups, seasoning packets?: Yes Total Score:: 2
[2024-10-02 13:39] VITALS: PULSE 79; O2SAT 91
[2024-10-02 13:44] VITALS: BP 120/76
[2024-10-02 13:48] VITALS: BP 120/76
[2024-10-02 14:17] VITALS: BP 120/76; BMI 38.8
[2024-10-02 14:24] VITALS: BMI 38.8
== END | disposition home or self-care (01) ==
DX: J44.9 Chronic obstructive pulmonary disease, unspecified (principal)

== ENCOUNTER 2024-10-09 10:15 | Outpatient (RCR) | payer OTHER, SELFPAY ==
[2024-10-02 14:17] VITALS: BMI 38.8
== END 2024-10-27 23:59 ==
LOC: PR 10:15
DX: J44.9 Chronic obstructive pulmonary disease, unspecified (principal)
CPT/HCPCS: 97150; 94626

== ENCOUNTER 2024-10-30 06:31 | Outpatient (RCR) | payer OTHER, SELFPAY ==
[2024-10-02 14:17] VITALS: BMI 38.8
--- NOTE | 2024-11-02 13:39 | PR.ITP_ITS ---
Exercise - Initial Assessment Visit Session Number:: 5 Physician Prescribed Exercise Modalities: Treadmill, SciFit Stepper and SciFit Lateral [place] Current METSs:: 2 Target HR:: 107 (85-107) Current RPD:: 2-3 Maximum Exercise HR:: 112 Resting Blood Pressure: 120/70 Maximum Exercise Blood Pressure: 140/76 Minimum SpO2 with exercise: 90 EKG Type: NSR to ST Nutrition/Wt Mgmt - Initial Weight Management Admit Height:: 5 ft 9 in Admit Weight:: 270 lb Admit BMI:: 39.9 Nutrition/Wt Mgmt - 30-Day Visit Date of Eval: 11/02/24 Weight Management Height: 5 ft 9 in Weight:: 270 lb BMI: 39.9 Weight Goals Progress:: Progressing (Pt is to attend nutrition class.) Nutrition/Wt Mgmt - 60-Day Weight Management Height: 5 ft 9 in Weight:: 270 lb BMI: 39.9 Nutrition/Wt Mgmt - 90-Day Weight Management Height: 5 ft 9 in Weight:: 270 lb BMI: 39.9 Nutrition/Wt Mgmt - Final Weight Management Height: 5 ft 9 in Weight:: 270 lb BMI: 39.9 Psychosocial - Initial Assess Problems/Goals History of Emotional Disorders: None Psychosocial Goals: 1. Patient is free from overwhelming symtoms of depression (or anxiety, 2. Identifies personal stressors & states the strategies for managing, 3. Identifies activities to decrease isolation and/or symptoms of, 4. Improved psychosocial coping skills., 5. Verbalizes coping strategies., 6. Adequate treatment of depression. and 7. Improved Q.O.L. Psychosocial Test Tool Used:: Pulmonary QOL and PHQ-9 Questionnaire Referred to MD for counseling:: No Referral to Behavioral Health PS - Interventions: Yes: Attend Stress Management Classes Intervention/Plan: See List Interventions/Plan:: Assess stressors,coping strategies & signs of derpression on admission, Instruct/assist pt to develop coping & personal stress Mgt strategies, Refer to Behavioral Health if appropriate, Refer to Physician if appropriate, Instruct patient to recognize signs & symptoms of depression, Instruct patient to recog and Other additional plan/intervention Psychosocial - 30-Day Visit Date of Eval: 11/02/24 Problems/Goals History of Emotional Disorders: None Psychosocial Goals: 1. Patient is free from overwhelming symtoms of depression (or anxiety, 2. Identifies personal stressors & states the strategies for managing, 3. Identifies activities to decrease isolation and/or symptoms of, 4. Improved psychosocial coping skills., 5. Verbalizes coping strategies., 6. Adequate treatment of depression. and 7. Improved Q.O.L. Psychosocial Test Tool Used:: Pulmonary QOL and PHQ-9 Questionnaire Referred to MD for counseling:: No Referral to Behavioral Health PS - Interventions: Yes: Attend Stress Management Classes Plan Interventions/Plan:: Assess stressors,coping strategies & signs of derpression on admission, Instruct/assist pt to develop coping & personal stress Mgt strategies, Refer to Behavioral Health if appropriate, Refer to Physician if appropriate, Instruct patient to recognize signs & symptoms of depression, Instruct patient to recog and Other additional plan/intervention Psychosocial - 60-Day Problems/Goals History of Emotional Disorders: None Psychosocial Goals: 1. Patient is free from overwhelming symtoms of depression (or anxiety, 2. Identifies personal stressors & states the strategies for managing, 3. Identifies activities to decrease isolation and/or symptoms of, 4. Improved psychosocial coping skills., 5. Verbalizes coping strategies., 6. Adequate treatment of depression. and 7. Improved Q.O.L. Psychosocial Test Tool Used:: Pulmonary QOL and PHQ-9 Questionnaire Referred to MD for counseling:: No Referral to Behavioral Health PS - Interventions: Yes: Attend Stress Management Classes Plan Interventions/Plan:: Assess stressors,coping strategies & signs of derpression on admission, Instruct/assist pt to develop coping & personal stress Mgt strategies, Refer to Behavioral Health if appropriate, Refer to Physician if appropriate, Instruct patient to recognize signs & symptoms of depression, Instruct patient to recog and Other additional plan/intervention Psychosocial - 90-Day Visit Session Number:: 5 Problems/Goals History of Emotional Disorders: None Psychosocial Goals: 1. Patient is free from overwhelming symtoms of depression (or anxiety, 2. Identifies personal stressors & states the strategies for managing, 3. Identifies activities to decrease isolation and/or symptoms of, 4. Improved psychosocial coping skills., 5. Verbalizes coping strategies., 6. Adequate treatment of depression. and 7. Improved Q.O.L. Psychosocial Test Tool Used:: Pulmonary QOL and PHQ-9 Questionnaire Referred to MD for counseling:: No Referral to Behavioral Health PS - Interventions: Yes: Attend Stress Management Classes Plan Interventions/Plan:: Assess stressors,coping strategies & signs of derpression on admission, Instruct/assist pt to develop coping & personal stress Mgt strategies, Refer to Behavioral Health if appropriate, Refer to Physician if appropriate, Instruct patient to recognize signs & symptoms of depression, Instruct patient to recog and Other additional plan/intervention Psychosocial - Final Assess Visit Session Number:: 5 Problems/Goals History of Emotional Disorders: None Psychosocial Goals: 1. Patient is free from overwhelming symtoms of depression (or anxiety, 2. Identifies personal stressors & states the strategies for managing, 3. Identifies activities to decrease isolation and/or symptoms of, 4. Improved psychosocial coping skills., 5. Verbalizes coping strategies., 6. Adequate treatment of depression. and 7. Improved Q.O.L. Psychosocial Test Tool Used:: Pulmonary QOL and PHQ-9 Questionnaire Referred to MD for counseling:: No Referral to Behavioral Health PS - Interventions: Yes: Attend Stress Management Classes Plan Interventions/Plan:: Assess stressors,coping strategies & signs of derpression on admission, Instruct/assist pt to develop coping & personal stress Mgt strategies, Refer to Behavioral Health if appropriate, Refer to Physician if appropriate, Instruct patient to recognize signs & symptoms of depression, Instruct patient to recog and Other additional plan/intervention Oxygen & Oxygen Titration Init Initial Assessment SpO2:: 90 Oxygen & Oxygen Titration 30D Visit Date of Eval: 11/02/24 Session Number:: 5 Reassessment Reassessment- 30 Days: Demonstrate knowledge of O2 Rx at rest & w/exercise and Using O2 as Rx'd Breath Sounds:: Crackles and Crackles & Wheezes SpO2:: 90 Oxygen & Oxygen Titration 60D Visit Date of Eval: 11/02/24 Session Number:: 5 Reassessment Breath Sounds:: Crackles and Crackles & Wheezes SpO2:: 90 Oxygen & Oxygen Titration 90D Visit Date of Eval: 11/02/24 Session Number:: 5 Reassessment Breath Sounds:: Crackles and Crackles & Wheezes SpO2:: 90 Oxygen & Oxygen Titration SANDEEP Visit Date of Eval: 11/02/24 Session Number:: 5 Reassessment Breath Sounds:: Crackles and Crackles & Wheezes SpO2:: 90 [employer] - Initial Visit Session Number:: 5 Hypertension Hypertension Diagnosis:: Hypertension ICD-10 I10 BP: 120/70 [employer] Hypertension Guidelines Blood Pressure: 140/76 Outcomes/Goals: Able to verbalize/achieve optimal blood pressure <130/80, Incorporates diet changes & exercise for blood pressure control by DC and Other additional outcomes/goals Tobacco - Initial Assessment Tobacco Program Goals Tobacco Use: Non-smoker Diabetes Diabetes:: Yes Insulin: No Do you monitor your blood sugar at home?: Yes [employer] - 30 DAYS Visit Date of Eval: 11/02/24 Session Number:: 5 Hypertension Hypertension Diagnosis:: Hypertension ICD-10 I10 Resting Blood Pressure:: 120/70 [employer] Hypertension Guidelines Peak Exercise Blood Pressure:: 140/76 Change in medication: No Outcomes/Goals: Able to verbalize/achieve optimal blood pressure <130/80, Incorporates diet changes & exercise for blood pressure control by DC and Other additional outcomes/goals Interventions/plan: Instruct on optimal blood pressure, hypertension & medications, Instruct on effects of sodium, alcohol, stress, exercise &hypertension and Other additional plan/interventions 30 day Reassessments:: Progressing Tobacco - 30-Day Tobacco Program Goals Tobacco Use: Non-smoker Exacerbation Mgmt & Airway Clearance Reassessment: Demonstrates knowledge of O2 Rx at rest, Demonstrates knowledge of O2 Rx with exercise, Using O2 as prescribed, Has home O2 as prescribed and Uses port O2 as prescribed Bronchial Hygiene Plan: Yes: Pt demonstrates correctly for effective cough, Yes: Pt demo correct for CPT, Yes: Pt demo correct for device, Yes: Pt demo correct for NS nasal spray, Yes: Pt demo correct for sputum management, Yes: Pt demo correct for improved hydration, Yes: Pt demo correct for hand hygiene, Yes: Pt demo correct for evalute sputum, Yes: Pt demo correct for verbalize when to call MD and Yes: Pt demo correct for cleaning of respiratory equipment Medication Medication list reviewed:: Yes Taking medications 100% of the time:: Met Medication reassessment: Yes: Pt demonstrates correct technique timing for MDI, Yes: Pt demonstrates correct technique timing for DPI, Yes: Pt demonstrates correct technique timing for NEB and Yes: Pt demonstrates correct technique timing for spacer Diabetes Diabetes:: Yes Insulin dependent injection/pump?: No Non-Insulin Dependent?: Yes Do you monitor your blood sugar at home?: Yes Referral to Diabetic Clinic:: No [employer] - 60 DAYS Visit Session Number:: 5 Hypertension Hypertension Diagnosis:: Hypertension ICD-10 I10 Resting Blood Pressure:: 120/70 [employer] Hypertension Guidelines Peak Exercise Blood Pressure:: 140/76 Change in medication: No Outcomes/Goals: Able to verbalize/achieve optimal blood pressure <130/80, Incorporates diet changes & exercise for blood pressure control by DC and Other additional outcomes/goals Interventions/plan: Instruct on optimal blood pressure, hypertension & medications, Instruct on effects of sodium, alcohol, stress, exercise &hypertension and Other additional plan/interventions 60 day Reassessments:: Progressing Tobacco - 60-Day Tobacco Program Goals Tobacco Use: Non-smoker Exacerbation Mgmt & Airway Clearance Reassessment: Demonstrates knowledge of O2 Rx at rest, Demonstrates knowledge of O2 Rx with exercise, Using O2 as prescribed, Has home O2 as prescribed and Uses port O2 as prescribed Bronchial Hygiene Plan: Yes: Pt demonstrates correctly for effective cough, Yes: Pt demo correct for CPT, Yes: Pt demo correct for device, Yes: Pt demo correct for NS nasal spray, Yes: Pt demo correct for sputum management, Yes: Pt demo correct for improved hydration, Yes: Pt demo correct for hand hygiene, Yes: Pt demo correct for evalute sputum, Yes: Pt demo correct for verbalize when to call MD and Yes: Pt demo correct for cleaning of respiratory equipment Medication Taking medications 100% of the time:: Met Medication reassessment: Yes: Pt demonstrates correct technique timing for MDI, Yes: Pt demonstrates correct technique timing for DPI, Yes: Pt demonstrates correct technique timing for NEB and Yes: Pt demonstrates correct technique timing for spacer Diabetes Diabetes:: Yes Insulin dependent injection/pump?: No Non-Insulin Dependent?: Yes Do you monitor your blood sugar at home?: Yes Referral to Diabetic Clinic:: No [employer] - 90 DAYS Visit Session Number:: 5 Hypertension Hypertension Diagnosis:: Hypertension ICD-10 I10 Resting Blood Pressure:: 120/70 [employer] Hypertension Guidelines Peak Exercise Blood Pressure:: 140/76 Outcomes/Goals: Able to verbalize/achieve optimal blood pressure <130/80, Incorporates diet changes & exercise for blood pressure control by DC and Other additional outcomes/goals Interventions/plan: Instruct on optimal blood pressure, hypertension & medications, Instruct on effects of sodium, alcohol, stress, exercise &hypertension and Other additional plan/interventions 90 day Reassessments:: Progressing Tobacco - 90-Day Tobacco Program Goals Tobacco Use: Non-smoker Exacerbation Mgmt & Airway Clearance Bronchial Hygiene Plan: Yes: Pt demonstrates correctly for effective cough, Yes: Pt demo correct for CPT, Yes: Pt demo correct for device, Yes: Pt demo correct for NS nasal spray, Yes: Pt demo correct for sputum management, Yes: Pt demo correct for improved hydration, Yes: Pt demo correct for hand hygiene, Yes: Pt demo correct for evalute sputum, Yes: Pt demo correct for verbalize when to call MD and Yes: Pt demo correct for cleaning of respiratory equipment Medication Medication reassessment: Yes: Pt demonstrates correct technique timing for MDI, Yes: Pt demonstrates correct technique timing for DPI, Yes: Pt demonstrates correct technique timing for NEB and Yes: Pt demonstrates correct technique timing for spacer Diabetes Diabetes:: Yes Insulin dependent injection/pump?: No Non-Insulin Dependent?: Yes Do you monitor your blood sugar at home?: Yes Referral to Diabetic Clinic:: No [employer] - Final Visit Session Number:: 5 Hypertension Hypertension Diagnosis:: Hypertension ICD-10 I10 Resting Blood Pressure:: 120/70 [employer] Hypertension Guidelines Peak Exercise Blood Pressure:: 140/76 Outcomes/Goals: Able to verbalize/achieve optimal blood pressure <130/80, Incorporates diet changes & exercise for blood pressure control by DC and Other additional outcomes/goals Tobacco - Final Tobacco Program Goals Tobacco Use: Non-smoker Exacerbation Mgmt & Airway Clearance Bronchial Hygiene Plan: Yes: Pt demonstrates correctly for effective cough, Yes: Pt demo correct for CPT, Yes: Pt demo correct for device, Yes: Pt demo correct for NS nasal spray, Yes: Pt demo correct for sputum management, Yes: Pt demo correct for improved hydration, Yes: Pt demo correct for hand hygiene, Yes: Pt demo correct for evalute sputum, Yes: Pt demo correct for verbalize when to call MD and Yes: Pt demo correct for cleaning of respiratory equipment Medication Medication reassessment: Yes: Pt demonstrates correct technique timing for MDI, Yes: Pt demonstrates correct technique timing for DPI, Yes: Pt demonstrates correct technique timing for NEB and Yes: Pt demonstrates correct technique timing for spacer Diabetes Diabetes:: Yes Insulin dependent injection/pump?: No Non-Insulin Dependent?: Yes Do you monitor your blood sugar at home?: Yes Referral to Diabetic Clinic:: No Patient Health Questionnaire PHQ-9 Screening 30-Day Re-eval Assessment: 1. Little interest or pleasure in doing things: Not at all 2. Feeling down, depressed, or hopeless: Not at all 3. Trouble falling or staying asleep, or sleeping too much: Not at all 4. Feeling tired or having little energy: Several days 5. Poor appetite or overeating: Not at all 6. Feeling bad about yourself -- or that you are a failure or have let yourself or your family down: Not at all 7. Trouble concentrating on things, such as reading the newspaper or watching television: Not at all 8. Moving or speaking so slowly that other people could have noticed. Or the opposite - being so fidgety or restless that you have been moving around a lot more than usual: Not at all 9. Thoughts that you would be better off , or of hurting yourself in some way: Not at all How difficult have these problems made it for you to do your work, take care of things at home, or get along with other people?: Not difficult at all Total Score: 1 Knowledge Questionaire (BCKQ) Information Information: [place] COPD Knowledge Questionnaire (BCKQ) This questionnaire is designed to find out what you know about your lung problem. It should be completed without help form anyone else. This usually takes between 10 and 20 minutes. Your answers will help us to find out what information you need to help you to understand and manage your lung condition. Pawan the three affiliated which you think is the correct answer. Self-Efficacy 6-Item Scale 30-Day Re-eval Assessment: We would like to know how confident you are in doing certain activities. Please select your confidence level for: Fatigue Select Number: 5 Physical Discomfort or Pain Select Number: 5 Emotional Distress Select Number: 7 Other Symptoms or Health Problems Select Number: 6 Different Tasks and Activities Select Number: 6 Medication Select Number: 5 Total Score:: 5 Nutrition Survey Nutrition Survey Instructions Scoring Instructions
[2024-11-02 13:56] VITALS: BP 120/70; BP 140/76; O2SAT 90; BMI 39.9
== END 2024-11-27 23:59 ==
LOC: PR 06:31
DX: J44.9 Chronic obstructive pulmonary disease, unspecified (principal)
CPT/HCPCS: 97150; 94626

== ENCOUNTER 2025-05-03 12:38 | Observation (INO) | payer MEDICARE, SELFPAY ==
[2024-11-02 13:56] VITALS: BMI 39.9
[2025-05-03 13:21] VITALS: BP 92/73; PULSE 78; RESP 18; TEMP 36.4; O2SAT 94
[2025-05-03 13:24] VITALS: BMI 37.0
--- NOTE | 2025-05-03 13:24 | EKG12_ITS ---
Test Reason : GENERAL Blood Pressure : */* mmHG Vent. Rate : 73 BPM Atrial Rate : 73 BPM P-R Int : 196 ms QRS Dur : 130 ms QT Int : 404 ms P-R-T Axes : * -9 119 degrees QTcB Int : 445 ms Sinus rhythm with Premature atrial complexes Left bundle branch block Abnormal ECG Confirmed by LARRY CHATMAN, FRANCIS ([id number]), editorial cartoonist NIDA CRUZ ([id number]) on 05/04/2025 8:12:26 AM Referred By: Confirmed By: FRANCIS JUAREZ MD
[2025-05-03 14:20] LABS: Hematocrit 44.2 % (40-54); Hemoglobin 14.3 g/dL (13.0-16.5); Immature Granulocytes Count 0.080 X10^3/uL (0.0-0.0); Mean Corp Hgb Conc 32.4 g/dL (32-36); Mean Corpuscular Volume 107.8 fL (80-94); Mean Platelet Vol. 9.2 fl (6.2-12.0); NRBC Flagged by Analyzer 0 % (0-5); Platelet Count 238 K/mm3 (150-450); RBC Distribution Width CV 12.9 % (11.6-14.6); RBC Distribution Width SD 51.6 fl (35.1-43.9); Red Blood Count 4.10 M/mm3 (4.6-6.2); White Blood Count 13.6 K/mm3 (4.4-11.0)
--- NOTE | 2025-05-03 14:59 | EX.ED.DYSGE1 ---
HPI History of Present Illness Chief Complaint: Dizziness Detail of Chief Complaint: Lightheadedness. Low blood pressure. Informant: patient Onset/Context/Timing Onset: Today (This morning.) Timing: Intermittent Current Severity: Gone (Symptom-free now.) Maximum Severity: Mild Narrative Narrative: 79-year-old male history of A-fib on Eliquis. Also COPD, FL and 2 stents. Borderline diabetic. [facility] Jorge's adjusted about 2 months ago. At times he runs other times been running low. Today he felt lightheaded primarily with standing. When he initially presented his blood pressure was 90-73. He denies headache. He denies unilateral weakness. He denies any nausea, vomiting or diarrhea. No dysuria. No melena. Has had symptoms like this before with low blood pressure. 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, NYHA class 3 CPAP (continuous positive airway pressure) dependence Former smoker ICD (implantable cardioverter-defibrillator) in place COPD (chronic obstructive pulmonary disease) Myocardial infarct COPD (chronic obstructive pulmonary disease) CAD (coronary artery disease) Hypertension Home Medications Medication Instructions Recorded Last Taken Type albuterol sulfate 90 mcg/actuation 1 - 2 puff IH Q2H PRN Sob &/Or 03/16/16 05/03/25 History aerosol inhaler (Proventil HFA) Wheezing aspirin 81 mg chewable tablet 81 mg PO DAILY@0800 Check with 03/16/16 05/03/25 History primary doctor budesonide-formoterol HFA 160 2 puff inhalation BID COPD 03/16/16 05/03/25 History mcg-4.5 mcg/actuation aerosol inhaler (Symbicort) rosuvastatin 10 mg tablet 10 mg PO QHS HLD 12/17/17 05/02/25 History spironolactone 25 mg tablet 12.5 mg PO DAILY CHF 12/17/17 05/03/25 History metoprolol succinate 100 mg 12.5 mg PO DAILY HEART 03/03/21 05/03/25 History tablet,extended release 24 hr apixaban 5 mg tablet (Eliquis) 5 mg PO BID #60 tabs 03/13/21 05/03/25 Rx furosemide 40 mg tablet 40 mg PO DAILY 08/28/22 05/03/25 History artificial tears(hypromellose) 0.3 2 drp EACH EYE Q4H PRN dry eyes 01/09/23 Unknown Rx % eye gel (Systane Gel) #10 grams sacubitril 24 mg-valsartan 26 mg 1 tab PO BID 05/03/25 Unknown History tablet (Entresto) Allergy/AdvReac Type Severity Reaction Status Date / Time No Known Allergies Allergy Verified 05/15/23 02:45 Family History Mother Aneurysm Surgical History History of coronary artery stent placement History of cholecystectomy History of coronary artery stent placement History of colectomy Social History household members: none housing: house Smoking Status: Former smoker alcohol intake: former substance use type: does not use ROS ROS ED ROS Narrative Lightheadedness. Denies recent illness. Denies nausea, vomiting, diarrhea. Denies fever or chills. No melena. No dysuria. Constitutional Constitutional ED: Denies chills or fever(s) Eyes Eyes: Denies blurry vision ENT ENT ED: Denies ear pain Cardiovascular Cardiovascular: Denies chest pain Respiratory/Chest Respiratory/Chest: Denies cough or dyspnea Gastrointestinal Gastrointestinal: Denies abdominal pain Genitourinary Genitourinary ED: Denies dysuria or hematuria Musculoskeletal Musculoskeletal: Denies arthralgias or back pain Integumentary Denies abscess Neurologic Neurologic: Denies headache(s) Psychiatric Psychiatric: Denies anxiety or depression Endocrine Endocrinology: Denies cold intolerance Hematologic/Lymphatic Hematologic/Lymphatic: Reports none Allergic/Immunologic Allergic/Immunologic ED: Denies mouth swelling, tongue swelling or urticaria EXAM Physical Exam Narrative Exam Narrative: 79-year-old male initial blood pressure 92/73 currently symptom-free and his pressure is 116/66. Sitting upright in bed. Clinically looks well. Daughter at bedside. H EENT exam pupils round reactive light. No droop. Normal speech. Moist mucous membranes. Neck nontender no JVD. No lymphadenopathy. Lungs clear to auscultation bilaterally. Heart regular rhythm no murmur. Chest wall ribs nontender. Abdomen soft nontender. Moving all 4 extremities. Normal clinical therapist strength. Calves nontender no edema no cords. Back nontender. Neurologically is awake alert. Answering questions following commands. Benign exam. Const Vital Signs: 05/03/25 12:38 05/03/25 13:21 05/03/25 13:24 Temperature 97.6 F L Temperature Source Temporal Pulse Rate 78 Respiratory Rate 18 Respiratory Effort Normal Non-Labored Blood Pressure 92/73 Blood Pressure Mean 79 Pulse Ox 94 Oxygen Delivery Method Room Air Room Air 05/03/25 15:00 05/03/25 17:00 Temperature Temperature Source Pulse Rate 71 67 Respiratory Rate 18 16 Respiratory Effort Blood Pressure 130/60 H 121/69 H Blood Pressure Mean 83 86 Pulse Ox 95 96 Oxygen Delivery Method Room Air Room Air Positive well nourished and well developed; Negative for cachectic, contractures or unkempt General Appearance ED: well developed and NAD; Negative for unkempt, cachectic, contractures, cyanotic, diaphoretic or pallor Nutritional Appearance: Negative for cachectic HEENT Reports moist mucous membranes Negative for trauma or tenderness Eyes PERRL and EOMs intact bilaterally General Eye ED: Negative for pale conjunctiva or scleral icterus Neck no lymphadenopathy, supple and no JVD General: Negative for tenderness Chest Wall inspection of chest normal and palpation of chest normal Resp normal respiratory effort and clear to auscultation bilaterally Effort and Inspection: Negative for retractions Auscultation: Negative for rales, rhonchi, wheezes or diminished lung sounds Cardio regular rate, regular rhythm, S1 normal heart sound, S2 normal heart sound and no murmurs GI normal to inspection, nondistended, normoactive bowel sounds, non-tender, non-distended and no masses Auscultation: normoactive bowel sounds Palpation: soft; Negative for tender, guarding or rebound tenderness present Back/Spine no CVA tenderness General Back: Negative for CVA tenderness Cervical Spine: Negative for cervical spine tenderness Thoracic Spine / Upper Back: Negative for thoracic spinal tenderness or paraspinal muscle tenderness Lumbar Spine / Lower Back: Negative for lumbar spinal tenderness Extremity normal to inspection General Extremety ED: Negative for edema or tenderness General Extremity: Negative for edema Neuro oriented x3 and CN's II-XII intact bilaterally Sensorium / Orientation: alert; Negative for orientation impaired, lethargic or stuporous Motor Exam: strength 5/5 throughout Psych mental status grossly normal Appearance: Negative for unkempt Attitude: No agitated Mood & Affect: Negative for depressed, anxious or tearful Skin no rashes or lesions noted and no wounds General Skin Exam: Negative for jaundice or pallor Lesions: No lesion noted Rashes: No rashes noted Trauma: Negative for abrasion Wounds: Negative for wounds noted MDM MDM MDM Narrative Medical decision making narrative: 79-year-old male transient hypotension with lightheadedness. Currently feels fine his blood pressure is 116/66. Screening labs to be obtained and EKG. His exam currently is benign. They did a standing blood pressure was 109/70. Repeat exam patient is doing well 5:40 PM. He will be given a liter normal saline due to his creatinine going from 1 6-2.42. The hospitalist on page for admission. History & Record Review Discussion w/independent historian: Patient Additional record(s) reviewed:: Prior inpatient record, Prior outpatient record, Prior ED visit and Prior labs Lab Data Attestation: I reviewed the patient's lab results. Lab results narrative: CBC shows a white count 13.6. H&H 14 and 44. Platelets 238. Chemistry shows sodium 143. Gap 11. BUN and creatinine of 33 and 2.42. Glucose 109. Labs: Laboratory Results - last 24 hr 05/03/25 14:10 WBC 13.6 H RBC 4.10 L Hgb 14.3 Hct 44.2 MCV 107.8 H MCH 34.9 H MCHC 32.4 RDW Std Deviation 51.6 H RDW Coeff of Ignacio 12.9 Plt Count 238 MPV 9.2 Immature Gran % (Auto) 0.600 Neut % (Auto) 73.2 H Lymph % (Auto) 14.0 L [place] % (Auto) 10.7 H Eos % (Auto) 1.0 Baso % (Auto) 0.5 Absolute Neuts (auto) 10.0 H Absolute Lymphs (auto) 1.90 Nucleated RBC % 0 Sodium 143 Potassium 4.9 Chloride 106 Carbon Dioxide 26.0 Anion Gap 11 BUN 33 H Creatinine 2.42 H Est GFR (MDRD) Non-Af 27 L BUN/Creatinine Ratio 13.5 Glucose 109 H Calcium 8.7 Rhythm Strip Rhythm Strip: Sinus Rhythm Rate: 73 Ectopy: PAC(s) EKG Initial EKG: Attestation: I personally reviewed and interpreted this EKG as follows: Interpretation: Sinus Rhythm and No Acute Injury Pattern Comments: No sinus rhythm. Rate 73 no acute signs of FL or ischemia. Left bundle branch block. Discharge Plan Dx/Rx/DC Orders Clinical Impression: Acute hypotension, Acute kidney injury, Acute dehydration, History of diabetes mellitus, History of atrial fibrillation, Chronic anticoagulation Disposition Disposition: Acute Care Hospital [facility]
[2025-05-03 15:00] VITALS: BP 130/60; PULSE 71; RESP 18; O2SAT 95
[2025-05-03 15:14] LABS: Anion Gap 11 (5-15); BUN 33 mg/dL (4-19); BUN/Creat Ratio 13.5 RATIO (10-20); Calcium,Total 8.7 mg/dL (7.6-11.0); Carbon Dioxide 26.0 mmol/L (21.0-32.0); Chloride 106 mmol/L (98-108); Glucose 109 mg/dL (70-99); Potassium 4.9 mmol/L (3.3-5.1)
[2025-05-03 17:00] VITALS: BP 121/69; PULSE 67; RESP 16; O2SAT 96
[2025-05-03] MEDS: 0.9% Normal Saline (1000mL) 1,000 ML 999 ML IV (18:06)
[2025-05-03 18:11] VITALS: BP 121/69; PULSE 67; RESP 16; TEMP 36.4; O2SAT 96
--- NOTE | 2025-05-03 18:18 | PCM.HP.STD ---
HPI - General General Date of Admission: 05/03/25 Date of Service: 05/03/25 Chief Complaint: Lightheaded/dizziness, low blood pressure HPI Narrative TRINY CHAND, is a 79-year-old male history of A-fib on Eliquis, COPD, coronary artery disease with 2 stents, ALEX, heart failure with reduced ejection fraction with AICD presented to [facility] ED 05/03/2025 due to low blood pressure and lightheadedness. Today he notes he felt light headed primarily with standing and on presentation systolic blood pressure 92/73 with no other acute complaints. Patient given IV fluids with improvement in blood pressure but was found to have an AG with a BUN of 33 and creatinine of 2.42 and there was concern he was dehydrated so hospitalist contacted for admission. Patient evaluated at bedside. He reports that he hit his right leg on something several days ago and it bruised and swelled so it has been hurting some to get up and move around so he has not really been getting up to get as much food and water as he usually would but is still been taking his medications. Reports the swelling is slowly going down stump, does report compliance with his Eliquis. Not feeling lightheaded at this moment, feeling a little unwell overall but a little bit better with fluids. Denies any bowel or bladder changes, he is unsure what medications he takes as they are just put into a pill box for him but he does take them every day, he said the medications should be the same as they were in 2022 last time he was here except he started taking a "round pink pill" which family brought in and it is amiodarone 200 mg that he takes daily. He has had a CPAP for 4 to 5 years but used it once has not used it since. 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, NYHA class 3 CPAP (continuous positive airway pressure) dependence Former smoker ICD (implantable cardioverter-defibrillator) in place COPD (chronic obstructive pulmonary disease) Myocardial infarct COPD (chronic obstructive pulmonary disease) CAD (coronary artery disease) Hypertension Home Medications Medication Instructions Recorded Last Taken Type albuterol sulfate 90 mcg/actuation 1 - 2 puff IH Q2H PRN Sob &/Or 03/16/16 05/03/25 History aerosol inhaler (Proventil HFA) Wheezing aspirin 81 mg chewable tablet 81 mg PO DAILY@0800 Check with 03/16/16 05/03/25 History primary doctor budesonide-formoterol HFA 160 2 puff inhalation BID COPD 03/16/16 05/03/25 History mcg-4.5 mcg/actuation aerosol inhaler (Symbicort) rosuvastatin 10 mg tablet 10 mg PO QHS HLD 12/17/17 05/02/25 History spironolactone 25 mg tablet 12.5 mg PO DAILY CHF 12/17/17 05/03/25 History metoprolol succinate 100 mg 12.5 mg PO DAILY HEART 03/03/21 05/03/25 History tablet,extended release 24 hr apixaban 5 mg tablet (Eliquis) 5 mg PO BID #60 tabs 03/13/21 05/03/25 Rx furosemide 40 mg tablet 40 mg PO DAILY 08/28/22 05/03/25 History artificial tears(hypromellose) 0.3 2 drp EACH EYE Q4H PRN dry eyes 01/09/23 Unknown Rx % eye gel (Systane Gel) #10 grams sacubitril 24 mg-valsartan 26 mg 1 tab PO BID 05/03/25 Unknown History tablet (Entresto) Allergy/AdvReac Type Severity Reaction Status Date / Time No Known Allergies Allergy Verified 05/15/23 02:45 Family History Mother Aneurysm Surgical History History of coronary artery stent placement History of cholecystectomy History of coronary artery stent placement History of colectomy Social History household members: none housing: house Smoking Status: Former smoker alcohol intake: former substance use type: does not use ROS ROS Narrative General: Denies fever/chills HENT: Denies headache, denies stuffy nose, denies sore throat EYES: Denies changes in vision Resp: Denies cough, denies shortness of breath Cardiac: Denies chest pain GI: Denies abdominal pain, denies changes in bowel, denies nausea/vomiting : Denies changes in urination Extremity: Some right lower extremity swelling after he hit his zamora on something and some pain when he tries to walk but improving MSK: Denies weakness Neuro: Denies any numbness/tingling, lightheaded earlier Heme: Denies any bleeding or bruising Skin: Has a bump on right zamora and some bruising down near ankle Psychiatric: No complaints voiced Vital Signs Vital Signs Vital Signs: 05/03/25 12:38 05/03/25 13:21 05/03/25 13:24 Temperature 97.6 F L Temperature Source Temporal Pulse Rate 78 Respiratory Rate 18 Respiratory Effort Normal Non-Labored Blood Pressure 92/73 Blood Pressure Mean 79 Pulse Ox 94 Oxygen Delivery Method Room Air Room Air 05/03/25 15:00 05/03/25 17:00 05/03/25 18:11 Temperature 97.6 F L Temperature Source Pulse Rate 71 67 67 Respiratory Rate 18 16 16 Respiratory Effort Blood Pressure 130/60 H 121/69 H 121/69 H Blood Pressure Mean 83 86 86 Pulse Ox 95 96 96 Oxygen Delivery Method Room Air Room Air Weight Weight: 113.8 kg Body Mass Index (BMI) 37.0 Physical Exam Narrative General: Alert, oriented, no apparent distress HEENT: Atraumatic, normocephalic Eyes: Anicteric, normal conjunctiva, extraocular movements grossly intact Neck: Supple Respiratory: Some faint end expiratory wheezes, normal respiratory effort Cardiovascular: Irregularly irregular GI: Somewhat protuberant without any tenderness, rebound, guarding, rigidity Extremities: Does have 1+ right lower extremity pitting edema after hitting his zamora, reports compliance with his Eliquis Musculoskeletal: Moving all extremities Neuro: No overt focal neurological deficits Skin: Has a knot on right zamora and some bruising around ankle Psych: Cooperative Results Lab / Micro Data 05/03/25 14:10 05/03/25 14:10 Labs: Laboratory Results - last 24 hr 05/03/25 14:10: WBC 13.6 H, RBC 4.10 L, Hgb 14.3, Hct 44.2, MCV 107.8 H, MCH 34.9 H, MCHC 32.4, RDW Std Deviation 51.6 H, RDW Coeff of Ignacio 12.9, Plt Count 238, MPV 9.2, Immature Gran % (Auto) 0.600, Neut % (Auto) 73.2 H, Lymph % (Auto) 14.0 L, [place] % (Auto) 10.7 H, Eos % (Auto) 1.0, Baso % (Auto) 0.5, Absolute Neuts (auto) 10.0 H, Absolute Lymphs (auto) 1.90, Nucleated RBC % 0, Sodium 143, Potassium 4.9, Chloride 106, Carbon Dioxide 26.0, Anion Gap 11, BUN 33 H, Creatinine 2.42 H, Est GFR (MDRD) Non-Af 27 L, BUN/Creatinine Ratio 13.5, Glucose 109 H, Calcium 8.7 Rhythm Strip Rhythm Strip: Sinus Rhythm Rate: 73 Ectopy: PAC(s) Assessment & Plan Assessment/Plan (1) Acute hypotension: (2) Acute kidney injury: PLAN: Plan # AG on CKD -BUN 33 and creatinine 2.42, last values available back in June 2023 showed a creatinine of 1.59 -I do suspected that patient is somewhat dehydrated given he has not been moving around as much and therefore not eating and drinking as well -Gentle IV fluids, will hydrate cautiously given history of heart failure -Holding home Lasix, Entresto, spironolactone today, will need to clarify home doses as patient reports he takes 2 Lasix pills in the a.m. and 1 in the afternoon but he is unsure the strength and this is not reflected on home med list -Avoid nephrotoxic agents -Will check urine studies -Check postvoid and UA -Repeat BMP in the a.m. #Hx COPD -Continue home inhalers -Incentive spirometer #Hx of CAD -w/ previous stenting -Continue home medications # History of chronic heart failure with reduced ejection fraction with AICD -Daily weights, I's and O's -Monitor volume status closely #ALEX - Has NIPPV at home but is noncompliant #Paroxysmal Atrial Fibrillation -Rate control: Appears patient is on metoprolol, also reports he is now on amiodarone -Anticoagulation: Eliquis #DVT ppx: Not indicated, chronically on Eliquis Stephani Sullivan MD Charges/Coding Visit Charges Inpatient E&M: 53234 Init Hosp L2
[2025-05-03 19:25] VITALS: BP 137/74; PULSE 71; RESP 18; TEMP 36.1; O2SAT 96
[2025-05-03 19:31] VITALS: BMI 37.0
[2025-05-03] MEDS: 0.9% Normal Saline (1000mL) 1,000 ML 50 ML IV (20:00)
[2025-05-03] MEDS: 0.9% Saline Lock 10 ML Syringe IV (20:00)
[2025-05-03] MEDS: APIXABAN 5 MG TABLET PO (21:59)
[2025-05-04 03:29] VITALS: BMI 37.0
[2025-05-04 04:09] VITALS: BP 120/67; PULSE 71; RESP 18; TEMP 35.9; O2SAT 95
[2025-05-04 04:19] LABS: Mucous, Urine 0 SEEN /hpf (<or=2+)
[2025-05-04 04:27] LABS: Color, Urine Yellow (Yellow); Glucose, Dipstick 1000 mg/dl (Normal); Ketone-Dipstick Negative (Negative); Leukocyte Esterase-Dipstick Negative /ul (Negative); Nitrite-Dipstick Negative (Negative); Occult Blood-Urine Negative /ul (Negative); Protein-Dipstick 15 mg/dl (Negative); Specific Gravity, Urine 1.010 (1.002-1.030); Urine Bilirubin Dipstick Negative (Negative)
[2025-05-04 04:44] LABS: Red Blood Cells-Urine 0-5 SEEN /hpf (0-5); Squamous Epithelial Cells - UA 0-5 SEEN /hpf (0-5)
[2025-05-04 05:05] LABS: Urea Nitrogen, Urine 553 mg/dL (NO RANGE EST.)
[2025-05-04 06:09] LABS: Hematocrit 41.3 % (40-54); Hemoglobin 13.5 g/dL (13.0-16.5); Immature Granulocytes Count 0.050 X10^3/uL (0.0-0.0); Mean Corp Hgb Conc 32.7 g/dL (32-36); Mean Corpuscular Volume 107.6 fL (80-94); Mean Platelet Vol. 9.5 fl (6.2-12.0); NRBC Flagged by Analyzer 0 % (0-5); Platelet Count 184 K/mm3 (150-450); RBC Distribution Width CV 12.9 % (11.6-14.6); RBC Distribution Width SD 51.7 fl (35.1-43.9); Red Blood Count 3.84 M/mm3 (4.6-6.2); White Blood Count 10.6 K/mm3 (4.4-11.0)
[2025-05-04 06:37] LABS: Anion Gap 9 (5-15); BUN 27 mg/dL (4-19); BUN/Creat Ratio 13.1 RATIO (10-20); Calcium,Total 8.3 mg/dL (7.6-11.0); Carbon Dioxide 24.3 mmol/L (21.0-32.0); Chloride 109 mmol/L (98-108); Estimated Creatinine Clearance 37.52 ml/min (50-250); Glucose 88 mg/dL (70-99); Potassium 4.9 mmol/L (3.3-5.1)
--- NOTE | 2025-05-04 07:14 | US_ITS ---
PROCEDURE: KIDNEY AND BLADDER 05/04/2025 REASON FOR EXAM: AG ON CKD TECHNIQUE: KIDNEY AND BLADDER FINDINGS: Kidneys: Normal renal sizes, parenchymal thicknesses, and echotextures. Ramona: No hydronephrosis Cysts or Masses: No cyst or mass is seen. Other: RIGHT Kidney Size: 10.7 cm x 5.5 cm x Volume: 190.83 mL Cortical Thickness (if discernible): 16 mm (>6mm is normal) LEFT Kidney Size: 10.3 cm x 5.9 cm x 5.4 cm Volume: 170.51 mL Cortical Thickness (if discernible): 18 mm (>6mm is normal) The bladder is unremarkable. US/Kidney and Bladder IMPRESSION: NORMAL RENAL ULTRASOUND. Reading Location: [place] [id number]
--- NOTE | 2025-05-04 07:18 | PN.HOSP_ITS ---
Reason for Visit Reason for Visit: Diagnoses Hypotension, unspecified (05/03/25) Acute kidney failure, unspecified (05/03/25) Subjective Subjective Patient with no acute events overnight per self and per nursing report. He denies any recurrent lightheadedness or dizziness. He notes has been up and moving without issue. He is very eager for discharge and initial plan had been to continue hydration with possibly repeat functions the following morning but he was very insistent therefore compromise was to repeat labs in the afternoon to assure that renal function continued to improve prior to consideration for discharge to which she was amenable. Patient denies fevers, chills, nausea, emesis, abdominal pain, chest pain or dyspnea. Objective Data Objective Data Vital Signs: Vital Signs Temp Pulse Resp BP Pulse Ox O2 Del Method 96.6 F L 71 18 120/67 95 Room Air 05/04/25 04:09 05/04/25 04:09 05/04/25 04:09 05/04/25 04:09 05/04/25 04:09 05/04/25 04:09 Oxygen Delivery Method Room Air Weight: 251 lb 5.231 oz Body Mass Index (BMI) 37.0 Intake & Output: Intake and Output for Last 24 Hours 05/02/25 05/03/25 05/04/25 23:59 23:59 23:59 Intake Total 1250 / 1250 506.67 / 506.67 Output Total 350 / 350 375 / 375 Balance 900 / 900 131.67 / 131.67 Lab / Micro Data 05/04/25 05:13 05/04/25 12:51 Labs: Laboratory Results - last 24 hr 05/03/25 14:10: WBC 13.6 H, RBC 4.10 L, Hgb 14.3, Hct 44.2, MCV 107.8 H, MCH 34.9 H, MCHC 32.4, RDW Std Deviation 51.6 H, RDW Coeff of Ignacio 12.9, Plt Count 238, MPV 9.2, Immature Gran % (Auto) 0.600, Neut % (Auto) 73.2 H, Lymph % (Auto) 14.0 L, [place] % (Auto) 10.7 H, Eos % (Auto) 1.0, Baso % (Auto) 0.5, Absolute Neuts (auto) 10.0 H, Absolute Lymphs (auto) 1.90, Nucleated RBC % 0, Sodium 143, Potassium 4.9, Chloride 106, Carbon Dioxide 26.0, Anion Gap 11, BUN 33 H, C reatinine 2.42 H, Est GFR (MDRD) Non-Af 27 L, BUN/Creatinine Ratio 13.5, Glucose 109 H, Calcium 8.7 05/04/25 04:10: Urine Color Yellow, Urine Clarity Clear, Urine pH 7.0, Ur Specific [place] 1.010, Urine Protein 15 H, Urine Glucose (UA) 1000 H, Urine Ketones Negative, Urine Occult Blood Negative, Urine Nitrite Negative, Urine Bilirubin Negative, Urine Urobilinogen Normal, Ur Leukocyte Esterase Negative, Urine RBC 0-5 SEEN, Urine WBC 0 SEEN, Ur Squamous Epith Cells 0-5 SEEN, Amorphous Sediment 1+, Urine Bacteria 1+, Urine Mucus 0 SEEN, Ur Random Sodium 74, Urine Potassium 26.4, Urine Chloride 33, Urine Urea Nitrogen 553 05/04/25 05:13: WBC 10.6, RBC 3.84 L, Hgb 13.5, Hct 41.3, MCV 107.6 H, MCH 35.2 H, MCHC 32.7, RDW Std Deviation 51.7 H, RDW Coeff of Ignacio 12.9, Plt Count 184, MPV 9.5, Immature Gran % (Auto) 0.500, Neut % (Auto) 67.1, Lymph % (Auto) 19.5, [place] % (Auto) 8.4, Eos % (Auto) 3.9, Baso % (Auto) 0.6, Absolute Neuts (auto) 7.1, Absolute Lymphs (auto) 2.06, Nucleated RBC % 0, Sodium 142, Potassium 4.9, Chloride 109 H, Carbon Dioxide 24.3, Anion Gap 9, BUN 27 H, Creatinine 2.02 H, E stim Creat Clear Calc 37.52 L, Est GFR (MDRD) Non-Af 33 L, BUN/Creatinine Ratio 13.1, Glucose 88, Calcium 8.3 Rhythm Strip Rhythm Strip: Sinus Rhythm Rate: 73 Ectopy: PAC(s) Physical Exam Narrative Physical Examination: General: Awake, alert, oriented x 3 and cooperative, seated upright in the PCU bed, notes feeling improved, eager for discharge. Skin: Normal color, normal turgor, no icterus, no cyanosis except occasional stage ecchymoses, bilateral lower extremity venous stasis skin changes as well as mild swelling and ecchymotic change to the right zamora status post recently hitting it. HEENT: AT/NC, EOMI, PERRLA, MMM. Lungs: CTA bilaterally, moderate effort, mild decrease BL bases, no rales, ronchi or wheezing. Heart: Regular rate and rhythm; no gallop, rub audible. Abdomen: Soft, obese, NTTP, normal BS, no obvious distention. Extremities: No cyanosis, no clubbing, right zamora with some still persistent mild swelling/ecchymoses following recently hitting it with mild right distal extremity swelling around this region. Neurological: Patient awake, alert, oriented as noted, cognitive function intact; pupils equally reactive to light and accommodation, cranial nerves grossly normal, moving all 4 extremities, no focal deficits, strength improved, mildly globally decreased. Psychiatric: Affect appears normal, no acute evidence of depressive or anxiety feelings. Assessment & Plan Assessment/Plan (1) Acute kidney injury: PLAN: Plan The patient is a 79 y/o M w/ PMHx: Obesity, PAF, HTN, HLD, Diabetes mellitus type II, HFrEF s/p AICD placement, CAD s/p PCI, ALEX on CPAP, Former tobacco use, COPD, CKD stage III unclear subtype per GFR trending who presents to the [facility] ED on 05/03/25 with history of recently hitting his RLE several days prior and since onset of discomfort he avoided notable activity with increased swelling to the region but unfortunately because of this decreased oral intake given not ambulating to the [facility] but continued his oral diuretic therapies with onset mild lightheadedness/dizziness especially with positional changes prompting eventual ED evaluation. #1. Lightheadedness/Dizziness, Near Syncopal sensation secondary to Acute kidney injury on CKD stage III unclear subtype: Workup in the ED included T97.6, heart rate 78, BP initially 92/73, respiratory rate 18, 94% on room air, CBC with WC 13.6, hemoglobin 14.3, MCV 107.8, platelet 238 with left shift, BMP with BUN/pendetide 3/2.42, GFR 27, glucose 109. In ED patient ministered 1 L normal saline. Secondary to suspected recent decreased oral intake coupled with ongoing nephrotoxic regimen. Admission BUN/Cr 33/2/42, GFR 27, prior baseline creatinine noted to be primarily 1.4-1.6, admitted to ND, maintained on judicious hydration, held nephrotoxic medications, repeat 05/04/25 BMP w/ BUN/Cr 27/2.02, GFR 33. Urinalysis unremarkable. Urine sodium 74, urine potassium 26.4, urine chloride 33, urine urea nitrogen 553; however need UCr, will repeat Jesse with UCr request, renal US requested. Will continue judicious hydration and plan repeat BMP this afternoon. Attempting clarification of [facility] medications also. May consider d/c this afternoon if renal function continues to improve; however, may request continued admission and repeat labs in AM. #2. HFrEF: s/p AICD placement, will continue asa, eliquis, metoprolol, holding entresto, lasix, spironolactone given concurrent AG. Judiciously hydrating given AG. #3. Chronic COPD: Will temporarily hold home inhaler and in the interim maintain on ATC budesonide therapy, PRN albuterol, HOB, IS parameters. #4. CAD: Status post previous PCI, continue aspirin, statin, metoprolol with hold parameters, held entresto secondary AG. #5. Diabetes mellitus type II: Noted history, per current list on a regimen but regimen likely is not 100% correct, attempting to clarify, in the interim we will maintain on ADA diet, accu checks w/ ISS. #6. PAF: Continue home eliquis regimen with renal adjustments as needed in addition to metoprolol with hold parameters as needed. #7. Hypertension: BP initially low normal in the ED, improved with IVFs, will continue metoprolol, holding entresto, lasix, spironolactone given concurrent AG. #8. Hyperlipidemia: Continue home statin therapy. #9. Former tobacco use: Encourage continued tobacco cessation. #10. ALEX: CPAP q HS. #11. Morbid Obesity: Weight loss and lifestyle changes encouraged. #12. DVT prophylaxis: Eliquis. Charges/Coding Visit Charges Inpatient E&M: 55161 Subs Hosp L2
[2025-05-04] MEDS: Budesonide Respules 0.5 MG/2 ML AMPUL.NEB. INHALATION (07:31)
[2025-05-04 07:33] VITALS: PULSE 63; RESP 18; O2SAT 92
[2025-05-04] MEDS: 0.9% Normal Saline (1000mL) 1,000 ML 100 ML IV (08:38)
[2025-05-04 08:48] VITALS: BP 133/79; PULSE 67
[2025-05-04] MEDS: Metoprolol(XL)Succ 25 MG Tablet 12.5 MG PO (08:48)
[2025-05-04] MEDS: APIXABAN 5 MG TABLET PO (08:48)
[2025-05-04] MEDS: 0.9% Saline Lock 10 ML Syringe IV (08:50)
[2025-05-04 09:00] VITALS: BP 133/79; PULSE 67; RESP 18; TEMP 36.5; O2SAT 95
[2025-05-04 09:24] LABS: Creatinine, Urine (random) 122.00 mg/dL (39.00-259.00)
[2025-05-04 12:35] VITALS: PULSE 66; RESP 16
[2025-05-04 14:13] LABS: Anion Gap 10 (5-15); BUN 27 mg/dL (4-19); BUN/Creat Ratio 14.5 RATIO (10-20); Calcium,Total 8.8 mg/dL (7.6-11.0); Carbon Dioxide 24.6 mmol/L (21.0-32.0); Chloride 107 mmol/L (98-108); Estimated Creatinine Clearance 40.53 ml/min (50-250); Glucose 91 mg/dL (70-99); Potassium 4.9 mmol/L (3.3-5.1)
--- NOTE | 2025-05-04 15:04 | PCM.DC.SUM ---
Providers Date of Admission: 05/03/25 Date of Discharge: 05/04/25 Primary Care Physician: [facility] Reason For Visit: HYPOTENSION, AG Diagnosis Discharge Diagnosis (1) Acute kidney injury: Status: Acute Code(s): N17.9 - Acute kidney failure, unspecified Plan: DISCHARGE DIAGNOSES: #1. Lightheadedness/Dizziness, Near Syncopal sensation secondary to dehydration/nephrotoxic medications with resulting Acute kidney injury on CKD stage III unclear subtype #2. HFrEF s/p AICD placement #3. Chronic COPD #4. CAD, Status post previous PCI #5. Diabetes mellitus type II #6. PAF #7. Hypertension #8. Hyperlipidemia #9. Former tobacco use #10. ALEX #11. Morbid Obesity Medications at Discharge Home Medications albuterol sulfate 90 mcg/actuation aerosol inhaler (Proventil HFA) 1 - 2 puff IH Q2H PRN Sob &/Or Wheezing 03/16/16 aspirin 81 mg chewable tablet 81 mg PO DAILY@0800 Check with primary doctor 03/16/16 rosuvastatin 10 mg tablet 10 mg PO QHS HLD 12/17/17 spironolactone 25 mg tablet 12.5 mg PO DAILY CHF 12/17/17 Held on 05/04/25. Instructions: Resume on 05/12/25. Hold pending re-assessment per PCP at [facility] with repeat renal function assessment to assure appropriate to restart. metoprolol succinate 100 mg tablet,extended release 24 hr 12.5 mg PO DAILY HEART 03/03/21 apixaban 5 mg tablet (Eliquis) 5 mg PO BID #60 tabs 03/13/21 furosemide 40 mg tablet 40 mg PO DAILY 08/28/22 Held on 05/04/25. Instructions: Resume on 05/12/25. Hold pending re-assessment per PCP at [facility] with repeat renal function assessment to assure appropriate to restart diuretic therapy. artificial tears(hypromellose) 0.3 % eye gel (Systane Gel) 2 drp EACH EYE Q4H PRN dry eyes #10 grams 01/09/23 budesonide 160 mcg-glycopyr 9 mcg-formot 4.8 mcg/actuation HFA inhaler (Breztri Aerosphere) 2 inh inhalation BID 05/03/25 sacubitril 24 mg-valsartan 26 mg tablet (Entresto) 1 tab PO BID 05/03/25 Held on 05/04/25. Instructions: Resume on 05/12/25. Hold pending re-assessment per PCP at [facility] with repeat renal function assessment to assure appropriate to restart. Hospital Course Operations None Procedures EKG Summary of Care Provided Minutes Spent on Discharge: 35 Hospital Course: The patient is a 79 y/o M w/ PMHx: Obesity, PAF, HTN, HLD, Diabetes mellitus type II, HFrEF s/p AICD placement, CAD s/p PCI, ALEX on CPAP, Former tobacco use, COPD, CKD stage III unclear subtype per GFR trending who presented to the [facility] ED on 05/03/25 with history of recently hitting his RLE several days prior and since onset of discomfort he avoided notable activity with increased swelling to the region but unfortunately because of this decreased oral intake given not ambulating to the kitchen but continued his oral diuretic therapies with onset mild lightheadedness/dizziness especially with positional changes prompting eventual ED evaluation. Workup in the ED included T97.6, heart rate 78, BP initially 92/73, respiratory rate 18, 94% on room air, CBC with WC 13.6, hemoglobin 14.3, MCV 107.8, platelet 238 with left shift, BMP with BUN/pendetide 3/2.42, GFR 27, glucose 109. In ED patient ministered 1 L normal saline. Secondary to suspected recent decreased oral intake coupled with ongoing nephrotoxic regimen. Prior baseline creatinine noted to be primarily 1.4-1.6. Patient admitted to PCU as MS status, maintained on judicious hydration, held nephrotoxic medications, repeat 05/04/25 BMP w/ BUN/Cr 27/2.02, GFR 33. Urinalysis unremarkable. Urine sodium 74, urine potassium 26.4, urine chloride 33, urine urea nitrogen 553; however need UCr, will repeat Jesse with UCr request, renal US requested. Will continue judicious hydration and plan repeat BMP this afternoon. Attempting clarification of [facility] home medications also. May consider d/c this afternoon if renal function continues to improve; however, may request continued admission and repeat labs in AM. Renal ultrasound unremarkable. Follow-up repeat 05/04/25 afternoon BMP continued to improve with BUN/Cr 27/1.87, GFR 36. Per patient strong preference and given patient clinically improved quicker than expected, patient discharged to home with planned continued temporary hold on entresto, lasix, spironolactone with encouraged appropriate oral intake but not excessive to avoid heart failure exacerbation with planned repeat evaluation at [facility] with PCP with repeat basic metabolic panel at that time to assure continued renal function improvement. Weight / BMI Weight Weight: 251 lb 5.231 oz Body Mass Index (BMI) 37.0 ABG / Lab / Microbiology Data 05/04/25 05:13 05/04/25 12:51 Laboratory: Laboratory Results - last 24 hr 05/04/25 04:10: Urine Color Yellow, Urine Clarity Clear, Urine pH 7.0, Ur Specific [place] 1.010, Urine Protein 15 H, Urine Glucose (UA) 1000 H, Urine Ketones Negative, Urine Occult Blood Negative, Urine Nitrite Negative, Urine Bilirubin Negative, Urine Urobilinogen Normal, Ur Leukocyte Esterase Negative, Urine RBC 0-5 SEEN, Urine WBC 0 SEEN, Ur Squamous Epith Cells 0-5 SEEN, Amorphous Sediment 1+, Urine Bacteria 1+, Urine Mucus 0 SEEN, Ur Random Sodium 74, Urine Potassium 26.4, Urine Chloride 33, Urine Urea Nitrogen 553 05/04/25 05:13: WBC 10.6, RBC 3.84 L, Hgb 13.5, Hct 41.3, MCV 107.6 H, MCH 35.2 H, MCHC 32.7, RDW Std Deviation 51.7 H, RDW Coeff of Ignacio 12.9, Plt Count 184, MPV 9.5, Immature Gran % (Auto) 0.500, Neut % (Auto) 67.1, Lymph % (Auto) 19.5, [place] % (Auto) 8.4, Eos % (Auto) 3.9, Baso % (Auto) 0.6, Absolute Neuts (auto) 7.1, Absolute Lymphs (auto) 2.06, Nucleated RBC % 0, Sodium 142, Potassium 4.9, Chloride 109 H, Carbon Dioxide 24.3, Anion Gap 9, BUN 27 H, Creatinine 2.02 H, Estim Creat Clear Calc 37.52 L, Est GFR (MDRD) Non-Af 33 L, BUN/Creatinine Ratio 13.1, Glucose 88, Calcium 8.3 05/04/25 08:40: Ur Random Sodium 84, Urine Creatinine 122.00 05/04/25 12:51: Sodium 141, Potassium 4.9, Chloride 107, Carbon Dioxide 24.6, Anion Gap 10, BUN 27 H, Creatinine 1.87 H, Estim Creat Clear Calc 40.53 L, Est GFR (MDRD) Non-Af 36 L, BUN/Creatinine Ratio 14.5, Glucose 91, Calcium 8.8 Radiography Diagnostic Testing: Radiology Impression Renal Ultrasound 05/04/25 07:14 IMPRESSION: NORMAL RENAL ULTRASOUND. Reading Location: [facility] D/C Instructions Discharge Diet: Low fat / Low cholesterol and 1800 Calorie Control Diet May resume sexual activity in: No Restrictions Weight Bearing Status: Weight bearing as tolerated Call your doctor if you observe: Fever of 101 or Higher, Shortness of breath, Dizziness, Swelling in the ankles, Increased palpitations (irregular heartbeat), Calf discomfort and Uncontrolled pain DC O2, CPAP, BIPAP Needs Home O2 Discharge instructions: No Meaningful Use Info Meaningful Use Meaningful Use Diagnoses (Choose all that apply): None applicable Ischemic Stroke Statin Dosing Therapy Reference: STATIN DOSE THERAPY REFERENCE: * Patients > 75 years receive moderate or high dose statin therapy. * Patients 75 years or YOUNGER should receive HIGH intensity statin dose unless contraindicated. You will be required to document reason for non-treatment if statin daily dose does not meet guidelines. HIGH DOSE STATIN THERAPY DAILY Atorvastatin > than or = to 40 mg Rosuvastatin > than or = to 20 mg Amlodipine + Atorvastatin > than or = to 2.5/40 mg Ezetimibe + Simvastatin 10/80 mg Simvastatin 80mg Discharge Plan Admission Admit Date/Time: 05/03/25 18:18 Primary Reason for Your Visit: Near syncope secondary to dehydration w/ AG on CKD Attending Provider: Yara Bolton Primary Care Provider: [facility] Consult[facility] Providers: Stephani Sullivan Instructions Additional Instructions / Restrictions: ADDITIONAL DISCHARGE INSTRUCTIONS/PLAN OF CARE: #1. Lightheadedness/Dizziness, Near Syncopal sensation secondary to dehydration w/ associated Acute kidney injury on CKD stage III unclear subtype secondary to lack of appropriate oral intake and nephrotoxic medications: --Admission BUN/Cr 33/2/42, GFR 27, prior baseline creatinine noted to be primarily 1.4-1.6. --Admitted to [place], maintained on judicious hydration, held nephrotoxic medications, repeat 05/04/25 BMP w/ BUN/Cr 27/2.02, GFR 33-->and follow-up 05/04/25 afternoon BMP continued to improve with BUN/Cr 27/1.87, GFR 36. --Renal ultrasound unremarkable. --Please continue to temporarily hold nephrotoxic medication, assure appropriate oral intake but not overly hydrate as preference to avoid heart failure exacerbation with planned repeat evaluation at [facility] with your primary care physician with repeat basic metabolic panel at that time to assure continued renal function improvement. --Please follow-up with your primary care physician at the [facility] for reassessment on appropriate timing of reinitiation of Entresto, Lasix and spironolactone. Discharge Orders/Prescriptions Prescriptions: Continued aspirin 81 MG tablet,chewable 81 mg PO DAILY@0800 Patient Comments: heart [facility] albuterol sulfate [Proventil HFA] 6.7 GM HFA aerosol inhaler 1 - 2 puff IH Q2H PRN (Reason: Sob &/Or Wheezing) Patient Comments: shortness of breath rosuvastatin 10 MG tablet 10 mg PO QHS metoprolol succinate 100 mg Tablet Extended Release 24 Hr 12.5 mg PO DAILY Eliquis 5 mg tablet 5 mg PO BID Qty: 60 0RF Systane Gel 0.3 % gel 2 drp EACH EYE Q4H PRN (Reason: dry eyes) Qty: 10 0RF Breztri Aerosphere 160-9-4.8 mcg/actuation HFA aerosol inhaler 2 inh inhalation BID Held spironolactone 25 MG tablet 12.5 mg PO DAILY Hold Instructions: Resume on 05/12/25. Hold pending re-assessment per PCP at [facility] with repeat renal function assessment to assure appropriate to restart. furosemide 40 mg Tablet 40 mg PO DAILY Hold Instructions: Resume on 05/12/25. Hold pending re-assessment per PCP at [facility] with repeat renal function assessment to assure appropriate to restart diuretic therapy. Entresto 24-26 mg tablet 1 tab PO BID Hold Instructions: Resume on 05/12/25. Hold pending re-assessment per PCP at [facility] with repeat renal function assessment to assure appropriate to restart. Patient Comments: PT UNSURE OF STRENGTH BUT THINKS 26 Referrals [facility] - (Follow-up at the [facility] w/ Dr. Cox in ideally 3-5 days for re-assessment following hospitalization and repeat labs.) Disposition Disposition (needs filled in before D/C Order can be placed): Home, Self Care Charges/Coding Visit Charges Inpatient E&M: 92537 Disch Hosp >30min
[2025-05-04 15:06] VITALS: BP 133/79; PULSE 67; RESP 18; TEMP 36.5; O2SAT 95
--- NOTE | 2025-05-04 15:19 | CASEMGMT ---
Patient has order for discharge. RN CM in to discuss needs at discharge. Patient denies needs or help at discharge. Patient had no further questions or concerns.
--- OUTSIDE RECORDS SUMMARY | 2025-05-06 02:18 | XMS RPT_ITS | CCD ---
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 Clifton Jackson Emergency Provider [phone] Dr. Stephani Sullivan Attending Provider Dr. Kane Jaramillo Attending Provider [phone] Stephani Sullivan Admit Provider Dr. Stephani Sullivan Other Provider Dr. Shannon Martínez Attending Provider [phone] Dr. Shannon Martínez Other Provider CHAY BARNES Attending Unavailable NO, PHYSICIAN Primary Care Unavailable DEVAN HURTADO Referring Unavailab le NO, PHYSICIAN Primary Care Unavailable CHAY BARNES Referring Unavailable CHAY BARNES Attending [facility] Un[facility] Un[facility] Unavailable Gurwinder ORR Referring Unavailable Gurwinder ORR Attending [facility] Provider Unavailmanpreet Underwood MD, Dr. Lanier Emergency Provider [phone] Dr. Stephani Sullivan MD Admit Provider Dr. Stephani Sullivan MD Attending Provider [phone] Medications Current Medications Medication Drug Class(es) Dates Sig (Normalized) Sig (Original) Albuterol (7 sources) beta2-Adrenergic Agonist Start: 03-16-2016 Albuterol Sulfate (Proventil Hfa) 6.7 GM HFA aerosol inhaler Active 1 - 2 NMA IH Q2H as needed for Sob &/Or Wheezing March 16, 2016 12:00am Start: 03-16-2016 take 1 puff(s) by in halation every two hours Albuterol Sulfate (Proventil Hfa) 6.7 GM HFA aerosol inhaler Active 1 - 2 PUFF IH Q2H March 15, 2016 11:00pm Start: 03-16-2016 take 1 puff(s) by in halation every two hours Albuterol Sulfate (Proventil Hfa) 6.7 GM HFA aerosol inhaler Active 1 - 2 PUFF IH Q2H March 16, 2016 12:00am apixaban 5 mg oral tablet (7 sources) Factor Xa Inhibitor Start: 03-13-2021 take 1 tablet by mouth twice daily Apixaban (Eliquis) 5 mg tablet Active 5 mg PO TWICE A DAY 60 0 March 13, 2021 12:00am aspirin 81 mg chewable tablet (7 sources) Platelet Aggregation Inhibitor, Nonsteroidal Anti-inflammatory Drug Start: 03-16-2016 take 1 tablet by mouth once daily Aspirin 81 MG tablet,chewable Active 81 mg PO DAILY@0800 March 16, 2016 12:00am Check with primary doctor Budesonide-Formo terol (7 sources) Corticosteroid, beta2-Adrenergic Agonist Start: 03-16-2016 Budesonide-Formot emerald (Symbicort) 1 INHALER inhaler Active 2 NMA INHALATION TWICE A DAY March 16, 2016 12:00am COPD Start: 03-16-2016 take 1 puff(s) by in halation twice daily Budesonide-Formoterol (Symbicort) 1 INHALER inhaler Active 2 PUFF INHALATION TWICE A DAY March 15, 2016 11:00pm Start: 03-16-2016 take 1 puff(s) by in halation twice daily Budesonide-Formoterol (Symbicort) 1 INHALER inhaler Active 2 PUFF INHALATION TWICE A DAY March 16, 2016 12:00am furosemide 40 mg oral tablet (7 sources) Loop Diuretic Start: 08-28-2022 take 1 tablet by mouth once daily Furosemide 40 mg Tablet Active 40 mg PO DAILY August 28, 2022 12:00am homatropine methylbromide 0.3 mg/ml / HYDROcodone bitartrate 1 mg/ml oral solution (2 sources) Opioid Agonist, Cholinergic Muscarinic Agonist Start: 09-25-2022 Hydrocodone-Homat ropine (Hycodan) 5-1.5 mg/5 mL (5 mL) syrup Active 5 ML PO EVERY 6 HOURS 60 3 September 25, 2022 hypromellose 0.003 mg/mg ophthalmic gel (5 sources) Start: 01-09-2023 Artificial Tears(Hypromellos e) (Systane Gel) 0.3 % gel Active 2 NMA EACH EYE Q4H as needed for dry eyes 10 January 09, 2023 12:00am 24 hr metoprolol succinate 100 mg extended release oral tablet (7 sources) beta-Adrenergic Ludin Start: 03-03-2021 Metoprolol Succinate 100 mg Tablet Extended Release 24 Hr Active 12.5 mg PO DAILY March 03, 2021 12:00am HEART Start: 03-03-2021 take 12.5 mg by mout h once daily Metoprolol Succinate Active 12.5 MG PO DAILY March 03, 2021 12:00am Start: 03-03-2021 take 25 mg by mouth once daily Metoprolol Succinate Active 25 MG PO DAILY March 03, 2021 12:00am rosuvastatin calcium 10 mg oral tablet (7 sources) HMG-CoA Reductase Inhibitor Start: 12-17-2017 take 1 tablet by mouth at bedtime Rosuvastatin 10 MG tablet Active 10 mg PO AT BEDTIME December 17, 2017 1:00am HLD sacubitril 24 mg / valsartan 26 mg oral tablet (8 sources) Angiotensin 2 Receptor Ludin Start: 05-03-2025 Sacubitril-Valsart an (Entresto) 24-26 mg tablet Active 1 {tbl} PO TWICE A DAY May 03, 2025 12:00am Start: 08-28-2022 End: 05-03-2025 take 26 mg by mouth twice daily Entresto Discontinued 26 mg PO.IVFORM TWICE A DAY August 28, 2022 12:00am May 03, 2025 5:47pm heart Start: 08-28-2022 take 26 mg by mouth twice daily Entresto Active 26 MG PO.IVFORM TWICE A DAY August 28, 2022 12:00am Start: 08-28-2022 take 26 mg by mouth once daily Entresto Active 26 MG PO.IVFORM DAILY August 27, 2022 11:00pm Start: 08-28-2022 take 26 mg by mouth once daily Entresto Active 26 MG PO.IVFORM DAILY August 28, 2022 12:00am spironolactone 25 mg oral tablet (7 sources) Aldosterone Antagonist Start: 12-17-2017 Spironolactone 25 MG tablet Active 12.5 mg PO DAILY December 17, 2017 1:00am CHF Start: 12-17-2017 take 12.5 mg by mout h once daily Spironolactone Active 12.5 MG PO DAILY December 17, 2017 1:00am Completed/Discontinued Medications Medication Drug Class(es) Dates Sig (Normalized) Sig (Original) azithromycin 250 mg oral tablet (5 sources) Macrolide Antimicrobial Start: 01-09-2023 End: 05-15-2023 take 2 tablets by mouth once daily Azithromycin 250 mg tablet Discontinued 250 mg PO DAILY 4 4 0 January 09, 2023 12:00am May 15, 2023 2:50am start on day 2 of therapy doxycycline hyclate 100 mg oral capsule (7 sources) Tetracycline-class Drug Start: 08-28-2022 End: 05-15-2023 take 1 capsule by mouth twice daily Doxycycline Hyclate 100 mg capsule Discontinued 100 mg PO TWICE A DAY 13 0 August 28, 2022 12:00am May 15, 2023 2:50am lisinopril 2.5 mg oral tablet (7 sources) Angiotensin Converting Enzyme Inhibitor Start: 03-17-2016 End: 12-17-2017 take 1 tablet by mouth once daily Lisinopril 2.5 MG tablet Discontinued 2.5 mg PO DAILY 30 0 March 17, 2016 12:00am December 17, 2017 4:05am predniSONE 20 mg oral tablet (8 sources) Start: 05-15-2023 End: 07-18-2023 take 3 tablets by mouth once daily Prednisone 20 mg tablet Discontinued 60 mg PO DAILY 12 May 15, 2023 12:00am July 18, 2023 11:52am Start: 05-15-2023 End: 07-18-2023 take 60 mg by mouth once daily Prednisone Discontinued 60 MG PO DAILY May 15, 2023 12:00am July 18, 2023 11:52am Start: 01-09-2023 End: 05-15-2023 take 2 tablets by mouth once daily Prednisone 20 mg tablet Discontinued 40 mg PO DAILY 8 January 09, 2023 12:00am May 15, 2023 2:50am Start: 01-09-2023 End: 05-15-2023 take 40 mg by mouth once daily Prednisone Discontinued 40 MG PO DAILY January 09, 2023 12:00am May 15, 2023 2:50am Problems Problem Classification Problem Date Documented Da te Episodic/Chronic Acute and unspecified renal failure (9 sources) Injury of kidney; Translations: [Acute kidney failure, unspecified] 03-09-2021 Episodic Acute bronchitis (6 sources) Acute infective bronchitis; Translations: [Acute bronchitis, unspecified] 10-03-2022 Episodic Acute myocardial infarction (7 sources) Myocardial infarction; Translations: [Acute myocardial infarction, unspecified] 03-16-2016 Chronic Cardiac dysrhythmias (3 sources) Paroxysmal atrial fibrillation; Translations: [Paroxysmal atrial fibrillation] 07-14-2023 Chronic Chronic obstructive pulmonary disease and bronchiectasis (20 sources) Chronic obstructive lung disease; Translations: [Chronic obstructive pulmonary disease, unspecified] Onset: 11-05-2024 01-09-2023 Chronic Conduction disorders (5 sources) Automatic implantable cardiac defibrillator in situ; Translations: [Presence of automatic (implantable) cardiac defibrillator] Onset: 10-26-2024 07-14-2023 Chronic Congestive heart failure; nonhypertensive (15 sources) Acute exacerbation of chronic congestive heart failure; Translations: [Heart failure, unspecified] 09-30-2020 Chronic Coronary atherosclerosis and other heart disease (10 sources) Ischemic cardiomyopathy; Translations: [Coronary arteriosclerosis] Onset: 05-29-2017 09-25-2022 Chronic Essential hypertension (8 sources) Hypertensive disorder; Translations: [Essential (primary) hypertension] 09-25-2022 Chronic Fluid and electrolyte disorders (5 sources) Mild dehydration; Translations: [Dehydration] 04-30-2023 Episodic Inflammation; infection of eye (except that caused by tuberculosis or sexually transmitteddisease) (5 sources) Conjunctivitis; Translations: [Unspecified conjunctivitis] 01-09-2023 Episodic Nonspecific chest pain (6 sources) Chest discomfort; Translations: [Other chest pain] 10-03-2022 Episodic Other aftercare (1 source) Long-term current use of anticoagulant; Translations: [MCFP (current) use of anticoagulants] 05-03-2025 Episodic Other circulatory disease (2 sources) Low blood pressure; Translations: [Hypotension, unspecified] 05-03-2025 Episodic Other circulatory disease (1 source) H/O: atrial fibrillation; Translations: [Personal history of other diseases of the circulatory system] 05-03-2025 Episodic Other nutritional; endocrine; and metabolic disorders (1 source) H/O: diabetes mellitus; Translations: [Personal history of other endocrine, nutritional and metabolic disease] 05-03-2025 Episodic Other upper respiratory disease (3 sources) Acute bronchospasm; Translations: [Acute bronchospasm] 05-15-2023 Episodic Residual codes; unclassified (7 sources) Obstructive sleep apnea syndrome; Translations: [Obstructive sleep apnea (adult) (pediatric)] 09-29-2020 Chronic Respiratory failure; insufficiency; arrest (adult) (7 sources) Acute respiratory failure; Translations: [Acute respiratory failure with hypoxia] 03-09-2021 Episodic Spondylosis; intervertebral disc disorders; other back problems (2 sources) Cervicalgia; Translations: [Cervicalgia] Onset: 10-26-2024 Episodic Viral infection (14 sources) COVID-19; Translations: [Pneumonia due to 2019 novel coronavirus] 03-09-2021 Episodic Results Test Name Value Interpretation Reference Range Facility Absolute lymphocyte countOrd ered By: ED PROVIDER on 05-03-2025 Lymphocytes Auto (Unsp spec) [#/Vol] 1.90 10*3/uL 0.83-4.51 [facility] Absolute neutrophil countOrd ered By: ED PROVIDER on 05-03-2025 Neutrophils (Bld) [#/Vol] 10.0 10*3/uL High 2.0-7.7 [facility] Anion gap in Serum or Plasma Ordered By: Yannick Underwood on 05-03-2025 Anion gap [Moles/Vol] 11 mmol/L 5-15 [facility] Automated lymphocyte count a s percentage of total leukocytesOrdered By: ED PROVIDER on 05-03-2025 Lymphocytes/100 WBC Auto (Unsp spec) 14.0 % Low 19-41 [facility] BUN/creatinine ratioOrdered By: Yannick Underwood on 05-03-2025 Urea nitrogen/Creatinine [Mass ratio] 13.5 mg/mg 10-20 [facility] Basophil percentageOrdered B y: ED PROVIDER on 05-03-2025 Basophils/100 WBC (Bld) 0.5 % 0-1 [facility] Carbon dioxide, total [Moles /volume] in Central venous bloodOrdered By: Yannick Underwood on 05-03-2025 CO2 [Moles/Vol] 26.0 mmol/L 21.0-32.0 [facility] Chloride assayOrdered By: Abhay Underwood on 05-03-2025 Chloride [Moles/Vol] 106 mmol/L 98-108 [facility] Eosinophil percentageOrdered By: ED PROVIDER on 05-03-2025 Eosinophils/100 WBC (Bld) 1.0 % 0-5 [facility] Erythrocyte distribution wid th ratioOrdered By: ED PROVIDER on 05-03-2025 Erythrocyte distribution width (RBC) [Ratio] 12.9 % 11.6-14.6 [facility] Erythrocyte distribution wid th standard deviationOrdered By: ED PROVIDER on 05-03-2025 Erythrocyte distribution width (RBC) [Ratio] 51.6 fl High 35.1-43.9 [facility] Glomerular filtration rate ( GFR) estimation/1.73 sq m using serum, plasma, or whole bOrdered By: Yannick Underwood on 05-03-2025 GFR/1.73 sq M.predicted among non-blacks MDRD (S/P/Bld) [Vol rate/Area] 27 mL/min/{1.73_m2} Low >60 [facility] Comment on above: mL/min/1.73m2 CKD-EP I Creatinine Equation (2020) Hematocrit Auto (Bld) [Volum e fraction]Ordered By: ED PROVIDER on 05-03-2025 Hematocrit (Bld) [Volume fraction] 44.2 % 40-54 [facility] Hemoglobin measurementOrdere d By: ED PROVIDER on 05-03-2025 Hemoglobin (Bld) [Mass/Vol] 14.3 g/dL 13.0-16.5 [facility] Immature granulocytes/100 WB C Auto (Bld)Ordered By: ED PROVIDER on 05-03-2025 Immature granulocytes/100 WBC (Bld) 0.600 % 0.0-0.9 [facility] Comment on above: IG% - Immature Granu locytes (promyelocytes, myelocytes and metamyelocytes) > 1% indicates that a LEFT SHIFT is Present. MCV (mean corpuscular volume ) determinationOrdered By: ED PROVIDER on 05-03-2025 MCV (RBC) [Entitic vol] 107.8 fL High 80-94 [facility] Mean corpuscular hemoglobin (MCH) determinationOrdered By: ED PROVIDER on 05-03-2025 MCH (RBC) [Entitic mass] 34.9 pg High 27.0-32.0 [facility] Mean corpuscular hemoglobin concentration (MCHC) determinationOrdered By: ED PROVIDER on 05-03-2025 MCHC (RBC) [Mass/Vol] 32.4 g/dL 32-36 [facility] Mean platelet volume determi nationOrdered By: ED PROVIDER on 05-03-2025 Platelet mean volume (Bld) [Entitic vol] 9.2 fL 6.2-12.0 [facility] Monocyte percentageOrdered B y: ED PROVIDER on 05-03-2025 Monocytes/100 WBC (Bld) 10.7 % High 0-10 [facility] Neutrophil percentageOrdered By: ED PROVIDER on 05-03-2025 Neutrophils/100 WBC (Bld) 73.2 % High 47-70 [facility] Nucleated red blood cell per centageOrdered By: ED PROVIDER on 05-03-2025 Nucleated RBC/100 WBC (Bld) [Ratio] 0 % 0-5 [facility] Platelet countOrdered By: ED PROVIDER on 05-03-2025 Platelets (Bld) [#/Vol] 238 10*3/uL 150-450 [facility] Potassium measurement (mass/ volume)Ordered By: Yannick Underwood on 05-03-2025 Potassium (Unsp spec) [Mass/Vol] 4.9 mmol/L 3.3-5.1 [facility] RBC Auto (Bld) [#/Vol]Ordere d By: ED PROVIDER on 05-03-2025 RBC (Bld) [#/Vol] 4.10 10*6/uL Low 4.6-6.2 [facility] Serum creatinine measurement (mass/volume)Ordered By: Yannick Underwood on 05-03-2025 Creatinine [Mass/Vol] 2.42 mg/dL High 0.70-1.20 [facility] Serum glucose measurement (m ass/volume)Ordered By: Yannick Underwood on 05-03-2025 Glucose [Mass/Vol] 109 mg/dL High 70-99 [facility] Serum or plasma calcium len urement (mass/volume)Ordered By: Yannick Underwood on 05-03-2025 Calcium [Mass/Vol] 8.7 mg/dL 7.6-11.0 [facility] Serum or plasma urea nitroge n measurement (mass/volume)Ordered By: Yannick Underwood on 05-03-2025 Urea nitrogen [Mass/Vol] 33 mg/dL High 4-19 [facility] Sodium levelOrdered By: Yannick Underwood on 05-03-2025 Sodium [Moles/Vol] 143 mmol/L 133-145 [facility] White blood cell (WBC) count Ordered By: ED PROVIDER on 05-03-2025 WBC (Bld) [#/Vol] 13.6 10*3/uL High 4.4-11.0 [facility] [place] - Individual Treatment Pl anon 11-02-2024 [place] - Individual Treatment Plan [facility] Pulmonary Rehab Reports [id number] [place] [address] [place] - Individual Treatment Plan MR#: [id number] Acct: [id number] Name: TRINY LOVING Rep #: [id number] : 1945 79 From: Joaquín Hudson BS, RVT PCP: [facility] Exercise - Initial Assessment Visit Session Number:: 5 Physician Prescribed Exercise Modalities: Treadmill, SciFit Stepper and SciFit Lateral [place] Current METSs:: 2 Target HR:: 107 (85-107) Current RPD:: 2-3 Maximum Exercise HR:: 112 Resting Blood Pressure: 120/70 Maximum Exercise Blood Pressure: 140/76 Minimum SpO2 with exercise: 90 EKG Type: NSR to ST Nutrition/Wt Mgmt - Initial Weight Management Admit Height:: 5 ft 9 in Admit Weight:: 270 lb Admit BMI:: 39.9 Nutrition/Wt Mgmt - 30-Day Visit Date of Eval: 11/02/24 Weight Management Height: 5 ft 9 in Weight:: 270 lb BMI: 39.9 Weight Goals Progress:: Progressing (Pt is to attend nutrition class.) Nutrition/Wt Mgmt - 60-Day Weight Management Height: 5 ft 9 in Weight:: 270 lb BMI: 39.9 Nutrition/Wt Mgmt - 90-Day Weight Management Height: 5 ft 9 in Weight:: 270 lb BMI: 39.9 Nutrition/Wt Mgmt - Final Weight Management Height: 5 ft 9 in Weight:: 270 lb BMI: 39.9 Psychosocial - Initial Assess Problems/Goals History of Emotional Disorders: None Psychosocial Goals: 1. Patient is free from overwhelming symtoms of depression (or anxiety, 2. Identifies personal stressors states the strategies for managing, 3. Identifies activities to d ecrease isolation and/or symptoms of, 4. Improved psychosocial coping skills., 5. Verbalizes coping strategies., 6. Adequate treatment of depression. and 7. Improved Q.O.L. Psychosocial Test Tool Used:: Pulmonary QOL and PHQ-9 Questionnaire Referred to MD for counseling:: No Referral to Behavioral Health PS - Interventions: Yes: Attend Stress Management Classes Intervention/Plan: See List Interventions/Plan:: Assess stressors,coping strategies signs of derpression on admission, Instruct/assist pt to develop coping personal stress Mgt strategies, Refer to Behavioral Health if appropriate, Refer to Physician if appropriate, Instruct patient to recognize signs symptoms of depression, Instruct patient to recog and Other additional plan/intervention Psychosocial - 30-Day Visit Date of Eval: 11/02/24 Problems/Goals History of Emotional Disorders: None Psychosocial Goals: 1. Patient is free from overwhelming symtoms of depression (or anxiety, 2. Identifies personal stressors states the strategies for managing, 3. Identifies activities to decrease isolation and/or symptoms of, 4. Improved psychosocial coping skills., 5. Verbalizes coping strategies., 6. Adequate treatment of depression. and 7. Improved Q.O.L. Psychosocial Test Tool Used:: Pulmonary QOL and PHQ-9 Questionnaire Referred to MD for counseling:: No Referral to Behavioral Health PS - Interventions: Yes: Attend Stress Management Classes Plan Interventions/Plan:: Assess stressors,coping strategies signs of derpression on admission, Instruct/assist pt to develop coping personal stress Mgt strategies, Refer to Behavioral Health if appropriate, Refer to Physician if appropriate, Instruct patient to recognize signs symptoms of depression, Instruct patient to recog and Other additional plan/intervention Psychosocial - 60-Day Problems/Goals History of Emotional Disorders: None Psychosocial Goals: 1. Patient is free from overwhelming symtoms of depression (or anxiety, 2. Identifies personal stressors states the strategies for managing, 3. Identifies activities to decrease isolation and/or symptoms of, 4. Improved psychosocial coping skills., 5. Verbalizes coping strategies., 6. Adequate treatment of depression. and 7. Improved Q.O.L. Psychosocial Test Tool Used:: Pulmonary QOL and PHQ-9 Questionnaire Referred to MD for counseling:: No Referral to Behavioral Health PS - Interventions: Yes: Attend Stress Management Classes Plan Interventions/Plan:: Assess stressors,coping strategies signs of derpression on admission, Instruct/assist pt to develop coping personal stress Mgt strategies, Refer to Behavioral Health if appropriate, Refer to Physician if appropriate, Instruct patient to recognize signs symptoms of depression, Instruct patient to recog and Other additional plan/intervention Psychosocial - 90-Day Visit Session Number:: 5 Problems/Goals History of Emotional Disorders: None Psychosocial Goals: 1. Patient is free from overwhelming symtoms of depression (or anxiety, 2. Identifies personal stressors states the strategies for managing, 3. Identifies activities to decr ease isolation and/or symptoms of, 4. Improved psychosocial coping skills., 5. Verbalizes coping strategies., 6. Adequate treatment of depression. and 7. Improved Q.O.L. Psychosocial Test Tool Used:: Pulmonary QOL and PHQ-9 Q (more content not included)... Normal [facility] MR CERVICAL SPINE WITHOUT CO NTRASTon 10-26-2024 MR CERVICAL SPINE WITHOUT CONTRAST EXAMINATION: MR CERVICAL SPINE WITHOUT CONTRAST HISTORY: ORDERING SYSTEM PROVIDED HISTORY: LUE weakness/radiculopath y, TECHNOLOGIST PROVIDED HISTORY: Illness/Other Reason for exam: left hand numbness/ tingling for 2-3 months: no known injury: Encounter Type: Unknown Additional signs and symptoms: n ORDERING SYSTEM PROVIDED DIAGNOSIS CODES: M54.2 Cervicalgia COMPARISON: None. TECHNIQUE: Multiplanar, multisequence MRI imaging of the cervical spine without contrast. FINDINGS: Normal alignment. Signal in the bone marrow space is normal. No bone marrow edema. No suspicious osseous lesions. C2-3, no spinal stenosis or foraminal narrowing. C3-4, mild degenerative disc disease. No spinal stenosis. Mild left foraminal narrowing. C4-5, moderate degenerative disc disease. There is diffuse disc bulge. There is a broad-based right paracentral protrusion. Mild spinal canal stenosis. There is flattening of the ventral aspect of the cord. Uncovertebral osteophytes and facet hypertrophy result in moderate foraminal narrowing bilaterally. C5-6, severe degenerative disc disease. Disc osteophyte complex and ligamentous thickening results in moderate spinal canal stenosis. Severe foraminal narrowing bilaterally. C6-7, severe degenerative disc disease. There is disc bulge as well as a right paracentral disc protrusion. There is severe spinal canal stenosis most severe on the right side. There is flattening of the ventral aspect of the cord mostly on the right side. Uncovertebral osteophytes result in severe foraminal narrowing bilaterally, right greater than left. C7-T1, mild degenerative disc disease. No spinal canal stenosis. There is a right foraminal disc protrusion and osteophyte resulting in severe right foraminal narrowing. Mild left foraminal narrowing. No abnormal signal in the cervical spinal cord. No paraspinal masses. IMPRESSION: 1. At C6-7, there is severe degenerative disc disease. There is disc bulge and a right paracentral disc protrusion resulting in severe spinal canal stenosis most severe on the right side of the spinal canal. Severe bilateral foraminal narrowing, right greater than left. 2. At C7-T1, there is a right foraminal disc protrusion and osteophyte complex resulting in severe right foraminal narrowing. 3. At C5-6, disc osteophyte complex and ligamentous thickening results in moderate spinal stenosis. There is severe bilateral foraminal narrowing. 4. At C4-5, disc bulge and broad-based central protrusion result in mild spinal stenosis. [facility] [place] Workstation ID: [id number] Dictated by: ERWIN SANON on SatOct 26, 2024 1:35:10 PM EST Transcribed by: JUAN PABLO CONTRERAS on SatOct 26, 2024 2:24:48 PM EST Finalized by: ERWIN SANON on SatOct 26, 2024 3:49:58 PM EST Normal [facility] Comment on above: Order Comment: PT/FA X AUTH:[id number] Injury/Trauma or Illness?:Illness/Other How long have you had these symptoms (acute/chronic)?:Unknown Reason for exam?:left hand numbness/ tingling for 2-3 months: no known injury: Type of Exam?:Unknown Additional signs and symptoms?:n XR FOR MRI CLEARANCEon 10-26 XR FOR MRI CLEARANCE EXAMINATION: XR FOR MRI CLEARANCE 10/26/2024 10:00 am HISTORY: ORDERING SYSTEM PROVIDED HISTORY: pre mri clearance, TECHNOLOGIST PROVIDED HISTORY: Illness/Other Reason for exam: Pre MRI clearance. Pa and lateral chest/ ICD confirm single lead/ mri conditional device Cancer History: . Surgery, RadiationHistory: . Encounter Type: Initial Additional signs and symptoms: n ORDERING SYSTEM PROVIDED DIAGNOSIS CODES: Z95.810 ICD (implantable cardioverter-defibril lator) in place COMPARISON: None. FINDINGS: Left-sided single lead ICD terminating in the right ventricle. Lead is intact. Normal cardiomediastinal contours. Clear lungs. No pleural effusion or pneumothorax. No acute osseous abnormality. IMPRESSION: 1. Single lead left-sided ICD in place. 2. No acute cardiopulmonary process. Workstation ID: [id number] Dictated by: WANDA HUI on SatOct 26, 2024 10:33:27 AM EST Transcribed by: WANDA HUI on SatOct 26, 2024 10:33:27 AM EST Finalized by: WANDA HUI on SatOct 26, 2024 10:33:27 AM EST Normal [facility] Comment on above: Order Comment: Pa an d lateral chest/ ICD confirm single lead/ mri conditional device Injury/Trauma or Illness?:Illness/Other How long have you had these symptoms (acute/chronic)?:Acute Reason for exam?:Pre MRI clearance. Pa and lateral chest/ ICD confirm single lead/ mri conditional device History of cancer?:. Surgeries, chemotherapy, or radiation?:. Type of Exam?:Initial Additional signs and symptoms?:n [place] - History AND Physicalon 10-02-2024 [place] - History & Physical [facility] Pulmonary Rehab Reports [address] [place] [address] [place] - History Physical MR#: [id number] Acct: [id number] Name: TRINY LOVING Rep #: [id number] : 1945 79 From: Joaquín Hudson BS, RVT PCP: [facility] History of Present Illness General Arrival date:: 10/02/24 Arrival time:: 12:54 Date of Referral:: 09/21/24 Date of Evaluation: 10/02/24 Referring Physician: SUSANA Primary Diagnosis: COPD History of Present Pulmonary Event mMRC Breathless Scale: When is the patient short of breath? Y/N Grade: Description of Breathlessness: 0 I only get breathless with strenuous exercise. 1 I get short of breath when hurrying on level ground or walking up a slight hill. 2 On level ground, I walk slower than people of the same age because of breathless, or have to stop for breath when walking at my own pace. 3 I stop for breath after walking 100 yards or after a few minutes on level ground. 4 I am too breathless to leave the house or I am breathless when dressing. Respiratory Problems: Yes Wheezing, Able to Speak in Full Sentences, Ankle Swelling and Dyspnea with Activity; No Retain Secretions, Limited Range of Motion, Chest Pain, Fatigue, Dizziness, Hoarseness, Anxiety, Panic, Dyspnea at Rest, Dyspnea Lying Down Flat or Cough with Secretions Medications Home Medications albuterol sulfate 90 mcg/actuation aerosol inhaler (Proventil HFA) 1 - 2 puff IH Q2H PRN Sob /Or Wheezing 03/16/16 aspirin 81 mg chewable tablet 81 mg PO DAILY@0800 Check with primary doctor 03/16/16 budesonide-formoterol HFA 160 mcg-4.5 mcg/actuation aerosol inhaler (Symbicort) 2 puff inhalation BID COPD 03/16/16 rosuvastatin 10 mg tablet 10 mg PO QHS HLD 12/17/17 spironolactone 25 mg tablet 12.5 mg PO DAILY CHF 12/17/17 metoprolol succinate 100 mg tablet,extended release 24 hr 12.5 mg PO DAILY HEART 03/03/21 apixaban 5 mg tablet (Eliquis) 5 mg PO BID #60 tabs 03/13/21 Entresto 26 mg PO.IVFORM BID heart 08/28/22 furosemide 40 mg tablet 40 mg PO DAILY 08/28/22 artificial tears(hypromellose) 0.3 % eye gel (Systane Gel) 2 drp EACH EYE Q4H PRN dry eyes #10 grams 01/09/23 Allergies Allergies No Known Allergies Allergy (Verified 05/15/23 02:45) Secretions Cough:: Yes AM: Yes PM: Yes Sleep Disorder Evaluation Hx of Sleep Apnea: Yes Do you snore loudly (louder than talking or can be heard through closed doors)?: Yes Do you often feel tired/ fatigued/ sleepy during daytime?: No Has anyone observed you stop breathing during sleep?: No History of Hypertension (for STOP score): Yes STOP Results: Positive Medical Utilization Medical Devices Do you use a peak flow meter at home?: No Do you use a spacer device with your inhalers?: No Medical Utilization Number of hospital visits in the last year?: 1 Number of emergency room visits in the last year?: 1 Do you see your physician on a regular schedule?: Yes How often?: every 6 months Advanced Directives Advanced Directives Power of Railroad 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 [employer]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: Yes Living Will: Yes Advance Directives Information Provided: Yes Advance Directives on File: No DNR Order?:: No Past Medical History Covid-19 Screening Physicial Symptoms Other Clinical Concerns Exposure Risk Pertinent Comorbidities 65 years or older:: Yes Has a chronic lung disease or moderate to severe asthma:: Yes Has a serious heart condition:: Yes Medical History Past Medical History (Updated 07/26/23 @ 00:02 by Domenica Fan) Paroxysmal A-fib I48.0 Systolic congestive heart failure with reduced left ventricular function, NYHA class 3 I50.20 CPAP (continuous positive airway pressure) dependence Z99.89 Former smoker Z87.891 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 COPD (chronic obstructive pulmonary disease) J44.9 Myocardial infarct I21.9 2 stents COPD (chronic obstructive pulmonary disease) J44.9 CAD (coronary artery disease) I25.10 Hypertension I10 Surgical History Past Surgical History History of coronary artery stent placement Z95.5 History of cholecystectomy Z90.49 History of coronary artery stent placement Z95.5 History of colectomy Z90.49 Significant Family History Family History Mother Aneurysm Social History Smoking History Smoking Status: Former smoker Years Smokin Packs Smoked per Day: 2 (stopped 2006) Hx Tobacco Use: Yes Hx Smoking Exposure: Yes Alcohol Use Alcohol Usage: No Substance Abuse Hx Substance Use: No Occupation Occupation (List type of work in comments):: Retired Hobbies, Recreation, Social Activities Hobbies: None Functioning ADL/IADL Current Ability Current Ability: Independent: Self-Care (e.g.,grooming, dressing, bathing), Independent: Ambulation, Independent: Transfer and I (more content not included)... Normal [facility] [place] - Individual Treatment Pl anon 10-02-2024 [place] - Individual Treatment Plan [facility] Pulmonary Rehab Reports [address] [place] [address] [place] - Individual Treatment Plan MR#: [id number] Acct: [id number] Name: TRINY LOVING Rep #: [id number] : 1945 79 From: Joaquín Hudson BS, RVT PCP: [facility] General Information2 General Information Admitting Diagnosis: COPD Personal Learning Style/Barriers Personal Learning Style:: Audio/Visual Barriers to Learning: None Stage of change r/t lifestyle modifications: Contemplation Education/Goals NC Patient Goals: Increase muscle strength: Initial Assessment, Experience less dyspnea: Initial Assessment, Improve energy level: Initial Assessment, Participate in home exercise: Initial Assessment, Improve the ability to cope with ADLs: Initial Assessment and Improve diet and nutrition: Initial Assessment Exercise - Initial Assessment Visit Date of Eval: 10/02/24 (initial eval ) Problem/Goals Problems: Deconditioning, No regular exercise, Knowledge deficit exercise guidelines and Knowledge deficit exercise safety Goals:: Aerobic exercise 30-60 mins x 12 weeks [36 sessions] Functional Capacity Test Number of feet walked: 670 Lowest SPO2 %: 88 Physician Prescribed Exercise Modalities: Treadmill, Rower, Schwinn Airdyne AD-7, SciFit Stepper, DiversityDoctorFit Pro-II Ergometer and DiversityDoctorFit Lateral [place] Frequency (days/week): 3 Duration (Minutes):: 30-45 Intensity: 60-80% of age predicted maximum heart rate reserve Current METSs:: 2 Target HR:: 107 (85-107) Resting Blood Pressure: 120/76 Plan Plan and Plan to Review:: Benefits of exercise, Core components of exercise, How to measure dyspnea level, How to monitor dyspnea level, Exercise intensity, Exercise safety guideline, Home exercise guidelines and Sandra: 3-4/11-13 Home Exercise Mode: Walking Nutrition/Wt Mgmt - Initial Visit Date of Eval: 10/02/24 (initial eval ) Problems/Goals Problems: Overweight Goals: Wt Loss 1-2 lbs per week Weight Management Knowledge Deficit Management of:: Overweight Admit Height:: 5 ft 9 in Admit Weight:: 263 lb Admit BMI:: 38.8 Intervention Referral to dietitian:: No Will attend diet classes:: Yes Intervention/Plan: Instruct on ideal BMI set weight loss goal w/patient, Assist pt to ID incorporate diet changes for weight loss by S9, Refer to Structured Weight Loss program as appropria te, Encourage goal of using 250-300dcal per session for weight loss and Other additional plan/interventions Plan Nutrition Plan: Yes: Review BMI or WC identify target wt strategies for wt control, Yes: Nutrition education class:, Yes: Medication education class [Prednisone]:, Yes: Weight control education class:, Yes: Education re: Need for ongoing weight monitoring, Yes: Food diary: and Yes: Physical activity log: Nutrition/Wt Mgmt - 30-Day Weight Management Height: 5 ft 9 in Weight:: 263 lb BMI: 38.8 Nutrition/Wt Mgmt - 60-Day Weight Management Height: 5 ft 9 in Weight:: 263 lb BMI: 38.8 Nutrition/Wt Mgmt - 90-Day Weight Management Height: 5 ft 9 in Weight:: 263 lb BMI: 38.8 Nutrition/Wt Mgmt - Final Weight Management Height: 5 ft 9 in Weight:: 263 lb BMI: 38.8 Psychosocial - Initial Assess Visit Date of Eval: 10/02/24 (initial eval ) Problems/Goals History of Emotional Disorders: None Psychosocial Goals: 1. Patient is free from overwhelming symtoms of depression (or anxiety, 2. Identifies personal stressors states the strategies for managing, 3. Identifies activities to decrease isolation and/or symptoms of, 4. Improved psychosocial coping skills., 5. Verbalizes coping strategies., 6. Adequate treatment of depression. and 7. Improved Q.O.L. Psychosocial Test Tool Used:: Pulmonary QOL and PHQ-9 Questionnaire Referral to Behavioral Health PS - Interventions: Yes: Attend Stress Management Classes Intervention/Plan: See List Interventions/Plan:: Assess stressors,coping strategies signs of derpression on admission, Instruct/assist pt to develop coping personal stress Mgt strategies, Refer to Behavioral Health if appropriate, Refer to Physician if appropriate, Instruct patient to recognize signs symptoms of depression, Instruct patient to recog and Other additional plan/intervention Psychosocial - 30-Day Problems/Goals History of Emotional Disorders: None Psychosocial Goals: 1. Patient is free from overwhelming symtoms of depression (or anxiety, 2. Identifies personal stressors states the strategies for managing, 3. Identifies activities to decrease isolation and/or symptoms of, 4. Improved psychosocial coping skills., 5. Verbalizes coping strategies., 6. Adequate treatment of depression. and 7. Improved Q.O.L. Psychosocial Test Tool Used:: Pulmonary QOL and PHQ-9 Questionnaire Referral to Behavioral Health PS - Interventions: Yes: Attend Stress Management Classes Plan Interventions/Plan:: Assess stressors,coping strat (more content not included)... Normal [facility] Absolute lymphocyte countOrd ered By: Shannon Martínez on 07-18-2023 Lymphocytes Auto (Unsp spec) [#/Vol] 1.10 10*3/uL 0.83-4.51 [facility] Basophil percentageOrdered B y: Shannon Burgoskassandra on 07-18-2023 Basophils/100 WBC (Bld) 0.3 % 0-1 [facility] Chloride [Moles/Vol] 105 mmol/L 98-107 [facility] Eosinophils/100 WBC (Bld) 0.0 % 0-5 [facility] Glucose [Mass/Vol] 103 mg/dL 74-106 [facility] Comment on above: Fasting Glucose resu lt from 100 to 125 mg/dL suggests IMPAIRED HOMEOSTASIS per A.D.A. criteria. Neutrophils (Bld) [#/Vol] 28.7 10*3/uL 2.0-7.7 [facility] Neutrophils/100 WBC (Bld) 88.5 % 47-70 [facility] Potassium [Moles/Vol] 4.0 mmol/L 3.5-5.1 [facility] Sodium [Moles/Vol] 139 mmol/L 136-145 [facility] WBC (Bld) [#/Vol] 32.4 10*3/uL 4.4-11.0 [facility] Comment on above: CRITICAL VALUE VERIF IED. CALLED TO MARLENI CEVALLOS ([facility])07/18/23 [address] Miguel.RESULTS READ BACK BY SAME. Blood erythrocytes count (nu mber/volume)Ordered By: Shannon Martínez on 07-18-2023 RBC (Bld) [#/Vol] 4.38 10*6/uL 4.6-6.2 [facility] Blood hemoglobin measurement (mass/volume)Ordered By: Shannon Martínez on 07-18-2023 Hemoglobin (Bld) [Mass/Vol] 14.8 g/dL 13.0-16.5 [facility] Blood lymphocytes/100 leukoc ytesOrdered By: Shannon Martínez on 07-18-2023 Lymphocytes/100 WBC (Bld) 3.4 % 19-41 [facility] Blood manual differential co mment interpretation (narrative result)Ordered By: Shannon Martínez on 07-18-2023 Manual differential comment Esteban (Bld) [Interp] COMMENT [facility] Comment on above: NEUTROPHILIA.MONOCYT OSIS.LEUKOCYTOSIS. Blood monocytes/100 leukocyt esOrdered By: Shannon Martínez on 07-18-2023 Monocytes/100 WBC (Bld) 6.3 % 0-10 [facility] Blood platelet mean volumeOr dered By: Shannon Martínez on 07-18-2023 Platelet mean volume (Bld) [Entitic vol] 10.0 fL 6.2-12.0 [facility] Determination of erythrocyte mean corpuscular volume (MCV)Ordered By: Shannon Martínez on 07-18-2023 MCV (RBC) [Entitic vol] 104.3 fL 80-94 [facility] Hematocrit Auto (Bld) [Volum e fraction]Ordered By: Shannon Martínez on 07-18-2023 Hematocrit (Bld) [Volume fraction] 45.7 % 40-54 [facility] - Chemistry and C hemistry - challengeOrdered By: Shannon Martínez on 07-18-2023 CO2 [Moles/Vol] 30.0 mmol/L 21.0-32.0 [facility] Urea nitrogen/Creatinine [Mass ratio] 37.1 mg/mg 10-20 [facility] - Hematology and Cell countsOrdered By: Shannon Martínez on 07-18-2023 Erythrocyte distribution width (RBC) [Entitic vol] 51.6 fL 35.1-43.9 [facility] Erythrocyte distribution width (RBC) [Ratio] 13.2 % 11.6-14.6 [facility] Immature granulocytes/100 WBC (Bld) 1.500 % 0.0-0.9 [facility] Comment on above: IG% - Immature Granu locytes (promyelocytes, myelocytes and metamyelocytes) > 1% indicates that a LEFT SHIFT is Present. MCH (RBC) [Entitic mass] 33.8 pg 27.0-32.0 [facility] Nucleated RBC/100 WBC (Bld) [Ratio] 0 % 0-5 [facility] MCHC Auto (RBC) [Mass/Vol]Or dered By: Shannon Martínez on 07-18-2023 MCHC (RBC) [Mass/Vol] 32.4 g/dL 32-36 [facility] No Panel InformationOrdered By: Shannon Martínez on 07-18-2023 Estimated Creatinine Clearance Calc 38.91 ml/min [facility] Estimated GFR (MDRD) Amer 55 mL/min >60 [facility] Comment on above: GFR Calc Estimated GFR (MDRD) Non-Af Amer 45 mL/min >60 [facility] Comment on above: Non- GFR Calc Platelets bldOrdered By: Qiana Martínez on 07-18-2023 Platelets (Bld) [#/Vol] 221 10*3/uL 150-450 [facility] Review by pathologistOrdered By: Shannon Martínez on 07-18-2023 Pathologist review Esteban (Unsp spec) [Interp] May foll [facility] Serum or plasma calcium len urement (mass/volume)Ordered By: Shannon Martínez on 07-18-2023 Calcium [Mass/Vol] 9.0 mg/dL 8.5-10.1 [facility] Serum or plasma creatinine m easurement (mass/volume)Ordered By: Shannon Martínez on 07-18-2023 Creatinine [Mass/Vol] 1.59 mg/dL 0.70-1.30 [facility] Comment on above: The validity of the calculated GFR & GFRAA in patients over 70 years has not been determined. Clinical correlation is essential. Serum or plasma urea nitroge n measurement (mass/volume)Ordered By: Shannon Martínez on 07-18-2023 Urea nitrogen [Mass/Vol] 59 mg/dL 7-18 [facility] Thin prep Papanicolaou smear with manual screeningOrdered By: Shannon Martínez on 07-18-2023 Thin prep Papanicolaou smear with manual screening 4 5-15 [facility] Basophil percentageOrdered B y: Stephani Sullivan on 07-15-2023 Bilirubin [Mass/Vol] 0.90 mg/dL 0.20-1.00 [facility] Comment on above: For patients on eltr ombopag therapy, use of Dimension [place] TBIL is not recommended. Protein [Mass/Vol] 6.7 g/dL 6.4-8.2 [facility] Laboratory - Chemistry and C hemistry - challengeOrdered By: Stephani Sullivan on 07-15-2023 ALP [Catalytic activity/Vol] 56 U/L 45-117 [facility] ALT [Catalytic activity/Vol] 16 U/L 16-61 [facility] Globulin (S) [Mass/Vol] 3.7 g/dL 2.2-4.2 [facility] Laboratory - Chemistry and C hemistry - challengeOrdered By: Amanule Roach on 07-15-2023 Magnesium [Mass/Vol] 2.5 mg/dL 1.6-2.6 [facility] Serum or plasma albumin len urement (mass/volume)Ordered By: Stephani Sullivan on 07-15-2023 Albumin [Mass/Vol] 3.0 g/dL 3.2-5.0 [facility] Serum or plasma albumin/glob ulin mass ratioOrdered By: Stephani Sullivan on 07-15-2023 Albumin/Globulin [Mass ratio] 0.8 {ratio} 0.9-2.4 [facility] Thin prep Papanicolaou smear with manual screeningOrdered By: Stephani Sullivan on 07-15-2023 Thin prep Papanicolaou smear with manual screening 13 U/L 15-37 [facility] Laboratory - Chemistry and C hemistry - challengeOrdered By: Clifton Son on 07-14-2023 Natriuretic peptide B (Bld) [Mass/Vol] 1071.3 pg/mL 0-100 [facility] No Panel InformationOrdered By: Clifton Son on 07-14-2023 Troponin I High Sensitivity 74 pg/mL 3.0-78.0 [facility] Comment on above: Please Note: New Alisha t Units and Gender Specific Reference Ranges. For more information see Policy Stat Procedure [place] High Sensitivity Troponin (TNIH) and attachments. Respiratory pathogens DNA an d RNA panel ALEXA+probe (Resp)Ordered By: Stephani Sullivan on 07-14-2023 Respiratory Panel (PCR) Rhinovirus [facility] Absolute lymphocyte countOrd ered By: Jose Marcano on 05-15-2023 Lymphocytes Auto (Unsp spec) [#/Vol] 4.29 10*3/uL 0.83-4.51 [facility] Basophil percentageOrdered B y: Jose Marcano on 05-15-2023 Basophils/100 WBC (Bld) 0.6 % 0-1 [facility] Chloride [Moles/Vol] 102 mmol/L 98-107 [facility] Eosinophils/100 WBC (Bld) 3.6 % 0-5 [facility] Glucose [Mass/Vol] 104 mg/dL 74-106 [facility] Comment on above: Fasting Glucose resu lt from 100 to 125 mg/dL suggests IMPAIRED HOMEOSTASIS per A.D.A. criteria. Neutrophils (Bld) [#/Vol] 8.5 10*3/uL 2.0-7.7 [facility] Neutrophils/100 WBC (Bld) 57.5 % 47-70 [facility] Potassium [Moles/Vol] 4.5 mmol/L 3.5-5.1 [facility] Sodium [Moles/Vol] 138 mmol/L 136-145 [facility] WBC (Bld) [#/Vol] 14.7 10*3/uL 4.4-11.0 [facility] Blood erythrocytes count (nu mber/volume)Ordered By: Jose Marcano on 05-15-2023 RBC (Bld) [#/Vol] 4.74 10*6/uL 4.6-6.2 [facility] Blood hemoglobin measurement (mass/volume)Ordered By: Jose Marcano on 05-15-2023 Hemoglobin (Bld) [Mass/Vol] 15.8 g/dL 13.0-16.5 [facility] Blood lymphocytes/100 leukoc ytesOrdered By: Josekaylee Marcano on 05-15-2023 Lymphocytes/100 WBC (Bld) 29.2 % 19-41 [facility] Blood monocytes/100 leukocyt esOrdered By: Jose Marcano on 05-15-2023 Monocytes/100 WBC (Bld) 8.8 % 0-10 [facility] Blood platelet mean volumeOr dered By: Jose Marcano on 05-15-2023 Platelet mean volume (Bld) [Entitic vol] 9.9 fL 6.2-12.0 [facility] Determination of erythrocyte mean corpuscular volume (MCV)Ordered By: Jose Marcano on 05-15-2023 MCV (RBC) [Entitic vol] 103.6 fL 80-94 [facility] Hematocrit Auto (Bld) [Volum e fraction]Ordered By: Josekyalee Marcano on 05-15-2023 Hematocrit (Bld) [Volume fraction] 49.1 % 40-54 [facility] - Chemistry and C hemistry - challengeOrdered By: Jose Marcano on 05-15-2023 CO2 [Moles/Vol] 29.0 mmol/L 21.0-32.0 [facility] Urea nitrogen/Creatinine [Mass ratio] 14.3 mg/mg 10-20 [facility] - Hematology and Cell countsOrdered By: Josekaylee Marcano on 05-15-2023 Erythrocyte distribution width (RBC) [Entitic vol] 49.2 fL 35.1-43.9 [facility] Erythrocyte distribution width (RBC) [Ratio] 12.9 % 11.6-14.6 [facility] Immature granulocytes/100 WBC (Bld) 0.300 % 0.0-0.9 [facility] Comment on above: IG% - Immature Granu locytes (promyelocytes, myelocytes and metamyelocytes) > 1% indicates that a LEFT SHIFT is Present. MCH (RBC) [Entitic mass] 33.3 pg 27.0-32.0 [facility] Nucleated RBC/100 WBC (Bld) [Ratio] 0 % 0-5 [facility] MCHC Auto (RBC) [Mass/Vol]Or dered By: Jose Marcano on 05-15-2023 MCHC (RBC) [Mass/Vol] 32.2 g/dL 32-36 [facility] No Panel InformationOrdered By: Jsoekaylee Marcano on 05-15-2023 Estimated Creatinine Clearance Calc 39.03 ml/min [facility] Estimated GFR (MDRD) Amer 54 mL/min >60 [facility] Comment on above: GFR Calc Estimated GFR (MDRD) Non-Af Amer 45 mL/min >60 [facility] Comment on above: Non- GFR Calc Platelets bldOrdered By: Jose Marcano on 05-15-2023 Platelets (Bld) [#/Vol] 215 10*3/uL 150-450 [facility] Serum or plasma calcium len urement (mass/volume)Ordered By: Jose Marcano on 05-15-2023 Calcium [Mass/Vol] 9.2 mg/dL 8.5-10.1 [facility] Serum or plasma creatinine m easurement (mass/volume)Ordered By: Jose Marcano on 05-15-2023 Creatinine [Mass/Vol] 1.61 mg/dL 0.70-1.30 [facility] Comment on above: The validity of the calculated GFR & GFRAA in patients over 70 years has not been determined. Clinical correlation is essential. Serum or plasma urea nitroge n measurement (mass/volume)Ordered By: [facility] on 05-15-2023 Urea nitrogen [Mass/Vol] 23 mg/dL 7-18 [facility] Thin prep Papanicolaou smear with manual screeningOrdered By: [facility] on 05-15-2023 Thin prep Papanicolaou smear with manual screening 7 5-15 [facility] Absolute lymphocyte countOrd ered By: Clifton Son on 04-30-2023 Lymphocytes Auto (Unsp spec) [#/Vol] 1.83 10*3/uL 0.83-4.51 [facility] Basophil percentageOrdered B y: Clifton Son on 04-30-2023 Basophils/100 WBC (Bld) 0.8 % 0-1 [facility] Chloride [Moles/Vol] 107 mmol/L 98-107 [facility] Eosinophils/100 WBC (Bld) 2.1 % 0-5 [facility] Glucose [Mass/Vol] 105 mg/dL 74-106 [facility] Comment on above: Fasting Glucose resu lt from 100 to 125 mg/dL suggests IMPAIRED HOMEOSTASIS per A.D.A. criteria. Neutrophils (Bld) [#/Vol] 7.4 10*3/uL 2.0-7.7 [facility] Neutrophils/100 WBC (Bld) 70.1 % 47-70 [facility] Potassium [Moles/Vol] 4.6 mmol/L 3.5-5.1 [facility] Sodium [Moles/Vol] 139 mmol/L 136-145 [facility] WBC (Bld) [#/Vol] 10.5 10*3/uL 4.4-11.0 [facility] Blood erythrocytes count (nu mber/volume)Ordered By: Clifton Son on 04-30-2023 RBC (Bld) [#/Vol] 4.58 10*6/uL 4.6-6.2 [facility] Blood hemoglobin measurement (mass/volume)Ordered By: Clifton Son on 04-30-2023 Hemoglobin (Bld) [Mass/Vol] 15.3 g/dL 13.0-16.5 [facility] Blood lymphocytes/100 leukoc ytesOrdered By: Clifton Son on 04-30-2023 Lymphocytes/100 WBC (Bld) 17.4 % 19-41 [facility] Blood monocytes/100 leukocyt esOrdered By: Clifton Son on 04-30-2023 Monocytes/100 WBC (Bld) 9.1 % 0-10 [facility] Blood platelet mean volumeOr dered By: Clifton Son on 04-30-2023 Platelet mean volume (Bld) [Entitic vol] 10.0 fL 6.2-12.0 [facility] Determination of erythrocyte mean corpuscular volume (MCV)Ordered By: Clifton Son on 04-30-2023 MCV (RBC) [Entitic vol] 101.5 fL 80-94 [facility] Hematocrit Auto (Bld) [Volum e fraction]Ordered By: Clifton Son on 04-30-2023 Hematocrit (Bld) [Volume fraction] 46.5 % 40-54 [facility] - Chemistry and C hemistry - challengeOrdered By: Clifton Son on 04-30-2023 CO2 [Moles/Vol] 30.0 mmol/L 21.0-32.0 [facility] Urea nitrogen/Creatinine [Mass ratio] 16.1 mg/mg 10-20 [facility] - Hematology and Cell countsOrdered By: Clifton Son on 04-30-2023 Erythrocyte distribution width (RBC) [Entitic vol] 47.4 fL 35.1-43.9 [facility] Erythrocyte distribution width (RBC) [Ratio] 12.6 % 11.6-14.6 [facility] Immature granulocytes/100 WBC (Bld) 0.500 % 0.0-0.9 [facility] Comment on above: IG% - Immature Granu locytes (promyelocytes, myelocytes and metamyelocytes) > 1% indicates that a LEFT SHIFT is Present. MCH (RBC) [Entitic mass] 33.4 pg 27.0-32.0 [facility] Nucleated RBC/100 WBC (Bld) [Ratio] 0 % 0-5 [facility] MCHC Auto (RBC) [Mass/Vol]Or dered By: Clifton Son on 04-30-2023 MCHC (RBC) [Mass/Vol] 32.9 g/dL 32-36 [facility] No Panel InformationOrdered By: Clifton Son on 04-30-2023 Estimated Creatinine Clearance Calc 34.91 ml/min [facility] Estimated GFR (MDRD) Amer 47 mL/min >60 [facility] Comment on above: GFR Calc Estimated GFR (MDRD) Non-Af Amer 39 mL/min >60 [facility] Comment on above: Non- GFR Calc Troponin I High Sensitivity 20 pg/mL 3.0-78.0 [facility] Comment on above: Please Note: New Alisha t Units and Gender Specific Reference Ranges. For more information see Policy Stat Procedure [place] High Sensitivity Troponin (TNIH) and attachments. Platelets bldOrdered By: Jessy Son on 04-30-2023 Platelets (Bld) [#/Vol] 197 10*3/uL 150-450 [facility] Serum or plasma calcium len urement (mass/volume)Ordered By: Clifton Son on 04-30-2023 Calcium [Mass/Vol] 8.8 mg/dL 8.5-10.1 [facility] Serum or plasma creatinine m easurement (mass/volume)Ordered By: Clifton Son on 04-30-2023 Creatinine [Mass/Vol] 1.80 mg/dL 0.70-1.30 [facility] Comment on above: The validity of the calculated GFR & GFRAA in patients over 70 years has not been determined. Clinical correlation is essential. Serum or plasma urea nitroge n measurement (mass/volume)Ordered By: Clifton Son on 04-30-2023 Urea nitrogen [Mass/Vol] 29 mg/dL 7-18 [facility] Thin prep Papanicolaou smear with manual screeningOrdered By: Clifton Son on 04-30-2023 Thin prep Papanicolaou smear with manual screening 2 5-15 [facility] Absolute lymphocyte countOrd ered By: Dr. Moyer on 01-09-2023 Lymphocytes Auto (Unsp spec) [#/Vol] 1.89 10*3/uL 0.83-4.51 [facility] Basophil percentageOrdered B y: Dr. Moyer on 01-09-2023 Basophils/100 WBC (Bld) 0.6 % 0-1 [facility] Chloride [Moles/Vol] 108 mmol/L 98-107 [facility] Eosinophils/100 WBC (Bld) 1.7 % 0-5 [facility] Glucose [Mass/Vol] 104 mg/dL 74-106 [facility] Comment on above: Fasting Glucose resu lt from 100 to 125 mg/dL suggests IMPAIRED HOMEOSTASIS per A.D.A. criteria. Neutrophils (Bld) [#/Vol] 9.0 10*3/uL 2.0-7.7 [facility] Neutrophils/100 WBC (Bld) 74.7 % 47-70 [facility] Potassium [Moles/Vol] 4.8 mmol/L 3.5-5.1 [facility] Sodium [Moles/Vol] 142 mmol/L 136-145 [facility] WBC (Bld) [#/Vol] 12.1 10*3/uL 4.4-11.0 [facility] Blood erythrocytes count (nu mber/volume)Ordered By: Dr. Moyer on 01-09-2023 RBC (Bld) [#/Vol] 4.82 10*6/uL 4.6-6.2 [facility] Blood hemoglobin measurement (mass/volume)Ordered By: Dr. Moeyr on 01-09-2023 Hemoglobin (Bld) [Mass/Vol] 16.2 g/dL 13.0-16.5 [facility] Blood lymphocytes/100 leukoc ytesOrdered By: Dr. Moyer on 01-09-2023 Lymphocytes/100 WBC (Bld) 15.6 % 19-41 [facility] Blood monocytes/100 leukocyt esOrdered By: Dr. Moyer on 01-09-2023 Monocytes/100 WBC (Bld) 7.2 % 0-10 [facility] Blood platelet mean volumeOr dered By: Dr. Moyer on 01-09-2023 Platelet mean volume (Bld) [Entitic vol] 10.2 fL 6.2-12.0 [facility] Determination of erythrocyte mean corpuscular volume (MCV)Ordered By: Dr. Moyer on 01-09-2023 MCV (RBC) [Entitic vol] 101.0 fL 80-94 [facility] Hematocrit Auto (Bld) [Volum e fraction]Ordered By: Dr. Moyer on 01-09-2023 Hematocrit (Bld) [Volume fraction] 48.7 % 40-54 [facility] Influenza virus A and B and SARS-CoV-2 (COVID-19) Ag panel - Upper respiratory specimOrdered By: Dr. Moyer on 01-09-2023 SARS-CoV-2 (COVID-19) RNA ALEXA+probe Ql (Resp) [facility] Laboratory - Chemistry and C hemistry - challengeOrdered By: Dr. Moyer on 01-09-2023 CO2 [Moles/Vol] 29.0 mmol/L 21.0-32.0 [facility] Natriuretic peptide B (Bld) [Mass/Vol] 976.9 pg/mL 0-100 [facility] Urea nitrogen/Creatinine [Mass ratio] 19.3 mg/mg 10-20 [facility] - Hematology and Cell countsOrdered By: Dr. Moyer on 01-09-2023 Erythrocyte distribution width (RBC) [Entitic vol] 49.9 fL 35.1-43.9 [facility] Erythrocyte distribution width (RBC) [Ratio] 13.3 % 11.6-14.6 [facility] Immature granulocytes/100 WBC (Bld) 0.200 % 0.0-0.9 [facility] Comment on above: IG% - Immature Granu locytes (promyelocytes, myelocytes and metamyelocytes) > 1% indicates that a LEFT SHIFT is Present. MCH (RBC) [Entitic mass] 33.6 pg 27.0-32.0 [facility] Nucleated RBC/100 WBC (Bld) [Ratio] 0 % 0-5 [facility] MCHC Auto (RBC) [Mass/Vol]Or dered By: Dr. Moyer on 01-09-2023 MCHC (RBC) [Mass/Vol] 33.3 g/dL 32-36 [facility] No Panel InformationOrdered By: Dr. Moyer on 01-09-2023 Estimated Creatinine Clearance Calc 44.89 ml/min [facility] Estimated GFR (MDRD) Amer 63 mL/min >60 [facility] Comment on above: GFR Calc Estimated GFR (MDRD) Non-Af Amer 52 mL/min >60 [facility] Comment on above: Non- GFR Calc Troponin I High Sensitivity 22 pg/mL 3.0-78.0 [facility] Comment on above: Please Note: New Alisha t Units and Gender Specific Reference Ranges. For more information see Policy Stat Procedure [place] High Sensitivity Troponin (TNIH) and attachments. Platelets bldOrdered By: Dr. Moyer on 01-09-2023 Platelets (Bld) [#/Vol] 208 10*3/uL 150-450 [facility] Serum or plasma calcium len urement (mass/volume)Ordered By: Dr. Moyer on 01-09-2023 Calcium [Mass/Vol] 9.4 mg/dL 8.5-10.1 [facility] Serum or plasma creatinine m easurement (mass/volume)Ordered By: Dr. Moyer on 01-09-2023 Creatinine [Mass/Vol] 1.40 mg/dL 0.70-1.30 [facility] Comment on above: The validity of the calculated GFR & GFRAA in patients over 70 years has not been determined. Clinical correlation is essential. Serum or plasma urea nitroge n measurement (mass/volume)Ordered By: Dr. Moyer on 01-09-2023 Urea nitrogen [Mass/Vol] 27 mg/dL 7-18 [facility] Thin prep Papanicolaou smear with manual screeningOrdered By: Dr. Moyer on 01-09-2023 Thin prep Papanicolaou smear with manual screening 5 5-15 [facility] No Panel InformationOrdered By: Dr. Marcano on 09-25-2022 Troponin I High Sensitivity 25 pg/mL 3.0-78.0 [facility] Comment on above: Please Note: New Alisha t Units and Gender Specific Reference Ranges. For more information see Policy Stat Procedure [place] High Sensitivity Troponin (TNIH) and attachments. Absolute lymphocyte countOrd ered By: Dr. Marcano on 09-24-2022 Lymphocytes Auto (Unsp spec) [#/Vol] 1.99 10*3/uL 0.83-4.51 [facility] Basophil percentageOrdered B y: Dr. Marcano on 09-24-2022 Basophils/100 WBC (Bld) 0.4 % 0-1 [facility] Chloride [Moles/Vol] 106 mmol/L 98-107 [facility] Eosinophils/100 WBC (Bld) 1.4 % 0-5 [facility] Glucose [Mass/Vol] 93 mg/dL 74-106 [facility] Neutrophils (Bld) [#/Vol] 6.6 10*3/uL 2.0-7.7 [facility] Neutrophils/100 WBC (Bld) 64.2 % 47-70 [facility] Potassium [Moles/Vol] 4.5 mmol/L 3.5-5.1 [facility] Sodium [Moles/Vol] 137 mmol/L 136-145 [facility] WBC (Bld) [#/Vol] 10.3 10*3/uL 4.4-11.0 [facility] Blood erythrocytes count (nu mber/volume)Ordered By: Dr. Marcano on 09-24-2022 RBC (Bld) [#/Vol] 4.48 10*6/uL 4.6-6.2 [facility] Blood hemoglobin measurement (mass/volume)Ordered By: Dr. Marcano on 09-24-2022 Hemoglobin (Bld) [Mass/Vol] 14.7 g/dL 13.0-16.5 [facility] Blood lymphocytes/100 leukoc ytesOrdered By: Dr. Marcano on 09-24-2022 Lymphocytes/100 WBC (Bld) 19.4 % 19-41 [facility] Blood monocytes/100 leukocyt esOrdered By: Dr. Marcano on 09-24-2022 Monocytes/100 WBC (Bld) 14.3 % 0-10 [facility] Blood platelet mean volumeOr dered By: Dr. Marcano on 09-24-2022 Platelet mean volume (Bld) [Entitic vol] 9.9 fL 6.2-12.0 [facility] Determination of erythrocyte mean corpuscular volume (MCV)Ordered By: Dr. Marcano on 09-24-2022 MCV (RBC) [Entitic vol] 100.2 fL 80-94 [facility] Hematocrit Auto (Bld) [Volum e fraction]Ordered By: Dr. Marcano on 09-24-2022 Hematocrit (Bld) [Volume fraction] 44.9 % 40-54 [facility] Laboratory - Chemistry and C hemistry - challengeOrdered By: Dr. Marcano on 09-24-2022 CO2 [Moles/Vol] 25.0 mmol/L 21.0-32.0 [facility] Urea nitrogen/Creatinine [Mass ratio] 13.8 mg/mg 10-20 [facility] - Hematology and Cell countsOrdered By: Dr. Marcano on 09-24-2022 Erythrocyte distribution width (RBC) [Entitic vol] 48.7 fL 35.1-43.9 [facility] Erythrocyte distribution width (RBC) [Ratio] 13.2 % 11.6-14.6 [facility] Immature granulocytes/100 WBC (Bld) 0.300 % 0.0-0.9 [facility] Comment on above: IG% - Immature Granu locytes (promyelocytes, myelocytes and metamyelocytes) > 1% indicates that a LEFT SHIFT is Present. MCH (RBC) [Entitic mass] 32.8 pg 27.0-32.0 [facility] Nucleated RBC/100 WBC (Bld) [Ratio] 0 % 0-5 [facility] MCHC Auto (RBC) [Mass/Vol]Or dered By: Dr. Marcano on 09-24-2022 MCHC (RBC) [Mass/Vol] 32.7 g/dL 32-36 [facility] No Panel InformationOrdered By: Dr. Marcano on 09-24-2022 Estimated Creatinine Clearance Calc 45.54 ml/min [facility] Estimated GFR (MDRD) Amer 64 mL/min >60 [facility] Comment on above: GFR Calc Estimated GFR (MDRD) Non-Af Amer 53 mL/min >60 [facility] Comment on above: Non- GFR Calc Platelets bldOrdered By: Dr. Marcano on 09-24-2022 Platelets (Bld) [#/Vol] 163 10*3/uL 150-450 [facility] Serum or plasma calcium len urement (mass/volume)Ordered By: Dr. Marcano on 09-24-2022 Calcium [Mass/Vol] 8.4 mg/dL 8.5-10.1 [facility] Serum or plasma creatinine m easurement (mass/volume)Ordered By: Dr. Marcano on 09-24-2022 Creatinine [Mass/Vol] 1.38 mg/dL 0.70-1.30 [facility] Comment on above: The validity of the calculated GFR & GFRAA in patients over 70 years has not been determined. Clinical correlation is essential. Serum or plasma urea nitroge n measurement (mass/volume)Ordered By: Dr. Marcano on 09-24-2022 Urea nitrogen [Mass/Vol] 19 mg/dL 7-18 [facility] Thin prep Papanicolaou smear with manual screeningOrdered By: Dr. Marcano on 09-24-2022 Thin prep Papanicolaou smear with manual screening 6 5-15 [facility] Absolute lymphocyte counton 08-28-2022 Lymphocytes Auto (Unsp spec) [#/Vol] 3.38 10*3/uL 0.83-4.51 [facility] Work Phone: Basophil percentageon 2021 Basophils/100 WBC (Bld) 0.3 % 0-1 [facility] Work Phone: Chloride [Moles/Vol] 109 mmol/L 98-107 [facility] Work Phone: Eosinophils/100 WBC (Bld) 0.9 % 0-5 [facility] Work Phone: Glucose [Mass/Vol] 88 mg/dL 74-106 [facility] Work Phone: Neutrophils (Bld) [#/Vol] 13.2 10*3/uL 2.0-7.7 [facility] Work Phone: Neutrophils/100 WBC (Bld) 71.0 % 47-70 [facility] Work Phone: Potassium [Moles/Vol] 4.2 mmol[facility]L [facility].5-5.[facility]: Sodium [Moles/Vol] 141 mmol/L 136-145 [facility] Work Phone: WBC (Bld) [#/Vol] 18.6 10*3/uL 4.4-11.0 [facility] Work Phone: Blood erythrocytes count (nu mber/volume)on 08-28-2022 RBC (Bld) [#/Vol] 4.51 10*6/uL 4.6-6.2 [facility] Work Phone: Blood hemoglobin measurement (mass/volume)on 08-28-2022 Hemoglobin (Bld) [Mass/Vol] 15.3 g/dL 13.0-16.5 [facility] Work Phone: Blood lymphocytes/100 leukoc yteson 08-28-2022 Lymphocytes/100 WBC (Bld) 18.2 % 19-41 [facility] Work Phone: Blood manual differential co mment interpretation (narrative result)on 08-28-2022 Manual differential comment Esteban (Bld) [Interp] SEE COMMENT [facility] Work Phone: Comment on above: MONOCYTOSIS NOTED Blood monocytes/100 leukocyt eson 08-28-2022 Monocytes/100 WBC (Bld) 9.3 % 0-10 [facility] Work Phone: Blood platelet adequacy dete ction by light microscopyon 08-28-2022 Platelets LM Ql (Bld) ADEQUATE ADEQ [facility] Work Phone: Blood platelet mean volumeon 08-28-2022 Platelet mean volume (Bld) [Entitic vol] 10.0 fL 6.2-12.0 [facility] Work Phone: Determination of erythrocyte mean corpuscular volume (MCV)on 08-28-2022 MCV (RBC) [Entitic vol] 102.0 fL 80-94 [facility] Work Phone: Hematocrit Auto (Bld) [Volum e fraction]on 08-28-2022 Hematocrit (Bld) [Volume fraction] 46.0 % 40-54 [facility] Work Phone: Laboratory - Chemistry and C hemistry - challengeon 08-28-2022 CO2 [Moles/Vol] 27.0 mmol/L 21.0-32.0 [facility] Work Phone: Urea nitrogen/Creatinine [Mass ratio] 18.1 mg/mg 10-20 [facility] Work Phone: Laboratory - Hematology and Cell countson 08-28-2022 Anisocytosis Ql (Bld) 1+ [facility] Work Phone: Erythrocyte distribution width (RBC) [Entitic vol] 50.2 fL 35.1-43.9 [facility] Work Phone: Erythrocyte distribution width (RBC) [Ratio] 13.3 % 11.6-14.6 [facility] Work Phone: Immature granulocytes/100 WBC (Bld) 0.300 % 0.0-0.9 [facility] Work Phone: Comment on above: IG% - Immature Granu locytes (promyelocytes, myelocytes and metamyelocytes) > 1% indicates that a LEFT SHIFT is Present. MCH (RBC) [Entitic mass] 33.9 pg 27.0-32.0 [facility] Work Phone: Nucleated RBC/100 WBC (Bld) [Ratio] 0 % 0-5 [facility] Work Phone: MCHC Auto (RBC) [Mass/Vol]on 08-28-2022 MCHC (RBC) [Mass/Vol] 33.3 g/dL 32-36 [facility] Work Phone: Macrocytes detectionon 08-28 Macrocytes Ql (Bld) 1+ [facility] Work Phone: No Panel Informationon 08-28 Estimated Creatinine Clearance Calc 42.18 ml/min [facility] Work Phone: Estimated GFR (MDRD) Amer 59 mL/min >60 [facility] Work Phone: Comment on above: GFR Calc Estimated GFR (MDRD) Non-Af Amer 49 mL/min >60 [facility] Work Phone: Comment on above: Non- GFR Calc Platelets bldon 08-28-2022 Platelets (Bld) [#/Vol] 185 10*3/uL 150-450 [facility] Work Phone: RBC morphologyon 08-28-2022 RBC morphology finding Nom (Bld) N CHROM NORMAL NORM C&C [facility] Work Phone: Review by pathologiston 11-0 Pathologist review Esteban (Unsp spec) [Interp] February nelly [facility] Work Phone: Pathologist review Esteban (Unsp spec) [Interp] Reviewed [facility] Work Phone: Comment on above: Previous reported re sult: February nelly Edited by: RGOOD on 08/30/22:1000Neutrophilic leukocytosis.Macrocytic RBCsClinical correlation suggested.Arturo Gonzales D.O. 08/30/22 AMENDED REPORT 08/30/22 1000 PATH REV previously reported as: February nelly Serum or plasma calcium len urement (mass/volume)on 08-28-2022 Calcium [Mass/Vol] 9.0 mg/dL 8.5-10.1 [facility] Work Phone: Serum or plasma creatinine m easurement (mass/volume)on 08-28-2022 Creatinine [Mass/Vol] 1.49 mg/dL 0.70-1.30 [facility] Work Phone: Comment on above: The validity of the calculated GFR & GFRAA in patients over 70 years has not been determined. Clinical correlation is essential. Serum or plasma urea nitroge n measurement (mass/volume)on 08-28-2022 Urea nitrogen [Mass/Vol] 27 mg/dL - [facility] Work Phone: Thin prep Papanicolaou smear with manual screeningon 08-28-2022 Thin prep Papanicolaou smear with manual screening 5 - [facility] Work Phone: ED Note-Provideron 7 ED Note-Provider Normal [facility] [place] .Auto Diffon 07-21-2017 Basophils Auto #/vol (Bld) 0.10 10 3/mcL Normal 0.00-0.19 [facility] [place] Comment on above: Performed By: #### C BC, ADIFF, ANEU, TROP, GFR, BMP ####Julio [address]esar [address] [place], [place] [address] Basophils/100 WBC Auto (Bld) 0.7 % Normal 0.0-2.5 [facility] ([place] Comment on above: Performed By: #### C BC, ADIFF, ANEU, TROP, GFR, BMP ####[address] [place], [place] [address] Eosinophils 0.10 10 3/mcL Normal 0.00-0.40 [facility] ([place] Comment on above: Performed By: #### C BC, ADIFF, ANEU, TROP, GFR, BMP ####[address] [place], [place] [address] Eosinophils/100 leukocytes 0.3 % Normal 0.0-7.0 [facility] ([place] Comment on above: Performed By: #### C BC, ADIFF, ANEU, TROP, GFR, BMP ####[address] [place], [place] [address] Lymphocytes 1.70 10 3/mcL Normal 0.77-3.85 [facility] ([place] Comment on above: Performed By: #### C BC, ADIFF, ANEU, TROP, GFR, BMP ####[address] [place], [place] [address] Lymphocytes/100 leukocytes 9.1 % Low 10.0-50.0 [facility] ([place] Comment on above: Performed By: #### C BC, ADIFF, ANEU, TROP, GFR, BMP ####[address] [place], [place] [address] Monocytes 1.40 10 3/mcL High 0.15-1.00 [facility] ([place] Comment on above: Performed By: #### C BC, ADIFF, ANEU, TROP, GFR, BMP ####[address] [place], [place] [address] Monocytes/100 leukocytes 7.3 % Normal 1.7-13.0 [facility] ([place] Comment on above: Performed By: #### C BC, ADIFF, ANEU, TROP, GFR, BMP ####[address] [place], [place] [address] Neutrophils/100 WBC Auto (Bld) 82.6 % High 37.0-80.0 [facility] ([place] Comment on above: Performed By: #### C BC, ADIFF, ANEU, TROP, GFR, BMP ####[address] [place], [place] [address] .GFRon 07-21-2017 eGFR (non-black) mL/min/{1.73_m2} Normal [facility] ([place] Comment on above: Result Comment: GFR Population mean for , Non- Americans Ages 20-29 = 116 mL/min/1.73 sq.m. Ages 30-39 = 107 mL/min/1.73 sq.m. Ages 40-49 = 99 mL/min/1.73 sq.m. Ages 50-59 = 93 mL/min/1.73 sq.m. Ages 60-69 = 85 mL/min/1.73 sq.m. Ages 70+ = 75 mL/min/1.73 sq.m.Chronic Kidney Disease: Less than 60 mL/min/1.73 square metersEnd Stage Renal Disease: Less than 15 mL/min/1.73 square meters Performed By: #### C BC, ADIFF, ANEU, TROP, GFR, BMP ####[address] [place], [place] [address] eGFR (non-black) 79 ml/min/1.73sqm Normal [facility] ([place]) Comment on above: Result Comment: GFR Population mean for , Non- Americans Ages 20-29 = 116 mL/min/1.73 sq.m. Ages 30-39 = 107 mL/min/1.73 sq.m. Ages 40-49 = 99 mL/min/1.73 sq.m. Ages 50-59 = 93 mL/min/1.73 sq.m. Ages 60-69 = 85 mL/min/1.73 sq.m. Ages 70+ = 75 mL/min/1.73 sq.m.Chronic Kidney Disease: Less than 60 mL/min/1.73 square metersEnd Stage Renal Disease: Less than 15 mL/min/1.73 square meters Performed By: #### C BC, ADIFF, ANEU, TROP, GFR, BMP ####[address] [place], [place] [address] .NEUABSon 07-21-2017 Neutrophils 15.30 10 3/mcL High 2.85-6.16 [facility] ([place] Comment on above: Performed By: #### C BC, ADIFF, ANEU, TROP, GFR, BMP ####[address] [place], [place] [address] BMPon 07-21-2017 Glucose mass conc 111 mg/dL High 83-110 [facility] ([place] Comment on above: Performed By: #### C BC, ADIFF, ANEU, TROP, GFR, BMP ####[address] [place], [place] [address] BUN/Creatinine Ratio 12 ratio Normal 7-27 [facility] ([place] Comment on above: Performed By: #### C BC, ADIFF, ANEU, TROP, GFR, BMP ####Julio Cesar [address] [place], [place] [address] Calcium 9.0 mg/dL Normal 8.4-10.2 [facility] ([place] Comment on above: Performed By: #### C BC, ADIFF, ANEU, TROP, GFR, BMP ####[address] [place], [place] [address] Chloride 101 mmol/L Normal 98-107 [facility] ([place] Comment on above: Performed By: #### C BC, ADIFF, ANEU, TROP, GFR, BMP ####[address] [place], [place] [address] CO2 28 mmol/L Normal 23-31 [facility] ([place] Comment on above: Performed By: #### C BC, ADIFF, ANEU, TROP, GFR, BMP ####[address] [place], [place] [address] Creatinine 1.1 mg/dL Normal 0.6-1.2 [facility] ([place] Comment on above: Performed By: #### C BC, ADIFF, ANEU, TROP, GFR, BMP ####[address]ie [address] [place], [place] [address] Electrolyte Balance 7.0 mEq/L Normal [facility] ([place] Comment on above: Performed By: #### C BC, ADIFF, ANEU, TROP, GFR, BMP ####Julio Cesar [address] [place], [place] [address] Potassium molar conc 4.5 mmol/L Normal 3.5-5.1 [facility] ([place] Comment on above: Performed By: #### C BC, ADIFF, ANEU, TROP, GFR, BMP ####[address] [place], [place] [address] Sodium 136 mmol/L Normal 136-146 [facility] ([place] Comment on above: Performed By: #### C BC, ADIFF, ANEU, TROP, GFR, BMP ####[address] [place], [place] [address] Urea nitrogen 13.7 mg/dL Normal 7.0-18.0 [facility] ([place] Comment on above: Performed By: #### C BC, ADIFF, ANEU, TROP, GFR, BMP ####Julio Cesar [address] [place], [place] [address] CBCon 07-21-2017 Erythrocyte distribution width Auto Ratio (RBC) 14.1 % Normal 11.5-14.5 [facility] ([place] Comment on above: Performed By: #### C BC, ADIFF, ANEU, TROP, GFR, BMP ####[address] [place], [place] [address] Erythrocytes (RBC) 5.20 10 6/mcL Normal 4.04-6.13 [facility] ([place] Comment on above: Performed By: #### C BC, ADIFF, ANEU, TROP, GFR, BMP ####[address] [place], [place] [address] Hematocrit (HCT) 49.5 % Normal 42.0-52.0 [facility] ([place] Comment on above: Performed By: #### C BC, ADIFF, ANEU, TROP, GFR, BMP ####[address] [place], [place] [address] Hemoglobin mass conc (Bld) 16.5 G/dL Normal 14.0-18.0 [facility] ([place] Comment on above: Performed By: #### C BC, ADIFF, ANEU, TROP, GFR, BMP ####[address] [place], [place] [address] MCH 31.7 pg High 27.0-31.2 [facility] ([place] Comment on above: Performed By: #### C BC, ADIFF, ANEU, TROP, GFR, BMP ####[address] [place], [place] [address] MCHC mass conc (RBC) 33.2 G/dL Normal 31.8-35.4 [facility] ([place] Comment on above: Performed By: #### C BC, ADIFF, ANEU, TROP, GFR, BMP ####[address] [place] [id number] MCV 95.2 fL High 80.0-94.0 [facility] ([place] Comment on above: Performed By: #### C BC, ADIFF, ANEU, TROP, GFR, BMP ####Julio [address]esar [address] [place], [place] [address] Platelet mean volume (PMV) 8.4 fL Normal 7.4-10.4 [facility] ([place] Comment on above: Performed By: #### C BC, ADIFF, ANEU, TROP, GFR, BMP ####Julio Cesar [address] [place], [place] [address] Platelets 230 10 3/mcL Normal 130-400 [facility] ([place] Comment on above: Performed By: #### C BC, ADIFF, ANEU, TROP, GFR, BMP ####Julio [address] [place], [place] [address] WBC (Leukocytes) 18.60 10 3/mcL High 4.60-10.80 [facility] ([place] Comment on above: Performed By: #### C BC, ADIFF, ANEU, TROP, GFR, BMP ####Julio Cesar [address] [place], [place] [address] Patient Summary Documentson 07-21-2017 Patient Summary Documents Normal [facility] ([place] TROPon 07-21-2017 Troponin I.cardiac mass conc ng/mL Normal 0.00-0.30 [facility] ([place] Comment on above: Result Comment: Belo w measuring range>=0.30 Consistent with cardiac damage, increased clinical risk and possibility of myocardial infarction. Serial measurements, clinical history, appropriate symptoms and/or ECG changes may help assess possibility of GA.*Other non-acute coronary syndrome conditions such as CHF, myocarditis, pulmonary emboli, sepsis and cardiac surgery could result in myocardial damage and increased troponin levels. Performed By: #### C BC, ADIFF, ANEU, TROP, GFR, BMP ####[place] [id number] [place], [place] [address] XR CHEST 2 VIEWSon 201 7 XR CHEST 2 VIEWS ORIGINALXR CHEST 2 VIEWSPA and lateral CLINICAL INDICATION: SOB/Cough/Fever COMPARISON: None FINDINGS: Cardiac and mediastinal silhouettes are normal. The mary beth are not enlarged. The lungs are clear. There is no pleural fluid. There are moderate degenerative changes in the thoracic spine. IMPRESSION: No acute cardiopulmonary disease. Interpreted By: Francisco Zafarreliminary Report By: Francisco Zafar MDElectronically Signed By: Francisco Zafar MD Dictated Date: 07/21/2017 3:37:02 PM Prelim Date: 07/21/2017 3:37:02 PM Sign Date: 07/21/2017 3:37:46 PM Normal [facility] [place] Cardiac Morphology w/ Co ntraston 05-29-2017 MRI Cardiac Morphology w/ Contrast Patient Name: JOHN LOVING MRI Exam Date/Time 05/29/2017 10:20:56 EDT Exam MRI Cardiac Morphology w/ Contrast Ordering Physician UNASSIGNED, UNASSIGNED Accession Number [id number] CPT4 Codes 53716 () Reason For Exam ischemic cardiomyopathy Report [facility] CMR Report Patient Patient Name: JOHN LOVING Patient : 1945 Scan Date: 2017-05-29 08:47:20 Finalized and signed by Eddi Mehta (uid:4) 15:52:03. SUMMARY CARDIAC MRI 71 year old man with ischemic cardiomyopathy. Study performed for precise LVEF evaluation and for viability. 1. Poor quality images due to motion artifact. The left ventricle is moderately dilated with severe systolic dysfunction. Left ventricular wall thickness is normal except for the mid to distal inferior wall and apex which appear thinned. There . The calculated ejection fraction is 28% using quantitative volumetric software. 2. The right ventricle is normal in size and systolic function. 3. The pericardium is normal. The atria are mildly dilated. 4. The aortic valve is trileaflet. There are no other significant valvular abnormalities. 5. Late gadolinium enhancement imaging is unfortunately of nondiagnostic quality due to a scanner malfunction. Very limited available images (TI binding dyer + low resolution 3D delayed enhancement) suggest a partially transmural scar of the mid to distal inferior and inferolateral segments. The amount of transmurality or total scar burden cannot be quantified with confidence. Except for small area at the apex, the remainder of the LAD territory appears likely viable. CONCLUSION: Ischemic cardiomyopathy with severe LV dysfunction. Akinesis of the apex, adjacent inferoapical segment, and mid inferior/inferolatera l region (RCA or dominant LCx territory). Transmurality of scarring (and thus viability) cannot be determined with confidence in the akinetic region due to technical difficulties. CORE EXAM MEASUREMENTS VOLUMETRIC ANALYSIS ---- . . LV Reference RV Reference +------+ +- ------+ +- ---+ + EDV ml 219 (105-187) (100-200) ml/m^2 95.6 (58-93) (52-98) ESV ml 158.2 (25-70) (16-76) ml/m^2 69.1 (13-35) (8-37) CO L/min 5.11 L/min/m^2 2.2 MASS (106-183) (33-90) (56-89) (18-44) SV ml 60.8 (71-127) (70-138) ml/m^2 26.6 (39-63) (36-69) EF % 27.76 (59-77) (57-83) '------+ +- ------+ +- ---+ ' HEART RATE: 84 LV DIMENSIONS ---- WALL THICKNESS - ANTEROSEPTAL: 1 cm WALL THICKNESS - INFEROLATERAL: 0.6 cm LV VIANNEY: 6.2 cm LV ESD: 5.7 cm 17 SEGMENT . . LV Segments Wall Motion Hyperenhancement Stress Perfusion Interpretation + + +---- +------ + + Base Anterior Mild/Mod Hypo Base Anteroseptal Mild/Mod Hypo Base Inferoseptal Mild/Mod Hypo Base Inferior Mild/Mod Hypo Base Inferolateral Mild/Mod Hypo Base Anterolateral Mild/Mod Hypo Mid Anterior Mild/Mod Hypo Mid Anteroseptal Mild/Mod Hypo Mid Inferoseptal Mild/Mod Hypo Mid Inferior Akinetic Mid Inferolateral Akinetic Mid Anterolateral Mild/Mod Hypo Apical Anterior Mild/Mod Hypo Apical Septal Mild/Mod Hypo Apical Inferior Akinetic Apical Lateral Severe Hypo Eden Akinetic + + +---- +------ + + RV Segments Wall Motion Hyperenhancement Stress Perfusion Interpretation + + +---- +------ + + RV Basal Anterior RV Basal Inferior RV Mid RV Apical ' + +---- +------ + ' VASCULAR SCAN INFO GENERAL CONTRAST AGENT ---- TYPE: Multihance VOLUME ADMINISTERED: 30 ml DOSAGE FOR 0.5M: 0.13 mmol/kg SERUM CREATININE: 1.2 sCr FEMALE: No OR BLACK: Unknown CREATININE DATE: 2017-05-21 00:00:00 VITALS ---- HEIGHT: 70 in HEIGHT: 177.8 cm BODY WEIGHT: 250 lbs BODY WEIGHT: 113.4 kgs BSA:: 2.29 m^2 SETUP ---- TYPE: Clinical LOCATION: [facility] INCOMPLETE SCAN: Yes REASON FOR INCOMPLETE SCAN: Problems with scanner . REASON(S) FOR SCAN: Viability Assessment REFERRING PHYSICIAN: juwan woodson ATTENDING PHYSICIAN: Eddi Mehta TECHNOLOGIST: Julianna Persaud ASSISTANTS: 1) Donal Queen Final Dictated: 05/29/2017 3:52 pm Dictating Physician: MD. JESUS, EDDI OTERO Signed Date and Time: 05/29/2017 3:52 pm Signed by: MD. JESUS, EDDI OTERO [facility] COVID-19 virus antigen assay SARS-CoV-2 (COVID-19) Ag IA.rapid Ql (Resp) [facility] Work Phone: Vital Signs Date Time Vital Sign Value Performing Clinician [facility] dy[facility] 05-03-2025 18:11-0400 Body temperature 97.6 [degF] [facility] 05-03-2025 18:11-0400 Diastolic blood pressure 69 mm[Hg] [facility] 05-03-2025 18:11-0400 Heart rate 67 /min [facility] 05-03-2025 18:11-0400 Respiratory rate 16 /min [facility] 05-03-2025 18:11-0400 SaO2% (BldA) [Mass fraction] 96 % [facility] 05-03-2025 18:11-0400 Systolic blood pressure 121 mm[Hg] [facility] 05-03-2025 13:24-0400 Body mass index (BMI) [Ratio] 37 kg/m2 [facility] 05-03-2025 13:24-0400 Body weight 113.8 kg [facility] 05-03-2025 13:21-0400 Body height 175.26 cm [facility] 07-18-2023 12:55-0400 Body temperature 97.9 [degF] [facility] 07-18-2023 12:55-0400 Diastolic blood pressure 53 mm[Hg] [facility] 07-18-2023 12:55-0400 Heart rate 68 /min [facility] 07-18-2023 12:55-0400 Inhaled oxygen flow rate 2 L/min [facility] 07-18-2023 12:55-0400 Respiratory rate 18 /min [facility] 07-18-2023 12:55-0400 SaO2% (BldA) [Mass fraction] 92 % [facility] 07-18-2023 12:55-0400 Systolic blood pressure 117 mm[Hg] [facility] 07-18-2023 07:40-0400 Body mass index (BMI) [Ratio] 38.9 kg/m2 [facility] 07-18-2023 07:40-0400 Body weight 119.5 kg [facility] 07-15-2023 13:35-0400 Body height 175.26 cm [facility] 05-15-2023 03:54-0400 Body temperature 97 [degF] [facility] 05-15-2023 03:54-0400 Diastolic blood pressure 81 mm[Hg] [facility] 05-15-2023 03:54-0400 Heart rate 91 /min [facility] 05-15-2023 03:54-0400 Respiratory rate 18 /min [facility] 05-15-2023 03:54-0400 SaO2% (BldA) [Mass fraction] 95 % [facility] 05-15-2023 03:54-0400 Systolic blood pressure 147 mm[Hg] [facility] 05-15-2023 02:45-0400 Body height 175.26 cm [facility] 05-15-2023 02:45-0400 Body mass index (BMI) [Ratio] 39.4 kg/m2 [facility] 05-15-2023 02:45-0400 Body weight 121.2 kg [facility] 04-30-2023 15:49-0400 Diastolic blood pressure 61 mm[Hg] [facility] 04-30-2023 15:49-0400 Heart rate 81 /min [facility] 04-30-2023 15:49-0400 Respiratory rate 18 /min [facility] 04-30-2023 15:49-0400 SaO2% (BldA) [Mass fraction] 98 % [facility] 04-30-2023 15:49-0400 Systolic blood pressure 119 mm[Hg] [facility] 04-30-2023 12:06-0400 Body height 175.26 cm [facility] 04-30-2023 12:06-0400 Body mass index (BMI) [Ratio] 38.4 kg/m2 [facility] 04-30-2023 12:06-0400 Body temperature 98 [degF] [facility] 04-30-2023 12:06-0400 Body weight 117.93 kg [facility] 01-09-2023 13:08-0400 Diastolic blood pressure 55 mm[Hg] [facility] 01-09-2023 13:08-0400 Heart rate 79 /min [facility] 01-09-2023 13:08-0400 Respiratory rate 16 /min [facility] 01-09-2023 13:08-0400 SaO2% (BldA) [Mass fraction] 96 % [facility] 01-09-2023 13:08-0400 Systolic blood pressure 125 mm[Hg] [facility] 01-09-2023 11:05-0400 Body temperature 99 [degF] [facility] 01-09-2023 10:45-0400 Body height 175.26 cm [facility] 01-09-2023 10:45-0400 Body mass index (BMI) [Ratio] 40.1 kg/m2 [facility] 01-09-2023 10:45-0400 Body weight 123.5 kg [facility] 09-25-2022 01:21-0500 Diastolic blood pressure 70 mm[Hg] [facility] 09-25-2022 01:21-0500 Heart rate 85 /min [facility] 09-25-2022 01:21-0500 Respiratory rate 16 /min [facility] 09-25-2022 01:21-0500 SaO2% (BldA) [Mass fraction] 96 % [facility] 09-25-2022 01:21-0500 Systolic blood pressure 129 mm[Hg] [facility] 09-24-2022 22:04-0500 Body height 175.26 cm [facility] Work Phone: 09-24-2022 22:04-0500 Body mass index (BMI) [Ratio] 40.1 kg/m2 [facility] 09-24-2022 22:04-0500 Body temperature 98.5 [degF] [facility] 09-24-2022 22:04-0500 Body weight 123.3 kg [facility] 08-28-2022 23:00-0400 Respiratory rate 20 /min [facility] Work Phone: 08-28-2022 22:36-0400 SaO2% (BldA) [Mass fraction] 95 % [facility] Work Phone: 08-28-2022 20:37-0400 Body height 175.26 cm [facility] Work Phone: 08-28-2022 20:37-0400 Body mass index (BMI) [Ratio] 40 kg/m2 [facility] Work Phone: 08-28-2022 20:37-0400 Body temperature 97.3 [degF] [facility] Work Phone: 08-28-2022 20:37-0400 Body weight 123 kg [facility] Work Phone: 08-28-2022 20:37-0400 Diastolic blood pressure 76 mm[Hg] [facility] Work Phone: 08-28-2022 20:37-0400 Heart rate 94 /min [facility] Work Phone: 08-28-2022 20:37-0400 Systolic blood pressure 125 mm[Hg] [facility] Work Phone: Encounters Encounter Date Encounter Type Care Provider Facility Start: 05-03-2025 Evaluation and management of inpatient Dr. Stephani Sullivan MD -Progressive Care Unit Work Phone: Start: 05-03-2025 observation encounter [facility] Start: 12-08-2024 ambulatory [facility] Facility:[facility] Start: 10-30-2024 End: 11-27-2024 ambulatory [facility] Facility:[facility] Start: 10-26-2024 End: 10-26-2024 ambulatory [facility] Start: 10-09-2024 End: 10-27-2024 ambulatory [facility] Facility:[facility] Start: 10-02-2024 End: 10-02-2024 ambulatory [facility] Facility:[facility] Start: 07-17-2023 Non-patient / Non-visit [facility] Work Phone: Start: 07-16-2023 Non-patient / Non-visit [facility] Work Phone: Start: 07-15-2023 Non-patient / Non-visit [facility] Work Phone: Start: 07-15-2023 Non-patient / Non-visit [facility] Start: 07-14-2023 End: 07-18-2023 Evaluation and management of inpatient [facility] Work Phone: Start: 07-14-2023 Non-patient / Non-visit [facility] Work Phone: Start: 05-15-2023 End: 05-15-2023 Emergency department patient visit [facility] Work Phone: Start: 04-30-2023 End: 04-30-2023 Emergency department patient visit [facility] Work Phone: Start: 01-09-2023 End: 01-09-2023 Emergency department patient visit [facility] Start: 09-24-2022 End: 09-25-2022 Emergency department patient visit [facility] Start: 08-28-2022 End: 08-28-2022 Emergency department patient visit [facility] Start: 07-21-2017 End: 07-21-2017 Emergency department patient visit Isabel Galindo DamariclaryDominga Facility:[facility] Start: 05-29-2017 Ambulatory [facility] Start: 05-15-2017 Ambulatory [facility] Procedures Date Procedure Procedure Detail Performing Clinician Start: 07-14-2023 [facility] Start: 07-14-2023 [facility] Start: 05-15-2023 Plain chest X-ray Start: 04-30-2023 Plain chest X-ray Start: 01-09-2023 SARS-CoV-2 & FLU Ant igen (Rapid) Start: 01-09-2023 Plain chest X-ray Start: 09-24-2022 Plain chest X-ray Start: 08-28-2022 Plain chest X-ray Viral antigen assay Plan of Treatment Date Care Activity Detail Author Start: 05-04-2025 [facility] Start: 05-03-2025 Verification routine [facility] Start: 05-03-2025 Admission procedure [facility] Start: 05-03-2025 Hospital admission, emergency, from emergency room, medical nature [facility] Start: 05-03-2025 [facility] Start: 05-03-2025 [facility] Start: 07-25-2023 Blood chemistry [facility] Start: 07-24-2023 Blood chemistry [facility] Start: 07-23-2023 Blood chemistry [facility] Start: 07-22-2023 Blood chemistry [facility] Start: 07-21-2023 Blood chemistry [facility] Start: 07-20-2023 Blood chemistry [facility] Start: 07-19-2023 Blood chemistry [facility] Start: 07-18-2023 Patient discharge [facility] Start: 07-17-2023 Bacteria identified in Blood by Culture Blood Culture [facility] Start: 07-17-2023 End: 07-17-2023 Blood culture [facility] Start: 07-17-2023 [facility] Start: 07-16-2023 [facility] Start: 07-14-2023 Respiratory secretio n precautions [facility] Start: 07-14-2023 Following clinical p athway protocol [facility] Start: 07-14-2023 Assessment of risk o f venous thromboembolism [facility] Start: 07-14-2023 Inhalation therapy procedure [facility] Start: 07-14-2023 Insertion of cathete r into peripheral vein [facility] Start: 07-14-2023 Measuring intake and output [facility] Start: 07-14-2023 Oxygen therapy [facility] Start: 07-14-2023 Providing care accor ding to standard [facility] Start: 07-14-2023 Provision of activit y privileges [facility] Start: 07-14-2023 [facility] Start: 07-14-2023 Verification routine [facility] Start: 07-14-2023 Admission procedure [facility] Start: 01-09-2023 End: 01-09-2023 [facility] Start: 09-24-2022 [facility] Start: 08-28-2022 End: 08-28-2022 [facility] Work Phone: Patient Education [facility] Work Phone: Patient referral [facility] Work Phone: Payers Date Payer Category Payer Self-pay [id number] 2024 Unknown [id number] 2017 Unknown [id number] 2011 Medicare [id number] 1945 Unknown [id number] 1945 Unknown [id number] [id number]. [id number] Medicare [employer] MEDICARE [id number] 900 [id number] Unknown Unknown [id number] [id number] Unknown [id number] [id number] Unknown [id number] [id number] Unknown [id number] Social History Date Type Detail Facility Start: 08-28-2022 End: 07-14-2023 Tobacco smoking status NEIS Unknown if ever smoked [facility] Start: 09-29-2020 None [facility] Start: 09-29-2020 Alone [facility] Start: 03-09-2021 Cigarettes [facility] Start: 1945 Sex Assigned At Male [facility] Start: 05-03-2025 Tobacco smoking stat us NEIS Ex-smoker (finding) [facility] Goals Date Patient Goal Desired Activity /State Functional Status Date Assessment Result Facility 07-18-2023 Functional status Ambulates;Up ad dafne [facility] Work Phone: Mental Status Date Assessment Result Facility 05-03-2025 Cognitive function Voice/Name [facility] Work Phone: 07-18-2023 Cognitive function Voice/Name [facility] Work Phone: 04-30-2023 Cognitive function Level Of Cons ciousness Awake;Alert;Appropriate [facility] Work Phone: Clinical Notes 07-14-2023 to 05-03-2025 Note Date & Type Note Facility 05-03-2025 History and physical note [facility] 07-17-2023 Progress note Note Date/Time July 17, 2023 12:20pm [facility] Medical Records Department [address] [place] [address] Progress Note 07/17/23 1213 MR#: [id number] Acct: [id number] Name: TRINY LOVING Rep #:[id number] : 1945 78 From: Shannon Martínez MD [facility]CP: [facility] Status:ADM IN Location: [place] [address] Subjective Subjective Patient seen and examined. He says he is actually feeling better. He feels his breathing has improved. He is still coughing, though it is dry. He denies any chest pain, palpitations, dizziness, nausea, vomiting or any other symptoms. Review of systems was otherwise negative. He is on 3L of oxygen Objective Data Objective Data Vital Signs: Vital Signs Temp Pulse Resp BP Pulse Ox O2 Del Method O2 Flow Rate 98.0 F 76 16 111/49 L 95 Nasal Cannula 3 07/17/23 10:33 07/17/23 10:49 07/17/23 10:33 07/17/23 10:49 07/17/23 10:33 07/17/23 10:33 07/17/23 10:33 Oxygen Flow Rate (L/min) 3 Oxygen Delivery Method Nasal Cannula Weight: 264 lb 5.348 oz Body Mass Index (BMI) 39.0 Intake & Output: Intake and Output for Last 24 Hours 07/15/23 07/16/23 07/17/23 23:59 23:59 23:59 Intake Total 1999 / 1999 960 / 960 Output Total 700 / 700 250 / 250 Balance 1300 / 1300 960 / 960 -250 / -250 Lab / Micro Data 07/17/23 09:21 07/17/23 09:21 Labs: Laboratory Results - last 24 hr 07/17/23 09:21: WBC 33.7 H*, RBC 4.30 L, Hgb 14.6, Hct 44.5, MCV 103.5 H, MCH 34.0 H, MCHC 32.8, RDW Std Deviation 51.3 H, RDW Coeff of Ignacio 13.2, Plt Count 240, MPV 10.2, Immature Gran % (Auto) 1.300 H, Neut % (Auto) 93.4 H, Lymph % (Auto) 1.8 L, Dyer % (Auto) 3.3, Eos % (Auto) 0.0, Baso % (Auto) 0.2, Absolute Neuts (auto) 31.4 H, Absolute Lymphs (auto) 0.59 L, Nucleated RBC % 0, Differential Comment SCANNED, Diff Path Review February foll, Sodium 138, Potassium 4.1, Chloride 105, Carbon Dioxide 30.0, Anion Gap 3 L, BUN 57 H, Creatinine 1.63H, Estim Creat Clear Calc 37.95, Est GFR (MDRD) Af Amer 53 L, Est GFR (MDRD) Non-Af 44 L, BUN/Creatinine Ratio 35.0 H, Glucose 160 H, Calcium 9.1 Micro: Microbiology 07/14/23 22:40 Mucosa - Nasopharyngeal Respiratory Panel (PCR) - Final Rhinovirus 07/14/23 15:02 Nasal Secretion SARS-CoV-2 & FLU Antigen (Rapid) - Final Physical Exam Const alert, oriented x3 and no apparent distress Constitutional Narrative: obese General Appearance: cooperative HEENT normocephalic, head/scalp atraumatic, moist oral mucous membranes, oropharynx normal and gingiva normal Eyes PERRL and EOMs intact bilaterally Neck no lymphadenopathy, supple and thyroid normal Lymph Lymphatic: no lymphadenopathy noted and no lymphedema noted Resp Resp Narrative: diminished breath sounds bibasally, few crackles.on 3L of oxygen. Cardio regular rate, regular rhythm, S1 normal heart sound, S2 normal heart sound and no murmurs GI normal to inspection, nondistended, normoactive bowel sounds, soft to palpation,non-tender and non-distended Extremity normal capillary refill, no clubbing, cyanosis or edema and no calf tenderness General Extremity: no tenderness to palpation of joints or extremities Skin General Skin Exam: no breakdown and turgor normal Neuro CN's II-XII intact bilaterally, no focal motor deficits, no sensory deficits noted and deep tendon reflexes 2+ bilaterally Motor Exam: strength 5/5 throughout and general weakness Psych thought process normal, cooperative and affect normal Appearance: appropriate Assessment & Plan Assessment/Plan (1) Acute exacerbation of chronic obstructive pulmonary disease: PLAN: Plan #Hypoxia due to acute exacerbation of COPD * now on 3L of oxygen * covid and flu screen were negative * continue Breathing treatments of bronchodilators. Titrate oxygen to maintain saturation above 90%. * On IV Solu-Medrol as well as IV Zithromax. * Also being diuresed with IV Lasix. * #Leukocytosis: * wbc today is up to 33.7 today. There are no signs of infectious pathology as he doesnt have a fever or chills and cough is nonproductive * He is on PO azithromycin. * dc IV solumedrol; start on PO prednisone 40mg daily x 5 days * trend wbc. I expect it will improve now that the IV solumedrol has been discontinued * out of precautino, will get blood cultures also #Paroxysmal A-fib: On Eliquis. #CKD stage IIIb: Cr is down to 1.63 today. This is around his baseline. Will monitor. #History of CAD s/p stents x2: On aspirin and Plavix as well as high intensity statin #Acute on chronic Heart failure with reduced ejection fraction * Has an ICD in place as well. * On Entresto and Lasix as well as spironolactone and beta-ludin. * BNP was 1071 which is higher than how it usually is for him. * 2D echo on 07/14/2023 showed mildly dilated left ventricle with EF of 35% and moderately severe segmental systolic dysfunction. It is similar to previous echo from March 04, 2021. * on iV lasix 40mg bid. #ALEX: On home CPAP but does not take it because he is not able to tolerate the mask. #Anxiety: On Ativan #DVT prophylaxis: On Eliquis Charges/Coding Visit Charges Inpatient E&M: 71563 Subs Hosp L2 07/17/23 1553 <Electronically signed by Shannon Martínez MD> Shannon Martínez MD Cosigner Signature (if applicable): CC: ~ Signed [facility] Work Phone: 1(215) 533-384009-19-2023 Progress note Author Shannon [facility] July 16, 2023 3:35pm Note Date/Time July 16, 2023 10:56am [facility] Medical Records Department [address] [place] [address] Progress Note 07/16/23 1048 MR#: [id number] Acct: [id number] Name: TRINY LOVING Rep #:[id number] : 1945 78 From: Shannon Martínez MD [facility] Status:ADM IN Location: [place] [address] 1 Subjective Subjective Patient seen and examined. He is still wheezing and coughing. Cough is dry. He had no other complaints and review of systems is otherwise negative. Review of systems is otherwise negative. He has remained hemodynamically stable. Objective Data Objective Data Vital Signs: Vital Signs Temp Pulse Resp BP Pulse Ox O2 Del Method O2 Flow Rate 98.2 F 98 20 H 129/61 H 94 Nasal Cannula 4 07/16/23 09:00 07/16/23 09:22 07/16/23 09:00 07/16/23 09:00 07/16/23 09:00 07/16/23 09:00 07/16/23 09:00 Oxygen Flow Rate (L/min) 4 Oxygen Delivery Method Nasal Cannula Weight: 264 lb 5.348 oz Body Mass Index (BMI) 39.0 Intake & Output: Intake and Output for Last 24 Hours 07/14/23 07/15/23 07/16/23 23:59 23:59 23:59 Intake Total 2000 / 2000 200 / 200 Output Total 700 / 700 Balance 1300 / 1300 200 / 200 Lab / Micro Data 07/16/23 09:00 07/16/23 09:00 Labs: Laboratory Results - last 24 hr 07/16/23 09:00: WBC 31.4 H*, RBC 4.35 L, Hgb 14.6, Hct 45.1, MCV 103.7 H, MCH 33.6 H, MCHC 32.4, RDW Std Deviation 51.9 H, RDW Coeff of Ignacio 13.3, Plt Count 271,MPV 10.2, Immature Gran % (Auto) 1.400 H, Neut % (Auto) 95.1 H, Lymph % (Auto) 1.3 L, Dyer % (Auto) 2.0, Eos % (Auto) 0.0, Baso % (Auto) 0.2, Absolute Neuts (auto) 29.9 H, Absolute Lymphs (auto) 0.41 L, Nucleated RBC % 0, Diff Path Review May foll, Sodium 137, Potassium 3.8, Chloride 103, Carbon Dioxide 26.0, Anion Gap 8, BUN 50 H, Creatinine 1.71 H, Estim Creat Clear Calc 36.18, Est GFR (MDRD) Af Amer 50 L, Est GFR (MDRD) Non-Af 42 L, BUN/Creatinine Ratio 29.2 H, Glucose 223 H, Calcium 9.2 Micro: Microbiology 07/14/23 22:40 Mucosa - Nasopharyngeal Respiratory Panel (PCR) - Final Rhinovirus 07/14/23 15:02 Nasal Secretion SARS-CoV-2 & FLU Antigen (Rapid) - Final Physical Exam Const alert, oriented x3 and no apparent distress Constitutional Narrative: obese General Appearance: cooperative HEENT normocephalic, head/scalp atraumatic, moist oral mucous membranes, oropharynx normal and gingiva normal Eyes PERRL and EOMs intact bilaterally Neck no lymphadenopathy, supple and thyroid normal Lymph Lymphatic: no lymphadenopathy noted and no lymphedema noted Resp Resp Narrative: diminished breath sounds bibasally, few crackles.on 4L of oxygen. Cardio regular rate, regular rhythm, S1 normal heart sound, S2 normal heart sound and no murmurs GI normal to inspection, nondistended, normoactive bowel sounds, soft to palpation,non-tender and non-distended Extremity normal capillary refill, no clubbing, cyanosis or edema and no calf tenderness General Extremity: no tenderness to palpation of joints or extremities Skin General Skin Exam: no breakdown and turgor normal Neuro CN's II-XII intact bilaterally, no focal motor deficits, no sensory deficits noted and deep tendon reflexes 2+ bilaterally Motor Exam: strength 5/5 throughout and general weakness Psych thought process normal, cooperative and affect normal Appearance: appropriate Assessment & Plan Assessment/Plan (1) Acute exacerbation of chronic obstructive pulmonary disease: PLAN: Plan #Hypoxia due to acute exacerbation of COPD * now on 4L of oxygen * covid and flu screen were negative * continue Breathing treatments of bronchodilators. Titrate oxygen to maintain saturation above 90%. * On IV Solu-Medrol as well as IV Zithromax. * Also being diuresed with IV Lasix. * #Leukocytosis: * WBC is up to 31.4 today. Was 23 yesterday * Thought to be likely due to prednisone which she had been taking at home. * patient's oxygen requirement is increasing, and in light of the leucocytosis, this is concerning for an infectious process * on PO azithromycin. Will monitor. #Paroxysmal A-fib: On Eliquis. #CKD stage IIIb: Cr is up to 1.71 today. This is around his baseline. Will monitor. #History of CAD s/p stents x2: On aspirin and Plavix as well as high intensity statin #Acute on chronic Heart failure with reduced ejection fraction * Has an ICD in place as well. * On Entresto and Lasix as well as spironolactone and beta-ludin. * BNP was 1071 which is higher than how it usually is for him. * 2D echo on 07/14/2023 showed mildly dilated left ventricle with EF of 35% and moderately severe segmental systolic dysfunction. It is similar to previous echo from March 04, 2021. * on iV lasix 40mg bid. #ALEX: On home CPAP but does not take it because he is not able to tolerate the mask. #Anxiety: On Ativan #DVT prophylaxis: On Eliquis Charges/Coding Visit Charges Inpatient E&M: 72705 Subs Hosp L3 07/16/23 1535 <Electronically signed by Shannon Martínez MD> Shannon Martínez MD Cosigner Signature (if applicable): CC: ~ Signed [facility] Work Phone: 1([phone]) 361-145809-18-2023 Progress note Author [facility] July 15, 2023 3:54pm Note Date/Time July 15, 2023 2:57pm [facility] Medical Records Department [address] [place] [address] Progress Note 07/15/23 1455 MR#: [id number] Acct: [id number] Name: TRINY LOVING Rep #:[id number] : 1945 78 From: Shannon Martínez MD PCP: [facility] Status:ADM IN Location: [place] [address] Subjective Subjective Patient seen and examined. He complained of still coughing, but it is dry. He still remains a bit short of breath. He denies any cough or chest pain, palpitations, dizziness, nausea vomiting or any other symptoms. Review of symptoms otherwise negative. Objective Data Objective Data Vital Signs: Vital Signs Temp Pulse Resp BP Pulse Ox O2 Del Method O2 Flow Rate 97.6 F L 73 19 H 116/58 L 95 Nasal Cannula 3 07/15/23 10:37 07/15/23 14:29 07/15/23 14:29 07/15/23 10:37 07/15/23 10:37 07/15/23 10:37 07/15/23 10:37 Oxygen Flow Rate (L/min) 3 Oxygen Delivery Method Nasal Cannula Weight: 264 lb 12.403 oz Body Mass Index (BMI) 39.1 Intake & Output: Intake and Output for Last 24 Hours 07/13/23 07/14/23 07/15/23 23:59 23:59 23:59 Intake Total 1200 / 1200 Output Total 700 / 700 Balance 500 / 500 Lab / Micro Data 07/15/23 05:44 07/15/23 05:44 Labs: Laboratory Results - last 24 hr 07/14/23 15:02: WBC 25.8 H, RBC 4.27 L, Hgb 14.5, Hct 44.7, MCV 104.7 H, MCH 34.0 H, MCHC 32.4, RDW Std Deviation 53.7 H, RDW Coeff of Ignacio 13.7, Plt Count 231, MPV 10.2, Immature Gran % (Auto) 1.400 H, Neut % (Auto) 91.3 H, Lymph % (Auto) 2.5 L, Dyer % (Auto) 4.6, Eos % (Auto) 0.0, Baso % (Auto) 0.2, Absolute Neuts (auto) 23.6 H, Absolute Lymphs (auto) 0.64 L, Nucleated RBC % 0, Differential Comment SCANNED, Sodium 139, Potassium 4.4, Chloride 106, Carbon Dioxide 28.0, Anion Gap 5, BUN 36 H, Creatinine 1.56 H, Estim Creat Clear Calc 39.66, Est GFR (MDRD) Af Amer 56 L, Est GFR (MDRD) Non-Af 46 L, BUN/Creatinine Ratio 23.1 H, Glucose 112 H, Calcium 9.1, Troponin I High Sens 81 H, B-Natriuretic Peptide 1071.3 H 07/14/23 17:14: Troponin I High Sens 74 07/15/23 05:44: WBC 23.7 H, RBC 4.09 L, Hgb 13.7, Hct 42.7, MCV 104.4 H, MCH 33.5 H, MCHC 32.1, RDW Std Deviation 52.6 H, RDW Coeff of Ignacio 13.5, Plt Count 234, MPV 10.3, Immature Gran % (Auto) 1.000 H, Neut % (Auto) 94.0 H, Lymph % (Auto) 1.7 L, Dyer % (Auto) 2.7, Eos % (Auto) 0.3, Baso % (Auto) 0.3, Absolute Neuts (auto) 22.3 H, Absolute Lymphs (auto) 0.41 L, Nucleated RBC % 0, Differential Comment S, Sodium 139, Potassium 4.3, Chloride 107, Carbon Dioxide 25.0, Anion Gap 7, BUN 34 H, Creatinine 1.41 H, Estim Creat Clear Calc 43.87, Est GFR (MDRD) Af Amer 63, Est GFR (MDRD) Non-Af 52 L, BUN/Creatinine Ratio 24.1H, Glucose 142 H, Calcium 8.9, Magnesium 2.5, Total Bilirubin 0.90, AST 13 L, ALT 16, Alkaline Phosphatase 56, Total Protein 6.7, Albumin 3.0 L, Globulin 3.7,Albumin/Globulin Ratio 0.8 L Micro: Microbiology 07/14/23 22:40 Mucosa - Nasopharyngeal Respiratory Panel (PCR) - Final Rhinovirus 07/14/23 15:02 Nasal Secretion SARS-CoV-2 & FLU Antigen (Rapid) - Final Radiography Diagnostic Testing: Radiology Impression Chest X-Ray 07/14/23 15:35 IMPRESSION: No acute findings in the chest. Electronically Signed: Mehrdad Saldana MD at 16:01 EDT , Echocardiogram 07/14/23 19:14 Interpretation Summary Mildly dilated left ventricle. The estimated ejection fraction is 35 %. Moderately severe segmental systolic dysfunction (see wall motion). Contrast injection was performed. Ordering Physician: Stephani Sullivan Referring Physician: [facility] Performed By: Lauren Llamas, TD, RVT Physical Exam Const alert, oriented x3 and no apparent distress Constitutional Narrative: obese General Appearance: cooperative HEENT normocephalic, head/scalp atraumatic, moist oral mucous membranes, oropharynx normal and gingiva normal Eyes PERRL and EOMs intact bilaterally Neck no lymphadenopathy, supple and thyroid normal Lymph Lymphatic: no lymphadenopathy noted and no lymphedema noted Resp Resp Narrative: diminished breath sounds bibasally, few crackles. Cardio regular rate, regular rhythm, S1 normal heart sound, S2 normal heart sound and no murmurs GI normal to inspection, nondistended, normoactive bowel sounds, soft to palpation,non-tender and non-distended Extremity normal capillary refill, no clubbing, cyanosis or edema and no calf tenderness General Extremity: no tenderness to palpation of joints or extremities Skin General Skin Exam: no breakdown and turgor normal Neuro CN's II-XII intact bilaterally, no focal motor deficits, no sensory deficits noted and deep tendon reflexes 2+ bilaterally Motor Exam: strength 5/5 throughout and general weakness Psych thought process normal, cooperative and affect normal Appearance: appropriate Assessment & Plan Assessment/Plan (1) Acute exacerbation of chronic obstructive pulmonary disease: PLAN: Plan #Hypoxia due to acute exacerbation of COPD * on 2L of oxygen * covid and flu screen were negative * Breathing treatments of bronchodilators. Titrate oxygen to maintain saturation above 90%. * On IV Solu-Medrol as well as IV Zithromax. * Also being diuresed with IV Lasix. * #Leukocytosis: Thought to be likely due to prednisone which she had been taking at home. We will monitor and consider further work-up if it remains elevated. #Paroxysmal A-fib: On Eliquis. #CKD stage IIIb: At baseline creatinine. Will monitor. #History of CAD s/p stents x2: On aspirin and Plavix as well as high intensity statin #Acue on chronic Heart failure with reduced ejection fraction * Has an ICD in place as well. * On Entresto and Lasix as well as spironolactone and beta-ludin. * BNP was 1071 which is higher than how it usually is for him. * 2D echo on 07/14/2023 showed mildly dilated left ventricle with EF of 35% and moderately severe segmental systolic dysfunction. It is similar to previous echo from March 04, 2021. * IV lasix increased to 40mg bid. #ALEX: On home CPAP but does not take it because he is not able to tolerate the mask. #Anxiety: On Ativan #DVT prophylaxis: On Eliquis Charges/Coding Visit Charges Inpatient E&M: 98111 Subs Hosp L3 07/15/23 1554 <Electronically signed by Shannon Martínez MD> Shannon Martínez MD Cosigner Signature (if applicable): CC: ~ Signed [facility] Work Phone: 1([phone]) 287-107909-18-2023 Discharge summary Author Clifton Son [facility] July 15, 2023 12:06am Note Date/Time July 14, 2023 3:18pm [facility] Medical Records Department [address] [place] [address] Emergency Department Summary 07/14/23 MR#: [id number] Acct: [id number] Name: TRINY LOVING Rep #:[id number] : 1945 78 From: Clifton Calixto PCP: [facility] Status:ADM IN Location: [place] [address] HPI HPI - URI History of Present Illness Chief Complaint: Cold Sx Informant: patient Onset/Context/Timing Onset: Days (2) Context: Gradual Onset Timing: Continuous Quality: Dry cough Location: Chest Worsened by: - (Laying flat) Relieved by: - (Nothing) Associated Symptoms Associated Symptoms: Positive for Nasal Congestion, Shortness of Breath and Nonproductive cough; Negative for Headache, Sinus Pressure, Myalgias, Nausea, Vomiting, Diarrhea, Chest Pain, Hemoptysis or Productive Cough Narrative Narrative: Zentz with sore throat, cough, rhinorrhea, and shortness of breath that has beengetting worse over the past 2 days. Patient states his breathing is worse with laying flat. Patient states his cough is dry. Patient states his symptoms havebeen constant for the past 2 days. Patient has a history of COPD and always hastrouble breathing but it feels worse over the past couple days. Patient denies any sputum production. Patient denies any fevers or chills. Patient admits to some upper abdominal pain that he feels is due to his coughing. Patient states he only has pain when he coughs. ROS ROS ED Constitutional Constitutional ED: Denies chills or fever(s) Eyes Eyes: Denies blurry vision or change in vision ENT ENT ED: Reports rhinorrhea and sore throat Cardiovascular Cardiovascular: Denies chest pain or palpitations Respiratory/Chest Respiratory/Chest: Reports cough and dyspnea Gastrointestinal Gastrointestinal: Reports abdominal pain; Denies nausea or vomiting Genitourinary Genitourinary ED: Denies dysuria or hematuria Musculoskeletal Musculoskeletal: Denies back pain or neck pain Integumentary Denies abscess or rash Neurologic Neurologic: Denies headache(s) or weakness Allergic/Immunologic Allergic/Immunologic ED: Denies mouth swelling or urticaria PFSH PFSH Medical History (Updated 07/14/23 @ 19:[address] Stephani Sullivan MD) COPD (chronic obstructive pulmonary disease) CPAP (continuous positive airway pressure) dependence Former smoker ICD (implantable cardioverter-defibrillator) in place Myocardial infarct Home Medications albuterol sulfate 90 mcg/actuation aerosol inhaler (Proventil HFA) 1 - 2 puff IHQ2H PRN Sob &/Or Wheezing 03/16/16 [History Last Taken 03/03/21 15:00] aspirin 81 mg chewable tablet 81 mg PO DAILY@0800 Check with primary doctor 03/16/16 [History Last Taken 03/03/21] budesonide-formoterol HFA 160 mcg-4.5 mcg/actuation aerosol inhaler (Symbicort) 2 puff inhalation BID COPD 03/16/16 [History Last Taken 03/03/21] rosuvastatin 10 mg tablet 10 mg PO QHS HLD 12/17/17 [History Last Taken 03/03/21] spironolactone 25 mg tablet 12.5 mg PO DAILY CHF 12/17/17 [History Last Taken 03/03/21] metoprolol succinate 100 mg tablet,extended release 24 hr 12.5 mg PO DAILY HEART03/03/21 [History Last Taken 03/03/21] apixaban 5 mg tablet (Eliquis) 5 mg PO BID #60 tabs 03/13/21 [Rx Last Taken Unknown] Entresto 26 mg PO.IVFORM DAILY 08/28/22 [History Last Taken Unknown] furosemide 40 mg tablet 40 mg PO DAILY 08/28/22 [History Last Taken Unknown] artificial tears(hypromellose) 0.3 % eye gel (Systane Gel) 2 drp EACH EYE Q4H PRN dry eyes #10 grams 01/09/23 [Rx Last Taken Unknown] prednisone 20 mg tablet 60 mg (3 x 20 mg) PO DAILY #12 TABLETS 05/15/23 [Rx Last Taken Unknown] Allergy/AdvReac Type Severity Reaction Status Date / Time No Known Allergies Allergy Verified 05/15/23 02:45 Family History Mother Aneurysm Surgical History History of cholecystectomy History of colectomy History of coronary artery stent placement History of coronary artery stent placement Social History household members: none housing: house Smoking Status: Former smoker alcohol intake: former substance use type: does not use EXAM Physical Exam Const Vital Signs: 07/14/23 14:26 07/14/23 14:35 07/14/23 14:36 Temperature 96.8 F L Temperature Source Temporal Pulse Rate 98 96 Respiratory Rate 26 H 19 H Respiratory Effort Short of Breath Labored Respiratory Pattern Tachypnea Blood Pressure 158/72 H 150/76 H Blood Pressure Mean 100 100 Pulse Ox 91 94 Oxygen Delivery Method Room Air Nasal Cannula Oxygen Flow Rate (L/min) 2 07/14/23 15:18 07/14/23 15:30 07/14/23 15:30 Temperature Temperature Source Pulse Rate 91 Respiratory Rate 25 H Respiratory Effort Respiratory Pattern Tachypnea Blood Pressure Blood Pressure Mean Pulse Ox 93 94 Oxygen Delivery Method Nasal Cannula Nasal Cannula Oxygen Flow Rate (L/min) 2 2 07/14/23 16:41 07/14/23 18:54 Temperature 98.3 F Temperature Source Temporal Pulse Rate 93 94 Respiratory Rate 22 H 22 H Respiratory Effort Respiratory Pattern Blood Pressure 119/67 Blood Pressure Mean 84 Pulse Ox 94 Oxygen Delivery Method Nasal Cannula Oxygen Flow Rate (L/min) 2 Positive well nourished, well developed and obese General Appearance ED: well developed and NAD Nutritional Appearance: obese HEENT Reports moist mucous membranes normocephalic Neck supple and no JVD Resp normal respiratory effort Auscultation: wheezes expiratory wheezes and throughout Cardio regular rate and regular rhythm GI normal to inspection, nondistended, normoactive bowel sounds Palpation: soft and tender epigastric Extremity normal to inspection General Extremety ED: Negative for edema or tenderness General Extremity: Negative for edema Neuro oriented x3, CN's II-XII intact bilaterally and no sensory deficits noted Sensorium / Orientation: alert Motor Exam: strength 5/5 throughout Psych mental status grossly normal Skin no rashes or lesions noted MDM MDM MDM Narrative Medical decision making narrative: Differential diagnosis includes COPD exacerbation, viral upper respiratory infection, COVID-19 infection, influenza infection, pneumonia, pneumothorax, cardiac dysrhythmia, cardiac ischemia, congestive heart failure, acute kidney injury, and electrolyte abnormality. Chest x-ray will be obtained to assess forpneumonia or pneumothorax, and congestive heart failure. EKG will be obtained to assess for cardiac dysrhythmia and cardiac ischemia. CBC will be obtained toassess for leukocytosis and anemia. Basic metabolic profile will be obtained toassess for electrolyte abnormality and renal function. BNP will be obtained to assess for congestive heart failure. High-sensitivity troponin will be obtainedto assess for cardiac ischemia. Lab Data Attestation: I reviewed the patient's lab results. Lab results narrative: BC was reviewed. There is a leukocytosis of 25.8. The remainder is within normal limits. Basic metabolic profile was reviewed. BUN was 36 and creatininewas 1.56. These are consistent with prior results. BNP was reviewed and was slightly elevated at 1071.3. This is slightly increased from previous results. High-sensitivity troponin was reviewed and was slightly elevated at 81. 2-hour repeat high- sensitivity troponin was reviewed and was normal at 74. Labs: Laboratory Results - last 24 hr 07/14/23 07/14/23 15:02 17:14 WBC 25.8 H RBC 4.27 L Hgb 14.5 Hct 44.7 MCV 104.7 H MCH 34.0 H MCHC 32.4 RDW Std Deviation 53.7 H RDW Coeff of Ignacio 13.7 Plt Count 231 MPV 10.2 Immature Gran % (Auto) 1.400 H Neut % (Auto) 91.3 H Lymph % (Auto) 2.5 L Dyer % (Auto) 4.6 Eos % (Auto) 0.0 Baso % (Auto) 0.2 Absolute Neuts (auto) 23.6 H Absolute Lymphs (auto) 0.64 L Nucleated RBC % 0 Differential Comment SCANNED Sodium 139 Potassium 4.4 Chloride 106 Carbon Dioxide 28.0 Anion Gap 5 BUN 36 H Creatinine 1.56 H Estim Creat Clear Calc 39.66 Est GFR (MDRD) Af Amer 56 L Est GFR (MDRD) Non-Af 46 L BUN/Creatinine Ratio 23.1 H Glucose 112 H Calcium 9.1 Troponin I High Sens 81 H 74 B-Natriuretic Peptide 1071.3 H Radiography Chest X-Ray - ED: 1 View, Read by ED Physician, Read by Radiologist and No AcuteDisease Diagnostic Testing: Clinical Impression(s) from Imaging Studies Chest X-Ray 07/14/23 15:35 IMPRESSION: No acute findings in the chest. Electronically Signed: Mehrdad Saldana MD at 16:01 EDT , Portable 1 view chest x-ray was obtained. On my independent interpretation, lung archer are clear. There is normal cardiac silhouette. Bony thorax is normal. There is no acute process noted. Radiologist also interpreted the x-ray and agrees. EKG Initial EKG: Attestation: I personally reviewed and interpreted this EKG as follows: Interpretation: Sinus Rhythm (With frequent PACs and PVCs with a rate of 94) and Non-Specific ST Changes Comments: EKG was obtained. On my independent interpretation, it showed anormal sinus rhythm frequent PACs and PVCs with a rate of 94. NC interval, QRS interval, and QTc intervals were all normal. Arona was normal. There are nonspecific ST-T wave changes. Prior EKG tracings: available for review Prior: Unchanged (04/30/2023) Management Discussion w/another healthcare provider: Hospitalist (Dr. Sullivan) Treatment and Re-Evaluation Narrative: Patient was given a DuoNeb aerosol here. Patient states his breathing improved after this. Patient was ambulated on room air. Patient's oxygen saturation dropped to 83% with ambulation. Patient was given a repeat albuterol aerosol. Because of patient hypoxia with ambulation, case was discussed with the hospitalist. She will admit the patient to her service. Patient understood andwas agreeable with the plan. All questions were answered. Discharge Plan Triage Chief Complaint: Cold Sx ED Provider: Clifton Son Dx/Rx/DC Orders Clinical Impression: COPD with acute exacerbation, Hypoxia Prescriptions: No Action aspirin 81 MG tablet,chewable 81 mg PO DAILY@0800 Patient Comments: [facility] albuterol sulfate [Proventil HFA] 6.7 GM HFA aerosol inhaler 1 - 2 puff IH Q2H PRN (Reason: Sob &/Or Wheezing) Patient Comments: shortness of breath budesonide-formoterol [Symbicort] 1 INHALER inhaler 2 puff inhalation BID spironolactone 25 MG tablet 12.5 mg PO DAILY rosuvastatin 10 MG tablet 10 mg PO QHS metoprolol succinate 100 mg Tablet Extended Release 24 Hr 12.5 mg PO DAILY Eliquis 5 mg tablet 5 mg PO BID Qty: 60 0RF furosemide 40 mg Tablet 40 mg PO DAILY Entresto 26 mg PO.IVFORM DAILY Systane Gel 0.3 % gel 2 drp EACH EYE Q4H PRN (Reason: dry eyes) Qty: 10 0RF prednisone 20 mg tablet 60 mg PO DAILY Qty: 12 0RF [facility] [Primary Care Provider] - Disposition Disposition: Acute Care Hospital [facility] What to do if you have Problems For any increased pain, shortness of breath, bleeding, nausea or vomiting, chestpain, or any unexpected problems, contact your Primary Care Provider. Call [facility] ([phone]) or report to the closest Emergency Room. Call 911 if necessary. 07/15/235 <Electronically signed by Clifton Son DO> Cosigner Signature (if applicable): CC: [facility] ~ Signed [facility] Work Phone: 1(978) 471-492409-17-2023 History and physical note Author Stephani Sullivan [facility] July 14, 2023 7:17pm Note Date/Time July 14, 2023 7:17pm [facility] Medical Records Department [address] [place] [address] H&P Exam - Hospitalist 07/14/23 190 MR#: [id number] Acct: [id number] Name: TRINY LOVING Lu[place] Rep #:[id number] : 1945 78 From: Stephani Sullivan MD [facility] Status:REG ER Location: ED HPI - General General Date of Admission: 07/14/23 Date of Service: 07/14/23 Chief Complaint: Cough and hypoxia HPI Narrative Triny Loving is a 78-year-old male with history of hypertension, COPD, CKD, CAD,combined heart failure, ALEX who presented to [facility] 07/14/2023 with runny nose and cough and increased shortness of breath over the past several days. In the ED 91% on room air but respiratory rate in the mid 20s. White blood cell count found to be 25.8 with a left shift and lymphopenia and he had a troponin of 81 with a BNP of 1071. Chest x-ray read as no acute abnormality but on review of film there is possibly some increased vascular congestion though not overtly so when patient complained of worsening shortness of breath when lying flat. COVID and flu negative. Given patient's increased work of breathing and O2 sat dropping to 83% on room air hospitalist contacted for admission. Patient evaluated at bedside and endorses the stuffy nose and increased cough without significant sputum production for 3 to 4 days and increased shortness of breath but reports he is chronically short of breath all the time. Does report several times he is coughed hard enough he had minimal sputumwith some red streaks but has not had overt hemoptysis. Has some upper abdominal pain with cough but denies any chest pain, denies any fevers or chills, was at his best friend's [facility] services over the weekend so he is notsure if he was exposed to anyone with any viruses. Has chronic bilateral lower extremity swelling that he does not think is worse than usual. He chalked most of this up to his anxiety given his recent losses. Denies other acute complaints [facility] Medical History (Updated 07/14/23 @ 19:[address] Stephani Sullivan MD) COPD (chronic obstructive pulmonary disease) CPAP (continuous positive airway pressure) dependence Former smoker ICD (implantable cardioverter-defibrillator) in place Myocardial infarct Home Medications albuterol sulfate 90 mcg/actuation aerosol inhaler (Proventil HFA) 1 - 2 puff IHQ2H PRN Sob &/Or Wheezing 03/16/16 [History Last Taken 03/03/21 15:00] aspirin 81 mg chewable tablet 81 mg PO DAILY@0800 Check with primary doctor 03/16/16 [History Last Taken 03/03/21] budesonide-formoterol HFA 160 mcg-4.5 mcg/actuation aerosol inhaler (Symbicort) 2 puff inhalation BID COPD 03/16/16 [History Last Taken 03/03/21] rosuvastatin 10 mg tablet 10 mg PO QHS HLD 12/17/17 [History Last Taken 03/03/21] spironolactone 25 mg tablet 12.5 mg PO DAILY CHF 12/17/17 [History Last Taken 03/03/21] metoprolol succinate 100 mg tablet,extended release 24 hr 12.5 mg PO DAILY HEART03/03/21 [History Last Taken 03/03/21] apixaban 5 mg tablet (Eliquis) 5 mg PO BID #60 tabs 03/13/21 [Rx Last Taken Unknown] Entresto 26 mg PO.IVFORM DAILY 08/28/22 [History Last Taken Unknown] furosemide 40 mg tablet 40 mg PO DAILY 08/28/22 [History Last Taken Unknown] artificial tears(hypromellose) 0.3 % eye gel (Systane Gel) 2 drp EACH EYE Q4H PRN dry eyes #10 grams 01/09/23 [Rx Last Taken Unknown] prednisone 20 mg tablet 60 mg (3 x 20 mg) PO DAILY #12 TABLETS 05/15/23 [Rx Last Taken Unknown] Allergy/AdvReac Type Severity Reaction Status Date / Time No Known Allergies Allergy Verified 05/15/23 02:45 Family History Mother Aneurysm Surgical History History of cholecystectomy History of colectomy History of coronary artery stent placement History of coronary artery stent placement Social History household members: none housing: house Smoking Status: Former smoker alcohol intake: former substance use type: does not use ROS ROS Narrative General: Denies fever/chills HENT: Denies headache, denies stuffy nose, denies sore throat EYES: Denies changes in vision Resp: Cough that has not productive and increased shortness of breath Cardiac: Denies chest pain GI: Denies abdominal pain, denies changes in bowel, denies nausea/vomiting : Denies changes in urination Extremity: Chronic bilateral lower extremity swelling MSK: Denies weakness Neuro: Denies any numbness/tingling Heme: Denies any bleeding or bruising Skin: Denies rashes Psychiatric: Anxiety Vital Signs Vital Signs Vital Signs: 07/14/23 14:26 07/14/23 14:35 07/14/23 14:36 Temperature 96.8 F L Temperature Source Temporal Pulse Rate 98 96 Respiratory Rate 26 H 19 H Respiratory Effort Short of Breath Labored Respiratory Pattern Tachypnea Blood Pressure 158/72 H 150/76 H Blood Pressure Mean 100 100 Pulse Ox 91 94 Oxygen Delivery Method Room Air Nasal Cannula Oxygen Flow Rate (L/min) 2 07/14/23 15:18 07/14/23 15:30 07/14/23 15:30 Temperature Temperature Source Pulse Rate 91 Respiratory Rate 25 H Respiratory Effort Respiratory Pattern Tachypnea Blood Pressure Blood Pressure Mean Pulse Ox 93 94 Oxygen Delivery Method Nasal Cannula Nasal Cannula Oxygen Flow Rate (L/min) 2 2 07/14/23 16:41 07/14/23 18:54 Temperature 98.3 F Temperature Source Temporal Pulse Rate 93 94 Respiratory Rate 22 H 22 H Respiratory Effort Respiratory Pattern Blood Pressure 119/67 Blood Pressure Mean 84 Pulse Ox 94 Oxygen Delivery Method Nasal Cannula Oxygen Flow Rate (L/min) 2 Weight Weight: 121.8 kg Body Mass Index (BMI) 39.6 Physical Exam Narrative General: Alert, oriented, no apparent distress HEENT: Atraumatic, normocephalic Eyes: Anicteric, normal conjunctiva, extraocular movements grossly intact Neck: Supple Respiratory: Slight increased work of breathing, scattered wheezes, somewhat diminished at the bases Cardiovascular: Regular rate and rhythm GI: Soft, nontender, nondistended Extremities: Trace lower extremity edema Musculoskeletal: Moving all extremities Neuro: No overt focal neurological deficits Skin: No rashes appreciated Psych: Cooperative Results Lab / Micro Data 07/14/23 15:02 07/14/23 15:02 Labs: Laboratory Results - last 24 hr 07/14/23 15:02: WBC 25.8 H, RBC 4.27 L, Hgb 14.5, Hct 44.7, MCV 104.7 H, MCH 34.0 H, MCHC 32.4, RDW Std Deviation 53.7 H, RDW Coeff of Ignacio 13.7, Plt Count 231, MPV 10.2, Immature Gran % (Auto) 1.400 H, Neut % (Auto) 91.3 H, Lymph % (Auto) 2.5 L, Dyer % (Auto) 4.6, Eos % (Auto) 0.0, Baso % (Auto) 0.2, Absolute Neuts (auto) 23.6 H, Absolute Lymphs (auto) 0.64 L, Nucleated RBC % 0, Differential Comment SCANNED, Sodium 139, Potassium 4.4, Chloride 106, Carbon Dioxide 28.0, Anion Gap 5, BUN 36 H, Creatinine 1.56 H, Estim Creat Clear Calc 39.66, Est GFR (MDRD) Af Amer 56 L, Est GFR (MDRD) Non-Af 46 L, BUN/Creatinine Ratio 23.1 H, Glucose 112 H, Calcium 9.1, Troponin I High Sens 81 H, B-Natriuretic Peptide 1071.3 H 07/14/23 17:14: Troponin I High Sens 74 Micro: Microbiology 07/14/23 15:02 Nasal Secretion SARS-CoV-2 & FLU Antigen (Rapid) - Final Radiology Impression Chest X-Ray 07/14/23 15:35 IMPRESSION: No acute findings in the chest. Electronically Signed: Mehrdad Saldana MD at 16:01 EDT Reading Location ID and State: [facility] / [place] , Service support , Assessment & Plan Assessment/Plan (1) Acute exacerbation of chronic obstructive pulmonary disease: (2) CAD (coronary artery disease): (3) COPD (chronic obstructive pulmonary disease): (4) Hypertension: QUALIFIERS: Hypertension type: essential hypertension Qualified Code(s): I10 - Essential (primary) hypertension (5) Systolic congestive heart failure with reduced left ventricular function, NYHA class 3: (6) Paroxysmal A-fib: (7) ICD (implantable cardioverter-defibrillator) in place: PLAN: Plan #Hypoxia secondary to acute exacerbation of chronic COPD -83% on room air when ambulated in the ED -Pt w/ history of heart failure as well as COPD, suspect primarily COPD exacerbation -Chest x-ray possibly with some increased vascular markings but not overtly so, no effusions and no definitive infiltrates -COVID and flu negative however will check respiratory panel given cough, runny nose, and increased work of breathing -Breathing treatments, Methylpred, azithromycin, incentive spirometer -Do suspect some component of overload however feel primary component is infectious given cough, runny nose, elevated white blood cell count with neutrophilia and lymphopenia -We will continue Lasix #Leukocytosis -Patient reports he did take leftover prednisone at home this morning before coming to the ED, unclear if this would necessarily cause the significant rise however patient without productive cough or infiltrate and do not think he has pneumonia, no other signs or symptoms of bacterial infection, may be viral in nature, afebrile -Continue to monitor and can consider antibiotics if worsens or fever or other signs or symptoms emerge #Elevated troponin -Suspect demand in nature due to underlying infection with possible component offluid overload, trop down trended -Very low suspicion for ACS, continue to treat underlying etiology #Paroxysmal atrial fibrillation -Continue Eliquis and other home medications #CKD stage IIIb -Appears to be at baseline, continue present management #COPD -No PFTs in our system, no O2 at baseline -Treatment as above #Hx CAD -Reports hx 2 stents -Cont home meds #History of combined heart failure and history of AICD -Last echocardiogram 03/04/2021 with EF of 35 % with wall motion abnormalities andstage I diastolic dysfunction -Given elevated BNP and some concerns for fluid overload we will obtain limited echo -I's and O's, daily weights -Continue Entresto, Lasix, spironolactone, beta-ludin #ALEX -Prescribed home CPAP but noncompliant, reports he is unable to tolerate the mask #Anxiety -Patient reports he takes 0.5 mg twice daily of Ativan at home, do not see this on the prescription monitoring program however [facility] and unclear what transfers between the systems #DVT ppx: Cont home eliquis Stephani Sullivan MD Time spent in the patient's overall evaluation,decision-making process, review of diagnostic data, adjustment of management, discussion with other providers, nursing nursing and ancillary staff involved in patient's care documentation, 76Minutes Charges/Coding Visit Charges Inpatient E&M: 38988 Init Hosp L3 07/14/231916 <Electronically signed by Stephani Sullivan MD> Cosigner Signature (if applicable): CC: Dr. Stephani Sullivan MD; [facility]~ Signed [facility] Work Phone: Discharge summary [facility] May 15, 2023 3:44am Note Date/Time May 15, 2023 3:15 am [facility] Medical Records Department [address] [place] [address] Emergency Department Summary 05/15/23 MR#: [id number] Acct: [id number] Name: TRINY LOVING Rep #:[id number] : 1945 77 From: Jose Marcano MD [facility] Status:[facility] ER Location: ED HPI History of Present Illness Chief Complaint: Shortness of Breath Detail of Chief Complaint: Increased shortness of breath with audible wheezing Informant: patient Onset/Context/Timing Onset: Yesterday Context: gradual Timing: Continuous and Waxes and wanes Quality: Positive for Dyspnea on exertion, Orthopnea (Stable two-pillow) and Wheezing; Negative for PND Current Severity: Mild Maximum Severity: Severe Worsened by: Exertion and Coughing; Not Worsened By Lying flat Relieved by: Nothing Associated Symptoms cough; Negative for rhinorrhea, post nasal drip, ear pain, fever, sore throat, subjective, chills, sweats, clear sputum, white sputum, yellow sputum or green sputum Chest Pain: Positive for None Narrative Narrative: Patient is an elderly male who lives alone. He states he has lived alone since his passed 2 years ago. He states he has 2 pillow orthopnea. He does havehistory of COPD. He is on anticoagulant. He does have history of congestive heart failure and coronary disease. He denies fever or chills. He denies rhinorrhea, cough that is productive. He states he occasionally has a cough. He denies GI symptoms. He denies headache, visual, ocular auditory symptoms. He denies leg pain, swelling or discoloration. He denies history of PE. Graft patient does have an inhaler. He states he has been using his inhaler. He has not been on steroids recently. He did have a recent eye surgery for glaucoma and cataract. He is on a prednisone ophthalmic drops. PE Risk Factors: Negative for Cancer, OCP + Smoking + > 35, Prior DVT or PE, Recent immobilization, Recent surgery or Recent travel Prior similar symptoms: Yes (COPD) Recent Illness/Hospitalization: No PFSH PFSH Medical History COPD (chronic obstructive pulmonary disease) CPAP (continuous positive airway pressure) dependence Former smoker ICD (implantable cardioverter-defibrillator) in place Myocardial infarct Home Medications albuterol sulfate 90 mcg/actuation aerosol inhaler (Proventil HFA) 1 - 2 puff IHQ2H PRN Sob &/Or Wheezing 03/16/16 [History Last Taken 03/03/21 15:00] aspirin 81 mg chewable tablet 81 mg PO DAILY@0800 Check with primary doctor 03/16/16 [History Last Taken 03/03/21] budesonide-formoterol HFA 160 mcg-4.5 mcg/actuation aerosol inhaler (Symbicort) 2 puff inhalation BID COPD 03/16/16 [History Last Taken 03/03/21] rosuvastatin 10 mg tablet 10 mg PO QHS HLD 12/17/17 [History Last Taken 03/03/21] spironolactone 25 mg tablet 12.5 mg PO DAILY CHF 12/17/17 [History Last Taken 03/03/21] metoprolol succinate 100 mg tablet,extended release 24 hr 12.5 mg PO DAILY HEART03/03/21 [History Last Taken 03/03/21] apixaban 5 mg tablet (Eliquis) 5 mg PO BID #60 tabs 03/13/21 [Rx Last Taken Unknown] Entresto 26 mg PO.IVFORM DAILY 08/28/22 [History Last Taken Unknown] furosemide 40 mg tablet 40 mg PO DAILY 08/28/22 [History Last Taken Unknown] artificial tears(hypromellose) 0.3 % eye gel (Systane Gel) 2 drp EACH EYE Q4H PRN dry eyes #10 grams 01/09/23 [Rx Last Taken Unknown] prednisone 20 mg tablet 60 mg (3 x 20 mg) PO DAILY #12 TABLETS 05/15/23 [Rx Last Taken Unknown] Allergy/AdvReac Type Severity Reaction Status Date / Time No Known Allergies Allergy Verified 05/15/23 02:45 Family History Mother Aneurysm Surgical History History of cholecystectomy History of colectomy History of coronary artery stent placement History of coronary artery stent placement Social History household members: none housing: house Smoking Status: Former smoker alcohol intake: former substance use type: does not use ROS ROS ED Constitutional Constitutional ED: Denies chills, fever(s), sweats or weight loss Eyes Eyes: Denies blurry vision, change in vision or diplopia ENT ENT ED: Denies ear pain, rhinorrhea or sore throat Cardiovascular Cardiovascular: Reports orthopnea; Denies chest pain, palpitations, paroxysmal nocturnal dyspnea or racing heartbeat Respiratory/Chest Respiratory/Chest: Reports cough, dyspnea, dyspnea on exertion and orthopnea; Denies paroxysmal nocturnal dyspnea or sputum Gastrointestinal Gastrointestinal: Denies abdominal pain, nausea or vomiting Genitourinary Genitourinary ED: Denies dysuria or hematuria Musculoskeletal Musculoskeletal: Denies arthralgias, back pain, myalgias or neck pain Integumentary Denies rash Neurologic Neurologic: Denies headache(s), paresthesias or weakness Endocrine Endocrinology: Denies cold intolerance or heat intolerance Hematologic/Lymphatic Hematologic/Lymphatic: Denies easy bleeding or easy bruising EXAM Physical Exam Const Vital Signs: 05/15/23 02:45 05/15/23 02:47 05/15/23 02:48 Temperature 97.2 F L 97.2 F L Temperature Source Temporal Temporal Pulse Rate 96 96 Respiratory Rate 30 H 30 H Respiratory Effort Normal Respiratory Depth Shallow Respiratory Pattern Normal Blood Pressure 146/97 H 146/97 H Blood Pressure Mean 113 113 Pulse Ox 97 97 Oxygen Delivery Method Room Air Room Air Room Air Positive well nourished, well developed and obese Constitutional Narrative: Patient has audible wheezing. He is tachypneic. There is minimal use of accessory muscles. General Appearance ED: well developed; Negative for pallor Nutritional Appearance: obese HEENT Reports moist mucous membranes HEENT Narrative: Head is atraumatic normocephalic. Ears are normal. Nares patent with no discharge. Posterior pharynx is normal. Eyes PERRL and EOMs intact bilaterally General Eye ED: Negative for pale conjunctiva or scleral icterus Neck no lymphadenopathy, supple, no meningeal signs and no JVD Chest Wall Chest Narrative: Appears normal Resp No normal respiratory effort and No clear to auscultation bilaterally Resp Narrative: Expiratory phase is increased. Effort and Inspection: Negative for pain with movement Auscultation: wheezes expiratory wheezes and throughout; Negative for rales Cardio regular rate, regular rhythm, S1 normal heart sound, S2 normal heart sound and no murmurs GI non-tender, non-distended and no masses Auscultation: hypoactive bowel sounds Palpation: soft Back/Spine no CVA tenderness Extremity normal to inspection Extremity Narrative: There is no asymmetry, swelling, discoloration, leg vein distention, palpable cords or tenderness along the distribution of the deep venous system. General Extremety ED: Negative for edema or tenderness General Extremity: Negative for edema Neuro oriented x3, CN's II-XII intact bilaterally and no sensory deficits noted Sensorium / Orientation: alert Psych mental status grossly normal Skin no wounds and skin turgor normal General Skin Exam: Negative for jaundice or pallor MDM MDM MDM Narrative Medical decision making narrative: Last stress test and echo February 2021. EF was 35%. There is evidence of diastolicdysfunction as well. There was an area of subsegmental wall motion abnormality. Review of prior records indicate patient has been seen several times for exacerbation COPD. With audible wheezing increased x-ray phase suspect patient has exacerbation of COPD. We will treat with DuoNeb and albuterol aerosolized treatments and 60 mg of prednisone. CBC was obtained to assess H&H as well as white count. BMP to assess renal function. Lab Data Attestation: I reviewed the patient's lab results. Lab results narrative: Creatinine has been elevated and approximately baseline since March 2021. White count is elevated with no shift or bandemia. This could be due to stress. Labs: Laboratory Results - last 24 hr 05/15/23 02:45 WBC 14.7 H RBC 4.74 Hgb 15.8 Hct 49.1 MCV 103.6 H MCH 33.3 H MCHC 32.2 RDW Std Deviation 49.2 H RDW Coeff of Ignacio 12.9 Plt Count 215 MPV 9.9 Immature Gran % (Auto) 0.300 Neut % (Auto) 57.5 Lymph % (Auto) 29.2 Dyer % (Auto) 8.8 Eos % (Auto) 3.6 Baso % (Auto) 0.6 Absolute Neuts (auto) 8.5 H Absolute Lymphs (auto) 4.29 Nucleated RBC % 0 Sodium 138 Potassium 4.5 Chloride 102 Carbon Dioxide 29.0 Anion Gap 7 BUN 23 H Creatinine 1.61 H Estim Creat Clear Calc 39.03 Est GFR (MDRD) Af Amer 54 L Est GFR (MDRD) Non-Af 45 L BUN/Creatinine Ratio 14.3 Glucose 104 Calcium 9.2 Radiography Chest X-Ray - ED: 2 View and Read by ED Physician (Reviewed and interpreted at 0338 as negative for acute process. There is slight hyperaeration. There is a dual- chamber pacemaker noted. Mediastinum is unremarkable. Cardiac silhouette and size is unremarkable. Osseous structures are unremarkable. There is no evidence of infiltrate, effusion or) Treatment and Re-Evaluation :: Patient was reassessed at 0340. Patient is wheeze free. Plan is discharged with burst of prednisone. Since he has no change in his cough and cough is nonproductive antibiotics were not prescribed. Discharge Plan Triage Chief Complaint: Shortness of Breath ED Provider: Jose Marcano Dx/Rx/DC Orders Clinical Impression: Acute exacerbation of chronic obstructive pulmonary disease, Systolic congestive heart failure with reduced left ventricular function, NYHA class 3, CAD (coronary artery disease), Obstructive sleep apnea, Acute bronchospasm Instructions: ED COPD Flare Prescriptions: New prednisone 20 mg tablet 60 mg PO DAILY Qty: 12 0RF No Action aspirin 81 MG tablet,chewable 81 mg PO DAILY@0800 Patient Comments: heart [facility] albuterol sulfate [Proventil HFA] 6.7 GM HFA aerosol inhaler 1 - 2 puff IH Q2H PRN (Reason: Sob &/Or Wheezing) Patient Comments: shortness of breath budesonide-formoterol [Symbicort] 1 INHALER inhaler 2 puff inhalation BID spironolactone 25 MG tablet 12.5 mg PO DAILY rosuvastatin 10 MG tablet 10 mg PO QHS metoprolol succinate 100 mg Tablet Extended Release 24 Hr 12.5 mg PO DAILY Eliquis 5 mg tablet 5 mg PO BID Qty: 60 0RF furosemide 40 mg Tablet 40 mg PO DAILY Entresto 26 mg PO.IVFORM DAILY Systane Gel 0.3 % gel 2 drp EACH EYE Q4H PRN (Reason: dry eyes) Qty: 10 0RF [facility] Provider] - 3-5 Days if not improving Disposition Disposition: Home, Self Care What to do if you have Problems For any increased pain, shortness of breath, bleeding, nausea or vomiting, chestpain, or any unexpected problems, contact your Primary Care Provider. Call [facility] ([phone]) or report to the closest Emergency Room. Call 911 if necessary. 05/15/23 0344 <Electronically signed by Jose Marcano MD> Cosigner Signature (if applicable): CC: [facility] ~ Signed [facility] Work Phone: Discharge summary Author Shannon Martínez [facility] July 18, 2023 11:55am Note Date/Time July 18, 2023 11:55am [facility] Medical Records Department [address] [place] [address] Instructions for Home/Discharge Instructions 07/18/23 1154 MR#: [id number] Acct: [id number] Name: TRINY LOVING Rep #:[id number] : 1945 78 From: Shannon Martínez MD PCP: [place] [place] Status:ADM IN Discharge Instructions Diet Discharge Diet: Low fat / Low cholesterol Activity Discharge Activity: Return to Normal Activity Weight Bearing Status: Weight bearing as tolerated Dressing / Incision Call your doctor if you observe: Fever of 101 or Higher, Shortness of breath, Dizziness, Swelling in the ankles, Chest pain and Increased palpitations (irregular heartbeat) Follow Up Care Test Results: Test results from this visit will be discussed in further detail at your follow- up appointment, if applicable. Discharge Plan Admission Admit Date/Time: 07/14/23 19:06 Primary Reason for Your Visit: COPD exacerbation due to rhinovirus infection Attending Provider: Shannon Martínez Primary Care Provider: [place] [place] Consulting Providers: Stephani Sullivan Instructions Patient Instructions: Understanding Oxygen Therapy, Oxygen Supplemental, Understanding the Cold Virus Additional Instructions / Restrictions: use oxygen 2L at rest and 4L with exertion as needed for shortness of breath Discharge Orders/Prescriptions Prescriptions: Continued aspirin 81 MG tablet,chewable 81 mg PO DAILY@0800 Patient Comments: heart health albuterol sulfate [Proventil HFA] 6.7 GM HFA aerosol inhaler 1 - 2 puff IH Q2H PRN (Reason: Sob &/Or Wheezing) Patient Comments: shortness of breath budesonide-formoterol [Symbicort] 1 INHALER inhaler 2 puff inhalation BID spironolactone 25 MG tablet 12.5 mg PO DAILY rosuvastatin 10 MG tablet 10 mg PO QHS metoprolol succinate 100 mg Tablet Extended Release 24 Hr 12.5 mg PO DAILY Eliquis 5 mg tablet 5 mg PO BID Qty: 60 0RF furosemide 40 mg Tablet 40 mg PO DAILY Entresto 26 mg PO.IVFORM BID Systane Gel 0.3 % gel 2 drp EACH EYE Q4H PRN (Reason: dry eyes) Qty: 10 0RF Discontinued prednisone 20 mg tablet 60 mg PO DAILY Qty: 12 0RF Referrals / Follow Up: [facility] [Primary [facility] Provider] - Within 1 Week Disposition Disposition (needs filled in before D/C Order can be placed): Home, Self Care 07/18/23 1155<Electronically signed by Shannon Martínez MD>Shannon Martínez MD CC: Dr. Stephani Sullivan MD; [facility] ~ Signed [facility] Work Phone: Evaluation noteNo assessment information available [facility] Work Phone: Evaluation note* Diagnosis Onset Date Resolution Status COPD (chronic obstructive pulmonary disease) acute ICD (implantable cardioverter-defibrillator) in place acute Paroxysmal A-fib acute [id number] acute Acute exacerbation of chroni c obstructive pulmonary disease chronic CAD (coronary artery disease) chronic Hypertension chronic [facility] Work Phone: Evaluation note* Diagnosis Onset Date Resolution Status Admit Date Acute hypotension acute April 6:18pm Acute kidney injury acute May 03, 2025 6:18pm [facility] Work Phone: History and physical note Author Stephani Sullivan [facility] Note Date/Time May 03, 2025 6:29p m [facility] Medical Records Department [address] [place] [address] H&P Exam - Hospitalist 05/03/25 1818 MR#: [id number] Acct: [id number] Name: TRINY LOVING Rep #:[id number] : 1945 79 From: Stephani Sullivan MD PCP: [facility] Status:ADM [facility] Location: PCU [id number] HPI - General General Date of Admission: 05/03/25 Date of Service: 05/03/25 Chief Complaint: Lightheaded/dizziness, low blood pressure HPI Narrative TRINY LOVING, is a 79-year-old male history of A-fib on Eliquis, COPD, coronary artery disease with 2 stents, ALEX, heart failure with reduced ejection fraction with AICD presented to [facility] ED 05/03/2025 due to low blood pressure and lightheadedness. Today he notes he felt light headed primarily withstanding and on presentation systolic blood pressure 92/73 with no other acute complaints. Patient given IV fluids with improvement in blood pressure but was found to have an AG with a BUN of 33 and creatinine of 2.42 and there was concern he was dehydrated so hospitalist contacted for admission. Patient evaluated at bedside. He reports that he hit his right leg on something severaldays ago and it bruised and swelled so it has been hurting some to get up and move around so he has not really been getting up to get as much food and water as he usually would but is still been taking his medications. Reports the swelling is slowly going down stump, does report compliance with his Eliquis. Not feeling lightheaded at this moment, feeling a little unwell overall but a little bit better with fluids. Denies any bowel or bladder changes, he is unsure what medications he takes as they are just put into a pill box for him but he does take them every day, he said the medications should be the same as they were in 2022 last time he was here except he started taking a "round pink pill" which family brought in and it is amiodarone 200 mg that he takes daily. He has had a CPAP for 4 to 5 years but used it once has not used it since. [facility] Medical History Paroxysmal A-fib Systolic congestive heart failure with reduced left ventricular function, NYHA class 3 CPAP (continuous positive airway pressure) dependence Former smoker ICD (implantable cardioverter-defibrillator) in place COPD (chronic obstructive pulmonary disease) Myocardial infarct COPD (chronic obstructive pulmonary disease) CAD (coronary artery disease) Hypertension Home Medications ?Medication ?Instructions ?Recorded ?Last Taken ?Type albuterol sulfate 90 mcg/actuation 1 - 2 puff IH Q2H P RN Sob &/Or 05/20/16 07/07/25 History aerosol inhaler (Proventil HFA) Wheezing aspirin 81 mg chewable tablet 81 mg PO DAILY@0800 [facility]c k with 03/16/16 05/03/25 History primary doctor budesonide-formoterol HFA 160 2 puff inhalation BID CO PD 03/16/16 05/03/25 History mcg-4.5 mcg/actuation aerosol inhaler (Symbicort) rosuvastatin 10 mg tablet 10 mg PO QHS HLD 12/17/17 History spironolactone 25 mg tablet 12.5 mg PO DAILY CHF 12/1705/03/25 History metoprolol succinate 100 mg 12.5 mg PO DAILY HEART 05/1705/03/25 History tablet,extended release 24 hr apixaban 5 mg tablet (Eliquis) 5 mg PO BID #60 tabs 05/03/25 Rx furosemide 40 mg tablet 40 mg PO DAILY 08/28/2205/21 History artificial tears(hypromellose) 0.3 2 drp EACH EYE Q4H PRN dry eyes 01/09/23 Unknown Rx % eye gel (Systane Gel) #10 grams sacubitril 24 mg-valsartan 26 mg 1 tab PO BID 05/03/25 Unknown History tablet (Entresto) Allergy/AdvReac Type Severity Reaction Status Date / Time No Known Allergies Allergy Verified 05/15/23 02:45 Family History Mother Aneurysm Surgical History History of coronary artery stent placement History of cholecystectomy History of coronary artery stent placement History of colectomy Social History household members: none housing: house Smoking Status: Former smoker alcohol intake: former substance use type: does not use ROS ROS Narrative General: Denies fever/chills HENT: Denies headache, denies stuffy nose, denies sore throat EYES: Denies changes in vision Resp: Denies cough, denies shortness of breath Cardiac: Denies chest pain GI: Denies abdominal pain, denies changes in bowel, denies nausea/vomiting : Denies changes in urination Extremity: Some right lower extremity swelling after he hit his zamora on something and some pain when he tries to walk but improving MSK: Denies weakness Neuro: Denies any numbness/tingling, lightheaded earlier Heme: Denies any bleeding or bruising Skin: Has a bump on right zamora and some bruising down near ankle Psychiatric: No complaints voiced Vital Signs Vital Signs Vital Signs: 05/03/25 12:38 05/03/25 13:21 05/03/25 13:24 Temperature 97.6 F L Temperature Source Temporal Pulse Rate 78 Respiratory Rate 18 Respiratory Effort Normal Non-Labored Blood Pressure 92/73 Blood Pressure Mean 79 Pulse Ox 94 Oxygen Delivery Method Room Air Room Air 05/03/25 15:00 05/03/25 17:00 05/03/25 18:11 Temperature 97.6 F L Temperature Source Pulse Rate 71 67 67 Respiratory Rate 18 16 16 Respiratory Effort Blood Pressure 130/60 H 121/69 H 121/69 H Blood Pressure Mean 83 86 86 Pulse Ox 95 96 96 Oxygen Delivery Method Room Air Room Air Weight Weight: 113.8 kg Body Mass Index (BMI) 37.0 Physical Exam Narrative General: Alert, oriented, no apparent distress HEENT: Atraumatic, normocephalic Eyes: Anicteric, normal conjunctiva, extraocular movements grossly intact Neck: Supple Respiratory: Some faint end expiratory wheezes, normal respiratory effort Cardiovascular: Irregularly irregular GI: Somewhat protuberant without any tenderness, rebound, guarding, rigidity Extremities: Does have 1+ right lower extremity pitting edema after hitting his zamora, reports compliance with his Eliquis Musculoskeletal: Moving all extremities Neuro: No overt focal neurological deficits Skin: Has a knot on right zamora and some bruising around ankle Psych: Cooperative Results Lab / Micro Data 05/03/25 14:10 05/03/25 14:10 Labs: Laboratory Results - last 24 hr 05/03/25 14:10: WBC 13.6 H, RBC 4.10 L, Hgb 14.3, Hct 44.2, MCV 107.8 H, MCH 34.9 H, MCHC 32.4, RDW Std Deviation 51.6 H, RDW Coeff of Ignacio 12.9, Plt Count 238, MPV 9.2, Immature Gran % (Auto) 0.600, Neut % (Auto) 73.2 H, Lymph % (Auto)14.0 L, Dyer % (Auto) 10.7 H, Eos % (Auto) 1.0, Baso % (Auto) 0.5, Absolute Neuts (auto) 10.0 H, Absolute Lymphs (auto) 1.90, Nucleated RBC % 0, Sodium 143,Potassium 4.9, Chloride 106, Carbon Dioxide 26.0, Anion Gap 11, BUN 33 H, Creatinine 2.42 H, Est GFR (MDRD) Non-Af 27 L, BUN/Creatinine Ratio 13.5, [id number] H, Calcium 8.7 Rhythm Strip Rhythm Strip: Sinus Rhythm Rate: 73 Ectopy: PAC(s) Assessment & Plan Assessment/Plan (1) Acute hypotension: (2) Acute kidney injury: PLAN: Plan # AG on CKD -BUN 33 and creatinine 2.42, last values available back in June 2023 showeda creatinine of 1.59 -I do suspected that patient is somewhat dehydrated given he has not been movingaround as much and therefore not eating and drinking as well -Gentle IV fluids, will hydrate cautiously given history of heart failure -Holding home Lasix, Entresto, spironolactone today, will need to clarify home doses as patient reports he takes 2 Lasix pills in the a.m. and 1 in the afternoon but he is unsure the strength and this is not reflected on home med list -Avoid nephrotoxic agents -Will check urine studies -Check postvoid and UA -Repeat BMP in the a.m. #Hx COPD -Continue home inhalers -Incentive spirometer #Hx of CAD -w/ previous stenting -Continue home medications # History of chronic heart failure with reduced ejection fraction with AICD -Daily weights, I's and O's -Monitor volume status closely #ALEX - Has NIPPV at home but is noncompliant #Paroxysmal Atrial Fibrillation -Rate control: Appears patient is on metoprolol, also reports he is now on amiodarone -Anticoagulation: Eliquis #DVT ppx: Not indicated, chronically on Eliquis Stephani Sullivan MD Charges/Coding Visit Charges Inpatient E&M: 32227 Init Hosp L2 05/03/25 4097 <Electronically signed by Stephani Sullivan MD> Cosigner Signature (if applicable): CC: Dr. Stephani Sullivan MD; [facility]~ Signed [facility] Work Phone: Hospital Discharge instructions Additional Instructions Check your weight every few days to make sure you are not keeping fluid on. We will treat this like a viral process/COPD exacerbation. You have been placed on a short course of antibiotics.[facility] Work Phone: Reason for referral (narrative)No reason for referral information availableWHolmes County [facility] Work Phone: Summary Purpose Family History Relationship Condition Age at Onset Recorded Date/T regi mother Aneurysm Unknown Advance Directives Advance Directive Response Recorded Date/ Time Advance Directives No March 16 6 5:08pm Living Will No August 28 9:54pm Power of Railroad Car Repairman No August 28, 2022 9:54pm Advance Directive Response Recorded Date/ Time Name of Medical Power of Railroad Car Repairman Adrianne Flores September 24, 2022 10:09pm Advance Directives No March 16 6 4:08pm Living Will Yes September 24, 10:09pm Power of Railroad Car Repairman Yes September 24, 2022 10:09pm Advance Directive Response Recorded Date/ Time Name of Medical Power of Railroad Car Repairman Adrianne Flores September 24, 2022 11:09pm Name of Medical Power of Railroad Car Repairman Daughter in ioana Kathleen January 09, 2023 11:05am Advance Directives No March 16 5:08pm Living Will Yes January 09, 2023 11:05am Power of Railroad Car Repairman Yes January 09 11:05am Advance Directive Response Recorded Date/ Time Name of Medical Power of Railroad Car Repairman Daughter in ioana Kathleen January 09, 2023 11:05am Advance Directives No March 16 6 5:08pm Living Will No April 30, 2023 1 :03pm Power of Railroad Car Repairman No April 30, 2023 1:03pm Advance Directive Response Recorded Date/ Time Name of Medical Power of Railroad Car Repairman ADRIANNE PARHAM [employer] IN LAW May 15, 2023 2:48am Advance Directives No March 16 5:08pm Living Will Yes May 15, 2023 2:48am Power of Railroad Car Repairman Yes May 15 2:48am Advance Directive Response Recorded Date/ Time Name of Medical Power of Railroad Car Repairman ADRIANNE PARHAM ER IN LAW May 15, 2023 2:48am Name of Medical Power of Railroad Car Repairman Adrianne Macias July 14, 2023 8:01pm Advance Directives No March 16 5:08pm Living Will Yes July 14, 2023 8:01pm Power of Railroad Car Repairman Yes June 8:01pm Advance Directive Response Recorded Date/ Time Do you have a Healthcare Power of Railroad Car Repairman? Yes May 03, 2025 12:38pm Advance Directives No March 16 5:08pm Chief Complaint and Reason for Visit Chief Complaint SOB Chief Complaint SOB SOB Chief Complaint SOB HYPOTENSION Chief Complaint HYPOTENSION SHORTNESS OF BREATH, CONSTIPATION Chief Complaint HYPOTENSION SHORTNESS OF BREATH, CONSTIPATION cold sx AECOPD AECOPD AECOPD AECOPD Reason for Visit COPD (chronic obstru ctive pulmonary disease) ICD (implantable cardioverter-defibrillator) in place Paroxysmal A-fib [id number] Acute exacerbation of chronic obstructive pulmonary disease CAD (coronary artery disease) Hypertension Chief Complaint Admit Date HYPOTENSION, AG May 03, 2025 6:18p m Reason for Visit Admit Date Acute hypotension May 03, 2025 6:18p m Acute kidney injury May 03, 2025 6:18p m Additional Source Comments (unrecognized sect ion and content) No Status Records FoundNo Status Records FoundNo Status Records FoundNo Status Records Found INFORMATION SOURCE (unrecogn ized section and content) DATE CREATED AUTHOR 04/22/2018 [facility] ([place]) DATE CREATED AUTHOR AUTHOR'S ORGANIZ ATION 04/23/2018 [facility] DATE CREATED AUTHOR AUTHOR[facility]S OR[facility]IZ ATION [facility] CREATED AUTHOR AUTHOR'S ORGANIZ ATION [facility]/30[facility]2024 [facility] Goals (unrecognized section and content) Goals may be documented in a n alternate sectionGoals may be documented in an alternate sectionGoals may be documented in an alternate sectionGoals may be documented in an alternate sectionGoals may be documented in an alternate sectionGoals may be documented in an alternate section Care Teams (unrecognized sec tion and content) Team Status: Active Member Role Status Dates [facility] Family Provider Active [facility] Primary Care Provider Active Team Status: Inactive Member Role Status Dates [facility] Primary Care Provider Active Dr. Jose Marcano MD Attending Provider, Emergency Provi aliya Active Team Status: Inactive Member Role Status Dates [facility] Primary Care Provider Active Dr. Jocelyne Moyer DO Emergency Provider Active Team Status: Inactive Member Role Status Dates [facility] Primary Care Provider Active Dr. Jocelyne Moyer DO Attending Provider, Emergency P rovider Active Team Status: Inactive Member Role Status Dates [facility] Primary Care Provider Active Dr. Clifton Son DO Emergency Provider Active Team Status: Inactive Member Role Status Dates [facility] Primary Care Provider Active Dr. Clifton Son DO Attending Provider, Emergency P rovider Active Team Status: Inactive Member Role Status Dates [facility] Primary Care Provider Active Dr. Jose Marcano MD Emergency Provider Active Team Status: Active Member Role Status Dates [facility] Primary Care Provider Active Dr. Clifton Son DO Emergency Provider Active Dr. Stephani Sullivan MD Attending Provider Active Team Status: Active Member Role Status Dates [facility] Primary Care Provider Active Dr. Kane Jaramillo MD Attending Provider Active Team Status: Active Member Role Status Dates [facility] Primary Care Provider Active Dr. Clifton Son DO Emergency Provider Active Dr. Stephani Sullivan MD Admit Provider, Other Provider A ctive Dr. Shannon Martínez MD Attending Provider, Other Prov ider Active Team Status: Inactive Member Role Status Dates [facility] Primary Care Provider Active Dr. Clifton Son DO Emergency Provider Active Dr. Stephani Sullivan MD Admit Provider, Other Provider A ctive Dr. Shannon Martínez MD Attending Provider Active Team Status: Active Member Role/Relationship Status Dates [facility] Primary Care Provider Active Team Status: Active Member Role/Relationship Status Dates [facility] Primary Care Provider Active Start: May 03, 2025 Dr. Yannick Underwood MD Emergency Provider Active S tart: May 03, 2025 Dr. Stephani Sullivan MD Admit Provider Active Star t: May 03, 2025 Dr. Stephani Sullivan MD Attending Provider Active Start: May 03, 2025 Dr. Stephani Sullivan MD Other Provider Active Star t: May 03, 2025 FOR RECORDS PERTAINING TO PATIENTS WHO ARE OR HAVE BEEN ENROLLED IN A CHEMICAL DEPENDENCY/SUBSTANCEABUSE PROGRAM, SOME INFORMATION MAY BE OMITTED. This clinical summary was aggregated from multiple sources. Caution should be exercised in using it in the provision of clinical care. This summary normalizes information from multiple sources, and as a consequence, information in this document may materially change the coding, format and clinical context of patient data. In addition, data may be omitted in some cases. CLINICAL DECISIONS SHOULD BE BASED ON THE PRIMARY CLINICAL RECORDS. [facility]. provides no warranty or guarantee of the accuracy or completeness of information in this document.
== END 2025-05-04 16:10 | disposition home or self-care (01) ==
LOC: ED 17:45 → PCU 18:26
PROVIDERS: Admitting Provider Internal Medicine; Emergency Provider Emergency Medicine; Visit Provider Family Medicine
DX: N17.9 Acute kidney failure, unspecified (principal); I13.0 Hypertensive heart and chronic kidney disease with heart failure and stage 1 through stage 4 chronic kidney disease, or unspecified chronic kidney disease; I50.22 Chronic systolic (congestive) heart failure; J44.9 Chronic obstructive pulmonary disease, unspecified; I48.0 Paroxysmal atrial fibrillation; E66.01 Morbid (severe) obesity due to excess calories; E11.22 Type 2 diabetes mellitus with diabetic chronic kidney disease; N18.30 Chronic kidney disease, stage 3 unspecified; E86.0 Dehydration; Z95.5 Presence of coronary angioplasty implant and graft; G47.33 Obstructive sleep apnea (adult) (pediatric); Z87.891 Personal history of nicotine dependence; I25.10 Atherosclerotic heart disease of native coronary artery without angina pectoris; Z95.810 Presence of automatic (implantable) cardiac defibrillator; E78.5 Hyperlipidemia, unspecified; Z79.51 Long term (current) use of inhaled steroids; Z68.37 Body mass index [BMI] 37.0-37.9, adult; Z79.899 Other long term (current) drug therapy; Z79.01 Long term (current) use of anticoagulants; I25.2 Old myocardial infarction; R55 Syncope and collapse; T50.2X5A Adverse effect of carbonic-anhydrase inhibitors, benzothiadiazides and other diuretics, initial encounter
CPT/HCPCS: 36415; 76770; 80048; 81001; 82436; 82570; 84133; 84300; 84540; 85025; 93005; 94640; 96360; 99221; 99285; A4216; G0378